=== PATIENT | female | born 1935 | race Caucasian/White ===

== ENCOUNTER → 2019-08-31 15:09 | Outpatient (CLI) | payer MEDICARE, OTHER, SELFPAY ==
--- NOTE | 2019-08-31 15:14 | BI_ITS ---
MAMMOGRAPHY - BILATERAL SCREENING REASON FOR EXAM: Female, 83 years old. Routine annual screening examination. PERTINENT HISTORY: History of bilateral excisional breast biopsies. TECHNIQUE: Digital bilateral breast kitty (3D mammographic acquisition) in the CC and MLO projections. 2-D mediolateral oblique (MLO) and craniocaudad (CC) views of both breasts were obtained. CAD: Full Field Digital Mammography with Computer Added Detection was performed. COMPARISON: Comparison is made with prior outside examination dated May 30, 2018 and April 27, 2016. FINDINGS: Breast Composition: There are scattered areas of fibroglandular density. There are no dominant masses or suspicious calcifications. There is a 1.2 cm x 1.2 cm well-defined nodule in the slightly inferior central portion of the left breast. Correlation with ultrasound is recommended for further evaluation. No other significant abnormalities are identified. BI/SCREEN MAMM (CAD) W/KITTY BILAT IMPRESSION: Nodular density in the left breast as described. Correlation with ultrasound is recommended for further evaluation. ASSESSMENT CATEGORY: BIRADS Category 0: Incomplete. Need additional imaging evaluation. A letter regarding these results will be sent to the patient by the facility within 30 days. Approximately 10% of breast cancers are not detected by mammography. A normal mammogram should not delay biopsy of a clinically suspicious abnormality. [id number] Electronically Signed: Fletcher Thompson, at 15:43 EDT , Service support ,
== END ==
PROVIDERS: Family Provider Family Medicine; PCP Family Medicine; Referring Provider Family Medicine; Visit Provider Family Medicine
DX: Z12.31 Encounter for screening mammogram for malignant neoplasm of breast (principal)
CPT/HCPCS: 77063; 77067

== ENCOUNTER → 2019-09-12 10:49 | Outpatient (CLI) | payer MEDICARE, OTHER, SELFPAY ==
--- NOTE | 2019-09-12 10:52 | US_ITS ---
STUDY: ULTRASOUND BREAST - LEFT REASON FOR EXAM: Female, 83 years old. Abnormal screening mammogram. TECHNIQUE: Axial and longitudinal images of the LEFT breast were performed with a high resolution ultrasound transducer. COMPARISON: Comparison made with prior mammogram dated August 31, 2019. FINDINGS: LEFT Breast: The mammographic abnormality corresponds to a 1.4 cm x 0.8 cm x 0.5 cm solid hypoechoic nodule at the 6:00 position of the breast at 2 cm from the nipple. Biopsy is recommended. US/Breast Limited Unilateral IMPRESSION: The mammographic abnormality corresponds to 1.4 cm x 0.8 cm x 0.5 cm solid hypoechoic nodule. Biopsy is recommended. ASSESSMENT CATEGORY: BIRADS Category 4: Suspicious - Biopsy Should Be Considered. A letter regarding these results will be sent to the patient by the facility within 30 days. Electronically Signed: Fletcher Thompson, at 8:11 EST , Service support ,
== END ==
PROVIDERS: Family Provider Family Medicine; PCP Family Medicine; Referring Provider Family Medicine; Visit Provider Family Medicine
DX: R92.8 Other abnormal and inconclusive findings on diagnostic imaging of breast (principal)
CPT/HCPCS: 76642

== ENCOUNTER 2020-11-04 09:07 | Inpatient (IN) | payer MEDICARE, OTHER, SELFPAY ==
[2020-11-04] VITALS (19 sets, daily range): BP systolic 105–134; BP diastolic 64–91; PULSE 84–161; RESP 11–21; TEMP 36–36.9; O2SAT 94–99; BMI 24.4; BMI 24.5
--- NOTE | 2020-11-04 09:19 | EKG12_ITS ---
Test Reason : REPEAT EKG Blood Pressure : / mmHG Vent. Rate : 077 BPM Atrial Rate : 077 BPM P-R Int : 000 ms QRS Dur : 102 ms QT Int : 394 ms P-R-T Axes : 000 -39 075 degrees QTc Int : 445 ms Atrial fibrillation Left axis deviation Inferior infarct , age undetermined Poor R wave progression Anterior SD, age undetermined, cannot be excluded Abnormal ECG Confirmed by GOSIA MCNEIL, BEATRIS ([id number]), newspaper editor managing CONCHA BRENNER ([id number]) on 11/05/2020 10:56:54 AM Referred By: KEMI Confirmed By:BEATRIS ELISE MD
--- NOTE | 2020-11-04 09:20 | ED.DCSUM_ITS ---
- ER Visit Summary Date of Service: 11/04/20 Chief Complaint: [Chest pain and racing heart] History of Present Illness: The patient is a 85 F [presents to the emergency department with symptoms that started last evening around 10:30 PM. Patient states that her chest discomfort lasted about an hour and was around her breastbone. Patient states she really had a hard time sleeping all night. She does feel like her heart is racing. She denies any shortness of breath or nausea or vomiting. She denies recent illness such as fever or cough. She is not had any exposures to COVID-19. Patient denies recent travel or surgery. Patient does have history of hypertension. Currently she has no chest pain.] Physical Examination: [HEENT-PERRLA, EOMI. Cranial nerves II through XII grossly intact. TMs clear. Mucous membranes moist. No adenopathy. Cardiovascular-irregularly irregular and tachycardic. No murmurs auscultated. Lungs-clear to auscultation, chest wall stable without crepitus or subcu emphysema Abdomen-normoactive bowel sounds, soft, nontender, no rebound or rigidity, no peritoneal signs. Extremities-intact ?4, normal range of motion, normal pulses, atraumatic] Test Results: [EKG obtained on arrival showed atrial fibrillation with a rapid ventricular response with a rate of [address] changes noted. Patient had subtle ST depression laterally. CBC with differential showed a white count 7.8, hemoglobin 13, hematocrit 40, plates 195. Chemistries unremarkable. Troponin was 0.137. Repeat EKG after patient was slow down with Cardizem showed a atrial fibrillation rhythm with a rate of 77 bpm and resolution of the ST depression laterally. Chest x-ray obtained read by myself as mild pulmonary congestion and borderline cardiomegaly otherwise nothing acute. Official report from radiology pending.] Emergency Department Course and Treatment: [IV line established on arrival. Patient placed on cardiac monitor technician. Patient given Cardizem 20 mg IV bolus. Patient given 4 baby aspirin. Patient was started on Lovenox 60 mg subcu.] Treatment Plan: [Admit for further treatment of her chest pain and atrial fibrillation] Disposition: [Admit] Impression: [Chest pain/non-ST elevation CT Atrial fibrillation with rapid ventricular response] This note was generated with [employer] software. It may contain incorrect words, spelling, and punctuation that were not noted in review of the chart prior to signing ED Disposition - Plan for ED Patient: Referrals: Thierry Swift MD [Primary Care Provider] -
[2020-11-04 09:25] LABS: Absolute Lymphocyte Count 2.32 X10^3/uL (0.83-4.51); Absolute Neutrophil Count 4.9 X10^3/uL (2.0-7.7); Basophil# 0.03 X10^3/uL; Basophil% 0.4 % (0-1); Eosinophil# 0.04 X10^3/uL; Eosinophils% 0.5 % (0-5); Hemoglobin 13.1 g/dL (12.0-15.0); Lymphocyte # 2.32 X10^3/ul (4.0); Lymphocyte % 29.7 % (19-41); Mean Corp Hgb Conc 32.8 g/dL (32-36); Mean Corpuscular Hgb 30.8 pg (27.0-32.0); Mean Corpuscular Volume 94.1 fL (81-99); Mean Platelet Vol. 10.6 fl (6.2-12.0); Monocyte# 0.54 X10^3/uL; Monocyte% 6.9 % (0-10); NRBC Flagged by Analyzer 0 % (0-5); Neutrophil # 4.86 X10^3/uL (2.7-7.7); Neutrophil % 62.1 % (47-70); Platelet Count 195 K/mm3 (150-450); RBC Distribution Width CV 12.6 % (11.6-14.6); RBC Distribution Width SD 43.6 fl (35.1-43.9); Red Blood Count 4.25 M/mm3 (4.2-5.4); White Blood Count 7.8 K/mm3 (4.4-11.0)
[2020-11-04] MEDS: dilTIAZem 25 MG/5 ML Vial 20 MG IV BOLUS (09:26)
[2020-11-04] MEDS: Aspirin 81 MG TAB.CHEW 324 MG PO (09:26)
[2020-11-04] MEDS: 0.9% Normal Saline 1,000 ML 150 ML IV (09:26)
[2020-11-04 09:42] LABS: Anion Gap 9 (5-15); BUN 16 mg/dL (7-18); BUN/Creat Ratio 16.3 RATIO (10-20); Calcium,Total 9.2 mg/dL (8.5-10.1); Chloride 103 mmol/L (98-107); Creatinine, Serum 0.98 mg/dL (0.55-1.02); EST Glomerular Filtration Rate 57 mL/min (>60); Est Glom Filt Rate - Afr Amer 69 mL/min (>60); Glucose 125 mg/dL (74-106); Potassium 3.5 mmol/L (3.5-5.1); Sodium Level 138 mmol/L (136-145)
--- NOTE | 2020-11-04 09:46 | EKG12_ITS ---
Test Reason : TACHY Blood Pressure : / mmHG Vent. Rate : 148 BPM Atrial Rate : 159 BPM P-R Int : 000 ms QRS Dur : 096 ms QT Int : 310 ms P-R-T Axes : 000 -41 116 degrees QTc Int : 486 ms Atrial fibrillation Left axis deviation Inferior infarct , age undetermined Anterior infarct , age undetermined , cannot be excluded ST & T wave abnormality, consider lateral ischemia Abnormal ECG Confirmed by GOSIA MCNEIL, BEATRIS ([id number]), content editor CONCHA BRENNER ([id number]) on 11/05/2020 10:57:22 AM Referred By: KEMI Confirmed By:BEATRIS ELISE MD
--- NOTE | 2020-11-04 09:50 | RAD_ITS ---
STUDY: X-RAY CHEST REASON FOR EXAM: Female, 85 years old. CHEST PAIN LAST NIGHT TECHNIQUE: Single AP portable view of the chest. COMPARISON: None. FINDINGS: Normal cardiac silhouette. Pulmonary vascularity unremarkable. Aorta calcified. COPD with atelectasis/scarring. No focal patchy airspace opacities. No pleural effusions. Upper abdomen unremarkable. Osseous structures demineralized with degenerative changes. No pneumothorax. RAD/Chest 1 View (Portable) IMPRESSION: No focal patchy airspace opacities or effusions COPD with atelectasis/scarring Electronically Signed: Manpreet Renner DO at 10:05 EST Tel , Service support ,
--- NOTE | 2020-11-04 09:50 | ED.RN ---
Spoke with pt's daughter and gave update. She is aware pt will be admitted.
[2020-11-04] MEDS: Enoxaparin 60 MG/0.6 ML Syringe SC ×2 (10:36→20:21)
[2020-11-04] MEDS: dilTIAZem 60 MG Tablet PO ×3 (10:36→17:36)
--- NOTE | 2020-11-04 11:05 | ECHOD_ITS ---
Reason For Study: AFIB/FLUTTER Procedure This was a 2D Doppler, Color Flow transthoracic echocardiogram. The exam was of adequate technical quality. Exam performed portable in patient room. Left Ventricle Normal LV size. Left ventricular systolic function is normal. The estimated ejection fraction is 65 %. Unable to assess diastolic dysfunction. No regional wall motion abnormalities noted. Right Ventricle Normal RV size. Normal systolic function. Atria The left atrium is moderately enlarged. Normal right atrium. Probable chiari network. No doppler evidence for ASD. Mitral Valve There is no mitral annular calcification. Mild focal mitral valve calcification, bileaflet. The mitral valve chordae are thickened and/or calcified. Mild mitral valve stenosis. Moderate (2+) eccentric mitral valve insufficiency. Tricuspid Valve Normal tricuspid valve. Moderate (2+) tricuspid valve insufficiency. Right ventricular systolic pressure estimated to be 31 mmHg. Aortic Valve Trisinus/trileaflet aortic valve. Moderate focal aortic valve calcification. Mild aortic stenosis. Pulmonic Valve The pulmonic valve is not well visualized. Mild (1+) pulmonic valve insufficiency. Great Vessels Normal sized aortic root. Calcified aortic root. Pericardium/Pleural No pericardial effusion. MMode/2D Measurements & Calculations LVIDd: 4.0 cm IVSd: 0.99 cm LVOT diam: 2.0 cm LVIDs: 2.7 cm LVPWd: 0.97 cm LVOT area: 3.1 cm2 RVDd: 2.5 cm FS: 33.2 % LAV(MOD-bp): 76.1 ml LA A4 area: 20.0 cm2 LA dimension(2D): 4.4 cm LAV(MOD-bp) Indexed: 49.8 ml/m2 LAV(MOD-sp2): 67.8 ml LAV(MOD-sp4): 67.0 ml RA A4 area: 10.6 cm2 Doppler Measurements & Calculations MV E max oliver: 170.1 cm/sec MV V2 max: 193.0 cm/sec Ao V2 max: 255.6 cm/sec MV max P.9 mmHg Ao max P.1 mmHg MV V2 mean: 97.2 cm/sec Ao V2 mean: 196.3 cm/sec MV mean P.0 mmHg Ao mean P.6 mmHg MV V2 VTI: 43.3 cm Ao V2 VTI: 50.4 cm MVA(VTI): 1.6 cm2 KUNAL(I,D): 1.4 cm2 KUNAL(V,D): 1.3 cm2 LV V1 max: 105.0 cm/sec SV(LVOT): 71.1 ml PA V2 max: 121.5 cm/sec LV V1 max P.4 mmHg LV V1 mean P.8 mmHg LV V1 mean: 79.7 cm/sec LV V1 VTI: 22.7 cm TR max oliver: 263.4 cm/sec TR max P.7 mmHg Interpretation Summary Left ventricular systolic function is normal. The estimated ejection fraction is 65 %. The left atrium is moderately enlarged. Probable chiari network. Mild focal mitral valve calcification, bileaflet. The mitral valve chordae are thickened and/or calcified. Mild mitral valve stenosis. Moderate (2+) eccentric mitral valve insufficiency. Moderate (2+) tricuspid valve insufficiency. Mild aortic stenosis. Mild (1+) pulmonic valve insufficiency. Calcified aortic root. Right ventricular systolic pressure estimated to be 31 mmHg. Unable to assess diastolic dysfunction. Ordering Physician: Jonah Golden Referring Physician: judy Swift Performed By: Nyla Gomez RDCS, RVT
[2020-11-04 11:45] LABS: Thyroid Stim Hormone (TSH) 1.19 uIU/mL (0.358-3.74)
--- NOTE | 2020-11-04 15:35 | CASEMGMT ---
Per Edith MENA, pt wanted to discuss her observation status at this time. This RN CM to room to speak with pt and pt is currently getting an ECHO at this time. This RN CM will attempt to speak with pt again tomorrow. Ceci MEAN CM
--- NOTE | 2020-11-04 19:00 | PCS.PANDOC ---
PANDEMIC DOCUMENTATION INITIATED: Date: 11/04/20 Time: 11:07
--- NOTE | 2020-11-04 19:22 | PCM.CONS.C ---
Problem List (1) NSTEMI (non-ST elevated myocardial infarction) Status: Acute (2) Atrial fibrillation Status: Acute (3) HTN (hypertension) Status: Chronic Reason for Consult Date of Consultation: 11/04/20 History of Present Illness: The patient is a 85 year old white female with a past medical history of hypertension who presents for evaluation of atrial fibrillation with RVR and subsequent laboratory findings concerning for a non-ST segment elevation IL. The patient states he had been evaluated by a cognos report developer in the remote past. She believes it may have been for a cardiac murmur. She believes she may have underwent an exercise tolerance test. She does not recall any additional studies. She also states at one point time the past she was treated for hyperlipidemia. She could not tolerate the lipid-lowering medication. It was stopped. She states her PCP has checked her lipid labs since that time and told her they were normal and she did not need medication. She states yesterday evening after attending a family birthday libertarian she returned home. She developed chest discomfort which she states was in the center of her chest and it heart . She readily admits she has a hard time describing her chest discomfort. She may have felt somewhat winded . She also felt her heart rate going fast. She rested on her sofa for period of time. She states she felt somewhat better after she was resting. She does not recall any nausea, emesis, or diaphoresis. She states she may have felt somewhat dizzy but did not lose consciousness. Today as her symptoms persisted she contacted her PCP which instructed her to present to the emergency department for further evaluation. She was evaluated in the emergency department. She was found to be in atrial fibrillation with RVR. She was treated medically with IV diltiazem in attempt to slow her rate. She was subsequently placed in the PCU. Her troponin I levels have been indeterminant and subsequently increased. Her ECG demonstrated the appearance of atrial fibrillation with left axis deviation with poor R wave progression with an anterior IL pattern of indeterminate age cannot be excluded and inferior IL pattern of indeterminate age cannot be excluded along with nonspecific ST and T wave abnormality. She underwent evaluation with a transthoracic echocardiogram. The results are as noted below. She was transitioned to oral diltiazem therapy. However her heart rate has increased again back to atrial fibrillation with RVR. She states she can sense her heart rate going faster again. She has not complained previously of orthopnea or PND. She states she has had minimal to mild waxing and waning lower extremity peripheral pitting edema after standing all day long. She has had no history of syncope. She states she remains otherwise active. She was referred for further cardiovascular evaluation including consideration for diagnostic cardiac catheterization. [] Past Medical History Allergies/Adverse Reactions: Allergies erythromycin base Allergy (Verified 11/04/20 09:08) Rash Penicillins Allergy (Verified 11/04/20 09:08) Hives Home Medications: Ambulatory Orders Medication Instructions Recorded Aspirin [Aspirin, Baby] 81 mg PO DAILY@0800 03/12/17 Fluticasone 0.05% [Flonase Nasal 2 spray NASAL DAILY PRN PRN 03/12/17 [place]] Glucosam/Reuben-Msm1/C/Aries/Bosw 2 each PO DAILY 03/12/17 [Osteo Bi-Flex Caplet] Losartan/Hydrochlorothiazide 1 each PO DAILY 03/12/17 [Losartan-Hctz 100-25 mg Tab] Multivit-Min/FA/Lycopen/Lutein 1 each PO DAILY 03/12/17 [Centrum Silver Tablet] Vitamin E 400 units PO DAILY 03/12/17 Famotidine 40 mg PO DAILY 11/04/20 Vitamin D3 1,000 units PO BID 11/04/20 Past Medical History (Chronic Problems): Chronic Problems HTN (hypertension) (Chronic) Smoking Status: Never smoker Alcohol: None Drugs: None Review of Systems - Review of Systems General: Denies: Fever, Night Sweats, Fatigue Cardiovascular: Reports: Chest Discomfort, Chest Discomfort at Rest, Shortness of Breath, Palpitations, Dizziness. Denies: Orthopnea, PND, Peripheral Edema, Lightheadedness, Near Syncope, Syncope Respiratory: Reports: Shortness of Breath. Denies: Cough, Sputum Production, Hemoptysis Gastrointestinal: Denies: Hematemesis, Hematochezia, Melena Genitourinary: Denies: Dysuria, Hematuria Skin: Denies: Rash Subjectve: This is a very pleasant awake alert active appearing 85-year-old white female who appears to be resting reasonably comfortably at the moment in no acute distress. Objective: Vital Signs Temp Pulse Resp BP Pulse Ox 98.4 F 120 H 18 118/70 96 11/04/20 17:30 11/04/20 17:30 11/04/20 17:30 11/04/20 17:30 11/04/20 17:30 Oxygen Delivery Method Room Air Weight: 125 lb 3.561 oz Body Mass Index (BMI) 24.4 Intake and Output for Last 24 Hours 11/02/20 11/03/20 11/04/20 23:59 23:59 23:59 Intake Total 1070 / 1070 Balance 1070 / 1070 General: Awake, Alert, Oriented x 3, Cooperative, No Acute Distress HEENT: Atraumatic, Normocephalic, PERRL, EOMI, Sclera Non Icteric Neck: Supple, Good ROM, No JVD Lungs: Clear to auscultation Cardiovascular: Irregular Rhythm, Normal S1, Normal S2 Murmur Murmur: Grade 2/6, Harsh, Mid Systolic, LLSB, LVOT Vascular: No Carotid Bruits Abdomen: Bowel Sounds Present, Soft Extremities: No edema Neurological: No Focal Motor or Sensory Deficit Psych/Mental Status: Appropriate 11/04/20 09:16: WBC 7.8, RBC 4.25, Hgb 13.1, Hct 40.0, MCV 94.1, MCH 30.8, MCHC 32.8, Plt Count 195, MPV 10.6, Immature Gran % (Auto) 0.400, Neut % (Auto) 62.1, Lymph % (Auto) 29.7, [place] % (Auto) 6.9, Eos % (Auto) 0.5, Baso % (Auto) 0.4, Absolute Neuts (auto) 4.9, Nucleated RBC % 0 11/04/20 09:16: Sodium 138, Potassium 3.5, Chloride 103, Carbon Dioxide 26.0, Anion Gap 9, BUN 16, Creatinine 0.98, Est GFR (MDRD) Af Amer 69, Est GFR (MDRD) Non-Af 57 L, BUN/Creatinine Ratio 16.3, Glucose 125 H, Calcium 9.2, Troponin I 0.137 H 11/04/20 12:25: Troponin I 0.209 H 11/04/20 15:11: Troponin I 0.227 H Rhythm: Atrial fibrillation EKG: As noted above ECHO: Interpretation Summary Left ventricular systolic function is normal. The estimated ejection fraction is 65 %. The left atrium is moderately enlarged. Probable chiari network. Mild focal mitral valve calcification, bileaflet. The mitral valve chordae are thickened and/or calcified. Mild mitral valve stenosis. Moderate (2+) eccentric mitral valve insufficiency. Moderate (2+) tricuspid valve insufficiency. Mild aortic stenosis. Mild (1+) pulmonic valve insufficiency. Calcified aortic root. Right ventricular systolic pressure estimated to be 31 mmHg. Unable to assess diastolic dysfunction. CXR: Preliminary evaluation: No acute cardiopulmonary disease process appreciated: Please see official report Assessment/Plan 1. Non-ST segment elevation IL The patient presents with findings concerning for a non-ST segment elevation IL. This is based upon a combination of her symptoms, her cardiac enzyme changes, and her ECG changes. It is unclear as to whether or not this is a primary type I event versus potentially a type II event from supply demand mismatch from her atrial fibrillation with RVR. At the present time she continues to be monitored. Her cardiac enzymes and ECG have been followed. She has undergone evaluation with transthoracic echocardiogram. At the present time she will continue medical therapy. This will include aspirin, antiplatelets, anticoagulants as deemed appropriate, beta-sonya therapy, further assessment of her lipid profile for the need for lipid-lowering therapy, and other medications as deemed appropriate. It would also include consideration for further evaluation with diagnostic cardiac catheterization. The procedure and risks were discussed with the patient with her daughter present. She was agreeable to this approach. 2. Atrial fibrillation with RVR She has documented atrial fibrillation with RVR. This may be secondary to combination of her age, history of hypertension, and whether or not she does have any underlying cardiovascular disease. She has not been known to have other etiologies too quickly explain her atrial fibrillation. At the moment she will continue rate control therapy. It may be reasonable to consider an attempt at antiarrhythmic therapy with IV amiodarone and attempt to regain rate control and regain sinus rhythm. She will need continue anticoagulant therapy and then around the time of her other procedures as deemed appropriate. 3. Hypertension She states she does have a history of hypertension. She will need to continue medical management. Comment: The above was discussed and reviewed with the patient, her daughter, and Dr. Golden. This note was generated using a voice recognition system and there may be incorrect words, spelling or punctuation that were not noted when reviewing the office note prior to saving. Procedure Criteria Procedure Type: Elective COVID Risk Discussion: The surgeon/proceduralist and patient have discussed in detail the risk of exposure to and/or potential harm posed by the COVID-19 virus with having a surgery/procedure at this time versus the risk of delaying the surgery/procedure. It is not possible to know either the risk of delaying the surgery or procedure or chance of getting an infection with perfect accuracy, but a joint decision was made between the patient and the surgeon/proceduralist to proceed at this time with the scheduled surgery/procedure as indicated on the consent form.
--- NOTE | 2020-11-04 20:06 | HP.PCM_ITS ---
History of Present Illness Date of Admission: 11/04/20 Chief Complaint: Chest pain The patient is a 85 year old F with a PMH as below who presents from home with chest pain and tachycardia. She states that last night her daughter dropped her off at home and as she was walking into her house she developed some chest pain and palpitations. She decided to sit on the couch and when that did not help her pain she moved to her bedroom and just laid in bed and after about an hour of laying there her chest pain resolved and her heart rate seemed to come down. She fell asleep and in the morning still felt a little bit off though she denied any further chest pain or palpitations and so she called her daughter who brought her into the ER. In the ER she was found to be in RVR with a heart rate of 160 and an elevated troponin to 0.137. Chest x-ray showed potential depressions in the lateral leads however as her heart rate came down with a Cardizem bolus in the ED the ST depressions resolved. Because of her new onset A. fib with RVR as well as her chest pain she was admitted for further work-up Past Medical History Past Medical History (Chronic Problems): Chronic Problems HTN (hypertension) (Chronic) Allergies erythromycin base Allergy (Verified 11/04/20 09:08) Rash Penicillins Allergy (Verified 11/04/20 09:08) Hives Home Medications: Ambulatory Orders Medication Instructions Recorded Aspirin [Aspirin, Baby] 81 mg PO DAILY@0800 03/12/17 Fluticasone 0.05% [Flonase Nasal 2 spray NASAL DAILY PRN PRN 03/12/17 [place]] Glucosam/Reuben-Msm1/C/Aries/Bosw 2 each PO DAILY 03/12/17 [Osteo Bi-Flex Caplet] Losartan/Hydrochlorothiazide 1 each PO DAILY 03/12/17 [Losartan-Hctz 100-25 mg Tab] Multivit-Min/FA/Lycopen/Lutein 1 each PO DAILY 03/12/17 [Centrum Silver Tablet] Vitamin E 400 units PO DAILY 03/12/17 Famotidine 40 mg PO DAILY 11/04/20 Vitamin D3 1,000 units PO BID 11/04/20 Surgical History: cholecystectomy, hysterectomy Smoking Status: Never smoker Alcohol: None Drugs: None - *Family History Maternal History Items: Stroke, - - Multiple myeloma Paternal History Items: Diabetes, Stroke Review of Systems Constitutional: Denies: Chills, Fever, Weight Change HEENT: Denies: Head Aches, Sinus Congestion, Sinus Drainage Cardiovascular: Reports: Chest Pain, Palpitations. Denies: Orthopnea, Syncope Respiratory: Denies: Cough, Shortness of breath at rest, Sputum production Gastrointestinal: Denies: Abdominal Pain, Nausea, Vomiting Genitourinary: Denies: Dysuria Musculoskeletal: Denies: Joint Pain, Joint Tenderness Skin: Denies: Rash, Wounds Neurological: Denies: Numbness, Tingling, Focal weakness Psychiatric: Denies: Anxiety, Depression Hematologic/ Lymphatic: Denies: Easy Bruising, Easy Bleeding VTE Information - Inpt Only VTE Present on Admission: No Patient Problems: Active and Suspected Problems NSTEMI (non-ST elevated myocardial infarction) (Acute) Atrial fibrillation (Acute) - Physical Exam Vitals/I&O's: Vital Signs Temp Pulse Resp BP Pulse Ox 98.4 F 120 H 18 118/70 96 11/04/20 17:30 11/04/20 17:30 11/04/20 17:30 11/04/20 17:30 11/04/20 17:30 Oxygen Delivery Method Room Air Weight: 125 lb 3.561 oz Body Mass Index (BMI) 24.4 Intake and Output for Last 24 Hours 11/02/20 11/03/20 11/04/20 23:59 23:59 23:59 Intake Total 1070 / 1070 Balance 1070 / 1070 General: Alert, Oriented x3, Cooperative, No apparent distress HEENT: Atraumatic, PERRLA, EOMI, Normocephalic Oral: Moist Mucosa Neck: Supple, No JVD Lungs: Clear to auscultation, Normal air movement, No rhonchi, No wheeze, No rales Cardiovascular: Regular rate - Irregular rhythm, Normal S1, Normal S2, Murmur - 2/6 MARIA DEL CARMEN Abdomen: Soft, Non Tender, Non-Distended, No Hepato-splenomegaly Extremities: No edema, Capillary Refill Less than 3 Seconds Skin: No rashes, No breakdown Neurological: Neuro grossly intact, Sensory exam intact to light touch and pain Psych/Mental Status: Normal Affect, Appropriate Laboratory Results 11/04/20 09:16: WBC 7.8, RBC 4.25, Hgb 13.1, Hct 40.0, MCV 94.1, MCH 30.8, MCHC 32.8, RDW Std Deviation 43.6, RDW Coeff of Grace 12.6, Plt Count 195, MPV 10.6, Immature Gran % (Auto) 0.400, Neut % (Auto) 62.1, Lymph % (Auto) 29.7, [place] % (Auto) 6.9, Eos % (Auto) 0.5, Baso % (Auto) 0.4, Absolute Neuts (auto) 4.9, Absolute Lymphs (auto) 2.32, Nucleated RBC % 0 11/04/20 09:16: Sodium 138, Potassium 3.5, Chloride 103, Carbon Dioxide 26.0, Anion Gap 9, BUN 16, Creatinine 0.98, Estim Creat Clear Calc 29.60, Est GFR (MDRD) Af Amer 69, Est GFR (MDRD) Non-Af 57 L, BUN/Creatinine Ratio 16.3, Glucose 125 H, Calcium 9.2, Troponin I 0.137 H 11/04/20 09:16: TSH 1.19 11/04/20 12:25: Troponin I 0.209 H 11/04/20 15:11: Troponin I 0.227 H Current Medications Acetaminophen (Acetaminophen 325 Mg Tablet) 650 mg PO Q6H PRN PRN PRN Reason: Pain Score 1-10/Temp > 100.7 F Clopidogrel Bisulfate (Clopidogrel Bisulfate 75 Mg Tablet) 75 mg PO DAILY MAIA Sodium Chloride () 250 mls @ 15 mls/hr IV .[id number] PRN PRN Reason: Saline Flush Sodium Chloride () 250 mls @ 15 mls/hr IV .[id number] PRN PRN Reason: Additional IVPB Infusion Amiodarone HCl 360 mg/ (Dextrose) 200 mls @ 33.333 mls/hr CONT INF .Q6H MAIA Stop: 11/05/20 01:44 Sodium Chloride () 1,000 mls @ 0 mls/hr IV .Q0M MAIA Amiodarone HCl 360 mg/ (Dextrose) 200 mls @ 16.667 mls/hr CONT INF .Q12H [facility] Stop: 11/05/20 19:44 Melatonin (Melatonin 3 Mg Tablet) 3 mg PO QHS PRN PRN PRN Reason: INSOMNIA Metoprolol Tartrate (Metoprolol Tartrate 25 Mg Tablet) 25 mg PO BID [facility]IA Ondansetron HCl (Ondansetron 4 Mg/2 Ml Vial) 4 mg IV Q8H PRN PRN PRN Reason: NAUSEA/VOMITING Sodium Chloride (0.9% Saline Lock 10 Ml Syringe) 10 - 40 ml IV UD PRN PRN Reason: SALINE FLUSH Assessment/Plan All Active Problems NSTEMI (non-ST elevated myocardial infarction) (Acute) Atrial fibrillation (Acute) 1. Chest pain/non-STEMI/new onset A. fib with RVR/HTN -Initially her A. fib resolved with the Cardizem bolus and so she was transitioned to 60 mg p.o. every 6 of Cardizem however later in the evening her RVR returned and cardiology had seen her and recommended transitioning her to amiodarone to try to return her into normal sinus rhythm -She was also transitioned to metoprolol 25 mg p.o. twice daily -She also be placed on Plavix -We will continue with therapeutic Lovenox, given her age and gender she is at least 3 points on the [id number] score therefore she will plan to discharge her on 2.5 mg of p.o. Eliquis -Appreciate cardiology assistance, plan for cardiac cath in the morning given the bump in her troponin secondary to her inherent stress test with her A. fib with RVR -We will hold her home losartan and hydrochlorothiazide as will likely make changes to her medications 2. GERD -Stable -Continue with H2 sonya DVT: Therapeutic Lovenox OBSV E&M: [id number] Initial observation care L3
[2020-11-04] MEDS: Amiodarone 360 MG in Dextrose 5% Viaflo Bag 192.8 ML 33.3 MG CONT INF (20:15)
[2020-11-04] MEDS: Clopidogrel Bisulfate 300 MG Tablet PO (20:20)
[2020-11-04] MEDS: Metoprolol Tartrate 25 MG Tablet PO (22:07)
[2020-11-05] VITALS (28 sets, daily range): BP systolic 113–168; BP diastolic 66–100; PULSE 59–104; RESP 9–22; TEMP 36.3–36.8; O2SAT 93–99
[2020-11-05] MEDS: Amiodarone 360 MG in Dextrose 5% Viaflo Bag 192.8 ML 16.7 MG CONT INF (02:16)
--- NOTE | 2020-11-05 05:55 | EKG12_ITS ---
Test Reason : AM EKG Blood Pressure : / mmHG Vent. Rate : 067 BPM Atrial Rate : 067 BPM P-R Int : 150 ms QRS Dur : 114 ms QT Int : 432 ms P-R-T Axes : 059 -42 073 degrees QTc Int : 456 ms Normal sinus rhythm Left axis deviation [id number] Abnormal ECG Confirmed by GOSIA MCNEIL, BEATRIS ([id number]), editor newspaper SRAVANTHI OLIVAREZ ([id number]) on 11/06/2020 9:03:22 AM Referred By: DR ANN Confirmed By:BEATRIS ELISE MD
[2020-11-05] MEDS: Metoprolol Tartrate 25 MG Tablet PO ×2 (06:03→20:59)
[2020-11-05] MEDS: Clopidogrel Bisulfate 75 MG Tablet PO (06:03)
[2020-11-05 06:04] LABS: Absolute Lymphocyte Count 2.34 X10^3/uL (0.83-4.51); Absolute Neutrophil Count 4.4 X10^3/uL (2.0-7.7); Basophil# 0.05 X10^3/uL; Basophil% 0.7 % (0-1); Eosinophil# 0.16 X10^3/uL; Eosinophils% 2.2 % (0-5); Hematocrit 38.6 % (37-47); Hemoglobin 12.7 g/dL (12.0-15.0); Lymphocyte # 2.34 X10^3/ul (4.0); Lymphocyte % 31.6 % (19-41); Mean Corp Hgb Conc 32.9 g/dL (32-36); Mean Corpuscular Hgb 30.4 pg (27.0-32.0); Mean Corpuscular Volume 92.3 fL (81-99); Mean Platelet Vol. 10.9 fl (6.2-12.0); Monocyte# 0.39 X10^3/uL; Monocyte% 5.3 % (0-10); NRBC Flagged by Analyzer 0 % (0-5); Neutrophil # 4.44 X10^3/uL (2.7-7.7); Neutrophil % 59.9 % (47-70); Platelet Count 165 K/mm3 (150-450); RBC Distribution Width CV 12.7 % (11.6-14.6); RBC Distribution Width SD 43.3 fl (35.1-43.9); Red Blood Count 4.18 M/mm3 (4.2-5.4); White Blood Count 7.4 K/mm3 (4.4-11.0)
[2020-11-05 06:44] LABS: AST(SGOT) 19 U/L (15-37); Alanine Aminotransfer ALT/SGPT 21 U/L (13-56); Albumin, Serum 3.6 g/dL (3.2-5.0); Alkaline Phosphatase 65 U/L (45-117); Anion Gap 7 (5-15); BUN 18 mg/dL (7-18); BUN/Creat Ratio 18.9 RATIO (10-20); Bilirubin, Direct 0.15 mg/dL (0.00-0.30); Calcium,Total 9.1 mg/dL (8.5-10.1); Chloride 110 mmol/L (98-107); Cholesterol 188 mg/dL (200); Creatinine, Serum 0.95 mg/dL (0.55-1.02); EST Glomerular Filtration Rate 59 mL/min (>60); Est Glom Filt Rate - Afr Amer 72 mL/min (>60); Estimated Creatinine Clearance 30.53 ml/min; Globulin 3.2 g/dL (2.2-4.2); Glucose 108 mg/dL (74-106); High Density Lipoprotein 67 mg/dL; Potassium 3.8 mmol/L (3.5-5.1); Protein, Total 6.8 g/dL (6.4-8.2); Sodium Level 140 mmol/L (136-145); Triglycerides 160 mg/dL; Very Low Density Lipoprotein 32 mg/dL (5-40)
[2020-11-05] MEDS: Aspirin 81 MG TAB.CHEW PO (07:15)
--- NOTE | 2020-11-05 09:15 | PN.CARD_ITS ---
Subjectve: The patient is status post diagnostic cardiac catheterization. She does not appear to have any new acute complaints. Objective: Vital Signs Temp Pulse Resp BP Pulse Ox 97.3 F L 69 17 144/72 H 95 11/05/20 05:00 11/05/20 07:00 11/05/20 07:00 11/05/20 07:00 11/05/20 07:00 Oxygen Delivery Method Room Air Weight: 125 lb 3.561 oz Body Mass Index (BMI) 24.4 Intake and Output for Last 24 Hours 11/03/20 11/04/20 11/05/20 23:59 23:59 23:59 Intake Total 1504.59 / 1537.89 247.46 / 247.46 Balance 1504.59 / 1537.89 247.46 / 247.46 General: Awake, Alert, Oriented x 3, Cooperative, No Acute Distress HEENT: Atraumatic, Normocephalic, PERRL, EOMI, Sclera Non Icteric Neck: Supple, Good ROM, No JVD Lungs: Clear to auscultation Cardiovascular: Regular Rhythm, Normal S1, Normal S2 Murmur Murmur: Grade 2/6, Harsh, Mid Systolic, LLSB, LVOT Vascular: Normal Radial Pulses Abdomen: Bowel Sounds Present, Soft Extremities: No edema Neurological: No Focal Motor or Sensory Deficit Psych/Mental Status: Appropriate 11/04/20 09:16: WBC 7.8, RBC 4.25, Hgb 13.1, Hct 40.0, MCV 94.1, MCH 30.8, MCHC 32.8, Plt Count 195, MPV 10.6, Immature Gran % (Auto) 0.400, Neut % (Auto) 62.1, Lymph % (Auto) 29.7, [place] % (Auto) 6.9, Eos % (Auto) 0.5, Baso % (Auto) 0.4, Absolute Neuts (auto) 4.9, Nucleated RBC % 0 11/04/20 09:16: Sodium 138, Potassium 3.5, Chloride 103, Carbon Dioxide 26.0, Anion Gap 9, BUN 16, Creatinine 0.98, Est GFR (MDRD) Af Amer 69, Est GFR (MDRD) Non-Af 57 L, BUN/Creatinine Ratio 16.3, Glucose 125 H, Calcium 9.2, Troponin I 0.137 H 11/04/20 12:25: Troponin I 0.209 H 11/04/20 15:11: Troponin I 0.227 H 11/05/20 05:43: WBC 7.4, RBC 4.18 L, Hgb 12.7, Hct 38.6, MCV 92.3, MCH 30.4, MCHC 32.9, Plt Count 165, MPV 10.9, Immature Gran % (Auto) 0.300, Neut % (Auto) 59.9, Lymph % (Auto) 31.6, [place] % (Auto) 5.3, Eos % (Auto) 2.2, Baso % (Auto) 0.7, Absolute Neuts (auto) 4.4, Nucleated RBC % 0 11/05/20 05:43: Sodium 140, Potassium 3.8, Chloride 110 H, Carbon Dioxide 23.0, Anion Gap 7, BUN 18, Creatinine 0.95, Est GFR (MDRD) Af Amer 72, Est GFR (MDRD) Non-Af 59 L, BUN/Creatinine Ratio 18.9, Glucose 108 H, Calcium 9.1, Total Bilirubin 0.60, Direct Bilirubin 0.15, Troponin I 0.188 H, Triglycerides 160, Cholesterol 188, LDL Cholesterol 89, VLDL Cholesterol 32, HDL Cholesterol 67 Rhythm: Sinus rhythm Cardiac Cath: CONCLUSIONS [place] Multivessel CAD RECOMMENDATIONS Risk factor modification Medical therapy Tertiary Care Center: Heart Team evaluation for consideration for multivessel PCI vs. CABG Case discussed and reviewed with Dr. Camara of interventional cardiology DESCRIPTION OF PROCEDURE The patient arrived to the procedure lab. The risks and benefits of the procedure as well as a full description of our services here and current unavailability of surgical backup were fully explained to the patient and/or their significant other prior to the catheterization. The Timeout was completed, verifying the correct patient and procedure. The patient's procedural site was prepped and draped in the usual fashion. Local anesthetic was given subcutaneously to right radial region with Lidocaine 2%. Using a modified Seldinger technique, arterial access was obtained via the right radial artery, a 6Fr sheath was inserted. Right Coronary Artery selective angiography was then performed in multiple views using a 5 Fr. 4.0 [place] catheter. Left Coronary Artery selective angiography was performed in multiple views using a 5 Fr. fL3.5 catheter.The arterial sheath was pulled and a TR Band was applied for hemostasis 19cc air CORONARY ANGIOGRAPHY DOMINANCE: Right Dominant LEFT HEART ASSESSMENT Left Ventricular Ejection Fraction: Not assessed LEFT MAIN: Angiographically normal LEFT ANTERIOR DESCENDING ARTERY: Mild luminal irregularities PROX LAD: Moderate calcification, diffuse: eccentric: 25 % Stenosis MID LAD: hazy: 75 % Stenosis DIAGONAL 1: Proximal - irregular: 50 - 75 % Stenosis CIRCUMFLEX ARTERY: Mild luminal irregularities OM 1: Proximal - eccentric: 10 - 25 % Stenosis RIGHT CORONARY ARTERY: Mild luminal irregularities DISTAL RCA: 85 % Stenosis Medical Necessity - Tobacco Use Smoking Status: Never smoker Assessment/Plan 1. Non-ST segment elevation KS The patient presents with findings concerning for a non-ST segment elevation KS. This is based upon a combination of her symptoms, her cardiac enzyme changes, and her ECG changes. There is concerned this may be a type II event secondary to supply demand mismatch brought out by her atrial fibrillation with RVR superimposed upon underlying CAD. 2. CAD She did undergo diagnostic cardiac catheterization. She does have underlying C AD especially involving the LAD diagonal branch system and the distal RCA system. Her case was reviewed with interventional cardiology. At the present time the consensus is to proceed with medical management and have her cardiac catheterization films reviewed at a tertiary care center for consideration for coronary artery PCI which may include atherectomy/Rotablator of the LAD system- based upon calcification-versus consideration for CABG. In the interim she will continue medical therapy. 3. Atrial fibrillation with RVR She has converted to sinus rhythm. At the present time she will continue medical therapy which will include rate control therapy, antiarrhythmic therapy, and the addition of anticoagulant therapy as deemed appropriate. 4. Hypertension She states she does have a history of hypertension. She will restart antihypertensive medical therapy in the hopes of improving her overall cardiovascular risk factors. Comment: The above was discussed and reviewed with the patient, her daughter, and Dr. Golden. This note was generated using a voice recognition system and there may be incorrect words, spelling or punctuation that were not noted when reviewing the office note prior to saving.
--- NOTE | 2020-11-05 09:29 | CL.D_ITS ---
Patient Name: BRYANNA CARRILLO Study Date: 11/05/2020 Performing: Bigg Fortune MD Ht: 60 inches 152 cm : 1935 Wt: 125.8 lbs 57 kg Age: 85 Gender: female BSA: 1.53 PROCEDURE(S) PERFORMED [facility] CLINICAL PROFILE AND INDICATIONS Indications: New Onset Angina <= 2 months, Cardiac Arrythmia, Suspected CAD, Valvular Disease Heart Failure: None Stress/Imaging Stress/Image Study Performed: No Angina Classification Anginal Classification w/in 2 Weeks: CCS III CAD Presentations: Non-STEMI. CONCLUSIONS [place] Multivessel CAD RECOMMENDATIONS Risk factor modification Medical therapy Tertiary Care Center: Heart Team evaluation for consideration for multivessel PCI vs. CABG Case discussed and reviewed with Dr. Camara of interventional cardiology DESCRIPTION OF PROCEDURE The patient arrived to the procedure lab. The risks and benefits of the procedure as well as a full d escription of our services here and current unavailability of surgical backup were fully explained to the patient and/or their significant other prior to the catheterization. The Timeout was completed, verifying the correct patient and procedure. The patient's procedural site was prepped and draped in the usual fashion. Local anesthetic was given subcutaneously to right radial region with Lidocaine 2% . Using a modified Seldinger technique, arterial access was obtained via the right radial artery, a 6 Fr sheath was inserted. Right Coronary Artery selective angiography was then performed in multiple v iews using a 5 Fr. 4.0 [place] catheter. Left Coronary Artery selective angiography was performed in mu ltiple views using a 5 Fr. fL3.5 catheter.The arterial sheath was pulled and a TR Band was applied fo r hemostasis 19cc air CORONARY ANGIOGRAPHY DOMINANCE: Right Dominant LEFT HEART ASSESSMENT Left Ventricular Ejection Fraction: Not assessed LEFT MAIN: Angiographically normal LEFT ANTERIOR DESCENDING ARTERY: Mild luminal irregularities PROX LAD: Moderate calcification, diffuse: eccentric: 25 % Stenosis MID LAD: hazy: 75 % Stenosis DIAGONAL 1: Proximal - irregular: 50 - 75 % Stenosis CIRCUMFLEX ARTERY: Mild luminal irregularities OM 1: Proximal - eccentric: 10 - 25 % Stenosis RIGHT CORONARY ARTERY: Mild luminal irregularities DISTAL RCA: 85 % Stenosis COMPLICATIONS No Complications PROCEDURE MEDICATIONS Versed .5 mg IV Fentanyl 25 mcg IV Versed 0.5 mg IV Fentanyl 25 mcg IV Oxygen: 2 L/min via nasal cannula Heparin diluted in 23cc Heparinized saline. Patient given 10cc IA of this solution. 11/05/2020 08:04 :46 Verapamil 2.5mg, Ntg 100mcgs, 2000 units of Heparin diluted in 23cc Heparinized saline. Patient give n 10cc IA of this solution. 11/05/2020 08:04:46 SUMMARY OF HEMODYNAMIC DATA Time AIR REST ECG 07:35:46 AO 118/69 (93) SA 08:09:33 Signed By Bigg Fortune MD On 11/05/2020 09:28:33 Bigg Fortune MD
[2020-11-05] MEDS: Losartan Potassium 100 MG Tablet PO (10:40)
[2020-11-05] MEDS: hydroCHLOROthiazide 25 MG Tablet PO (10:40)
[2020-11-05] MEDS: Amiodarone 200 MG Tablet PO ×2 (11:46→16:25)
--- NOTE | 2020-11-05 12:50 | CASEMGMT ---
TRINA MURILLO assessment: Face to Face with patient for initial transition planning/care coordination assessment. TRINA MURILLO introduced self and role at [facility], pt voices understanding and consents to assessment at this time. Pt is sitting up in chair in no distress at this time. Pt is A/Ox4 at this time and answers all questions appropriately at this time. Pt's daughter is at bedside during assessment. Care providers, pharmacy, and demographics verified at this time. Presentation: Pt has chest pain last pm for an hour, none this am Admitting dx: New Afib RVR PCP: [facility] Specialists: PAPO Jacobson Preferred Pharmacy: [facility]/mail order Insurance: [employer] A/B, [employer] Prescription Benefit: [employer] Living Will/HPOA: Pt states has LW/HPOA and daughter states she will bring a copy in. Pt states her daughter, Codi Yan, is HPOA. LNOK: Codi Yan, daughter/HPOA; Crystal Gan, daughter Living Arrangements: Pt states lives alone in 1 story home with flight of stairs to basement and states no concerns at home at this time. Pt states is independent with ADL's. Transportation: Pt states drives self and states no transportation concerns at this time. DME/HHC: Pt states does not have any current DME or need for any at this time. Pt states no hx of HHC or SNF in the past. Pt states no concerns with going home at time of discharge. Pt states is retired. Pt states does not smoke cigarettes but does drink ETOH occasionally. Pt states no further concerns/needs at this time. CM to follow for any further discharge planning/needs. Advised pt to ask for CM if any further questions/concerns/needs arise, voices understanding. Pt Goal: Home Plan: [place] TRINA MURILLO
--- NOTE | 2020-11-05 13:37 | PN_ITS ---
Patient Problems: Active and Suspected Problems NSTEMI (non-ST elevated myocardial infarction) (Acute) Atrial fibrillation (Acute) Subjective: Had a cardiac cath today. She was seen after and was still a little bit groggy from anesthesia though she felt well. I discussed with her the results of the cardiac cath as well as with her daughter Vitals/I&O's: Vital Signs Temp Pulse Resp BP Pulse Ox 98.1 F 70 18 163/80 H 98 11/05/20 11:00 11/05/20 13:00 11/05/20 13:00 11/05/20 13:00 11/05/20 13:00 Oxygen Delivery Method Room Air Weight: 125 lb 3.561 oz Body Mass Index (BMI) 24.4 Intake and Output for Last 24 Hours 11/03/20 11/04/20 11/05/20 23:59 23:59 23:59 Intake Total 1504.59 / 1537.89 467.67 / 467.67 Balance 1504.59 / 1537.89 467.67 / 467.67 General: Alert, Oriented x3, Cooperative, No apparent distress HEENT: Atraumatic, PERRLA, EOMI, Normocephalic Oral: Moist Mucosa Neck: Supple, No JVD Lungs: Clear to auscultation, Normal air movement, No rhonchi, No wheeze, No rales Cardiovascular: Regular rate and rhythm, Normal S1, Normal S2, Murmur - 2/6 MARIA DEL CARMEN Abdomen: Soft, Non Tender, Non-Distended, No Hepato-splenomegaly Extremities: No edema, Capillary Refill Less than 3 Seconds Skin: No rashes, No breakdown Neurological: Neuro grossly intact, Sensory exam intact to light touch and pain Psych/Mental Status: Normal Affect, Appropriate Laboratory Results 11/04/20 15:11: Troponin I 0.227 H 11/05/20 05:43: WBC 7.4, RBC 4.18 L, Hgb 12.7, Hct 38.6, MCV 92.3, MCH 30.4, MCHC 32.9, RDW Std Deviation 43.3, RDW Coeff of Grace 12.7, Plt Count 165, MPV 10.9, Immature Gran % (Auto) 0.300, Neut % (Auto) 59.9, Lymph % (Auto) 31.6, [place] % (Auto) 5.3, Eos % (Auto) 2.2, Baso % (Auto) 0.7, Absolute Neuts (auto) 4.4, Absolute Lymphs (auto) 2.34, Nucleated RBC % 0 11/05/20 05:43: Sodium 140, Potassium 3.8, Chloride 110 H, Carbon Dioxide 23.0, Anion Gap 7, BUN 18, Creatinine 0.95, Estim Creat Clear Calc 30.53, Est GFR (MDRD) Af Amer 72, Est GFR (MDRD) Non-Af 59 L, BUN/Creatinine Ratio 18.9, Glucose 108 H, Calcium 9.1, Total Bilirubin 0.60, Direct Bilirubin 0.15, AST 19, ALT 21, Alkaline Phosphatase 65, Troponin I 0.188 H, Total Protein 6.8, Albumin 3.6, Globulin 3.2, Triglycerides 160, Cholesterol 188, LDL Cholesterol 89, VLDL Cholesterol 32, HDL Cholesterol 67 Current Medications Acetaminophen (Acetaminophen 325 Mg Tablet) 650 mg PO Q6H PRN PRN PRN Reason: Pain Score 1-10/Temp > 100.7 F Amiodarone HCl (Amiodarone 200 Mg Tablet) 200 mg PO TIDCM [facility] Stop: 11/10/20 17:01 Last Admin: 11/05/20 11:46 Dose: 200 mg Documented by: Amiodarone HCl (Amiodarone 200 Mg Tablet) [facility] Stop: 11/24/20 17:01 Amiodarone HCl (Amiodarone 200 Mg Tablet) 200 [facility] Apixaban (Apixaban 2.5 Mg Tablet) 2.5 mg PO BID [facility] Aspirin (Aspirin 81 Mg Tab.Chew) 81 mg PO DAILY@0800 [facility] Last Admin: 11/05/20 07:15 Dose: 81 mg Documented by: Hydrochlorothiazide (Hydrochlorothiazide 25 Mg Tablet) 25 mg PO DAILY [facility] Last Admin: 11/05/20 10:40 Dose: 25 mg Documented by: Sodium Chloride () 250 mls @ 15 mls/hr IV .[id number] PRN PRN Reason: Saline Flush Sodium Chloride () 250 mls @ 15 mls/hr IV .[id number] PRN PRN Reason: Additional IVPB Infusion Sodium Chloride () 1,000 mls @ 0 mls/hr IV .Q0M [facility] Amiodarone HCl 360 mg/ (Dextrose) 200 mls @ 16.667 mls/hr CONT INF .Q12H [facility] Stop: 11/05/20 20:14 Last Infusion: 11/05/20 13:00 Dose: 0.5 mg/min, 16.7 mls/hr Documented by: Sodium Chloride () 300 mls @ 75 mls/hr IV .Q4H [facility] Last Admin: 11/05/20 09:40 Dose: Not Given Documented by: Losartan Potassium (Losartan Potassium 100 Mg Tablet) 100 mg PO DAILY [facility] Last Admin: 11/05/20 10:40 Dose: 100 mg Documented by: Melatonin (Melatonin 3 Mg Tablet) 3 mg PO QHS PRN PRN PRN Reason: INSOMNIA Metoprolol Tartrate (Metoprolol Tartrate 25 Mg Tablet) 25 mg PO BID [facility] Last Admin: 11/05/20 06:03 Dose: 25 mg Documented by: Ondansetron HCl (Ondansetron 4 Mg/2 Ml Vial) 4 mg IV Q8H PRN PRN PRN Reason: NAUSEA/VOMITING Sodium Chloride (0.9% Saline Lock 10 Ml Syringe) 10 - 40 ml IV UD PRN PRN Reason: SALINE FLUSH STROKE Vital Signs/Narrative: Vital Signs Temp Pulse Resp BP Pulse Ox 11/05/20 13:00 70 18 163/80 H 98 11/05/20 12:00 64 13 168/82 H 99 11/05/20 11:00 98.1 F 63 19 H 159/88 H 96 11/05/20 10:59 64 11/05/20 10:30 11 L 162/81 H 97 11/05/20 10:00 60 9 L 155/81 H 97 11/05/20 09:45 61 14 156/80 H 98 Medical Necessity - Tobacco Use Smoking Status: Never smoker Assessment/Plan All Active Problems NSTEMI (non-ST elevated myocardial infarction) (Acute) Atrial fibrillation (Acute) 1. Chest pain/non-STEMI/new onset A. fib with RVR/HTN -Initially her A. fib resolved with the Cardizem bolus and so she was transitioned to 60 mg p.o. every 6 of Cardizem however later in the evening her RVR returned and cardiology had seen her and recommended transitioning her to amiodarone, she is currently sinus rhythm therefore we will continue with the amiodarone -She was also transitioned to metoprolol 25 mg p.o. twice daily -Plavix was discontinued since she did not need a stent today. -We will continue with therapeutic Lovenox, given her age and gender she is at least 3 points on the [id number] score therefore she will plan to discharge her on 2.5 mg of p.o. Eliquis -We will continue to monitor her for 1 more day and then make sure the medication changes we make are tolerable and then she will need to follow-up at a tertiary care center for further evaluation of her RCA and LAD lesions -We can resume her home losartan and hydrochlorothiazide. 2. GERD -Stable -Continue with H2 sonya DVT: Andreina Inpatient E&M: [id number] Subs Hosp L2
[2020-11-05] MEDS: 0.9% Saline Lock 10 ML Syringe IV (15:00)
[2020-11-05] MEDS: APIXABAN 2.5 MG TABLET PO (20:59)
[2020-11-06 03:00] VITALS: PULSE 63
[2020-11-06 03:15] VITALS: BP 144/75; PULSE 64; RESP 16; TEMP 36.9; O2SAT 94
[2020-11-06 05:36] LABS: Absolute Lymphocyte Count 1.55 X10^3/uL (0.83-4.51); Absolute Neutrophil Count 3.2 X10^3/uL (2.0-7.7); Basophil# 0.03 X10^3/uL; Basophil% 0.6 % (0-1); Eosinophil# 0.12 X10^3/uL; Eosinophils% 2.3 % (0-5); Hematocrit 35.9 % (37-47); Hemoglobin 11.7 g/dL (12.0-15.0); Lymphocyte # 1.55 X10^3/ul (4.0); Lymphocyte % 29.6 % (19-41); Mean Corp Hgb Conc 32.6 g/dL (32-36); Mean Corpuscular Hgb 30.4 pg (27.0-32.0); Mean Corpuscular Volume 93.2 fL (81-99); Mean Platelet Vol. 10.6 fl (6.2-12.0); Monocyte# 0.34 X10^3/uL; Monocyte% 6.5 % (0-10); NRBC Flagged by Analyzer 0 % (0-5); Neutrophil # 3.18 X10^3/uL (2.7-7.7); Neutrophil % 60.8 % (47-70); Platelet Count 148 K/mm3 (150-450); RBC Distribution Width CV 12.6 % (11.6-14.6); RBC Distribution Width SD 43.3 fl (35.1-43.9); Red Blood Count 3.85 M/mm3 (4.2-5.4); White Blood Count 5.2 K/mm3 (4.4-11.0)
[2020-11-06 05:52] LABS: Anion Gap 7 (5-15); BUN 17 mg/dL (7-18); Chloride 107 mmol/L (98-107); Creatinine, Serum 1.13 mg/dL (0.55-1.02); EST Glomerular Filtration Rate 49 mL/min (>60); Est Glom Filt Rate - Afr Amer 59 mL/min (>60); Estimated Creatinine Clearance 25.67 ml/min; Glucose 136 mg/dL (74-106); Potassium 3.8 mmol/L (3.5-5.1); Sodium Level 139 mmol/L (136-145)
--- NOTE | 2020-11-06 05:55 | EKG12_ITS ---
Test Reason : AM EKG Blood Pressure : / mmHG Vent. Rate : 070 BPM Atrial Rate : 070 BPM P-R Int : 158 ms QRS Dur : 102 ms QT Int : 440 ms P-R-T Axes : 044 -40 044 degrees QTc Int : 475 ms Normal sinus rhythm Left axis deviation Abnormal ECG When compared with ECG of 05-NOV-2020 03:35, MANUAL COMPARISON REQUIRED, DATA IS UNCONFIRMED Confirmed by SHABBIR MCNEIL, LONG ([id number]), school photograph editor CONCHA BRENNER ([id number]) on 11/13/2020 12:00:15 PM Referred By: SETH Confirmed By:PARKER SHEA MD
[2020-11-06 07:00] VITALS: PULSE 64
[2020-11-06 08:46] VITALS: BP 161/87; PULSE 75; RESP 16; TEMP 37.2; O2SAT 96
[2020-11-06 08:50] VITALS: PULSE 75
[2020-11-06] MEDS: Losartan Potassium 100 MG Tablet PO (08:50)
[2020-11-06] MEDS: Metoprolol Tartrate 25 MG Tablet PO (08:50)
[2020-11-06] MEDS: Aspirin 81 MG TAB.CHEW PO (08:50)
[2020-11-06] MEDS: hydroCHLOROthiazide 25 MG Tablet PO (08:50)
[2020-11-06] MEDS: APIXABAN 2.5 MG TABLET PO (08:50)
[2020-11-06] MEDS: Amiodarone 200 MG Tablet PO (08:50)
--- NOTE | 2020-11-06 09:28 | PN.CARD_ITS ---
Subjectve: Patient is awake and alert. She denies any ongoing chest discomfort, difficulty breathing, or palpitations. Objective: Vital Signs Temp Pulse Resp BP Pulse Ox 98.9 F 75 16 161/87 H 96 11/06/20 08:46 11/06/20 08:50 11/06/20 08:46 11/06/20 08:46 11/06/20 08:46 Oxygen Delivery Method Room Air Weight: 125 lb 3.561 oz Body Mass Index (BMI) 24.4 Intake and Output for Last 24 Hours 11/04/20 11/05/20 11/06/20 23:59 23:59 23:59 Intake Total 1504.59 / 1537.89 728.41 / 848.41 120 / 120 Balance 1504.59 / 1537.89 728.41 / 848.41 120 / 120 General: Awake, Alert, Oriented x 3, Cooperative, No Acute Distress HEENT: Atraumatic, Normocephalic, PERRL, EOMI, Sclera Non Icteric Neck: Supple, Good ROM, No JVD Lungs: Clear to auscultation Cardiovascular: Regular Rhythm, Normal S1, Normal S2 Vascular: Normal Radial Pulses Abdomen: Bowel Sounds Present, Soft Extremities: No edema Neurological: No Focal Motor or Sensory Deficit Psych/Mental Status: Appropriate 11/06/20 05:30: WBC 5.2, RBC 3.85 L, Hgb 11.7 L, Hct 35.9 L, MCV 93.2, MCH 30.4, MCHC 32.6, Plt Count 148 L, MPV 10.6, Immature Gran % (Auto) 0.200, Neut % (Auto) 60.8, Lymph % (Auto) 29.6, [place] % (Auto) 6.5, Eos % (Auto) 2.3, Baso % (Auto) 0.6, Absolute Neuts (auto) 3.2, Nucleated RBC % 0 11/06/20 05:30: Sodium 139, Potassium 3.8, Chloride 107, Carbon Dioxide 25.0, Anion Gap 7, BUN 17, Creatinine 1.13 H, Est GFR (MDRD) Af Amer 59 L, Est GFR (MDRD) Non-Af 49 L, BUN/Creatinine Ratio 15.0, Glucose 136 H, Calcium 9.0 Rhythm: Sinus rhythm; one 5 beat episode of a somewhat irregular wide-complex tachycardia potentially compatible with aberrancy Medical Necessity - Tobacco Use Smoking Status: Never smoker Assessment/Plan 1. Non-ST segment elevation NM The patient presents with findings concerning for a non-ST segment elevation NM. This is based upon a combination of her symptoms, her cardiac enzyme changes, and her ECG changes. There is concerned this may be a type II event secondary to supply demand mismatch brought out by her atrial fibrillation with RVR superimposed upon underlying CAD. 2. CAD She did undergo diagnostic cardiac catheterization. She does have underlying CAD especially involving the LAD diagonal branch system and the distal RCA system. Her case was reviewed with interventional cardiology. At the present time the consensus is to proceed with medical management and have her cardiac catheterization films reviewed at a tertiary care center for consideration for coronary artery PCI which may include atherectomy/Rotablator of the LAD system- based upon calcification-versus consideration for CABG. In the interim she will continue medical therapy. 3. Atrial fibrillation with RVR She has converted to sinus rhythm. At the present time she will continue medical therapy which will include rate control therapy, antiarrhythmic therapy, and the addition of anticoagulant therapy as deemed appropriate. 4. Hypertension She states she does have a history of hypertension. She will restart antihypertensive medical therapy in the hopes of improving her overall cardiovascular risk factors. Of note, her cardiovascular risk factors were reviewed with her. She states she was intolerant to atorvastatin/Lipitor. However, she states she would be willing to try an alternative statin such as pravastatin or Pravachol. Thus she will be placed on a low dose of this. She will need to monitor for any adverse events. Otherwise she will continue her medical therapy with plans for outpatient cardiovascular follow-up. Comment: The above was discussed and reviewed with the patient and Dr. Golden. This note was generated using a voice recognition system and there may be incorrect words, spelling or punctuation that were not noted when reviewing the office note prior to saving.
--- NOTE | 2020-11-06 10:28 | PCM.DC ---
- Discharge Diagnoses Current Active Problems: Current Active and Chronic Problems (Last Updated 11/05/20 @ 16:50 by Li Franco) NSTEMI (non-ST elevated myocardial infarction) (Acute) Atrial fibrillation (Acute) HTN (hypertension) (Chronic) You will use the following diet at home:: Cardiac Your food should be the consistency of: Regular Your liquids should be the consistency of: Regular/Thin Discharge Activity: Return to Normal Activity Call your doctor if you observe: Fever of 101 or Higher, Shortness of breath, Dizziness, Fainting spells, Swelling in the ankles, Chest pain, Increased palpitations (irregular heartbeat) Instructions: Understanding Coronary Artery Disease (CAD), What Is Atrial Flutter/Atrial Fibrillation?, Atrial Fibrillation Allergies/Adverse Reactions: Allergies erythromycin base Allergy (Verified 11/04/20 09:08) Rash Penicillins Allergy (Verified 11/04/20 09:08) Hives Medications to take at Discharge Aspirin [Aspirin, Baby] 81 mg PO DAILY@0800 03/12/17 Fluticasone 0.05% [Flonase Nasal [place]] 2 spray NASAL DAILY PRN PRN 03/12/17 Glucosam/Reuben-Msm1/C/Aries/Bosw [Osteo Bi-Flex Caplet] 2 each PO DAILY 03/12/17 Losartan/Hydrochlorothiazide [Losartan-Hctz 100-25 mg Tab] 1 each PO DAILY 03/12/17 Multivit-Min/FA/Lycopen/Lutein [Centrum Silver Tablet] 1 each PO DAILY 03/12/17 Vitamin E 400 units PO DAILY 03/12/17 Famotidine 40 mg PO DAILY 11/04/20 Vitamin D3 1,000 units PO BID 11/04/20 Amiodarone HCl [Cordarone] 200 mg PO BIDCM #28 tab 11/06/20 Amiodarone HCl [Cordarone] 200 mg PO DAILYCM #30 tab 11/06/20 Amiodarone HCl [Cordarone] 200 mg PO TIDCM #14 tab 11/06/20 Apixaban [Eliquis] 2.5 mg PO BID #60 tab 11/06/20 Metoprolol Tartrate [Lopressor (beta sonya)] 25 mg PO BID #60 tab 11/06/20 Ondansetron [Zofran] 4 mg IV Q8H PRN PRN vial 11/06/20 Pravastatin [Pravachol] 20 mg PO QHS #30 tab 11/06/20 The following prescriptions were given: Amiodarone HCl [Cordarone] 200 mg PO TIDCM #14 tab Transmission Status: Pending to [employer] #30 Amiodarone HCl [Cordarone] 200 mg PO BIDCM #28 tab Transmission Status: Pending to [employer] #30 Amiodarone HCl [Cordarone] 200 mg PO DAILYCM #30 tab Transmission Status: Pending to [employer] #30 Apixaban [Eliquis] 2.5 mg PO BID #60 tab Transmission Status: Pending to [employer] #30 Metoprolol Tartrate [Lopressor (beta sonya)] 25 mg PO BID #60 tab Transmission Status: Pending to [email or web address] #30 Pravastatin [Pravachol] 20 mg PO QHS #30 tab Transmission Status: Pending to [employer] #30 Primary Care Physician: Thierry Swift MD [Primary Care Provider] - Please follow up with your Primary Care Physician in: 3-5 days Test Results: Test results from this visit will be discussed in further detail at your follow-up appointment, if applicable. Please Follow Up With: Bigg Fortune MD When: 2-3 weeks
--- NOTE | 2020-11-06 10:34 | PCM.DC.SUM ---
Discharge Date and Diagnosis - Problem List Patient Problems: Active and Suspected Problems (Last Updated 11/05/20 @ 16:50 by Li Franco) NSTEMI (non-ST elevated myocardial infarction) (Acute) Atrial fibrillation (Acute) Date of Admission: 11/04/20 Date of Discharge: 11/06/20 - Primary Discharge Diagnosis Acute Problems: Active Problems (Last Updated 11/05/20 @ 16:50 by Li Franco) NSTEMI (non-ST elevated myocardial infarction) (Acute) Atrial fibrillation (Acute) - Secondary Discharge Diagnosis Chronic Problems: Chronic Problems (Last Updated 11/05/20 @ 16:50 by Li Franco) Atherosclerotic heart disease of [place] coronary artery without angina pectoris (Chronic) HTN (hypertension) (Chronic) Hospital Course and Treatment Imaging Results: Clinical Impression(s) from Imaging Studies Chest X-Ray 11/04/20 09:50 IMPRESSION: No focal patchy airspace opacities or effusions COPD with atelectasis/scarring Electronically Signed: Manpreet Renner DO at 10:05 EST Tel , Service support , CLINICAL PROFILE AND INDICATIONS Indications: New Onset Angina <= 2 months, Cardiac Arrythmia, Suspected CAD, Valvular Disease Heart Failure: None Stress/Imaging Stress/Image Study Performed: No Angina Classification Anginal Classification w/in 2 Weeks: CCS III CAD Presentations: Non-STEMI. CONCLUSIONS [place] Multivessel CAD RECOMMENDATIONS Risk factor modification Medical therapy Tertiary Care Center: Heart Team evaluation for consideration for multivessel PCI vs. CABG Case discussed and reviewed with Dr. Camara of interventional cardiology Echo: Interpretation Summary Left ventricular systolic function is normal. The estimated ejection fraction is 65 %. The left atrium is moderately enlarged. Probable chiari network. Mild focal mitral valve calcification, bileaflet. The mitral valve chordae are thickened and/or calcified. Mild mitral valve stenosis. Moderate (2+) eccentric mitral valve insufficiency. Moderate (2+) tricuspid valve insufficiency. Mild aortic stenosis. Mild (1+) pulmonic valve insufficiency. Calcified aortic root. Right ventricular systolic pressure estimated to be 31 mmHg. Unable to assess diastolic dysfunction. Procedures: 2-D Echocardiogram, Cardiac catheterization Summary of Care Provided: Per HPI: The patient is a 85 year old F with a PMH as below who presents from home with chest pain and tachycardia. She states that last night her daughter dropped her off at home and as she was walking into her house she developed some chest pain and palpitations. She decided to sit on the couch and when that did not help her pain she moved to her bedroom and just laid in bed and after about an hour of laying there her chest pain resolved and her heart rate seemed to come down. She fell asleep and in the morning still felt a little bit off though she denied any further chest pain or palpitations and so she called her daughter who brought her into the ER. In the ER she was found to be in RVR with a heart rate of 160 and an elevated troponin to 0.137. Chest x-ray showed potential depressions in the lateral leads however as her heart rate came down with a Cardizem bolus in the ED the ST depressions resolved. Because of her new onset A. fib with RVR as well as her chest pain she was admitted for further work-up Hospital Course: 1. Chest pain/non-STEMI/new onset A. fib with RVR/HTN -Initially her A. fib resolved with the Cardizem bolus and so she was transitioned to 60 mg p.o. every 6 of Cardizem however later in the evening her RVR returned and cardiology had seen her and recommended transitioning her to amiodarone, she is currently sinus rhythm therefore we will continue with the amiodarone taper as an outpatient she will follow-up with cardiology in 2 to 3 weeks -She was also transitioned to metoprolol 25 mg p.o. twice daily -Plavix was discontinued since she did not need a stent today. -We will continue with therapeutic Lovenox, given her age and gender she is at least 3 points on the [id number] score therefore she will plan to discharge her on 2.5 mg of p.o. Eliquis as well as aspirin -I discussed plan for discharge with her today and she expressed understanding of the risk benefits of going home and would like to go home. She understands that she needs to follow-up with cardiology at a tertiary care center as her cardiac lesions are complicated. She is hesitant to undergo a CABG but is willing to discuss the possibility of multistep stenting -We can resume her home losartan and hydrochlorothiazide. -She had difficulty tolerating Lipitor however she may be able to tolerate pravastatin and she is willing to give it a try 2. GERD -Stable -Continue with H2 sonya Patient Problems: Active and Suspected Problems (Last Updated 11/05/20 @ 16:50 by Li Franco) NSTEMI (non-ST elevated myocardial infarction) (Acute) Atrial fibrillation (Acute) - Physical Exam Vitals/I&O's: Vital Signs Temp Pulse Resp BP Pulse Ox 98.9 F 75 16 161/87 H 96 11/06/20 08:46 11/06/20 08:50 11/06/20 08:46 11/06/20 08:46 11/06/20 08:46 Oxygen Delivery Method Room Air Weight: 125 lb 3.561 oz Body Mass Index (BMI) 24.4 Intake and Output for Last 24 Hours 11/04/20 11/05/20 11/06/20 23:59 23:59 23:59 Intake Total 1504.59 / 1537.89 728.41 / 848.41 120 / 120 Balance 1504.59 / 1537.89 728.41 / 848.41 120 / 120 General: Alert, Oriented x3, Cooperative, No apparent distress HEENT: Atraumatic, PERRLA, EOMI, Normocephalic Oral: Moist Mucosa Neck: Supple, No JVD Lungs: Clear to auscultation, Normal air movement, No rhonchi, No wheeze, No rales Cardiovascular: Regular rate and rhythm, Normal S1, Normal S2, Murmur - 2/6 [place] Abdomen: Soft, Non Tender, Non-Distended, No Hepato-splenomegaly Extremities: No edema, Capillary Refill Less than 3 Seconds Skin: No rashes, No breakdown Neurological: Neuro grossly intact, Sensory exam intact to light touch and pain Psych/Mental Status: Normal Affect, Appropriate Laboratory Results 11/06/20 05:30: WBC 5.2, RBC 3.85 L, Hgb 11.7 L, Hct 35.9 L, MCV 93.2, MCH 30.4, MCHC 32.6, RDW Std Deviation 43.3, RDW Coeff of [place] 12.6, Plt Count 148 L, MPV 10.6, Immature Gran % (Auto) 0.200, Neut % (Auto) 60.8, Lymph % (Auto) 29.6, [place] % (Auto) 6.5, Eos % (Auto) 2.3, Baso % (Auto) 0.6, Absolute Neuts (auto) 3.2, Absolute Lymphs (auto) 1.55, Nucleated RBC % 0 11/06/20 05:30: Sodium 139, Potassium 3.8, Chloride 107, Carbon Dioxide 25.0, Anion Gap 7, BUN 17, Creatinine 1.13 H, Estim Creat Clear Calc 25.67, Est GFR (MDRD) Af Amer 59 L, Est GFR (MDRD) Non-Af 49 L, BUN/Creatinine Ratio 15.0, Glucose 136 H, Calcium 9.0 Current Medications Acetaminophen (Acetaminophen 325 Mg Tablet) 650 mg PO Q6H PRN PRN PRN Reason: Pain Score 1-10/Temp > 100.7 F Amiodarone HCl (Amiodarone 200 Mg Tablet) 200 mg PO TIDCM [facility] Stop: 11/10/20 17:01 Last Admin: 11/06/20 08:50 Dose: 200 mg Documented by: Amiodarone HCl ([facility]iodarone 200 Mg Tablet) [facility] Stop: 11/24/20 17:01 Amiodarone HCl (Amiodarone 200 Mg Tablet) [facility] Apixaban (Apixaban 2.5 Mg Tablet) 2.5 mg PO BID [facility] Last Admin: 11/06/20 08:50 Dose: 2.5 mg Documented by: Aspirin (Aspirin 81 Mg Tab.Chew) 81 mg PO DAILY@0800 [facility] Last Admin: 11/06/20 08:50 Dose: 81 mg Documented by: Hydrochlorothiazide (Hydrochlorothiazide 25 Mg Tablet) 25 mg PO DAILY [facility] Last Admin: 11/06/20 08:50 Dose: 25 mg Documented by: Sodium Chloride () 250 mls @ 15 mls/hr IV .[id number] PRN PRN Reason: Saline Flush Sodium Chloride () 250 mls @ 15 mls/hr IV .[id number] PRN PRN Reason: Additional IVPB Infusion Sodium Chloride () 1,000 mls @ 0 mls/hr IV .Q0M [facility] Losartan Potassium (Losartan Potassium 100 Mg Tablet) 100 mg PO DAILY [facility] Last Admin: 11/06/20 08:50 Dose: 100 mg Documented by: Melatonin (Melatonin 3 Mg Tablet) 3 mg PO QHS PRN PRN PRN Reason: INSOMNIA Metoprolol Tartrate (Metoprolol Tartrate 25 Mg Tablet) 25 mg PO BID [facility] Last Admin: 11/06/20 08:50 Dose: 25 mg Documented by: Ondansetron HCl (Ondansetron 4 Mg/2 Ml Vial) 4 mg IV Q8H PRN PRN PRN Reason: NAUSEA/VOMITING Pravastatin Sodium (Pravastatin 20 Mg Tablet) 20 mg PO QHS [facility] Sodium Chloride (0.9% Saline Lock 10 Ml Syringe) 10 - 40 ml IV UD PRN PRN Reason: SALINE FLUSH Last Admin: 11/05/20 15:00 Dose: 10 ml Documented by: Discharge Activity: Return to Normal Activity Call your doctor if you observe: Fever of 101 or Higher, Shortness of breath, Dizziness, Fainting spells, Swelling in the ankles, Chest pain, Increased palpitations (irregular heartbeat) Home Medications: Medications to take at Discharge Aspirin [Aspirin, Baby] 81 mg PO DAILY@0800 03/12/17 Fluticasone 0.05% [Flonase Nasal [place]] 2 spray NASAL DAILY PRN PRN 03/12/17 Glucosam/[place]-Msm1/C/Aries/Bosw [Osteo Bi-Flex Caplet] 2 each PO DAILY 03/12/17 Losartan/Hydrochlorothiazide [Losartan-Hctz 100-25 mg Tab] 1 each PO DAILY 03/12/17 Multivit-Min/FA/Lycopen/Lutein [Centrum Silver Tablet] 1 each PO DAILY 03/12/17 Vitamin E 400 units PO DAILY 03/12/17 Famotidine 40 mg PO DAILY 11/04/20 Vitamin D3 1,000 units PO BID 11/04/20 Amiodarone HCl [Cordarone] 200 mg PO BIDCM #28 tab 11/06/20 Amiodarone HCl [Cordarone] 200 mg PO DAILYCM #30 tab 11/06/20 Amiodarone HCl [Cordarone] 200 mg PO TIDCM #14 tab 11/06/20 Apixaban [Eliquis] 2.5 mg PO BID #60 tab 11/06/20 Metoprolol Tartrate [Lopressor (beta sonya)] 25 mg PO BID #60 tab 11/06/20 Ondansetron [Zofran] 4 mg IV Q8H PRN PRN vial 12/24/20 Pravastatin [Pravachol] 20 mg PO QHS #30 tab 11/06/20 Following Prescriptions Were Given to Patient: Amiodarone HCl [Cordarone] 200 mg PO TIDCM #14 tab Transmission Status: Pending to [email or web address] #30 Amiodarone HCl [Cordarone] 200 mg PO BIDCM #28 tab Transmission Status: Pending to [email or web address] #30 Amiodarone HCl [Cordarone] 200 mg PO DAILYCM #30 tab Transmission Status: Pending to [email or web address] #30 Apixaban [Eliquis] 2.5 mg PO BID #60 tab Transmission Status: Pending to [employer] #30 Metoprolol Tartrate [Lopressor (beta sonya)] 25 mg PO BID #60 tab Transmission Status: Pending to [email or web address] #30 Pravastatin [Pravachol] 20 mg PO QHS #30 tab Transmission Status: Pending to [email or web address] #30 Primary Care Physician: Thierry Swift MD [Primary Care Provider] - Please follow up with your Primary Care Physician in: 3-5 days Please Follow Up With: Bigg Fortune MD When: 2-3 weeks Patient Instructions: What Is Atrial Flutter/Atrial Fibrillation?, Understanding Coronary Artery Disease (CAD), Atrial Fibrillation Disposition: Home Minutes spent on discharge:: 35 Patient Condition:: Stable Medical Necessity - Tobacco Use Smoking Status: Never smoker Meaningful Use Info Meaningful Use Diagnoses (Choose all that apply): None applicable Inpatient E&M: [id number] [facility]
--- NOTE | 2020-11-06 10:51 | CASEMGMT ---
Pt to be sent home on Eliquis at discharge and med e-scribed to [facility] previously. Call to Rachel at [facility] and she states that co-pay will be $282.61. Rachel states this is most likely deductible. Pt updated and provided with Eliquis 30 day free trial card at this time. Pt/daughter voice no further questions/concerns/needs at this time. Pt aware to notify cardiology if co-pay is still expensive for next month, voices understanding. Ceci MENA CM
== END 2020-11-06 11:37 | disposition home or self-care (01) | DRG 282 ==
LOC: ED 09:21 → PCU 10:20
PROVIDERS: Internal Medicine Cardiovascular Disease; Admitting Provider Family Medicine; Emergency Provider Emergency Medicine; PCP Family Medicine; Visit Provider Family Medicine
DX: I21.4 Non-ST elevation (NSTEMI) myocardial infarction (principal); I48.91 Unspecified atrial fibrillation; I25.10 Atherosclerotic heart disease of native coronary artery without angina pectoris; I10 Essential (primary) hypertension; K21.9 Gastro-esophageal reflux disease without esophagitis; Z79.01 Long term (current) use of anticoagulants; Z79.82 Long term (current) use of aspirin; Z79.899 Other long term (current) drug therapy; Z95.1 Presence of aortocoronary bypass graft
CPT/HCPCS: 36415; 71045; 80048; 80061; 80076; 84443; 84484; 85025; 93005; 93306; 93454; 99152; 99153; 99285; J7030; J7040; Q9967; A4216; C1769; C1894

== ENCOUNTER → 2021-02-06 12:53 | Outpatient (CLI) | payer MEDICARE, OTHER, SELFPAY ==
[2021-01-19 10:40] VITALS: BMI 24.6
--- NOTE | 2021-02-06 13:00 | CR.HP_ITS ---
CR - History & Physical - General Arrival date:: 02/06/21 Arrival time:: 13:04 Date of Referral:: 01/19/21 Date of CR Evaluation:: 02/06/21 Referring Physician: Dr. Bigg Fortune Primary Diagnosis: PTCA, PCI w/coronary stent - History of Present Cardiac Event Onset Date: Enter Onset Date of cardiac illnesses in Comment field below Acute Myocardial Infarction within 12 months:: Yes - NSTEMI 01/19/2021 PTCA or coronary stenting:: Yes - 01/19/2021 Type of Symptoms:: The patient presented to the emergency room with chest discomfort, denied any shortness of breath or nausea. Interventions with present event:: Admitted and had heart cath, her LVEF is 65- 70%. Were there any complications?: None - Medications Home Medications: Ambulatory Orders Medication Instructions Recorded Aspirin [Aspirin, Baby] 81 mg PO DAILY@0800 03/12/17 Fluticasone 0.05% [Flonase Nasal 2 spray NASAL DAILY PRN PRN 03/12/17 Clements] Glucosam/Reuben-Msm1/C/Aries/Bosw 2 ea PO DAILY 03/12/17 [Osteo Bi-Flex Caplet] Multivit-Min/FA/Lycopen/Lutein 1 ea PO DAILY 03/12/17 [Centrum Silver Tablet] Vitamin E 400 units PO DAILY 03/12/17 Famotidine 40 mg PO DAILY 11/04/20 acetaminophen 500 mg tablet 1,000 mg PO Q6H PRN tab 11/28/20 amiodarone 200 mg tablet 200 mg PO DAILYCM #30 tab 11/28/20 apixaban 2.5 mg tablet 2.5 mg PO BID #60 tab 11/28/20 valacyclovir 1 gram tablet 1,000 mg PO ONCE PRN tab 11/28/20 atorvastatin 10 mg tablet 10 mg PO QHS #1 tab 01/12/21 ascorbic acid (vitamin C) 500 mg 500 mg PO DAILY 01/19/21 tablet cholecalciferol (vitamin D3) 25 1,000 unit PO BID tab 01/19/21 mcg (1,000 unit) tablet clopidogrel 75 mg tablet 75 mg PO DAILY tab 01/19/21 losartan 100 1 tab PO DAILY tab 01/19/21 mg-hydrochlorothiazide 12.5 mg tablet metoprolol tartrate 25 mg tablet 25 mg PO BID #180 tab 01/26/21 - Allergies Allergies/Adverse Reactions: Allergies erythromycin base Allergy (Verified 01/19/21 10:44) Rash Penicillins Allergy (Verified 01/19/21 10:44) Hives - Sleep Disorder Evaluation Hx of Sleep Apnea: No Do you snore loudly (louder than talking or can be heard through closed doors)?: No Do you often feel tired/ fatigued/ sleepy during daytime?: No Has anyone observed you stop breathing during sleep?: No History of Hypertension (for STOP score): No STOP Results: Negative Advanced Directives - Advanced Directives Power of Director Of Capital Giving: Yes - dAUGHTER MAY HAVE PRESENTED THM AT TIME i WAS ADMITTED; UNSURE OF THIS. Living Will: Yes Advance Directives Information Provided: Yes Advance Directives on File: No DNR Order?:: No - MOLST See MOLST form: No Past Medical History - Covid-19 Screening Fever: No Unexplained muscle aches: No Current respiratory symptoms: No Upper respiratory infections symptoms: No Gastro-intestinal symptoms: No Xby-[id number]-[id number] symptoms: No Has tested positive for COVID-19 in last 30 days: No Date of testin11/18/20 - Have had both levels of Covid Vaccine - Moderna Had contact w/person w/symptoms or Covid-19 (+) last 14 days: No Has High Risk Exposures ID'd by Health dept/Inf Control team: No 65 years or older:: Yes Lives in Assisted Living facility:: No Has a chronic lung disease or moderate to severe asthma:: No Has a serious heart condition:: No Immunocompromised:: No Severely obese (Body Mass Index of 40 or higher):: No Diabetic:: No Has chronic kidney disease undergoing dialysis:: No Has liver disease:: No - Past Medical Illness Medical History: Past Medical History (Last Reviewed 01/19/21 @ 10:51 by Moon Garcia) Paroxysmal atrial fibrillation (Acute) I48.0 Essential hypertension (Chronic) I10 Presence of stent in coronary artery (Chronic) Onset Date: ~01/09/21 Z95.5 PTCA/FEDERICO to mid LAD, PTCA/FEDERICO to distal RCA and PTCA to Diagonal branch @ [facility] 01/09/21 Atherosclerotic heart disease of [place] coronary artery without angina pectoris (Chronic) I25.10 NSTEMI (non-ST elevated myocardial infarction) (Acute) I21.4 History of left heart catheterization ([facility]) Z98.890 LEFT MAIN: Angiographically normal; LEFT ANTERIOR DESCENDING ARTERY: Mild luminal irregularities, PROX LAD: Moderate calcification, diffuse: eccentric: 25 % Stenosis, MID LAD: hazy: 75 % Stenosis, DIAGONAL 1: Proximal - irregular: 50 - 75 % Stenosis; CIRCUMFLEX ARTERY: Mild luminal irregularities, OM 1: Proximal - eccentric: 10 - 25 % Stenosis; RIGHT CORONARY ARTERY: Mild luminal irregularities, DISTAL RCA: 85 % Stenosis per cardiac cath 11/05/20 - Past Surgical History Surgical History: Past Surgical History (Last Reviewed 01/19/21 @ 10:51 by Moon Garcia) Presence of coronary angioplasty implant and graft Onset Date: ~01/09/21 Z95.5 PTCA/FEDERICO to mid LAD, PTCA/FEDERICO to distal RCA and PTCA to Diagonal branch @ [facility] 01/09/21 Surgical History: cholecystectomy, hysterectomy - Family History Summary Family History: Family History (Last Reviewed 01/19/21 @ 10:51 by Moon Garcia) Mother CVA (cerebral vascular accident) Father CVA (cerebral vascular accident) Diabetes Social History - Smoking History Smoking Status: Never smoker - Alcohol Use Alcohol Usage: No - Substance Abuse Hx Substance Use: No - Occupation Occupation (List type of work in comments):: Retired - Hobbies, Recreation, Social Activities Hobbies: Reading, Watch TV, Other - Word search puzzles, and 16 great grandchildren are my jermain!! Recreational Activities: I am able to engage in most, but not all activities Social Environment - Status Marital Status: - Current Living Arrangements Living Environment:: Alone - Children How many children do you have?: 3 - 7 grand-children; 16 great grandchildren - Safety Do you feel safe in your surroundings?: Yes - Assistance Do you need any assistance at home?: None Review of Systems - Review of Systems Hints: Right click = Denies (Slash). Left click = Reports (Beaver) Review of Present Symptoms: Reports: Shortness of Breath at Rest - Sometimes do not have to be doing anything and can feel shortness of breath. Today, would have to say this is occurring more so after the heart attack., Shortness of Breath with Exertion, Fatigue, Heart Arrhythmia/Irregularities - Atrail bradycardia, Appetite - Normal. Denies: Angina, Dizziness/Lightheadedness, Appetite - Special Diet, Sleep - Normal - Not so good, this is not new though. - Pain Is Patient Pain Free?: Yes Pain Location: none Pain Level: 0/10 Risk Factor Assessment - Chief Complaint Chief Complaint: [address] Jackman who presents to cardiac rehab today following recent NSTEMI, heart cath with subsequent coronary stent and an gioplasty. - Vital Signs Temperature: 97.2 F Respiratory Rate: 14 Pulse Ox: 98 Blood Pressure: 142/68 - Pulse Pulse Rate: 60 Pulse Rhythm: Regular - Hypertension On medication(s)?: Yes Blood Pressure Sitting - Left Arm: 142/68 - Blood Cholesterol/Lipids Total Cholesterol (mg/dL) Goal = less than 200 mg/dL: 188 - 11/05/2020 HDL Cholesterol (mg/dL) Goal = less than 40 mg/dL: 67 LDL Cholesterol (mg/dL) Goal = less than 70 mg/dL: 89 Triglycerides (mg/dL) Goal = less than 150 mg/dL: 160 - Diabetes Nutrition Referral for Diabetes: No - Obesity Height: 5 ft Weight:: 126 lb Weight in Pounds: 126.0 lbs Weight Source: Standing Scale Body Mass Index (BMI): 24.6 Nutritional Referral for Obesity: No - Physical Inactivity Physical Inactivity: Recreational activity - Risk Stratification Risk Guidelines: Lowest Risk: Risk Factor for Smoking, Risk Factor for Dyslipidemia, Risk Factor for Diabetes, Risk Factor for Obesity, Risk Factor for Sedentary Lifestyle, Risk Factor for Depression, Moderate Risk: Risk Factor for Hypertension - For Smoking Smoking Risk Guidelines: Smoking Low Risk: None or quit greater than 6 months ago. Smoking Moderate Risk: Smoker or quit 6 months or less ago. Smoking High Risk: Smoker - For Dyslipidemia Dyslipidemia Risk Guidelines: Low Risk: Moderate Risk: High Risk: 15-25% fat 25.1-29% fat >/= 30% fat. <7% sat fat 7-9% sat fat >9% sat fat. <150 mg chol 150-299 mg chol >/= 300 mg chol. LDL <100 LDL 100-129 LDL >/= 130. Chol/HDL ratio <5.0 Chol/HDL ratio 5.0-6.0 Chol/HDL ratio >6.0. Triglycerides <100 Triglycerides 100-149 Triglycerides >/= 150 - For Diabetes Mellitus Diabetes Risk Guidelines: Diabetes Low Risk: HgA1c <6.5% and/or FBG <120. Diabetes Moderate Risk: HgA1c 6.6-7.9% and/or FBG 120-180. Diabetes High Risk: HgA1c >/= 8% and/or FBG >180 - For Obesity/Overweight Obesity/Overweight Risk Guidelines: Obesity Low Risk: BMI <25.0. Obesity Moderate Risk: BMI 25-29.9. Obesity High Risk: BMI >/= 30.0 - For Hypertension Hypertension Risk Guidelines: Hypertension Low Risk: Systolic <120 and Diastolic <80. Hypertension Moderate Risk: Systolic 120-139 and Diastolic 80-89. Hypertension High Risk: Systolic >/= 140 and Diastolic >/= 90 - For Sedentary Lifestyle Sedentary Lifestyle Risk Guidelines: Sedentary Lifestyle Low Risk: >/= 1,500 kcal/week. Sedentary Lifestyle Moderate Risk: 700-1,499 kcal/week. Sedentary Lifestyle High Risk: < 700 kcal/week - For Depression Depression Risk Guidelines: Depression Low Risk: Not clinically depressed. Depression Moderate Risk: Mildly depressed. Depression High Risk: Clinically depressed - Family History Family History: Family History (Last Reviewed 01/19/21 @ 10:51 by Moon Garcia) Mother CVA (cerebral vascular accident) Father CVA (cerebral vascular accident) Diabetes Motivation - Motivation to Participate On a scale of 1 to 10, how prepared are you to commit to attending program?: 10 What do you see as barriers to successfully being able to complete the program?: none What do you see as the benefits of succesfully completing the program? In other words, what do you hope to get out of participating in the program?: healthier, getting better.moer energy, breath better Are there issues you are dealing with that will interfere with completing the program?: still having some mild shortness of breath Do you have a spouse or signficant other, family or friends who will help support you to complete the program?: Yes
--- NOTE | 2021-02-06 13:00 | CR.ITP_ITS ---
Diagnosis - General Information Admitting Diagnosis: PTCA, coronary stenting, S/P NSTEMI Personal Learning Style:: Audio/Visual, Written Barriers to Learning: Hearing Impairment, Vision Impairment Stage of change r/t lifestyle modifications:: Action Gave educational material for:: Treating Heart Disease, Emotions & Heart Disease, Stress Management & Relaxation, Sleep Disorders & Heart Disease, How The Heart Works, What it means to have Heart Disease, How Coronary Artery Disease is Diagnosed, Heart Procedures, What Heart Medications Do, Risk Factors & Modifications, Living an Active Life, Nutrition - Education/Goals Individual Counseling: Initial Assessment: Abnormal Cholesterol Levels, High Blood Pressure Cardiac Rehabilitation Goals: 1. Maintain the individual as the primary focus of care. 2. To improve the patient's quality of life. 3. Identification of cardiac risk factors and provide cardiac risk factor management. 4. Enhance the psychosocial status of the patient. 5. Reconditioning enough to allow the patient to resume customary activities. 6. Control symptoms of cardiac disease Personal Goals: Initial Assessment: Improve management of stress and emotions, Improve energy level, Improve knowledge of cardiac disease, Improve muscle strength and endurance, Improve diet and eating habits (eat healthier), Control risk factors (learn risk factor modification) - better control blood pressure Scale for measuring improvement of personal goals: Enter appropriate number in Comments. 2 = Unchanged. 3 = Slightly Better. 4 = Moderate Improvement. 5 = Met my Goal - Diagnosis & Disease Process Outcomes/Goals: Pt IDs own risk factors & lifestyle modifications by Session 10, Verbalizes symptoms of angina & response by session 3., Pt independently manages Plan/Interventions: Assist Pt to ID & engage in lifestyle modification to reduce CVD risk, Instruct on individual risk factors, Review symptoms of angina & emergency actions, Review secondary diagnosis & identify educational needs. - Safety Referral to Physical Therapy: No Referral to [facility] Case Management: No Fall Risk Assessed:: Yes Assistive Devices:: None Exercise - Initial Assessment - Visit Date of Eval: 02/06/21 Session #:: 0 - pre-cardiac rehab evaluation Mets: Pre-: >5 METS for 30 minutes by discharge - Physician Prescribed Exercise Modalities: Treadmill, Airdyne, NuStep Frequency: 3x/week for 12 weeks [36 sessions] Intensity: 60-80% of age predicted maximum heart rate reserve Target Heart Rate:: 80-106 Resting Blood Pressure: 142/68 EKG Type: Atrial bradycardia - Outcomes & Goals Goals:: Verbalizes understanding of THR, RPE & goal METS by session 6, Documents in home exercise log/reports 30 min aerobic 5 day/wk by DC, Demonstrates accurate pulse taking by DC - Intervention & Plan Exercise Program Goals: Instruct on personal THR & RPE, Instruct on MET level & personal MET goal, Instruct on home exercise - Physical Activity Home Exercise Physical Activity - Home Exercise: Safe Exercise, Warm-up, Self-monitoring, Cool-Down, Home Exercise > 30 min Daily, Sitting Time <3 hours/daily - Outcomes & Goals Outcomes/Goals: Demonstrates correct Warm-up/exercise Cool-Down (S3) if = 2.5 METs, Verbalizes symptoms of exercise intolerance by Session 3 (S3), Demonstrate safe equipment use (S3) & follows exercise prescrition (6) - Intervention & Plan Plan/Intervention: Instruct warm-up & cool-down if exercising at > 2 METs, Instruct on symptoms of exercise intolerance & actions to take, Instruct & monitor on saf, Assess intial functional capacity & safety risk Nutrition - Initial Assessment - Program Goals Nutrition Program Goals: LDL <100 optimal. 100 - 129 Near optimal. 130 - 159 Borderline High. 160 - 189 High. Total Cholesterol <200 desirable. 200 - 239 Borderline High. >/= 240 High. HDL < 40 Low >/=60 High. Triglycerides <150 desirable. <199 optimal. VlDL 5 - 40. HgbA1C <7%. BMI <25 Patient has diagnosis of Hyperlipidemia (ICD E78)?: Yes - Visit Date of Assessment:: 02/06/21 Session #:: 0 - pre-cardiac rehab evaluation - Cholesterol/Lipids Triglycerides (mg/dL): 160 - 11/05/2020 Total Cholesterol (mg/dL): 150 LDL Cholesterol (mg/dL): 89 HDL Cholesterol (mg/dL): 67 Determine presence & major risk factors that modify LDL goal: Hypertension or hypertensive medication, Family history of premature CHD in Male < 55 years: female <65 yearsFa, Age men > 45 years; women >/= 55 years Outcomes/Goals: Pt IDs own risk factors & lifestyle modifications by Session 10, Verbalizes symptoms of angina & response by session 3., Pt independently manages Intervention/Plan: Advocate for lipid panel cholesterol medication if applicable, Instruct on personal lipid levels & lipid goals/NCEP guidelines Referral to dietitian:: Yes - Diabetes (Other Core Measures) Diabetes Type: Not Applicable - Weight Mgt (Other Care) Not Applicable: Yes Height: 5 ft Weight:: 126 lb BMI: 24.6 Diagnosis Overweight/Obesity BMI> 30% ICD-10 E66: No Diagnosis High BMI/Morbid Obesity BMI> 35% ICD-10 Z68: No Outcomes/Goals: Pt sets, maintains & shows weight loss goal & trend during rehab Intervention/Plan: Instruct on ideal BMI & set weight loss goal w/patient - Healthy Eating Habits Will attend diet classes:: Yes Outcomes/Goals:: Consume diet rich in vegs,fruits,whole grain/high fiber,fish,lean meat, Limit sat/trans fats,cholesterol & added salts & sugars Intervention/Plan:: Assess current eating habits Medical - Initial Assessment - Visit Date of Eval: 02/06/21 Session #:: 0 - pre-cardiac rehab evaluation - Medication Compliance Preventative Medication(s):: Aspirin, CHAYO inhibitor, Clopidogrel/P2Y12 inhibit, Beta sonya H/O mental health issues: depression, anxiety, or addiction?: No Doesn?t believe in the benefits of treatment?: No Believes medications are unnecessary or harmful?: No Has a concern about medication side effects?: No Expresses concern over the cost of medications?: No Outcomes/Goals: Verbalizes medications,desired effect & common side effects @ DC, Pt self-reports following medication regimen, Keeps card in wallet w/medications listed by DC Interventions/plans: Instruct on medication effects & side effects, Review medication list w/patient every two weeks, Instruct importance of taking meds as ordered & assist problem solving - Tobacco Use Tobacco Use: Non-smoker - Hypertension Hypertension Diagnosis:: Hypertension ICD-10 I10 Resting Blood Pressure:: 142/68 [place] [employer] Hypertension Guidelines: [place] [employer] Hypertension Guidelines. Normal BP Less than 120/80. Elevated BP 120/80. Hypertension Stage 1: BP 130-139/80-89. Hypertesnion Stage 2: BP 140 or higher/90 or higher. Hypertension Crisis: BP higher than 180/120 Outcomes/Goals: Able to verbalize/achieve optimal blood pressure <130/80, Incorporates diet changes & exercise for blood pressure control by DC Interventions/plan: Instruct on optimal blood pressure, hypertension & medications, Instruct on effects of sodium, alcohol, stress, exercise &hypertension - Tobacco Cessation Referral Smoking Cessation Referral:: No Individual Education/Counseling:: No Education Schedule Given:: Yes Psychosocial - Initial Assess - VIsit Date of Eval: 02/06/21 Session #:: 0 - Pre-cardiac rehab evaluation Not Applicable: Yes History of previous Mental disease:: No - Target Goals Target Goals: Assess presence or absence of depression. Using a valid screening tool, maximizes coping skills. Positive support system - Psychosocial Test Tool Used:: Reuben Enrique QOL Cardiac, PHQ-9 Questionnaire phq-9 Severity: Severity. 1-4 Minimal Depression. 5-9 Mild Depression. 10-14 Moderate Depression. 15-19 Moderately Sever Depression. 20-27 Severe Depression. Rule: - Referral to Behavioral Health PS - Interventions: Yes Attend Stress Management Classes, No Referral to Behavioral Health if PHQ-9 score >9:, No Referral to [facility], No Referral to Physician if PHQ-9 if score is 5-9: - Outcomes/Goals: See list Psychosocial Outcomes/Goals:: ID's personal stressors & 2 strategies to manage stress by discharge - Intervention/Plan: See List Interventions/Plan:: Assess stressors,coping strategies & signs of derpression on admission, Instruct/assist pt to develop coping & personal stress Mgt strategies, Instruct patient to recognize signs & symptoms of depression, Instruct patient to recog Patient Health Questionnaire Initial Assessment 1. Little interest or pleasure in doing things: Not at all 2. Feeling down, depressed, or hopeless: Not at all 3. Trouble falling or staying asleep, or sleeping too much: More than half the days 4. Feeling tired or having little energy: More than half the days 5. Poor appetite or overeating: Not at all 6. Feeling bad about yourself -- or that you are a failure or have let yourself or your family down: Not at all 7. Trouble concentrating on things, such as reading the newspaper or watching television: More than half the days 8. Moving or speaking so slowly that other people could have noticed. Or the o pposite - being so fidgety or restless that you have been moving around a lot more than usual: Not at all 9. Thoughts that you would be better off , or of hurting yourself in some way: Not at all How difficult have these problems made it for you to do your work, take care of things at home, or get along with other people?: Not difficult at all Total Score: 6 ANDRESSA-Q SV Test - Statements CAD is a disease of the arteries in the heart: False Examples of risk factors for heart disease: I Don't Know Angina is chest pain or discomfort: True The benefits of resistance training include: I Don't Know Eating more meat and dairy products: False Anti-platelet medications such as aspirin are important: True The only effective way to manage stress: False An exercise warm-up slowly increases heart rate: I Don't Know Prepared, processed foods usually have high sodium: True Depression is common after a heart attack: I Don't Know The statin medications lower cholesterol: True To control blood pressure, lower the amount of sodium: True If someone gets chest discomfort during walking: I Don't Know Transfats are partially hydrogenated vegetable oils: True Sleep apnea that is not treated increases the risk: I Don't Know To control cholesterol, one should become a vegetarian: False Someone knows if he/she is exercising at the right level: I Don't Know Diabetes cannot be prevented with exercise & health eating: True Stress is a large risk for heart attack: True A diet that can help lower blood pressure is rich in: True - Total Score Total Correct Responses: 12 Self-Efficacy Initial Assessment We would like to know how confident you are in doing certain activities. Please select your confidence level for:: Select your confidence level for the following using the scale 1-10 where 1 is not at all confident and 10 is totally confident. Your score is the average of all 6 responses. Fatigue: How confident are you that you can keep the fatigue caused by your disease from interfering with the things you want to do? Select Number: 9 Physical Discomfort or Pain: How confident are you that you can keep the physical discomfort or pain of your disease from interfering with the things you want to do? Select Number: 9 Emotional Distress: How confident are you that you can keep the emotional distress caused by your disease from interfering with the things you want to do? Select Number: 9 Other Symptoms or Health Problems: How confident are you that you can keep other symptoms or health problems from interfering with the things you want to do? Select Number: 9 Different Tasks and Activities: How confident are you that you can do the different tasks and activities needed to manage your health condition so as to reduce your need to see a doctor? Select Number: 9 Medication: How confident are you that you can do things other than just taking medication to reduce how much your illness affects your everyday life? Select Number: 9 Total Score:: 9 Nutrition Survey - Nutrition Survey Instructions Scoring Instructions: Scoring is as follows: Yes = 1 points. No = 0 point. Patient score that is >/=12 is considered to be at potential nutritional risk and could benefit from a referral to a registered dietitian. - Nutrition Survey Initial Have you lost >10 lbs over the past 2 months without trying?: No Are you following a special diet at home for diabetes, low fat, or low salt?: No Are you interested in meeting with a dietitian for help understanding your diet?: Yes Do you eat less than 3 meals a day?: Yes Do you eat fatty meats (linares, sausage, ribs, etc), fried foods, desserts, large amounts of salad dressings, margarine, butter, or cheese most days?: No Do you have food allergies? [Enter types in comment field]: No Do you eat in restaurants more than 3 times a week?: No Do you season food with salt, seasoning salt, or garlic salt?: Yes Do you used canned, boxed, frozen meals, or soups, seasoning packets?: Yes Total Score:: 4
[2021-02-06 13:23] VITALS: BP 142/68; BMI 24.6
[2021-02-06 13:46] VITALS: BP 142/68; PULSE 60; RESP 14; TEMP 36.2; O2SAT 98; BMI 24.6
== END ==
PROVIDERS: PCP Family Medicine; Referring Provider Internal Medicine Cardiovascular Disease; Visit Provider Internal Medicine Cardiovascular Disease
DX: I25.10 Atherosclerotic heart disease of native coronary artery without angina pectoris (principal); I10 Essential (primary) hypertension; I25.2 Old myocardial infarction

== ENCOUNTER 2021-02-11 14:24 | Outpatient (RCR) | payer MEDICARE, OTHER, SELFPAY ==
[2021-02-06 13:23] VITALS: BMI 24.6
[2021-02-06 13:46] VITALS: BMI 24.6
== END 2021-02-11 23:59 ==
LOC: CR 14:24
PROVIDERS: PCP Family Medicine; Referring Provider Internal Medicine Cardiovascular Disease; Visit Provider Internal Medicine Cardiovascular Disease
DX: I25.10 Atherosclerotic heart disease of native coronary artery without angina pectoris (principal); Z95.5 Presence of coronary angioplasty implant and graft; I48.0 Paroxysmal atrial fibrillation; I10 Essential (primary) hypertension
CPT/HCPCS: 93798

== ENCOUNTER 2021-03-13 13:00 | Outpatient (RCR) | payer MEDICARE, OTHER, SELFPAY ==
[2021-02-06 13:23] VITALS: BMI 24.6
[2021-02-06 13:46] VITALS: BMI 24.6
--- NOTE | 2021-03-10 10:02 | CR.ITP_ITS ---
Diagnosis Exercise - 30-day Assessment - Visit Date of Eval: 03/10/21 Session #:: 12 - Physician Prescribed Exercise Modalities: Treadmill, Rower, NuStep, SciFit Frequency: 3x/week for 12 weeks [36 sessions] Intensity: 60-80% of age predicted maximum heart rate reserve Current METSs:: 4.0 increase from 2.5 Target Heart Rate:: 80-106 Current RPE:: 12-13 Maximum Excercise HR:: 90 Resting Blood Pressure: 144/78 EKG Type: NSR to sinus tach with isolated PACs. ST depression noted sent to [facility] - Outcomes & Goals Goals:: Verbalizes understanding of THR, RPE & goal METS by session 6, Documents in home exercise log/reports 30 min aerobic 5 day/wk by DC, Demonstrates accurate pulse taking by DC - Intervention & Plan Exercise Program Goals: Instruct on personal THR & RPE, Instruct on MET level & personal MET goal, Show patient to take own pulse /validate performance until accurate - Physical Activity Home Exercise Physical Activity - Home Exercise: Safe Exercise, Warm-up, Self-monitoring, Cool-Down, Home Exercise > 30 min Daily, Sitting Time <3 hours/daily - Outcomes & Goals Outcomes/Goals: Demonstrates correct Warm-up/exercise Cool-Down (S3) if = 2.5 METs, Verbalizes symptoms of exercise intolerance by Session 3 (S3), Demonstrate safe equipment use (S3) & follows exercise prescrition (6) - Intervention & Plan Plan/Intervention: Instruct warm-up & cool-down if exercising at > 2 METs, Instruct on symptoms of exercise intolerance & actions to take, Instruct & monitor on saf, Assess intial functional capacity & safety risk - 30-day Reassessments 30 day Reassessments:: Progressing Nutrition - Initial Assessment Nutrition - 30-Day Assessment - Program Goals Nutrition Program Goals: LDL <100 optimal. 100 - 129 Near optimal. 130 - 159 Borderline High. 160 - 189 High. Total Cholesterol <200 desirable. 200 - 239 Borderline High. >/= 240 High. HDL < 40 Low >/=60 High. Triglycerides <150 desirable. <199 optimal. VlDL 5 - 40. HgbA1C <7%. BMI <25 Patient has diagnosis of Hyperlipidemia (ICD E78)?: Yes - Visit Date of Assessment:: 03/10/21 Session #:: 12 - Cholesterol/Lipids Triglycerides (mg/dL): 160 - 11/04/2020 Total Cholesterol (mg/dL): 188 LDL Cholesterol (mg/dL): 89 HDL Cholesterol (mg/dL): 67 Determine presence & major risk factors that modify LDL goal: Hypertension or hypertensive medication, Age men > 45 years; women >/= 55 years Outcomes/Goals: Pt IDs own risk factors & lifestyle modifications by Session 10, Verbalizes symptoms of angina & response by session 3., Pt independently manages Intervention/Plan: Instruct on personal lipid levels & lipid goals/NCEP guidelines, Instruct on cholesterol Referral to dietitian:: Yes - Medical Nutrition Therapy 30-day Reassessments:: Progressing - Diabetes (Other Core Measures) Diabetes Type: Not Applicable - Weight Mgt (Other Care) Not Applicable: Yes Height: 5 ft Weight:: 128 lb BMI: 25.0 Diagnosis Overweight/Obesity BMI> 30% ICD-10 E66: No Diagnosis High BMI/Morbid Obesity BMI> 35% ICD-10 Z68: No Outcomes/Goals: Pt sets, maintains & shows weight loss goal & trend during rehab Intervention/Plan: Instruct on ideal BMI & set weight loss goal w/patient 30 day Reassessments:: Met - Healthy Eating Habits Will attend diet classes:: Yes Outcomes/Goals:: Consume diet rich in vegs,fruits,whole grain/high fiber,fish,lean meat, Limit sat/trans fats,cholesterol & added salts & sugars Intervention/Plan:: Assess current eating habits 30-day Reassessments:: Met Nutrition - 60-Day Assessment Nutrition - 90-Day Assessment Nutrition - Final Assessment Medical - Initial Assessment Medical- 30-Day Assessment - Visit Date of Eval: 03/10/21 Session #:: 12 - Medication Compliance Preventative Medication(s):: Aspirin, Clopidogrel/P2Y12 inhibit, Statin/lipid, Beta sonya H/O mental health issues: depression, anxiety, or addiction?: No Doesn?t believe in the benefits of treatment?: No Believes medications are unnecessary or harmful?: No Has a concern about medication side effects?: No Expresses concern over the cost of medications?: No Outcomes/Goals: Verbalizes medications,desired effect & common side effects @ DC, Pt self-reports following medication regimen, Keeps card in wallet w/medications listed by DC Interventions/plans: Instruct on medication effects & side effects, Review medication list w/patient every two weeks, Instruct importance of taking meds as ordered & assist problem solving 30-day Reassessments:: Progressing - Tobacco Use Tobacco Use: Non-smoker - Hypertension Hypertension Diagnosis:: Hypertension ICD-10 I10 Resting Blood Pressure:: 144/78 - still running high with medications [place] [employer] Hypertension Guidelines: [place] [employer] Hypertension Guidelines. Normal BP Less than 120/80. Elevated BP 120/80. Hypertension Stage 1: BP 130-139/80-89. Hypertesnion Stage 2: BP 140 or higher/90 or higher. Hypertension Crisis: BP higher than 180/120 Peak Exercise Blood Pressure:: 162/70 Outcomes/Goals: Able to verbalize/achieve optimal blood pressure <130/80, Incorporates diet changes & exercise for blood pressure control by DC Interventions/plan: Instruct on optimal blood pressure, hypertension & medications, Instruct on effects of sodium, alcohol, stress, exercise &hypertension 30 day Reassessments:: Progressing - Tobacco Cessation Referral Smoking Cessation Referral:: No Individual Education/Counseling:: No Education Schedule Given:: Yes Medical- 60-Day Assessment Medical- 90-Day Assessment Medical - Final Assessment Psychosocial - Initial Assess Psychosocial - 30-Day Assess - VIsit Date of Eval: 03/10/21 Session #:: 12 Not Applicable: Yes History of previous Mental disease:: No - Psychosocial Test Tool Used:: PHQ-9 Questionnaire phq-9 Severity: Severity. 1-4 Minimal Depression. 5-9 Mild Depression. 10-14 Moderate Depression. 15-19 Moderately Sever Depression. 20-27 Severe Depression. Rule: - Referral to Behavioral Health PS - Interventions: Yes Attend Stress Management Classes, No Referral to Behavioral Health if PHQ-9 score >9:, No Referral to [facility], No Referral to Physician if PHQ-9 if score is 5-9: - Outcomes/Goals: See list Psychosocial Outcomes/Goals:: ID's personal stressors & 2 strategies to manage stress by discharge - Intervention/Plan: See List Interventions/Plan:: Assess stressors,coping strategies & signs of derpression on admission, Instruct/assist pt to develop coping & personal stress Mgt strategies, Instruct patient to recognize signs & symptoms of depression, Instruct patient to recog - 30-day Reassessments: 30 day Reassessments:: Progressing Psychosocial - 60-Day Assess Psychosocial - 90-Day Assess Psychosocial - Final Assessmen Patient Health Questionnaire 30-Day Re-eval Assessment 1. Little interest or pleasure in doing things: Not at all 2. Feeling down, depressed, or hopeless: Not at all 3. Trouble falling or staying asleep, or sleeping too much: Several days 4. Feeling tired or having little energy: Several days 5. Poor appetite or overeating: Not at all 6. Feeling bad about yourself -- or that you are a failure or have let yourself or your family down: Not at all 7. Trouble concentrating on things, such as reading the newspaper or watching television: Several days 8. Moving or speaking so slowly that other people could have noticed. Or the opposite - being so fidgety or restless that you have been moving around a lot more than usual: Not at all 9. Thoughts that you would be better off , or of hurting yourself in some way: Not at all How difficult have these problems made it for you to do your work, take care of things at home, or get along with other people?: Not difficult at all Total Score: 3 Self-Efficacy 30-Day Re-eval Assessment We would like to know how confident you are in doing certain activities. Please select your confidence level for:: Select your confidence level for the following using the scale 1-10 where 1 is not at all confident and 10 is totally confident. Your score is the average of all 6 responses. Fatigue: How confident are you that you can keep the fatigue caused by your disease from interfering with the things you want to do? Select Number: 9 Physical Discomfort or Pain: How confident are you that you can keep the physical discomfort or pain of your disease from interfering with the things you want to do? Select Number: 9 Emotional Distress: How confident are you that you can keep the emotional distress caused by your disease from interfering with the things you want to do? Select Number: 10 Other Symptoms or Health Problems: How confident are you that you can keep other symptoms or health problems from interfering with the things you want to do? Select Number: 10 Different Tasks and Activities: How confident are you that you can do the different tasks and activities needed to manage your health condition so as to reduce your need to see a doctor? Medication: How confident are you that you can do things other than just taking medication to reduce how much your illness affects your everyday life? Select Number: 10 Nutrition Survey
[2021-03-10 10:12] VITALS: BP 144/78; BP 162/70; BMI 25.0
== END 2021-03-13 23:59 ==
LOC: CR 13:00
PROVIDERS: PCP Family Medicine; Referring Provider Internal Medicine Cardiovascular Disease; Visit Provider Internal Medicine Cardiovascular Disease
DX: I25.10 Atherosclerotic heart disease of native coronary artery without angina pectoris (principal); I48.0 Paroxysmal atrial fibrillation; I10 Essential (primary) hypertension; Z95.5 Presence of coronary angioplasty implant and graft
CPT/HCPCS: 93798

== ENCOUNTER 2021-04-10 13:00 | Outpatient (RCR) | payer MEDICARE, OTHER, SELFPAY ==
[2021-02-06 13:46] VITALS: BMI 24.6
[2021-03-10 10:12] VITALS: BMI 25.0
[2021-03-14 00:51] VITALS: BP 144/78; BP 162/70
--- NOTE | 2021-04-10 07:12 | PCM.CR.ITP ---
Diagnosis Exercise - 60-day Assessment - Visit Date of Eval: 04/10/21 Session #:: 24 - Physician Prescribed Exercise Modalities: Treadmill, Rower, Airdyne, NuStep, SciFit Frequency: 3x/week for 12 weeks [36 sessions] Intensity: 60-80% of age predicted maximum heart rate reserve Current METSs:: 4.5 Target Heart Rate:: 80-106 Current RPE:: 12-13.5 Maximum Excercise HR:: 101 Resting Blood Pressure: 132/54 - Stage I Hypertension w/medications Maximum Exercise Blood Pressure: 132/54 EKG Type: NSR to sinus tach with rare PAC, ST depression on treadmill No CP - Outcomes & Goals Goals:: Verbalizes understanding of THR, RPE & goal METS by session 6, Documents in home exercise log/reports 30 min aerobic 5 day/wk by DC, Demonstrates accurate pulse taking by DC - Intervention & Plan Exercise Program Goals: Instruct on personal THR & RPE, Instruct on MET level & personal MET goal, Show patient to take own pulse /validate performance until accurate, Instruct on home exercise - 30-day Reassessments 30 day Reassessments:: Progressing - Physical Activity Home Exercise Physical Activity - Home Exercise: Safe Exercise, Warm-up, Self-monitoring, Cool-Down, Home Exercise > 30 min Daily, Sitting Time <3 hours/daily - Outcomes & Goals Outcomes/Goals: Demonstrates correct Warm-up/exercise Cool-Down (S3) if = 2.5 METs, Verbalizes symptoms of exercise intolerance by Session 3 (S3), Demonstrate safe equipment use (S3) & follows exercise prescrition (6) - Intervention & Plan Plan/Intervention: Instruct warm-up & cool-down if exercising at > 2 METs, Instruct on symptoms of exercise intolerance & actions to take, Instruct & monitor on saf, Assess intial functional capacity & safety risk - 30-day Reassessments 30 day Reassessments:: Met Nutrition - Initial Assessment Nutrition - 30-Day Assessment Nutrition - 60-Day Assessment - Program Goals Nutrition Program Goals: LDL <100 optimal. 100 - 129 Near optimal. 130 - 159 Borderline High. 160 - 189 High. Total Cholesterol <200 desirable. 200 - 239 Borderline High. >/= 240 High. HDL < 40 Low >/=60 High. Triglycerides <150 desirable. <199 optimal. VlDL 5 - 40. HgbA1C <7%. BMI <25 Patient has diagnosis of Hyperlipidemia (ICD E78)?: Yes - Visit Date of Assessment:: 04/10/21 Session #:: 23 - no recent labs drawn since admission. - Cholesterol/Lipids Determine presence & major risk factors that modify LDL goal: Hypertension or hypertensive medication, Family history of premature CHD in Male < 55 years: female <65 yearsFa, Age men > 45 years; women >/= 55 years Outcomes/Goals: Pt IDs own risk factors & lifestyle modifications by Session 10, Verbalizes symptoms of angina & response by session 3., Pt independently manages Intervention/Plan: Instruct on personal lipid levels & lipid goals/NCEP guidelines, Instruct on cholesterol Referral to dietitian:: Yes 30-day Reassessments:: Progressing - Diabetes (Other Core Measures) Diabetes Type: Not Applicable - Weight Mgt (Other Care) Not Applicable: Yes Height: 5 ft Weight:: 126 lb 8 oz BMI: 24.7 Diagnosis Overweight/Obesity BMI> 30% ICD-10 E66: No Diagnosis High BMI/Morbid Obesity BMI> 35% ICD-10 Z68: No Outcomes/Goals: Pt sets, maintains & shows weight loss goal & trend during rehab Intervention/Plan: Instruct on ideal BMI & set weight loss goal w/patient 30 day Reassessments:: Met - Healthy Eating Habits Will attend diet classes:: Yes Outcomes/Goals:: Consume diet rich in vegs,fruits,whole grain/high fiber,fish,lean meat, Limit sat/trans fats,cholesterol & added salts & sugars Intervention/Plan:: Assess current eating habits 30-day Reassessments:: Met Nutrition - 90-Day Assessment Nutrition - Final Assessment Medical - Initial Assessment Medical- 30-Day Assessment Medical- 60-Day Assessment - Visit Date of Eval: 04/10/21 Session #:: 23 - Medication Compliance Preventative Medication(s):: Aspirin, CHAYO inhibitor, Clopidogrel/P2Y12 inhibit, Statin/lipid, Beta sonya H/O mental health issues: depression, anxiety, or addiction?: No Doesn?t believe in the benefits of treatment?: No Believes medications are unnecessary or harmful?: No Has a concern about medication side effects?: No Expresses concern over the cost of medications?: No Outcomes/Goals: Verbalizes medications,desired effect & common side effects @ DC, Pt self-reports following medication regimen, Keeps card in wallet w/medications listed by DC Interventions/plans: Instruct on medication effects & side effects, Review medication list w/patient every two weeks, Instruct importance of taking meds as ordered & assist problem solving 30-day Reassessments:: Progressing - Tobacco Use Tobacco Use: Non-smoker - Hypertension Hypertension Diagnosis:: Hypertension ICD-10 I10 Resting Blood Pressure:: 132/54 [place] [employer] Hypertension Guidelines: [place] [employer] Hypertension Guidelines. Normal BP Less than 120/80. Elevated BP 120/80. Hypertension Stage 1: BP 130-139/80-89. Hypertesnion Stage 2: BP 140 or higher/90 or higher. Hypertension Crisis: BP higher than 180/120 Peak Exercise Blood Pressure:: 132/54 Outcomes/Goals: Able to verbalize/achieve optimal blood pressure <130/80, Incorporates diet changes & exercise for blood pressure control by DC Interventions/plan: Instruct on optimal blood pressure, hypertension & medications, Instruct on effects of sodium, alcohol, stress, exercise &hypertension 30 day Reassessments:: Progressing - Tobacco Cessation Referral Smoking Cessation Referral:: No Individual Education/Counseling:: No Education Schedule Given:: Yes Medical- 90-Day Assessment Medical - Final Assessment Psychosocial - Initial Assess Psychosocial - 30-Day Assess Psychosocial - 60-Day Assess - VIsit Date of Eval: 04/10/21 Session #:: 23 Not Applicable: Yes History of previous Mental disease:: No - Psychosocial Test Tool Used:: PHQ-9 Questionnaire phq-9 Severity: Severity. 1-4 Minimal Depression. 5-9 Mild Depression. 10-14 Moderate Depression. 15-19 Moderately Sever Depression. 20-27 Severe Depression. Rule: - Referral to Behavioral Health PS - Interventions: Yes Attend Stress Management Classes, No Referral to Behavioral Health if PHQ-9 score >9:, No Referral to [facility], No Referral to Physician if PHQ-9 if score is 5-9: - Outcomes/Goals: See list Psychosocial Outcomes/Goals:: ID's personal stressors & 2 strategies to manage stress by discharge - Intervention/Plan: See List Interventions/Plan:: Assess stressors,coping strategies & signs of derpression on admission, Instruct/assist pt to develop coping & personal stress Mgt strategies, Instruct patient to recognize signs & symptoms of depression, Instruct patient to recog - 30-day Reassessments: 30 day Reassessments:: Met Psychosocial - 90-Day Assess Psychosocial - Final Assessmen Patient Health Questionnaire 60-Day Re-eval Assessment 1. Little interest or pleasure in doing things: Not at all 2. Feeling down, depressed, or hopeless: Not at all 3. Trouble falling or staying asleep, or sleeping too much: Not at all 4. Feeling tired or having little energy: Not at all 5. Poor appetite or overeating: Not at all 6. Feeling bad about yourself -- or that you are a failure or have let yourself or your family down: Not at all 7. Trouble concentrating on things, such as reading the newspaper or watching television: Not at all 8. Moving or speaking so slowly that other people could have noticed. Or the opposite - being so fidgety or restless that you have been moving around a lot more than usual: Not at all 9. Thoughts that you would be better off , or of hurting yourself in some way: Not at all Total Score: 0 Self-Efficacy 60-Day Re-eval Assessment We would like to know how confident you are in doing certain activities. Please select your confidence level for:: Select your confidence level for the following using the scale 1-10 where 1 is not at all confident and 10 is totally confident. Your score is the average of all 6 responses. Fatigue: How confident are you that you can keep the fatigue caused by your disease from interfering with the things you want to do? Select Number: 9 Physical Discomfort or Pain: How confident are you that you can keep the physical discomfort or pain of your disease from interfering with the things you want to do? Select Number: 10 Emotional Distress: How confident are you that you can keep the emotional distress caused by your disease from interfering with the things you want to do? Select Number: 10 Other Symptoms or Health Problems: How confident are you that you can keep other symptoms or health problems from interfering with the things you want to do? Select Number: 10 Different Tasks and Activities: How confident are you that you can do the different tasks and activities needed to manage your health condition so as to reduce your need to see a doctor? Select Number: 10 Medication: How confident are you that you can do things other than just taking medication to reduce how much your illness affects your everyday life? Select Number: 10 Total Score:: 9 Nutrition Survey
[2021-04-10 07:18] VITALS: BP 132/54; BMI 24.7
== END 2021-04-13 23:59 ==
LOC: CR 13:00
PROVIDERS: PCP Family Medicine; Referring Provider Internal Medicine Cardiovascular Disease; Visit Provider Internal Medicine Cardiovascular Disease
DX: I25.10 Atherosclerotic heart disease of native coronary artery without angina pectoris (principal); I48.0 Paroxysmal atrial fibrillation; I10 Essential (primary) hypertension; Z95.5 Presence of coronary angioplasty implant and graft
CPT/HCPCS: 93798

== ENCOUNTER 2021-05-11 13:00 | Outpatient (RCR) | payer MEDICARE, OTHER, SELFPAY ==
[2021-02-06 13:46] VITALS: BMI 24.6
[2021-04-14 00:33] VITALS: BP 132/54
== END 2021-05-13 23:59 ==
LOC: CR 13:00
PROVIDERS: PCP Family Medicine; Referring Provider Internal Medicine Cardiovascular Disease; Visit Provider Internal Medicine Cardiovascular Disease
DX: I25.10 Atherosclerotic heart disease of native coronary artery without angina pectoris (principal); I48.0 Paroxysmal atrial fibrillation; I10 Essential (primary) hypertension; Z95.5 Presence of coronary angioplasty implant and graft
CPT/HCPCS: 93798

== ENCOUNTER 2022-02-17 16:20 | Outpatient (CLI) | payer MEDICARE, OTHER, SELFPAY ==
--- NOTE | 2022-02-17 16:40 | RAD_ITS ---
STUDY: X-RAY CHEST REASON FOR EXAM: Female, 86 years old. Amiodarone therapy TECHNIQUE: PA and lateral. COMPARISON: 11/04/2020. FINDINGS: LUNGS: No consolidation. No pneumothorax. MEDIASTINUM: Aorta tortuous and atherosclerotic. CARDIAC SILHOUETTE: Not enlarged. BONES AND SOFT TISSUES: No acute abnormalities. RAD/Chest PA and Lateral IMPRESSION: No evidence of active intrathoracic disease. Electronically Signed: Wilma Helton MD at 5:38 EDT ,
== END 2022-02-17 23:59 | disposition home or self-care (01) ==
LOC: RAD 16:24
PROVIDERS: PCP Family Medicine; Referring Provider Nurse Practitioner Gerontology; Visit Provider Nurse Practitioner Gerontology
DX: Z79.899 Other long term (current) drug therapy (principal)
CPT/HCPCS: 71046

== ENCOUNTER → 2022-03-31 | Outpatient (CLI) | payer MEDICARE, OTHER, SELFPAY ==
[2022-03-31 09:41] LABS: Erythrocyte Sedimentation Rate 4 mm/hr (0-30)
[2022-03-31 09:44] LABS: Mean Corp Hgb Conc 32.5 g/dL (32-36)
[2022-03-31 10:13] LABS: ALB/GLOB Ratio 1.1 RATIO (0.9-2.4); AST(SGOT) 14 U/L (15-37); Alanine Aminotransfer ALT/SGPT 18 U/L (13-56); Albumin, Serum 3.7 g/dL (3.2-5.0); Alkaline Phosphatase 80 U/L (45-117); Anion Gap 4 (5-15); BUN 16 mg/dL (7-18); BUN/Creat Ratio 15.7 RATIO (10-20); Bilirubin, Direct 0.19 mg/dL (0.00-0.30); CRP 3.31 mg/L (0.0-3.0); Calcium,Total 9.6 mg/dL (8.5-10.1); Chloride 107 mmol/L (98-107); Cholesterol 117 mg/dL (200); Creatinine, Serum 1.02 mg/dL (0.55-1.02); EST Glomerular Filtration Rate 54 mL/min (>60); Est Glom Filt Rate - Afr Amer 66 mL/min (>60); Globulin 3.5 g/dL (2.2-4.2); Glucose 95 mg/dL (74-106); High Density Lipoprotein 62 mg/dL; Potassium 4.1 mmol/L (3.5-5.1); Protein, Total 7.2 g/dL (6.4-8.2); Rheumatoid Factor < 10.0 IU/mL (<15); Sodium Level 140 mmol/L (136-145); T4 Free Direct 1.77 ng/dL (0.76-1.46); Thyroid Stim Hormone (TSH) 0.18 uIU/mL (0.358-3.74); Triglycerides 94 mg/dL; Very Low Density Lipoprotein 19 mg/dL (5-40)
[2022-03-31 10:36] LABS: Hepatitis B Surface Antibody Non-Reactive; Hepatitis B Surface Antigen Non-Reactive (Nonreactive); Hepatitis C Antibody Non-Reactive (Nonreactive)
[2022-04-01 17:35] LABS: ANTINUCLEAR ANTIBODIES DIRECT Negative (Negative)
[2022-04-02 11:14] LABS: CCP IgG Antibodies < 1 units (0-19)
== END | disposition home or self-care (01) ==
LOC: LAB 08:36 → LAB.FUTURE 08:45
PROVIDERS: Nurse Practitioner Gerontology; PCP Family Medicine; Referring Provider Internal Medicine Rheumatology; Visit Provider Internal Medicine Rheumatology
DX: M06.4 Inflammatory polyarthropathy (principal); I48.91 Unspecified atrial fibrillation; M16.11 Unilateral primary osteoarthritis, right hip; I25.10 Atherosclerotic heart disease of native coronary artery without angina pectoris; I10 Essential (primary) hypertension; E78.5 Hyperlipidemia, unspecified; I35.0 Nonrheumatic aortic (valve) stenosis; E04.2 Nontoxic multinodular goiter; M81.0 Age-related osteoporosis without current pathological fracture
CPT/HCPCS: 36415; 80053; 80061; 82248; 84439; 84443; 85025; 85652; 86038; 86140; 86200; 86431; 86706; 86803; 87340

== ENCOUNTER → 2022-05-31 | Outpatient (CLI) | payer MEDICARE, OTHER, SELFPAY ==
[2022-05-31 15:05] LABS: Hematocrit 39.6 % (37-47); Hemoglobin 12.6 g/dL (12.0-15.0); Mean Corp Hgb Conc 31.8 g/dL (32-36); Mean Corpuscular Hgb 30.4 pg (27.0-32.0); Mean Corpuscular Volume 95.4 fL (81-99); Mean Platelet Vol. 10.7 fl (6.2-12.0); Platelet Count 198 K/mm3 (150-450); RBC Distribution Width SD 45.6 fl (35.1-43.9); Red Blood Count 4.15 M/mm3 (4.2-5.4); White Blood Count 6.6 K/mm3 (4.4-11.0)
[2022-05-31 15:51] LABS: Anion Gap 9 (5-15); BUN 19 mg/dL (7-18); BUN/Creat Ratio 17.9 RATIO (10-20); Calcium,Total 10.2 mg/dL (8.5-10.1); Chloride 103 mmol/L (98-107); Creatinine, Serum 1.06 mg/dL (0.55-1.02); EST Glomerular Filtration Rate 52 mL/min (>60); Est Glom Filt Rate - Afr Amer 63 mL/min (>60); Glucose 122 mg/dL (74-106); Magnesium 2.2 mg/dL (1.6-2.6); Potassium 3.9 mmol/L (3.5-5.1); Sodium Level 140 mmol/L (136-145)
== END | disposition home or self-care (01) ==
LOC: LAB 13:49
PROVIDERS: PCP Family Medicine; Referring Provider Internal Medicine Cardiovascular Disease; Visit Provider Internal Medicine Cardiovascular Disease
DX: R55 Syncope and collapse (principal); I48.0 Paroxysmal atrial fibrillation; I25.10 Atherosclerotic heart disease of native coronary artery without angina pectoris; Z79.899 Other long term (current) drug therapy
CPT/HCPCS: 36415; 80048; 83735; 85027

== ENCOUNTER → 2022-06-07 | Outpatient (CLI) | payer MEDICARE, OTHER, SELFPAY | END | disposition home or self-care (01) | LOC: PSN 08:58 | PROVIDERS: PCP Family Medicine; Visit Provider Internal Medicine Cardiovascular Disease | DX: I48.0 Paroxysmal atrial fibrillation (principal); I25.10 Atherosclerotic heart disease of native coronary artery without angina pectoris; R55 Syncope and collapse; Z79.899 Other long term (current) drug therapy | CPT/HCPCS: 93225; 93226 ==

== ENCOUNTER → 2022-08-18 | Outpatient (CLI) | payer MEDICARE, OTHER, SELFPAY ==
[2022-08-18 09:25] LABS: AST(SGOT) 14 U/L (15-37); Alanine Aminotransfer ALT/SGPT 19 U/L (13-56); Albumin, Serum 3.8 g/dL (3.2-5.0); Alkaline Phosphatase 82 U/L (45-117); Bilirubin, Direct 0.15 mg/dL (0.00-0.30); Cholesterol 129 mg/dL (200); Globulin 3.6 g/dL (2.2-4.2); High Density Lipoprotein 72 mg/dL; Protein, Total 7.4 g/dL (6.4-8.2); T4 Total, Thyroxin 17.9 ug/dL (4.8-13.9); Triglycerides 77 mg/dL; Very Low Density Lipoprotein 15 mg/dL (5-40)
[2022-08-18 12:54] LABS: Theophylline (Aminophylline) < 2.0 ug/mL (10.0-20.0)
[2022-08-18 16:26] LABS: Thyroid Stim Hormone (TSH) 0.52 uIU/mL (0.358-3.74)
== END | disposition home or self-care (01) ==
LOC: LAB 07:28
PROVIDERS: Referring Provider Internal Medicine Cardiovascular Disease; Visit Provider Internal Medicine Cardiovascular Disease
DX: I25.10 Atherosclerotic heart disease of native coronary artery without angina pectoris (principal); I48.0 Paroxysmal atrial fibrillation; E78.5 Hyperlipidemia, unspecified; Z79.899 Other long term (current) drug therapy
CPT/HCPCS: 36415; 80061; 80076; 80198; 84436; 84443

== ENCOUNTER → 2022-10-05 | Outpatient (CLI) | payer MEDICARE, OTHER, SELFPAY ==
[2022-10-05 09:44] LABS: Absolute Lymphocyte Count 1.53 X10^3/uL (0.83-4.51); Absolute Neutrophil Count 4.1 X10^3/uL (2.0-7.7); Basophil# 0.04 X10^3/uL; Basophil% 0.6 % (0-1); Eosinophil# 0.12 X10^3/uL; Eosinophils% 1.9 % (0-5); Hemoglobin 11.6 g/dL (12.0-15.0); Lymphocyte # 1.53 X10^3/ul (0.83-4.51); Lymphocyte % 24.2 % (19-41); Mean Corp Hgb Conc 30.5 g/dL (32-36); Mean Corpuscular Hgb 29.1 pg (27.0-32.0); Mean Corpuscular Volume 95.5 fL (81-99); Mean Platelet Vol. 10.7 fl (6.2-12.0); Monocyte# 0.49 X10^3/uL; Monocyte% 7.7 % (0-10); NRBC Flagged by Analyzer 0 % (0-5); Neutrophil # 4.13 X10^3/uL (2.7-7.7); Neutrophil % 65.3 % (47-70); Platelet Count 232 K/mm3 (150-450); RBC Distribution Width CV 14.1 % (11.6-14.6); RBC Distribution Width SD 49.6 fl (35.1-43.9); Red Blood Count 3.98 M/mm3 (4.2-5.4); White Blood Count 6.3 K/mm3 (4.4-11.0)
[2022-10-05 10:19] LABS: ALB/GLOB Ratio 1.1 RATIO (0.9-2.4); AST(SGOT) 17 U/L (15-37); Alanine Aminotransfer ALT/SGPT 23 U/L (13-56); Albumin, Serum 3.8 g/dL (3.2-5.0); Alkaline Phosphatase 81 U/L (45-117); Anion Gap 5 (5-15); BUN 15 mg/dL (7-18); BUN/Creat Ratio 16.3 RATIO (10-20); Calcium,Total 9.9 mg/dL (8.5-10.1); Chloride 109 mmol/L (98-107); Creatinine, Serum 0.92 mg/dL (0.55-1.02); EST Glomerular Filtration Rate 61 mL/min (>60); Est Glom Filt Rate - Afr Amer 74 mL/min (>60); Globulin 3.6 g/dL (2.2-4.2); Glucose 100 mg/dL (74-106); Protein, Total 7.4 g/dL (6.4-8.2); Sodium Level 143 mmol/L (136-145)
[2022-10-05 13:54] LABS: Bilirubin, Direct 0.16 mg/dL (0.00-0.30); Cholesterol 135 mg/dL (200); High Density Lipoprotein 68 mg/dL; Triglycerides 115 mg/dL; Very Low Density Lipoprotein 23 mg/dL (5-40)
== END | disposition home or self-care (01) ==
LOC: LAB 08:41
PROVIDERS: Referring Provider Internal Medicine Cardiovascular Disease; Visit Provider Internal Medicine Cardiovascular Disease
DX: M06.4 Inflammatory polyarthropathy (principal); I48.91 Unspecified atrial fibrillation; M16.11 Unilateral primary osteoarthritis, right hip; I25.10 Atherosclerotic heart disease of native coronary artery without angina pectoris; I10 Essential (primary) hypertension; E78.5 Hyperlipidemia, unspecified; I35.0 Nonrheumatic aortic (valve) stenosis; E04.2 Nontoxic multinodular goiter; M81.0 Age-related osteoporosis without current pathological fracture
CPT/HCPCS: 36415; 80053; 80061; 82248; 84436; 84443; 85025

== ENCOUNTER → 2023-01-27 | Outpatient (CLI) | payer MEDICARE, OTHER, SELFPAY ==
[2023-01-27 09:32] LABS: Absolute Lymphocyte Count 1.33 X10^3/uL (0.83-4.51); Absolute Neutrophil Count 1.8 X10^3/uL (2.0-7.7); Basophil# 0.04 X10^3/uL; Basophil% 1.1 % (0-1); Eosinophil# 0.09 X10^3/uL; Eosinophils% 2.5 % (0-5); Hematocrit 39.3 % (37-47); Hemoglobin 12.6 g/dL (12.0-15.0); Lymphocyte # 1.33 X10^3/ul (0.83-4.51); Lymphocyte % 36.3 % (19-41); Mean Corp Hgb Conc 32.1 g/dL (32-36); Mean Corpuscular Hgb 29.8 pg (27.0-32.0); Mean Corpuscular Volume 92.9 fL (81-99); Mean Platelet Vol. 10.7 fl (6.2-12.0); Monocyte# 0.35 X10^3/uL; Monocyte% 9.6 % (0-10); NRBC Flagged by Analyzer 0 % (0-5); Neutrophil # 1.84 X10^3/uL (2.7-7.7); Neutrophil % 50.2 % (47-70); Platelet Count 177 K/mm3 (150-450); RBC Distribution Width SD 47.1 fl (35.1-43.9); Red Blood Count 4.23 M/mm3 (4.2-5.4); White Blood Count 3.7 K/mm3 (4.4-11.0)
[2023-01-27 10:09] LABS: AST(SGOT) 18 U/L (15-37); Alanine Aminotransfer ALT/SGPT 23 U/L (13-56); Albumin, Serum 3.7 g/dL (3.2-5.0); Alkaline Phosphatase 67 U/L (45-117); Anion Gap 8 (5-15); BUN 27 mg/dL (7-18); BUN/Creat Ratio 23.1 RATIO (10-20); Chloride 109 mmol/L (98-107); Cholesterol 120 mg/dL (200); Creatinine, Serum 1.17 mg/dL (0.55-1.02); EST Glomerular Filtration Rate 46 mL/min (>60); Est Glom Filt Rate - Afr Amer 56 mL/min (>60); Free T3 1.8 pg/mL (2.18-3.98); Globulin 3.3 g/dL (2.2-4.2); Glucose 106 mg/dL (74-106); High Density Lipoprotein 59 mg/dL; Potassium 3.4 mmol/L (3.5-5.1); Sodium Level 143 mmol/L (136-145); T4 Total, Thyroxin 16.2 ug/dL (4.8-13.9); Thyroid Stim Hormone (TSH) 0.39 uIU/mL (0.358-3.74); Triglycerides 104 mg/dL; Very Low Density Lipoprotein 21 mg/dL (5-40)
== END | disposition home or self-care (01) ==
LOC: LAB 09:13
PROVIDERS: Referring Provider Nurse Practitioner Gerontology; Visit Provider Nurse Practitioner Gerontology
DX: R42 Dizziness and giddiness (principal); I48.0 Paroxysmal atrial fibrillation; E78.5 Hyperlipidemia, unspecified; I25.10 Atherosclerotic heart disease of native coronary artery without angina pectoris; Z79.899 Other long term (current) drug therapy
CPT/HCPCS: 36415; 80048; 80061; 80076; 84436; 84439; 84443; 84481; 85025

== ENCOUNTER → 2023-02-02 | Outpatient (CLI) | payer MEDICARE, OTHER, SELFPAY ==
--- NOTE | 2023-02-02 12:43 | ECHOD_ITS ---
Reason For Study: DIZZINESS Procedure This was a 2D Doppler, Color Flow transthoracic echocardiogram. Exam performed in department. Left Ventricle Normal LV size. Left ventricular systolic function is normal. The estimated ejection fraction is 60 %. Stage 2 diastolic dysfunction. No regional wall motion abnormalities noted. Right Ventricle Normal RV size. Normal systolic function. Atria Normal left atrium. Normal right atrium. Probable chiari network. Mitral Valve There is mild mitral annular calcification. Mild-Moderate (1-2+) eccentric mitral valve insufficiency. Tricuspid Valve Normal tricuspid valve. Mild (1+) tricuspid valve insufficiency. Pulmonary artery systolic pressure is 42 mmHg. Aortic Valve Trisinus/trileaflet aortic valve. Moderate focal aortic valve calcification. Peak aortic valve gradient 38 mmHg. Mean aortic valve gradient 22 mmHg. Mild to moderate aortic stenosis. Mild (1+) aortic valve insufficiency. Pulmonic Valve Normal pulmonic valve. Great Vessels Normal aortic root. The pulmonary artery is normal size. Normal inferior vena cava. Pericardium/Pleural No pericardial effusion. MMode/2D Measurements & Calculations LVIDd: 4.1 cm IVSd: 1.1 cm LVOT diam: 1.8 cm LVIDs: 2.7 cm LVPWd: 1.3 cm LVOT area: 2.6 cm2 RVDd: 2.5 cm FS: 33.7 % Ao root diam: 2.4 cm LAV(MOD-bp): 100.1 ml LVAd ap4: 21.1 cm2 LAV(MOD-bp) Indexed: 67.8 ml/m2 LVLd ap4: 6.5 cm LAV(MOD-sp2): 95.5 ml EDV(MOD-sp4): 56.0 ml LAV(MOD-sp4): 91.8 ml EDV(sp4-el): 58.4 ml LVAs ap4: 10.4 cm2 LVLs ap4: 4.9 cm ESV(MOD-sp4): 18.3 ml ESV(sp4-el): 18.8 ml EF(MOD-sp4): 67.4 % EF(sp4-el): 67.8 % SV(MOD-sp4): 37.7 ml SV(sp4-el): 39.6 ml LA A4 area: 25.6 cm2 LA dimension(2D): 4.3 cm RA A4 area: 13.7 cm2 Time Measurements MV dec time: 0.52 sec Doppler Measurements & Calculations MV E max rex: 184.1 cm/sec Lat Peak E' Rex: 3.9 cm/sec Med Peak E' Rex: 4.1 cm/sec MV A max rex: 152.5 cm/sec E/E' lat: 47.3 E/E' med: 44.7 MV E/A: 1.2 MV V2 max: 175.3 cm/sec Ao V2 max: 308.6 cm/sec MV max P.3 mmHg MV dec slope: 362.7 cm/sec2 Ao max P.1 mmHg MV V2 mean: 105.6 cm/sec Ao V2 mean: 216.0 cm/sec MV mean P.1 mmHg Ao mean P.7 mmHg MV V2 VTI: 70.6 cm Ao V2 VTI: 80.1 cm AV (velocity ratio): 0.70 MVA(VTI): 2.0 cm2 KUNAL(I,D): 1.8 cm2 KUNAL(V,D): 1.8 cm2 LV V1 max: 217.6 cm/sec MR max rex: 517.3 cm/sec SV(LVOT): 144.5 ml LV V1 max P.9 mmHg MR max P.0 mmHg LV V1 mean P.9 mmHg LV V1 mean: 178.8 cm/sec LV V1 VTI: 56.5 cm PA V2 max: 114.3 cm/sec TR max rex: 308.8 cm/sec PA V2 mean: 79.3 cm/sec TR max P.2 mmHg ECHO/Echo Complete Interpretation Summary Normal LV size. Left ventricular systolic function is normal. The estimated ejection fraction is 60 %. Stage 2 diastolic dysfunction. Mild-Moderate (1-2+) eccentric mitral valve insufficiency. Pulmonary artery systolic pressure is 42 mmHg. Moderate focal aortic valve calcification. Mild to moderate aortic stenosis. Mean aortic valve gradient 22 mmHg. Ordering Physician: Veronica Adams Referring Physician: CHRIS TIAN Performed By: Widder, Carol, RCS
--- NOTE | 2023-02-02 12:43 | CDU_ITS ---
Reason For Study: Dizziness Rt. Velocities/BP Lt. Velocities/BP Prox CCA 93.8/10.2 cm/sec. Prox CCA 83.1/8.4 cm/sec. Mid CCA 86.4/10.6 cm/sec. Mid CCA 63.3/11.7 cm/sec. Dist CCA 49.0/7.3 cm/sec. Dist CCA 53.7/10.1 cm/sec. Prox ICA 41.8/9.2 cm/sec. Prox ICA 51.1/12.7 cm/sec. Mid ICA 72.1/15.6 cm/sec. Mid ICA 68.6/15.4 cm/sec. Dist ICA 63.2/14.1 cm/sec. Dist ICA 65.5/17.6 cm/sec. Rt. ICA/CCA = 0.8. Lt. ICA/CCA = 0.9. Prox ECA 67.7/3.1 cm/sec. Prox ECA 68.6/2.3 cm/sec. Rt. Vert. 48.5/8.4 cm/sec. Lt. Vert. 53.4/9.5 cm/sec. Right Extracranial There is intimal thickening but no significant atherosclerotic plaque noted in the right common carotid artery. There is intimal thickening but no significant atherosclerotic plaque noted in the right internal carotid artery. There is intimal thickening but no significant atherosclerotic plaque noted in the right external carotid artery. Antegrade flow is noted in the right vertebral artery. Left Extracranial There is heterogeneous, irregular atherosclerotic plaque noted in the left common carotid artery. There is heterogeneous, irregular atherosclerotic plaque noted in the left internal carotid artery. There is homogeneous, smooth atherosclerotic plaque noted in the left external carotid artery. Antegrade flow is noted in the left vertebral artery. Procedure Carotid Duplex 13020. This is a Carotid Duplex examination using B-mode, color flow and specral Doppler. The exam was diagnostic. Exam performed in department. VL/Carotid Duplex Ultrasound Interpretation Summary Intimal thickening at the proximal right internal carotid artery with less than 50% stenosis Less than 50% stenosis right external carotid artery Mild irregular plaque at the proximal left internal carotid artery with less th an 50% stenosis Less than 50% stenosis left external carotid artery Patent and antegrade vertebral arteries bilaterally Ordering Physician: Veronica Adams Referring Physician: Veronica Adams Performed By: Israel Fountain RVT
--- NOTE | 2023-02-02 14:05 | RAD_ITS ---
STUDY: X-RAY CHEST REASON FOR EXAM: Female, 87 years old. Amiodarone treatment. Evaluate pulmonary status. TECHNIQUE: Frontal and lateral views of the chest. COMPARISON: February 17, 2022. FINDINGS: Stable hyperinflation. There is no demonstrated pleural abnormality. Cardiomegaly with aortic tortuosity unchanged. Normal mediastinum and saleem. Normal visualized pulmonary arteries. Normal visualized aortic arch and descending thoracic aorta. Diffuse thoracic osteopenia, mild spondylosis and increased kyphosis, unchanged. Normal visualized ribs, clavicles, and shoulders. No demonstrated abnormality of the visualized soft tissue structures of the upper abdomen. RAD/Chest PA and Lateral IMPRESSION: Stable cardiomegaly, hyperinflation and thoracic spondylosis. No interstitial abnormality. Electronically Signed: Alan Valderrama, at 15:27 EDT ,
== END | disposition home or self-care (01) ==
LOC: CVS 12:42
PROVIDERS: Visit Provider Nurse Practitioner Gerontology
DX: R42 Dizziness and giddiness (principal); I38 Endocarditis, valve unspecified; Z79.899 Other long term (current) drug therapy
CPT/HCPCS: 71046; 93306; 93880

== ENCOUNTER → 2023-02-08 | Outpatient (CLI) | payer MEDICARE, OTHER, SELFPAY ==
--- NOTE | 2023-02-08 14:06 | PFTCOMP_ITS ---
COMPLETE PULMONARY FUNCTION TEST INTERPRETATION Brief HPI: Patient is an 87-year-old female, currently under the care of Veronica Adams, who presents to [facility] for complete pulmonary function tests secondary to diagnosis of high risk med use. Respiratory therapist reports good effort and reproducible results. Interpretation: Forced expiration spirometry shows no large airways obstructive ventilatory defect with an FEV1 of 134% predicted. There is no significant bronchodilator response by strict ATS criteria. Spirograms are of good quality and plateau normally. The respiratory flow volume loop shows a normal pattern. Lung volumes by body plethysmography show a normal total lung capacity at 4.49 L, 116% predicted. All other lung volumes are within normal limits. Diffusion capacity by carbon monoxide is normal at 123% predicted. The airway resistance is normal. No previous pulmonary function tests were available for review. Impression: These pulmonary function tests are within normal limits
== END | disposition home or self-care (01) ==
LOC: PSN 10:18
PROVIDERS: Visit Provider Nurse Practitioner Gerontology
DX: Z79.899 Other long term (current) drug therapy (principal)
CPT/HCPCS: 94060; 94726; 94729

== ENCOUNTER → 2023-04-05 | Outpatient (CLI) | payer MEDICARE, OTHER, SELFPAY ==
[2023-04-05 11:19] LABS: Anion Gap 7 (5-15); BUN 22 mg/dL (7-18); BUN/Creat Ratio 23.5 RATIO (10-20); Calcium,Total 9.6 mg/dL (8.5-10.1); Chloride 112 mmol/L (98-107); Creatinine, Serum 0.94 mg/dL (0.55-1.02); EST Glomerular Filtration Rate 60 mL/min (>60); Est Glom Filt Rate - Afr Amer 73 mL/min (>60); Free T3 2.2 pg/mL (2.18-3.98); Glucose 94 mg/dL (74-106); Potassium 4.1 mmol/L (3.5-5.1); Sodium Level 143 mmol/L (136-145); T4 Free Direct 1.65 ng/dL (0.76-1.46); Thyroid Stim Hormone (TSH) 0.37 uIU/mL (0.358-3.74)
== END | disposition home or self-care (01) ==
PROVIDERS: Nurse Practitioner Gerontology
DX: Z00.00 Encounter for general adult medical examination without abnormal findings (principal); N18.30 Chronic kidney disease, stage 3 unspecified; R79.83 Abnormal findings of blood amino-acid level; R94.6 Abnormal results of thyroid function studies
CPT/HCPCS: 36415; 80048; 84439; 84443; 84481

== ENCOUNTER → 2023-08-04 | Outpatient (CLI) | payer MEDICARE, OTHER, SELFPAY ==
[2023-08-04 09:53] LABS: Anion Gap 4 (5-15); BUN 25 mg/dL (7-18); BUN/Creat Ratio 24.3 RATIO (10-20); Calcium,Total 9.5 mg/dL (8.5-10.1); Chloride 111 mmol/L (98-107); Creatinine, Serum 1.03 mg/dL (0.55-1.02); EST Glomerular Filtration Rate 54 mL/min (>60); Est Glom Filt Rate - Afr Amer 65 mL/min (>60); Glucose 101 mg/dL (74-106); Potassium 4.4 mmol/L (3.5-5.1); Sodium Level 141 mmol/L (136-145)
== END | disposition home or self-care (01) ==
LOC: LAB 09:15
PROVIDERS: Referring Provider Nurse Practitioner Gerontology; Visit Provider Nurse Practitioner Gerontology
DX: E87.6 Hypokalemia (principal)
CPT/HCPCS: 36415; 80048

== ENCOUNTER 2023-10-04 16:29 | Emergency (ER) | payer MEDICARE, OTHER, SELFPAY ==
[2023-10-04] VITALS (10 sets, daily range): BP systolic 109–166; BP diastolic 52–77; PULSE 62–77; RESP 12–16; TEMP 36.6–36.7; O2SAT 94–199; BMI 24.5
--- NOTE | 2023-10-04 17:08 | RAD_ITS ---
INDICATION: trauma EXAMINATION/TECHNIQUE: X-RAY - RIGHT XR Knee 3 Views COMPARISON: FINDINGS: SOFT TISSUES: There is diffuse soft tissue swelling without subcutaneous gas. No radiopaque foreign body. BONES/JOINTS: No acute fracture or subluxation.. Normal alignment. Preservation of the joint space.. No sclerotic or destructive changes observed. RAD/Knee 3 Views IMPRESSION: Subcutaneous edema. No acute bony injury. Electronically Signed: Reza Sykes DO at 18:03 EST ,
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
--- NOTE | 2023-10-04 17:45 | RAD_ITS ---
INDICATION: trauma EXAMINATION/TECHNIQUE: X-RAY - RIGHT XR Femur 4 VIEWS COMPARISON: FINDINGS: SOFT TISSUES: There is subcutaneous swelling without subcutaneous gas. No radiopaque foreign body. BONES/JOINTS: No acute fracture or subluxation.. Degenerative changes of the right hip with joint space narrowing.. No sclerotic or destructive changes observed. RAD/Femur Min 2 Views IMPRESSION: Degenerative changes of the right hip with joint space narrowing. Electronically Signed: Reza Sykes DO at 18:05 EST ,
[2023-10-04 17:50] LABS: Absolute Lymphocyte Count 1.35 X10^3/uL (0.83-4.51); Absolute Neutrophil Count 4.7 X10^3/uL (2.0-7.7); Basophil# 0.02 X10^3/uL; Basophil% 0.3 % (0-1); Eosinophil# 0.09 X10^3/uL; Eosinophils% 1.3 % (0-5); Hematocrit 34.8 % (37-47); Lymphocyte # 1.35 X10^3/ul (0.83-4.51); Lymphocyte % 20.1 % (19-41); Mean Corp Hgb Conc 31.6 g/dL (32-36); Mean Corpuscular Hgb 30.1 pg (27.0-32.0); Mean Corpuscular Volume 95.1 fL (81-99); Mean Platelet Vol. 10.7 fl (6.2-12.0); Monocyte# 0.52 X10^3/uL; Monocyte% 7.7 % (0-10); NRBC Flagged by Analyzer 0 % (0-5); Neutrophil # 4.72 X10^3/uL (2.7-7.7); Neutrophil % 70.3 % (47-70); Platelet Count 170 K/mm3 (150-450); RBC Distribution Width CV 13.5 % (11.6-14.6); RBC Distribution Width SD 47.7 fl (35.1-43.9); Red Blood Count 3.66 M/mm3 (4.2-5.4); White Blood Count 6.7 K/mm3 (4.4-11.0)
[2023-10-04 18:05] LABS: International Normalized Ratio 1.1
[2023-10-04 18:06] LABS: Partial Thromboplast Time 25.3 Seconds (24.1-36.2)
[2023-10-04 18:09] LABS: Anion Gap 4 (5-15); BUN 30 mg/dL (7-18); BUN/Creat Ratio 31.2 RATIO (10-20); Calcium,Total 9.2 mg/dL (8.5-10.1); Chloride 110 mmol/L (98-107); Creatinine, Serum 0.96 mg/dL (0.55-1.02); EST Glomerular Filtration Rate 58 mL/min (>60); Est Glom Filt Rate - Afr Amer 70 mL/min (>60); Glucose 134 mg/dL (74-106); Potassium 4.1 mmol/L (3.5-5.1); Sodium Level 142 mmol/L (136-145)
[2023-10-04] MEDS: Acetaminophen 500 MG Tablet 1000 MG PO (20:33)
[2023-10-04 20:53] LABS: Hemoglobin 10.4 g/dL (12.0-15.0)
[2023-10-04] MEDS: Morphine 4 MG/ML Syringe IV (21:36)
[2023-10-04] MEDS: Ondansetron 4 MG/2 ML Vial IV (21:36)
[2023-10-05] VITALS: BP 112/58; PULSE 64; RESP 16; O2SAT 98
== END 2023-10-05 00:34 | disposition short-term general hospital (02) ==
PROVIDERS: Emergency Provider Emergency Medicine; Visit Provider Emergency Medicine
DX: S77.11XA Crushing injury of right thigh, initial encounter (principal); I48.0 Paroxysmal atrial fibrillation; R55 Syncope and collapse; V43.42XA Person boarding or alighting a car injured in collision with other type car, initial encounter; Y92.89 Other specified places as the place of occurrence of the external cause; I10 Essential (primary) hypertension; I25.10 Atherosclerotic heart disease of native coronary artery without angina pectoris; S70.311A Abrasion, right thigh, initial encounter; Z79.01 Long term (current) use of anticoagulants; Z79.02 Long term (current) use of antithrombotics/antiplatelets; Z79.899 Other long term (current) drug therapy
CPT/HCPCS: 73552; 73562; 80048; 85014; 85018; 85025; 85610; 85730; 93005; 96374; 96375; 99285; J7030; A4216; J2405

== ENCOUNTER 2023-10-09 10:21 | Inpatient (IN) | payer MEDICARE, OTHER, SELFPAY ==
[2023-10-09 10:22] VITALS: BP 112/60; PULSE 74; RESP 16; TEMP 37; O2SAT 98; BMI 26.3
--- NOTE | 2023-10-09 11:00 | CT_ITS ---
HISTORY: head injury. TECHNIQUE: Multiple axial images were obtained of the head without intravenous contrast. A radiation dose optimization technique was used for this scan. 231 images. COMPARISON: None. FINDINGS: BRAIN PARENCHYMA: Multiple foci and zones of low attenuation in the bilateral cerebral white matter compatible with chronic small vessel ischemic gliosis. No acute intra-axial hemorrhage identified. CSF SPACES: Generalized volume loss. No midline shift or other significant mass effect. No acute extra-axial hemorrhage seen. OTHER: Intact calvarium. No significant air fluid levels in the paranasal sinuses or mastoid air cells. Right frontal ethmoid osteoma. Unremarkable orbits. CT/Brain/Head without Contrast IMPRESSION: No acute intracranial process identified. Chronic involutional and white matter changes. Electronically Signed: Anamika Chavis MD at 11:37 EST ,
--- NOTE | 2023-10-09 11:01 | EKG12_ITS ---
Test Reason : Blood Pressure : / mmHG Vent. Rate : 087 BPM Atrial Rate : 087 BPM P-R Int : 146 ms QRS Dur : 104 ms QT Int : 402 ms P-R-T Axes : 078 -36 109 degrees QTc Int : 483 ms Normal sinus rhythm Left axis deviation ST & T wave abnormality, consider lateral ischemia Prolonged QT Abnormal ECG Confirmed by SHELDON MCNEIL, BARBARA ([id number]), writer editor CONCHA BRENNER ([id number]) on 10/10/2023 12:14:38 PM Referred By: Confirmed By:BARBARA CHUNG MD
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
[2023-10-09 11:36] LABS: Absolute Lymphocyte Count 0.67 X10^3/uL (0.83-4.51); Absolute Neutrophil Count 4.2 X10^3/uL (2.0-7.7); Basophil# 0.02 X10^3/uL; Basophil% 0.4 % (0-1); Eosinophil# 0.02 X10^3/uL; Eosinophils% 0.4 % (0-5); Hematocrit 24.1 % (37-47); Hemoglobin 7.5 g/dL (12.0-15.0); Lymphocyte # 0.67 X10^3/ul (0.83-4.51); Lymphocyte % 12.5 % (19-41); Mean Corp Hgb Conc 31.1 g/dL (32-36); Mean Corpuscular Hgb 30.5 pg (27.0-32.0); Monocyte# 0.44 X10^3/uL; Monocyte% 8.2 % (0-10); NRBC Flagged by Analyzer 0 % (0-5); Neutrophil # 4.17 X10^3/uL (2.7-7.7); Neutrophil % 77.9 % (47-70); Platelet Count 137 K/mm3 (150-450); RBC Distribution Width CV 14.1 % (11.6-14.6); Red Blood Count 2.46 M/mm3 (4.2-5.4); White Blood Count 5.4 K/mm3 (4.4-11.0)
[2023-10-09 11:39] LABS: Bacteria 0 SEEN /hpf (None Seen); Mucous, Urine 0 SEEN /hpf (<or=2+); Red Blood Cells-Urine 0 SEEN /hpf (0-5); Squamous Epithelial Cells - UA 0 SEEN /hpf (5-10); White Blood Cells 0 SEEN /hpf (0-5)
[2023-10-09 11:41] LABS: Color, Urine Yellow (Yellow); Glucose, Dipstick Normal (Normal); Ketone-Dipstick Negative (Negative); Leukocyte Esterase-Dipstick Negative /ul (Negative); Nitrite-Dipstick Negative (Negative); Occult Blood-Urine Negative /ul (Negative); Protein-Dipstick Negative (Negative); Urine Bilirubin Dipstick Negative (Negative); Urine Clarity Clear (Clear); Urine Urobilinogen Normal (Normal)
[2023-10-09 11:56] LABS: ALB/GLOB Ratio 1.1 RATIO (0.9-2.4); AST(SGOT) 17 U/L (15-37); Alanine Aminotransfer ALT/SGPT 19 U/L (13-56); Albumin, Serum 3.2 g/dL (3.2-5.0); Alkaline Phosphatase 66 U/L (45-117); Anion Gap 7 (5-15); BUN 17 mg/dL (7-18); BUN/Creat Ratio 17.5 RATIO (10-20); Calcium,Total 8.6 mg/dL (8.5-10.1); Chloride 109 mmol/L (98-107); Creatinine, Serum 0.97 mg/dL (0.55-1.02); EST Glomerular Filtration Rate 57 mL/min (>60); Est Glom Filt Rate - Afr Amer 69 mL/min (>60); Glucose 113 mg/dL (74-106); Potassium 3.8 mmol/L (3.5-5.1); Protein, Total 6.2 g/dL (6.4-8.2); Sodium Level 141 mmol/L (136-145); Troponin-I HS 13 pg/mL (3.0-54.0)
[2023-10-09 12:14] VITALS: BP 125/61; BP 132/57; BP 91/50; PULSE 160; PULSE 85; PULSE 95; RESP 16; O2SAT 95
--- NOTE | 2023-10-09 12:34 | CT_ITS ---
HISTORY: Remote trauma. TECHNIQUE: Helically acquired images were obtained of the right lower extremity after the intravenous menstruation of 100 cc Isovue-370. 2-D reformats were performed by the technologist. A radiation dose optimization technique was used for this scan. 718 images. COMPARISON: XR 10/04/2023. FINDINGS: BONES: No acute fracture identified. Mild generalized osteopenia. JOINT SPACES: No dislocation. Degenerative subchondral cysts and osteophytes of the right hip with severe joint space narrowing. SOFT TISSUES: Subcutaneous hematomas of the thigh measuring up to 1.8 x 9.3 cm medially. Additional small hematomas noted. No active contrast extravasation. No subcutaneous emphysema or air in the deep fascial soft tissues. Varices and mild peripheral vascular disease noted. No rim-enhancing abscess. CT/Extremity Lower WITH Contrast IMPRESSION: Subcutaneous hematomas and varices of the right thigh. No evidence for acute fracture or dislocation in the right femur. Severe hip osteoarthritis. Electronically Signed: Anamika Chavis MD at 14:28 EST ,
[2023-10-09] MEDS: 0.9% Normal Saline (1000mL) 1,000 ML 999 ML IV (12:38)
--- NOTE | 2023-10-09 12:39 | CT_ITS ---
HISTORY: Pain. TECHNIQUE: Helically acquired images were obtained of the thoracic spine without contrast. 2D reformats were reviewed. A radiation dose optimization technique was used for this scan. 376 images. COMPARISON: Chest radiograph 02/02/2023. FINDINGS: VERTEBRAE: Mild chronic anterior wedging of T1-T2, and T9. Minimal anterior wedging of the T12 vertebral body with a small linear lucency of the anterior superior endplate. No significant retropulsion into the spinal canal or extension into the posterior elements. Generalized osteopenia noted. ALIGNMENT: Mild anterolisthesis of C7-T1, T1-2 , and T2-3. INTERVERTEBRAL DISCS: Degenerative endplate changes with osteophytes at multiple levels. SOFT TISSUES: No paraspinal fluid collections. Mild pulmonary vascular congestion. CT/Spine Thoracic without Contras IMPRESSION: Very mild T12 compression fracture Electronically Signed: Anamika Chavis MD at 14:22 EST ,
--- NOTE | 2023-10-09 12:39 | CT_ITS ---
HISTORY: Pain. TECHNIQUE: Helically acquired images were obtained of the lumbar spine without contrast. 2D reformats were reviewed. A radiation dose optimization technique was used for this scan. 297 images. COMPARISON: None. FINDINGS: VERTEBRAE: No acute fracture identified. Generalized osteopenia present. ALIGNMENT: 2 mm retrolisthesis of L1-2. Mild levoscoliosis. INTERVERTEBRAL DISCS: Degenerative endplate changes with vacuum disc phenomenon and posterior disc bulge osteophyte complex of L1 that she resulting in mild right foraminal narrowing. Posterior disc bulge osteophyte complex and facet arthropathy of L2-3 resulting in mild right foraminal narrowing. Mild posterior disc bulge ossified complex with vacuum disc phenomenon and facet arthropathy at L3-4 resulting in mild central canal stenosis and bilateral foraminal narrowing. Mild posterior disc bulge osteophyte complex with facet arthropathy resulting in mild central canal stenosis and left foraminal narrowing. SOFT TISSUES: No paraspinal fluid collections. CT/Spine Lumbar without Contrast IMPRESSION: No evidence for acute fracture or dislocation in the lumbar spine. Multilevel degenerative disc disease. Mild retrolisthesis of L1-2. Mild scoliosis. Electronically Signed: Anamika Chavis MD at 14:16 EST ,
[2023-10-09 13:10] LABS: CPK Total, Creatine Kinase 64 U/L (26-192)
[2023-10-09] MEDS: fentaNYL 100 MCG/2 ML Ampul 50 MCG IV (14:38)
--- NOTE | 2023-10-09 15:10 | NURSING ---
MED SURG OBS [place] ANEMIA, ORTHOSTATIC HYPOTENSION, T12 COMPRESSION FX
[2023-10-09 15:23] VITALS: BP 132/61; PULSE 80; RESP 26; TEMP 37.2; O2SAT 91
[2023-10-09 16:02] VITALS: RESP 18; BMI 24.7
[2023-10-09 16:11] VITALS: BP 125/62; PULSE 81; RESP 18; TEMP 37.7; O2SAT 98
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
[2023-10-09] MEDS: Fluticasone 0.05% 1 SPRAY NASAL.SRY NASAL (17:47)
[2023-10-09] MEDS: Rosuvastatin Calcium 5 MG Tablet PO (19:59)
[2023-10-09] MEDS: Acetaminophen 500 MG Tablet 1000 MG PO (19:59)
[2023-10-09 20:09] VITALS: BP 119/53; PULSE 98; RESP 18; TEMP 37.6; O2SAT 95
[2023-10-09 20:26] LABS: Absolute Lymphocyte Count 0.76 X10^3/uL (0.83-4.51); Absolute Neutrophil Count 3.6 X10^3/uL (2.0-7.7); Basophil# 0.01 X10^3/uL; Basophil% 0.2 % (0-1); Eosinophil# 0.01 X10^3/uL; Eosinophils% 0.2 % (0-5); Hematocrit 21.1 % (37-47); Hemoglobin 6.6 g/dL (12.0-15.0); Lymphocyte # 0.76 X10^3/ul (0.83-4.51); Lymphocyte % 15.7 % (19-41); Mean Corp Hgb Conc 31.3 g/dL (32-36); Mean Corpuscular Volume 95.9 fL (81-99); Mean Platelet Vol. 10.8 fl (6.2-12.0); Monocyte# 0.41 X10^3/uL; Monocyte% 8.5 % (0-10); NRBC Flagged by Analyzer 0 % (0-5); Neutrophil # 3.64 X10^3/uL (2.7-7.7); Platelet Count 122 K/mm3 (150-450); RBC Distribution Width CV 14.4 % (11.6-14.6); RBC Distribution Width SD 49.2 fl (35.1-43.9); White Blood Count 4.9 K/mm3 (4.4-11.0)
[2023-10-10] VITALS (12 sets, daily range): BP systolic 122–155; BP diastolic 53–76; PULSE 76–89; RESP 16; TEMP 37.1–37.6; O2SAT 94–99
[2023-10-10] MEDS: Acetaminophen 500 MG Tablet 1000 MG PO ×3 (05:17→20:48)
[2023-10-10 06:14] LABS: Absolute Lymphocyte Count 0.76 X10^3/uL (0.83-4.51); Absolute Neutrophil Count 2.6 X10^3/uL (2.0-7.7); Basophil# 0.02 X10^3/uL; Basophil% 0.5 % (0-1); Eosinophil# 0.02 X10^3/uL; Eosinophils% 0.5 % (0-5); Hematocrit 22.6 % (37-47); Lymphocyte # 0.76 X10^3/ul (0.83-4.51); Lymphocyte % 19.5 % (19-41); Mean Corpuscular Hgb 29.7 pg (27.0-32.0); Mean Corpuscular Volume 95.8 fL (81-99); Mean Platelet Vol. 11.2 fl (6.2-12.0); Monocyte# 0.49 X10^3/uL; Monocyte% 12.6 % (0-10); NRBC Flagged by Analyzer 0 % (0-5); Neutrophil # 2.59 X10^3/uL (2.7-7.7); Neutrophil % 66.4 % (47-70); Platelet Count 131 K/mm3 (150-450); RBC Distribution Width CV 14.5 % (11.6-14.6); RBC Distribution Width SD 49.8 fl (35.1-43.9); Red Blood Count 2.36 M/mm3 (4.2-5.4); White Blood Count 3.9 K/mm3 (4.4-11.0)
[2023-10-10 06:29] LABS: International Normalized Ratio 1.2; Prothrombin Time (Protime)PT. 14.9 SECONDS (11.7-14.9)
[2023-10-10 06:43] LABS: ALB/GLOB Ratio 0.9 RATIO (0.9-2.4); AST(SGOT) 17 U/L (15-37); Alanine Aminotransfer ALT/SGPT 16 U/L (13-56); Albumin, Serum 2.8 g/dL (3.2-5.0); Alkaline Phosphatase 60 U/L (45-117); Anion Gap 5 (5-15); BUN 14 mg/dL (7-18); BUN/Creat Ratio 16.5 RATIO (10-20); Bilirubin, Direct 0.31 mg/dL (0.00-0.30); Calcium,Total 8.4 mg/dL (8.5-10.1); Chloride 108 mmol/L (98-107); Creatinine, Serum 0.85 mg/dL (0.55-1.02); EST Glomerular Filtration Rate 67 mL/min (>60); Est Glom Filt Rate - Afr Amer 81 mL/min (>60); Estimated Creatinine Clearance 32.86 ml/min; Glucose 104 mg/dL (74-106); Phosphorus 2.3 mg/dL (2.5-4.9); Potassium 3.4 mmol/L (3.5-5.1); Protein, Total 5.8 g/dL (6.4-8.2); Sodium Level 139 mmol/L (136-145)
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
[2023-10-10] MEDS: 0.9% Saline Lock 10 ML Syringe IV ×2 (10:29→14:14)
[2023-10-10] MEDS: Potassium Phosphate 21 MMOL in 0.9% Normal Saline (250mL Bag) 250 ML 84 MMOL IV (10:31)
[2023-10-10] MEDS: Metoprolol Tartrate 25 MG Tablet PO ×2 (10:32→20:48)
[2023-10-10] MEDS: Pantoprazole Sodium 20 MG Tablet PO (10:32)
[2023-10-10] MEDS: Cholecalciferol (VIT D3) 25 MCG TABLET (1,000 UNITS) PO (10:34)
[2023-10-10] MEDS: Amiodarone 200 MG Tablet 100 MG PO (10:34)
[2023-10-10] MEDS: Famotidine 20 MG Tablet 40 MG PO (10:35)
[2023-10-10] MEDS: Rosuvastatin Calcium 5 MG Tablet PO (20:48)
[2023-10-11] VITALS (8 sets, daily range): BP systolic 127–150; BP diastolic 55–73; PULSE 78–90; RESP 16–20; TEMP 36.8–37.6; O2SAT 92–95; BMI 24.9
[2023-10-11] MEDS: Acetaminophen 500 MG Tablet 1000 MG PO ×3 (05:14→21:14)
[2023-10-11 06:17] LABS: Absolute Lymphocyte Count 0.79 X10^3/uL (0.83-4.51); Absolute Neutrophil Count 4.7 X10^3/uL (2.0-7.7); Basophil# 0.02 X10^3/uL; Basophil% 0.3 % (0-1); Eosinophil# 0.01 X10^3/uL; Eosinophils% 0.2 % (0-5); Hematocrit 27.4 % (37-47); Hemoglobin 8.6 g/dL (12.0-15.0); Lymphocyte # 0.79 X10^3/ul (0.83-4.51); Lymphocyte % 13.3 % (19-41); Mean Corp Hgb Conc 31.4 g/dL (32-36); Mean Corpuscular Hgb 29.6 pg (27.0-32.0); Mean Corpuscular Volume 94.2 fL (81-99); Mean Platelet Vol. 10.3 fl (6.2-12.0); Monocyte# 0.41 X10^3/uL; Monocyte% 6.9 % (0-10); NRBC Flagged by Analyzer 0 % (0-5); Neutrophil # 4.68 X10^3/uL (2.7-7.7); Neutrophil % 78.5 % (47-70); Platelet Count 138 K/mm3 (150-450); RBC Distribution Width CV 15.8 % (11.6-14.6); Red Blood Count 2.91 M/mm3 (4.2-5.4)
[2023-10-11 06:50] LABS: Anion Gap 7 (5-15); BUN 15 mg/dL (7-18); BUN/Creat Ratio 17.7 RATIO (10-20); Calcium,Total 7.9 mg/dL (8.5-10.1); Chloride 107 mmol/L (98-107); Creatinine, Serum 0.85 mg/dL (0.55-1.02); EST Glomerular Filtration Rate 67 mL/min (>60); Est Glom Filt Rate - Afr Amer 81 mL/min (>60); Estimated Creatinine Clearance 32.86 ml/min; Glucose 113 mg/dL (74-106); Potassium 3.7 mmol/L (3.5-5.1); Sodium Level 137 mmol/L (136-145)
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
[2023-10-11] MEDS: Cholecalciferol (VIT D3) 25 MCG TABLET (1,000 UNITS) PO (08:47)
[2023-10-11] MEDS: Fluticasone 0.05% 1 SPRAY NASAL.SRY NASAL ×2 (08:47→21:15)
[2023-10-11] MEDS: Metoprolol Tartrate 25 MG Tablet PO ×2 (08:47→21:14)
[2023-10-11] MEDS: Amiodarone 200 MG Tablet 100 MG PO (08:48)
[2023-10-11] MEDS: Pantoprazole Sodium 20 MG Tablet PO (08:48)
[2023-10-11] MEDS: Famotidine 20 MG Tablet 40 MG PO (08:48)
--- NOTE | 2023-10-11 09:49 | CASEMGMT ---
Social Work Pt had indicated to therapy she may be agreeable to go to TCU. SW called TCU, there are no beds. SW met w/pt in regard to discharge plan. Pt would like TCU, SW explained there are no beds available. SW inquired where else she would like a referral sent. Pt states if she can't stay here she would prefer to go home with home health. Pt inquired what home health she would like(pt had lists of HHC and SNF from yesterday), pt would prefer [facility]. SW explained will let CM know and they will make referral. Plan: home w/hhc and family support. STEPHANE Martinez
[2023-10-11] MEDS: Iron Polysaccharide Complex 150 MG CAPSULE PO (10:49)
[2023-10-11] MEDS: 0.9% Saline Lock 10 ML Syringe IV (10:50)
[2023-10-11] MEDS: Sodium Ferric Gluconat 250 MG in 0.9% Normal Saline 250 ML 135 MG IV (10:50)
--- NOTE | 2023-10-11 10:58 | CASEMGMT ---
Addendum entered by Mavis Murillo 10/12/23 14:15: Updated Judith at [facility] that pt is dc'ing today via voicemail. Addendum entered by Mavis Murillo 10/11/23 14:08: TRINA MURILLO into pt room, pt and family are aware that [facility] will be out to see her on , confirmed correct phone number. Pt denies any further needs at this time. Addendum entered by Mavis Murillo 10/11/23 12:55: Received tc from Judith at [facility] that pt was referred from prior hospitalization and they could not reach pt. She is questioning if pt has another agency and still wants services. TRINA MURILLO into pt room, pt sitting in chair with visitor at bedside. They state they were told pt needed to be seen by PCP before [facility] could start, she is not set up with another agency and does want [facility]. TC to Judith to make aware, requested SN be added. Added at this time. Pt is accept with SOC planned for . Original Note: TRINA MURILLO made aware by SW that pt would like [facility] as first choice. TC to Judith at [facility], referral made, will await decision to accept.
--- NOTE | 2023-10-11 15:10 | RAD_ITS ---
STUDY: X-RAY CHEST REASON FOR EXAM: Female, 87 years old. Crackles. On room air. TECHNIQUE: Single frontal view of the chest. COMPARISON: February 02, 2023. FINDINGS: Stable cardiomegaly, aortic tortuosity, mild hyperinflation with diffuse interstitial pattern and no acute finding. Right calcific tendinosis. No abnormality of the visualized soft tissue structures of the upper abdomen. RAD/Chest 1 View (Portable) IMPRESSION: Stable chest with no acute or active cardiopulmonary disease. Electronically Signed: Alan Valderrama MD at 15:36 EST ,
--- NOTE | 2023-10-11 18:17 | CM.ED ---
Social Work - Discharge Planning This automotive service writer apprised by nursing that patient and family interested in patient going to TCU at discharge, and would like to speak with the social human services assistants. RN reports daughter who would be providing the care to patient at home is in the room, and concerns are present about patient going home with [facility]. Met with patient, introducing to self and social work role. Daughter Codi and grandmathew Gutierrez in room; later joined by daughter Crystal. Another visitor, Scarlet, came during latter part of conversation, but remained a quiet observer of conversation. Patient confirms would be willing to go to [facility] TCU, but has concerns about community based SNFs, based on things patient has heard as well as the idea of going to a NF, and not yet feeling ready to be in a NF. Much time taken in discussion with patient and family about patient's fears, quality of life, and family's concerns about patient going home right away. Patient reports to feel in my heart that will be okay to go home, however also acknowledges that going to a SNF LOC may be helpful. Reviewed list of SNF choices. Patient would like to go to TCU, so this automotive service writer agreed to have patient added to list for TCU, should an opening become available. Message left for Nani in admissions at [facility] of this request. Patient agreed to allow inquiries to [facility] and [facility], but not fully committing to placement. Patient reports to want to think and pray about this decision. Daughters plan to come in around 0900 in the morning, and would like to see patient work with therapy. Message left for therapy at [phone] of family's intention to be to hospital around 0900. Plan: Home with [facility] is arranged, but SNF level of care is being considered. GIRISH and/trauma doctor CM to follow up with patient/family on 10.12.23. -ANA ROSA Esquivel
[2023-10-11] MEDS: Rosuvastatin Calcium 5 MG Tablet PO (21:14)
[2023-10-12 02:30] VITALS: BP 144/66; PULSE 73; RESP 18; TEMP 37.2; O2SAT 95
[2023-10-12] MEDS: Acetaminophen 500 MG Tablet 1000 MG PO ×2 (02:30→06:45)
[2023-10-12 07:54] VITALS: BP 142/76; PULSE 70; RESP 16; TEMP 36.8; O2SAT 95
[2023-10-12 08:02] LABS: Absolute Lymphocyte Count 0.81 X10^3/uL (0.83-4.51); Absolute Neutrophil Count 2.5 X10^3/uL (2.0-7.7); Basophil# 0.02 X10^3/uL; Basophil% 0.5 % (0-1); Eosinophil# 0.05 X10^3/uL; Eosinophils% 1.3 % (0-5); Hematocrit 26.1 % (37-47); Hemoglobin 8.2 g/dL (12.0-15.0); Lymphocyte # 0.81 X10^3/ul (0.83-4.51); Lymphocyte % 21.6 % (19-41); Mean Corp Hgb Conc 31.4 g/dL (32-36); Mean Corpuscular Hgb 29.7 pg (27.0-32.0); Mean Corpuscular Volume 94.6 fL (81-99); Mean Platelet Vol. 10.8 fl (6.2-12.0); Monocyte# 0.34 X10^3/uL; Monocyte% 9.1 % (0-10); NRBC Flagged by Analyzer 0 % (0-5); Neutrophil # 2.51 X10^3/uL (2.7-7.7); Platelet Count 139 K/mm3 (150-450); RBC Distribution Width CV 15.6 % (11.6-14.6); RBC Distribution Width SD 53.1 fl (35.1-43.9); Red Blood Count 2.76 M/mm3 (4.2-5.4); White Blood Count 3.8 K/mm3 (4.4-11.0)
[2023-10-12] MEDS: Iron Polysaccharide Complex 150 MG CAPSULE PO (08:30)
[2023-10-12 09:51] LABS: Anion Gap 3 (5-15); BUN 12 mg/dL (7-18); BUN/Creat Ratio 13.5 RATIO (10-20); Calcium,Total 8.3 mg/dL (8.5-10.1); Chloride 109 mmol/L (98-107); Creatinine, Serum 0.89 mg/dL (0.55-1.02); EST Glomerular Filtration Rate 64 mL/min (>60); Est Glom Filt Rate - Afr Amer 77 mL/min (>60); Estimated Creatinine Clearance 31.38 ml/min; Glucose 102 mg/dL (74-106); Potassium 3.2 mmol/L (3.5-5.1); Sodium Level 138 mmol/L (136-145)
[2023-10-12] MEDS: Fluticasone 0.05% 1 SPRAY NASAL.SRY NASAL (10:16)
[2023-10-12] MEDS: Amiodarone 200 MG Tablet 100 MG PO (10:16)
[2023-10-12 10:17] VITALS: PULSE 70
[2023-10-12] MEDS: Famotidine 20 MG Tablet 40 MG PO (10:17)
[2023-10-12] MEDS: Metoprolol Tartrate 25 MG Tablet PO (10:17)
[2023-10-12] MEDS: Cholecalciferol (VIT D3) 25 MCG TABLET (1,000 UNITS) PO (10:18)
[2023-10-12] MEDS: Pantoprazole Sodium 20 MG Tablet PO (10:18)
[2023-10-12] MEDS: Potassium Chloride Oral Tablet 20 MEQ 40 MEQ PO (10:26)
[2023-10-12 10:46] VITALS: O2SAT 95
[2023-10-12 12:27] VITALS: BP 128/67; PULSE 70; RESP 16; TEMP 36.3; O2SAT 97
--- NOTE | 2023-10-12 13:11 | DCINST_ITS ---
Discharge Instructions Diet Discharge Diet: - (DASH diet) Activity Discharge Activity: - (Advance activity as tolerated) Follow Up Care Test Results: Test results from this visit will be discussed in further detail at your follow- up appointment, if applicable. Discharge Plan Admission Admit Date/Time: 10/09/23 15:23 Primary Reason for Your Visit: Syncope Attending Provider: Shauna Enamorado Primary Care Provider: Yogi Kapadia Consulting Providers: Alice Ball Instructions Patient Instructions: ED Fall Prevention Additional Instructions / Restrictions: DISCHARGE INSTRUCTIONS PLEASE READ *Please take this with you to your next doctors appointment* -Would recommend holding your Plavix and Eliquis at this time, would advise to have your hemoglobin checked through your primary care physician's office in 3 to 4 days and resume Plavix at that time if blood counts are stable. Resume Eliquis in 2 weeks unless otherwise specified by your outpatient physician -You will be discharged on iron supplementation to take daily, would recommend taking [id number] MiraLAX daily while on iron supplementation to prevent constipation -You may also benefit from vitamin D and calcium supplementation and can consider a DEXA scan to evaluate for osteoporosis given your compression fracture -Your losartan and hydrochlorothiazide combination pill has been held as your blood pressure dropped too low due to your blood counts dropping. You will likely need to resume this in the future as you improve but will defer to your outpatient care physician regarding optimal timing pending progress. You will continue your amlodipine and metoprolol -You can use Voltaren gel (diclofenac gel) [id number] on your knee as long as you have no open wounds and Tylenol as needed for pain -Please call your primary care provider's office upon discharge to schedule a hospital follow up within 1 week. -For any concerning signs or symptoms please call 911 or proceed to the nearest emergency department Discharge Orders/Prescriptions Prescriptions: New polysaccharide iron complex [Ferrex 150] 150 mg iron Capsule 150 mg PO DAILYCM Qty: 30 0RF calcium carbonate-vitamin D3 [Calcium 500 With D] 500 mg-10 mcg (400 unit) tablet 1 tab PO DAILY Qty: 30 0RF Continued acetaminophen 500 mg tablet 1,000 mg PO Q6H PRN (Reason: fever or pain) cholecalciferol (vitamin D3) 25 mcg (1,000 unit) tablet 1,000 unit PO DAILY Co [id number] E-Fish Oil 25-150-200 mg-mg-unit capsule 1 cap PO DAILY omeprazole 20 mg capsule,delayed release(DR/EC) 20 mg PO DAILY Patient Comments: TAKE 1 CAPSULE BY MOUTH DAILY [id number]-[id number]-lycopen-lutein 0.4 mg-300 mcg- 250 mcg tablet 1 tab PO DAILY famotidine 40 mg tablet 40 mg PO DAILY fluticasone propionate 50 mcg/actuation spray,suspension 1 spray INTRANASAL DAILY PRN PRN (Reason: allergic symptoms) Patient Comments: USE 2 SPRAYS IN EACH NOSTRIL EVERY MORNING amlodipine 2.5 mg tablet 2.5 mg PO DAILY Qty: 90 3RF rosuvastatin [Crestor] 5 mg tablet 5 mg PO DAILY Qty: 90 3RF metoprolol tartrate 25 mg tablet 25 mg PO BID Qty: 180 3RF amiodarone 200 mg tablet 100 mg PO DAILY Qty: 45 3RF Held apixaban 2.5 mg tablet 2.5 mg PO BID Qty: 180 4RF Hold Instructions: Resume on 10/26/23. clopidogrel 75 mg tablet 75 mg PO DAILY Qty: 90 3RF Hold Instructions: Resume on 10/16/23. Discontinued losartan-hydrochlorothiazide 100-12.5 mg tablet 1 tab PO DAILY Qty: 90 3RF Referrals / Follow Up: Yogi Kapadia DO [Primary Care Provider] - Within 1 Week Disposition Disposition (needs filled in before D/C Order can be placed): Home Health Service
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
--- NOTE | 2023-10-12 14:12 | CASEMGMT ---
RN CM into pt room, pt talking on the phone, pt family present. They states pt is not agreeable to any other facility other than [facility]. They are aware that there is not any bed availability as well as [facility] and [facility]. Discussed at length with family HHC and what services are able to be provided. Pt and family agreeable with dc plan.
--- NOTE | 2023-10-12 15:15 | CASEMGMT ---
TRINA MURILLO sent script for walker to [facility] via [employer].
--- NOTE | 2023-10-12 17:14 | PHA.DC_ITS ---
Pharmacy [facility] has performed discharge medication reconciliation and counseling for this patient. 1. calcium/vitamin D 1T PO daily 2. Ferrex 150mg PO dailycm The patient's discharge medication list was reviewed for discrepancies and discrepancies were resolved. The patient was counseled on the following discharge medications and changes in medications for homegoing were reviewed. The Reason for Use, instructions for use, and potential side effects were reviewed for all new medications. The patient's questions regarding all of their medications were answered. The patient was able to verbally demonstrate an understanding of their discharge medications. Patient counseled by pharmacy technician assistantKalyan. Medications at Discharge Home Medications acetaminophen 500 mg tablet 1,000 mg PO Q6H PRN fever or pain 11/28/20 ubidecarenone-omega 3-vit E 25 mg-150 (90-60) mg-200 unit capsule (Co Q-29-Orghmnj E-Fish Oil) 1 cap PO DAILY 08/16/22 apixaban 2.5 mg tablet 2.5 mg PO BID #180 tabs 10/01/22 amlodipine 2.5 mg tablet 2.5 mg PO DAILY #90 tabs 11/23/22 clopidogrel 75 mg tablet 75 mg PO DAILY #90 tabs 11/23/22 rosuvastatin 5 mg tablet (Crestor) 5 mg PO DAILY #90 tabs 11/23/22 metoprolol tartrate 25 mg tablet 25 mg PO BID #180 tabs 02/18/23 amiodarone 200 mg tablet 100 mg (1/2 x 200 mg) PO DAILY #45 tabs 02/22/23 cholecalciferol (vitamin D3) 25 mcg (1,000 unit) tablet 1,000 unit PO DAILY 06/09/23 famotidine 40 mg tablet 40 mg PO DAILY GERD 06/09/23 pnmbyjsq-fqj-xrcza acid 0.4 mg-lycopene 300 mcg-lutein 250 mcg tablet 1 tab PO DAILY supplement 06/09/23 omeprazole 20 mg capsule,delayed release 20 mg PO DAILY 06/09/23 fluticasone propionate 50 mcg/actuation nasal spray,suspension 1 spray intranasal DAILY PRN PRN allergic symptoms 10/09/23 calcium carbonate 500 mg-vitamin D3 10 mcg (400 unit) tablet (Calcium 500 With D) 1 tab PO DAILY #30 tabs 10/12/23 polysaccharide iron complex 150 mg iron capsule (Ferrex) 150 mg PO DAILYCM #30 caps 10/12/23
== END 2023-10-12 16:40 | disposition home health service (06) | DRG 812 ==
LOC: ED 15:13 → MS3 15:29
PROVIDERS: Admitting Provider Internal Medicine; Emergency Provider Emergency Medicine; Visit Provider Internal Medicine
DX: D62 Acute posthemorrhagic anemia (principal); S22.080A Wedge compression fracture of T11-T12 vertebra, initial encounter for closed fracture; I50.32 Chronic diastolic (congestive) heart failure; I11.0 Hypertensive heart disease with heart failure; I48.0 Paroxysmal atrial fibrillation; I95.1 Orthostatic hypotension; I25.10 Atherosclerotic heart disease of native coronary artery without angina pectoris; K21.9 Gastro-esophageal reflux disease without esophagitis; S70.11XD Contusion of right thigh, subsequent encounter; V43.4 Person boarding or alighting a car injured in collision with car, pick-up truck or van; R06.2 Wheezing; Z79.01 Long term (current) use of anticoagulants; Z79.02 Long term (current) use of antithrombotics/antiplatelets; Z79.899 Other long term (current) drug therapy; Z95.5 Presence of coronary angioplasty implant and graft; R26.89 Other abnormalities of gait and mobility
CPT/HCPCS: 36415; 70450; 71045; 72128; 72131; 73701; 80048; 80053; 81001; 82248; 82550; 83735; 84100; 84484; 85025; 85610; 86850; 86900; 86901; 86920; 86922; 93005; 94668; 97162; 97166; 97530; 97535; 99285; J7030; J7040; J7050; P9016; Q9967; A4216; J2916

== ENCOUNTER → 2024-01-18 | Outpatient (CLI) | payer MEDICARE, OTHER, SELFPAY ==
--- NOTE | 2024-01-18 12:55 | CDU_ITS ---
Reason For Study: Carotid stenosis Rt. Velocities/BP Lt. Velocities/BP Prox CCA 82.8/8 cm/sec. Prox CCA 63/6.9 cm/sec. Mid CCA 59.7/8 cm/sec. Mid CCA 59.7/8 cm/sec. Dist CCA 48.7/6.9 cm/sec. Dist CCA 54.2/6.9 cm/sec. Prox ICA 52.2/11.6 cm/sec. Prox ICA 47.6/10.2 cm/sec. Mid ICA 74/12.4 cm/sec. Mid ICA 74.6/14.8 cm/sec. Dist ICA 78.2/11.3 cm/sec. Dist ICA 77.3/12.4 cm/sec. Rt. ICA/CCA = 1.31. Lt. ICA/CCA = 1.29. Prox ECA 57.5/4.7 cm/sec. Prox ECA 63/4.7 cm/sec. Rt. Vert. 43.3/5.9 cm/sec. Lt. Vert. 66.3/11.3 cm/sec. Right Extracranial There is intimal thickening but no significant atherosclerotic plaque noted in the right common carotid artery. There is intimal thickening but no significant atherosclerotic plaque noted in the right internal carotid artery. There is intimal thickening but no significant atherosclerotic plaque noted in the right external carotid artery. Antegrade flow is noted in the right vertebral artery. Left Extracranial There is homogeneous, smooth atherosclerotic plaque noted in the left common carotid artery. There is heterogeneous, irregular atherosclerotic plaque noted in the left internal carotid artery. There is homogeneous, smooth atherosclerotic plaque noted in the left external carotid artery. Antegrade flow is noted in the left vertebral artery. Procedure Carotid Duplex [id number]. This is a Carotid Duplex examination using B-mode, color flow and specral Doppler. Exam performed in department. VL/Carotid Duplex Ultrasound Interpretation Summary Normal right extracranial internal carotid. Mild (<50%) stenosis left extracranial internal carotid. Patent and antegrade vertebrals bilaterally. Ordering Physician: Deidra Hunt Referring Physician: Yogi Kapadia Performed By: Cindy Alberto RVT
== END | disposition home or self-care (01) ==
LOC: PSN 12:54
PROVIDERS: Referring Provider Internal Medicine Cardiovascular Disease; Visit Provider Internal Medicine Cardiovascular Disease
DX: R55 Syncope and collapse (principal); I77.9 Disorder of arteries and arterioles, unspecified; I35.0 Nonrheumatic aortic (valve) stenosis; E78.5 Hyperlipidemia, unspecified; I25.10 Atherosclerotic heart disease of native coronary artery without angina pectoris
CPT/HCPCS: 93880; 94060; 94726; 94729

== ENCOUNTER → 2024-02-03 | Outpatient (CLI) | payer MEDICARE, OTHER, SELFPAY ==
--- NOTE | 2024-02-03 13:50 | ECHOD_ITS ---
Reason For Study: Syncope Procedure This was a 2D Doppler, Color Flow transthoracic echocardiogram. Exam performed in department. Left Ventricle Normal LV size. Mild concentric left ventricular hypertrophy. The estimated ejection fraction is 65 %. Stage 2 diastolic dysfunction. No regional wall motion abnormalities noted. Right Ventricle Normal RV size. Normal systolic function. Atria The left atrium is severely enlarged. Normal right atrium. Mitral Valve Moderate diffuse mitral valve thickening. Mild restriction of the mitral valve. Moderate mitral annular calcification. Mild-Moderate mitral valve stenosis. Mean transmitral valve gradient 8.7 mmHg. Moderate to severe posteriorly directed eccentric mitral valve regurgitation. Tricuspid Valve Normal tricuspid valve. Pulmonary artery systolic pressure is 48 mmHg. Moderate (2+) tricuspid valve insufficiency. Aortic Valve Trisinus/trileaflet aortic valve. Moderate diffuse aortic valve thickening. Mild focal aortic valve calcification. Peak aortic valve gradient 42 mmHg. Mean aortic valve gradient 29 mmHg. Mild to moderate aortic stenosis. Mild (1+) aortic valve insufficiency. Pulmonic Valve Mild (1+) pulmonic valve insufficiency. Great Vessels Normal aortic root. Pericardium/Pleural No pericardial effusion. MMode/2D Measurements & Calculations LVIDd: 4.1 cm IVSd: 1.2 cm LVOT diam: 1.9 cm LVIDs: 2.6 cm LVPWd: 1.1 cm LVOT area: 2.9 cm2 RVDd: 2.7 cm FS: 36.1 % Ao root diam: 2.8 cm LAV(MOD-bp): 61.9 ml LVAd ap4: 19.2 cm2 LAV(MOD-bp) Indexed: 40.8 ml/m2 LVLd ap4: 6.5 cm LAV(MOD-sp2): 53.6 ml EDV(MOD-sp4): 47.0 ml LAV(MOD-sp4): 71.2 ml EDV(sp4-el): 48.6 ml LVAs ap4: 9.0 cm2 LVLs ap4: 5.0 cm ESV(MOD-sp4): 14.3 ml ESV(sp4-el): 13.7 ml EF(MOD-sp4): 69.6 % EF(sp4-el): 71.7 % SV(MOD-sp4): 32.7 ml SV(sp4-el): 34.8 ml LA A4 area: 22.6 cm2 LA dimension(2D): 4.4 cm RA A4 area: 9.3 cm2 TAPSE: 2.1 cm Time Measurements MV dec time: 0.37 sec Doppler Measurements & Calculations MV E max rex: 193.1 cm/sec Lat Peak E' Rex: 5.9 cm/sec Med Peak E' Rex: 5.8 cm/sec MV A max rex: 167.7 cm/sec E/E' lat: 33.0 E/E' med: 33.4 MV E/A: 1.2 MV V2 max: 216.2 cm/sec Ao V2 max: 328.7 cm/sec MV max P.7 mmHg MV dec slope: 519.7 cm/sec2 Ao max P.4 mmHg MV V2 mean: 141.6 cm/sec Ao V2 mean: 250.1 cm/sec MV mean P.7 mmHg Ao mean P.7 mmHg MV V2 VTI: 66.0 cm Ao V2 VTI: 75.1 cm AV (velocity ratio): 0.49 MVA(VTI): 1.6 cm2 KUNAL(I,D): 1.4 cm2 KUNAL(V,D): 1.3 cm2 AI max rex: 392.9 cm/sec LV V1 max: 147.9 cm/sec SV(LVOT): 105.3 ml AI max P.8 mmHg LV V1 max P.8 mmHg LV V1 mean P.8 mmHg AI dec slope: 272.4 cm/sec2 LV V1 mean: 116.3 cm/sec AI P1/2t: 422.4 msec LV V1 VTI: 36.6 cm PA V2 max: 124.6 cm/sec PI end-d rex: 150.6 cm/sec TR max rex: 316.8 cm/sec TR max P.1 mmHg ECHO/Echo Complete Interpretation Summary The estimated ejection fraction is 65 %. Stage 2 diastolic dysfunction. Mild concentric left ventricular hypertrophy. The left atrium is severely enlarged. Moderate to severe mitral valve insufficiency. Mild-Moderate mitral valve steno sis. Moderate tricuspid valve insufficiency. Pulmonary artery systolic pressure is 4 8 mmHg. Mild (1+) aortic valve insufficiency. Mild to moderate aortic stenosis. Ordering Physician: Deidra Hunt Referring Physician: Yogi Kapadia Performed By: Blanquita Puente, JERILYN, RVT
== END | disposition home or self-care (01) ==
LOC: CVS 13:50
PROVIDERS: Referring Provider Internal Medicine Cardiovascular Disease; Visit Provider Internal Medicine Cardiovascular Disease
DX: I21.4 Non-ST elevation (NSTEMI) myocardial infarction (principal); I77.9 Disorder of arteries and arterioles, unspecified; I35.0 Nonrheumatic aortic (valve) stenosis; I25.10 Atherosclerotic heart disease of native coronary artery without angina pectoris; E78.5 Hyperlipidemia, unspecified; R55 Syncope and collapse
CPT/HCPCS: 93306

== ENCOUNTER → 2024-05-04 | Outpatient (CLI) | payer MEDICARE, OTHER, SELFPAY ==
--- NOTE | 2024-05-04 13:40 | RAD_ITS ---
INDICATION: Shortness of breath, orthopnea, on Amiodarone EXAMINATION/TECHNIQUE: X-RAY - XR Chest 2 Views COMPARISON: No relevant prior comparison study available FINDINGS: LINES/DEVICES: None. LUNGS: No consolidation, edema or effusion. No pneumothorax. MEDIASTINUM AND CARDIOVASCULAR STRUCTURES: Cardiac silhouette not enlarged. Central airways and mediastinal contour are unremarkable. BONES AND SOFT TISSUES: Mild degenerative changes of the thoracic spine. RAD/Chest PA and Lateral IMPRESSION: No radiographic evidence of acute cardiopulmonary disease. Electronically Signed: Venkat Dorantes MD at 14:20 EDT ,
[2024-05-04 14:09] LABS: Absolute Lymphocyte Count 1.67 X10^3/uL (0.83-4.51); Absolute Neutrophil Count 3.2 X10^3/uL (2.0-7.7); Basophil# 0.04 X10^3/uL; Basophil% 0.7 % (0-1); Eosinophil# 0.16 X10^3/uL; Eosinophils% 2.9 % (0-5); Hematocrit 28.1 % (37-47); Hemoglobin 7.9 g/dL (12.0-15.0); Lymphocyte # 1.67 X10^3/ul (0.83-4.51); Lymphocyte % 29.9 % (19-41); Mean Corp Hgb Conc 28.1 g/dL (32-36); Mean Corpuscular Volume 85.4 fL (81-99); Monocyte# 0.55 X10^3/uL; Monocyte% 9.8 % (0-10); NRBC Flagged by Analyzer 0 % (0-5); Neutrophil # 3.15 X10^3/uL (2.7-7.7); Neutrophil % 56.3 % (47-70); Platelet Count 216 K/mm3 (150-450); RBC Distribution Width CV 16.5 % (11.6-14.6); Red Blood Count 3.29 M/mm3 (4.2-5.4); White Blood Count 5.6 K/mm3 (4.4-11.0)
[2024-05-04 14:29] LABS: BNP,B-Type NATRIURETIC PEPTIDE 458.4 pg/mL (0-100)
[2024-05-04 14:38] LABS: ALB/GLOB Ratio 1.1 RATIO (0.9-2.4); AST(SGOT) 16 U/L (15-37); Alanine Aminotransfer ALT/SGPT 18 U/L (13-56); Albumin, Serum 3.7 g/dL (3.2-5.0); Alkaline Phosphatase 72 U/L (45-117); Anion Gap 6 (5-15); BUN 21 mg/dL (7-18); Calcium,Total 9.2 mg/dL (8.5-10.1); Chloride 108 mmol/L (98-107); EST Glomerular Filtration Rate 55 mL/min (>60); Est Glom Filt Rate - Afr Amer 67 mL/min (>60); Globulin 3.3 g/dL (2.2-4.2); Glucose 107 mg/dL (74-106); Potassium 4.1 mmol/L (3.5-5.1); Sodium Level 139 mmol/L (136-145); Thyroid Stim Hormone (TSH) 0.36 uIU/mL (0.358-3.74)
== END | disposition home or self-care (01) ==
LOC: RAD 13:25
PROVIDERS: Referring Provider Nurse Practitioner Gerontology; Visit Provider Nurse Practitioner Gerontology
DX: R06.09 Other forms of dyspnea (principal); I48.0 Paroxysmal atrial fibrillation; N18.30 Chronic kidney disease, stage 3 unspecified; R06.01 Orthopnea; I25.10 Atherosclerotic heart disease of native coronary artery without angina pectoris; Z79.899 Other long term (current) drug therapy; Z79.01 Long term (current) use of anticoagulants; Z86.2 Personal history of diseases of the blood and blood-forming organs and certain disorders involving the immune mechanism; I35.0 Nonrheumatic aortic (valve) stenosis
CPT/HCPCS: 36415; 71046; 80053; 83880; 84443; 85025

== ENCOUNTER 2024-05-08 10:23 | Inpatient (IN) | payer MEDICARE, OTHER, SELFPAY ==
[2024-05-08] VITALS (7 sets, daily range): BP systolic 132–149; BP diastolic 51–89; PULSE 61–69; RESP 14–18; TEMP 36.4–36.6; O2SAT 98–100; BMI 23.6; BMI 23.0
[2024-05-08 11:35] LABS: Hematocrit 32.6 % (37-47); Hemoglobin 9.5 g/dL (12.0-15.0); Mean Corp Hgb Conc 29.1 g/dL (32-36); Mean Corpuscular Hgb 24.5 pg (27.0-32.0); Mean Corpuscular Volume 84.2 fL (81-99); Mean Platelet Vol. 11.2 fl (6.2-12.0); Platelet Count 250 K/mm3 (150-450); RBC Distribution Width CV 17.2 % (11.6-14.6); RBC Distribution Width SD 52.7 fl (35.1-43.9); Red Blood Count 3.87 M/mm3 (4.2-5.4); White Blood Count 5.9 K/mm3 (4.4-11.0)
[2024-05-08 11:56] LABS: AST(SGOT) 18 U/L (15-37); Alanine Aminotransfer ALT/SGPT 19 U/L (13-56); Alkaline Phosphatase 88 U/L (45-117); Anion Gap 5 (5-15); BUN 30 mg/dL (7-18); BUN/Creat Ratio 22.4 RATIO (10-20); Calcium,Total 9.4 mg/dL (8.5-10.1); Chloride 105 mmol/L (98-107); Creatinine, Serum 1.34 mg/dL (0.55-1.02); EST Glomerular Filtration Rate 40 mL/min (>60); Est Glom Filt Rate - Afr Amer 48 mL/min (>60); Globulin 4.1 g/dL (2.2-4.2); Glucose 112 mg/dL (74-106); Potassium 3.9 mmol/L (3.5-5.1); Protein, Total 8.1 g/dL (6.4-8.2); Sodium Level 138 mmol/L (136-145)
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
[2024-05-08] MEDS: Bisacodyl 5 MG Tablet 20 MG PO (16:36)
[2024-05-08] MEDS: Polyethylene Glycol 3350 BOWEL PREP PO (17:42)
[2024-05-08] MEDS: Pantoprazole Sodium 40 MG Tablet PO (20:58)
[2024-05-08] MEDS: Metoprolol Tartrate 25 MG Tablet PO (20:58)
[2024-05-08 22:54] LABS: Hematocrit 28.2 % (37-47); Hemoglobin 8.1 g/dL (12.0-15.0)
[2024-05-09] VITALS (12 sets, daily range): BP systolic 109–127; BP diastolic 47–61; PULSE 54–70; RESP 16–18; TEMP 36.3–37.1; O2SAT 94–99; BMI 23.0
--- NOTE | 2024-05-09 06:00 | EKG12_ITS ---
Test Reason : AM EKG Blood Pressure : / mmHG Vent. Rate : 063 BPM Atrial Rate : 063 BPM P-R Int : 174 ms QRS Dur : 108 ms QT Int : 470 ms P-R-T Axes : 080 -42 084 degrees QTc Int : 480 ms Normal sinus rhythm Left axis deviation Incomplete left bundle branch block Minimal voltage criteria for LVH, may be normal variant ( Ruperto product ) Nonspecific ST abnormality Abnormal ECG When compared with ECG of 09-OCT-2023 11:04, T wave inversion less evident in Lateral leads Confirmed by Isrrael Guardado ([id number]), editor news CONCHA BRENNER ([id number]) on 05/10/2024 11:28:50 AM Referred By: MATTHEW Confirmed By:Isrrael Guardado
[2024-05-09 07:52] LABS: Absolute Lymphocyte Count 1.44 X10^3/uL (0.83-4.51); Absolute Neutrophil Count 2.2 X10^3/uL (2.0-7.7); Basophil# 0.04 X10^3/uL; Basophil% 0.9 % (0-1); Eosinophil# 0.16 X10^3/uL; Eosinophils% 3.8 % (0-5); Hematocrit 27.9 % (37-47); Hemoglobin 8.1 g/dL (12.0-15.0); Lymphocyte # 1.44 X10^3/ul (0.83-4.51); Mean Corpuscular Volume 82.5 fL (81-99); Mean Platelet Vol. 11.2 fl (6.2-12.0); Monocyte# 0.44 X10^3/uL; Monocyte% 10.4 % (0-10); NRBC Flagged by Analyzer 0 % (0-5); Neutrophil # 2.15 X10^3/uL (2.7-7.7); Neutrophil % 50.7 % (47-70); Platelet Count 222 K/mm3 (150-450); RBC Distribution Width CV 16.8 % (11.6-14.6); RBC Distribution Width SD 50.3 fl (35.1-43.9); Red Blood Count 3.38 M/mm3 (4.2-5.4); White Blood Count 4.2 K/mm3 (4.4-11.0)
[2024-05-09 07:55] LABS: International Normalized Ratio 1.1; Prothrombin Time (Protime)PT. 14.6 SECONDS (11.7-14.9)
[2024-05-09 08:11] LABS: Anion Gap 5 (5-15); BUN 19 mg/dL (7-18); Calcium,Total 9.2 mg/dL (8.5-10.1); Chloride 104 mmol/L (98-107); Creatinine, Serum 1.12 mg/dL (0.55-1.02); EST Glomerular Filtration Rate 49 mL/min (>60); Est Glom Filt Rate - Afr Amer 59 mL/min (>60); Estimated Creatinine Clearance 24.46 ml/min; Glucose 97 mg/dL (74-106); Potassium 3.6 mmol/L (3.5-5.1); Sodium Level 137 mmol/L (136-145)
[2024-05-09 09:05] LABS: Partial Thromboplast Time 25.6 Seconds (24.1-36.2)
[2024-05-09] MEDS: Metoprolol Tartrate 25 MG Tablet PO ×2 (09:25→21:41)
[2024-05-09] MEDS: Losartan Potassium 25 MG Tablet PO (09:25)
[2024-05-09] MEDS: amLODIPine 5 MG Tablet PO (09:25)
[2024-05-09] MEDS: Amiodarone 200 MG Tablet 100 MG PO (09:25)
[2024-05-09] MEDS: 0.9% Saline Lock 10 ML Syringe IV (09:25)
--- NOTE | 2024-05-09 14:25 | PCM.PN.HOSP ---
Reason for Visit Reason for Visit: Diagnoses Personal history of diseases of the blood and blood-forming organs and certain disorders involving the immune mechanism (05/08/24) Subjective Subjective Patient resting in bed, tired, awaiting her scope. Denies any blood in stool this time and no present abdominal pain Objective Data Objective Data Vital Signs: Vital Signs Temp Pulse Resp BP Pulse Ox O2 Del Method 98.3 F 60 16 118/57 L 99 Room Air 05/09/24 13:50 05/09/24 13:50 05/09/24 13:50 05/09/24 13:50 05/09/24 13:50 05/09/24 13:50 Oxygen Delivery Method Room Air Weight: 53.433 kg Body Mass Index (BMI) 23.0 Intake & Output: Intake and Output for Last 24 Hours 05/07/24 05/08/24 05/09/24 23:59 23:59 23:59 Intake Total 2500 / 2500 Balance 2500 / 2500 Lab / Micro Data 05/09/24 07:15 05/09/24 07:15 Labs: Laboratory Results - last 24 hr 05/08/24 22:35: Hgb 8.1 L, Hct 28.2 L 05/09/24 07:15: WBC 4.2 L, RBC 3.38 L, Hgb 8.1 L, Hct 27.9 L, MCV 82.5, MCH 24.0 L, MCHC 29.0 L, RDW Std Deviation 50.3 H, RDW Coeff of Grace 16.8 H, Plt Count 222, MPV 11.2, Immature Gran % (Auto) 0.200, Neut % (Auto) 50.7, Lymph % (Auto) 34.0, Casey % (Auto) 10.4 H, Eos % (Auto) 3.8, Baso % (Auto) 0.9, Absolute Neuts (auto) 2.2, Absolute Lymphs (auto) 1.44, Nucleated RBC % 0, PT 14.6, INR 1.1, APTT 25.6, Sodium 137, Potassium 3.6, Chloride 104, Carbon Dioxide 28.0, Anion Gap 5, BUN 19 H, Creatinine 1.12 H, Estim Creat Clear Calc 24.46, Est GFR (MDRD) Af Amer 59 L, Est GFR (MDRD) Non-Af 49 L, BUN/Creatinine Ratio 17.0, Glucose 97, Calcium 9.2 Physical Exam Narrative General: Alert, oriented, no apparent distress HEENT: Atraumatic, normocephalic Eyes: Anicteric, normal conjunctiva, extraocular movements grossly intact Neck: Supple Respiratory: normal respiratory effort Cardiovascular: Regular rate and rhythm, systolic ejection murmur noted GI: Soft, nontender, nondistended Extremities: No edema Musculoskeletal: Moving all extremities Neuro: No overt focal neurological deficits Skin: No rashes appreciated, scar noted on inner right thigh from previous procedure Psych: Cooperative Assessment & Plan Assessment/Plan (1) History of anemia: PLAN: Plan #Anemia with Hemoccult positive stool -etiology unclear, patient will be placed in observation status on MedSurg, I will repeat an H&H tonight and she will get a repeat CBC in the morning. Patient will remain off her Eliquis and aspirin, she will reprep for a colonoscopy and will have an EGD as well tomorrow by gastroenterology, she will be seen in consultation by gastroenterology. I have elected to place her on Protonix 40 mg twice daily p.o. -05/09: Awaiting EGD, hemoglobin 8.1 today and presently stable, continue PPI #chronic iron deficiency anemia patient's last iron level in our system was 50, I will not repeat iron studies at this time -05/09: Patient waiting endoscopy, continue her iron supplementation #paroxysmal atrial fibrillation patient appears normal sinus rhythm at the time my examination, again her Eliquis will be held, rate limiting medication will be administered -05/09: Patient doing well on amiodarone and metoprolol, Eliquis presently held #coronary artery disease I will hold the patient's aspirin for now, I have held her statin due to her observation status -05/09: Patient awaiting endoscopy, patient has allergy to atorvastatin and is on Crestor at home, Crestor is nonformulary. Patient will need prolonged hospital stay family will need to bring this in from home #elevated creatinine/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 per admitting provider: patient was recently placed on Lasix, feel the creatinine elevation is probably secondary to this, I contacted Veronica Adams a nurse practitioner in Dr. Hunt's office who is a nurse practitioner seeing the patient, she was [address] the patient on furosemide, she will reduce the dose going forward. She also made a follow-up appointment for the patient. -05/09: Improving today, continue to hold Lasix #mild to moderate mitral stenosis-complicates care, management, recovery, and prognosis #mild to moderate aortic stenosis-complicates care, management, recovery, and prognosis Total clinical time spent by myself addressing the patient's medical issues, reviewing all of her data, and collaborating with patient's care team: 37 minutes Charges/Coding Visit Charges Inpatient E&M: 01983 Subs Hosp L2
--- NOTE | 2024-05-09 14:30 | IMM_PTH ---
PATIENT: BRYANNA CARRILLO LOC: MS3 U#:[id number] AGE/SX: 88/F ROOM: [facility] [place] RE05/09/[address]: Dr. Shauna Enamorado MD : 1935 BED: 1 DIS: 05/11/2024 SPEC #: [id number] RECD: 05/10/24 09:16 STATUS: MURALI REQ #: [id number] YARELY: 05/09/24 14:[address]: Boo Gutierrez DEPT: IMMUNOHISTOCHEMISTRY RECD BY: Erik Tran ENTERED: 05/10/24 09:17 SP TYPE: IMMUNO OTHR DR: Dr. Gino Carter, DO MD Dr. Yogi Dumont, DO Dr. Romina Torres MD Tissues: A - Gastric mucous membrane Procedures: H Pylori (initial) Comments: @ Ordering doctor for H.PYLORI edited from to @ by ANNY at 05/10/24918 @ Submitting doctor edited from to @ by ANNY at 05/10/24918 PHYSICIAN & INSTITUTION [place] [address] SPECIMEN INFORMATION: Tissue Source: A- Gastric antrum, C- Ileocecal valve Clinical Info: History of anemia Specimen Number: [id number] Jennifer Monte CPT code: 25369z4,34690n4 METHODOLOGY: Deparaffinized sections of prefer/formalin-fixed tissue or PAP/DQ stained slides are incubated with monoclonal/polyclonal antibodies/oligonucleotide probes. Localization is made via biotin free immunoperoxidase method. Appropriate controls are performed and reacted as expected. Results on target cell population are indicated in the following table: RESULTS: ANTIBODY / CLONE RESULT Block A H Pylori (polyclonal) negative Block C Her-2neu (CB11) negative (0) MOC-31 (4561) positive MLH-1 (M1) negative MSH2 (25D12) positive MSH6 (44) positive PMS2 ([id number]) positive Ki-67 (30-9) positive, high P53 (DO-7) positive, focal (wild type pattern) INTERPRETATION: A. Gastric antrum, biopsy: Negative for Helicobacter pylori organisms. C. 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 ZEN/ 05/14/2024
--- NOTE | 2024-05-09 14:30 | EGD_PTH ---
PATIENT: BRYANNA CARRILLO LOC: MS3 U#:[id number] AGE/SX: 88/F ROOM: [facility] [place] RE05/09/[address]: Dr. Shauna Enamorado MD : 1935 BED: 1 DIS: 05/11/2024 SPEC #: [id number] RECD: 05/09/24 17:33 STATUS: MURALI WEST #: [id number] YARELY: 05/09/24 14:[address]: Boo Gutierrez DEPT: SURGICAL PATHOLOGY RECD BY: Savita Live ENTERED: 05/10/24 09:24 SP TYPE: EGD BIOPSY OTHR DR: Dr. Gino Carter, DO MD Dr. Yogi Dumont, DO Dr. Romina Torres MD Tissues: A - Gastric mucous membrane B - COLON BIOPSY C - Cecum, NOS D - Sigmoid colon biopsy Procedures: Surgery Specimen Level IV Comments: @ Ordering doctor for SUIV edited from to @ by ANNY at 05/10/24 1003 @ Submitting doctor edited from to @ by ANNY at 05/10/24 1003 HEADER OPERATION: Colonoscopy with biopsy, polypectomy, EGD PRE-OP DIAGNOSIS: History of anemia TISSUE SUBMITTED: A- Gastric antrum, B- Splenic flexure polyp, C- Ileocecal valve mass, D- Sigmoid colon polyp MICROSCOPIC DIAGNOSIS A. Gastric antrum, biopsy: Moderate gastritis. See comment. B. Splenic flexure polyp, polypectomy: Tubular adenoma. C. 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 See comment. D. Sigmoid colon polyp, polypectomy: Tubular adenoma. / 05/11/2024 COMMENT A. The results of immunohistochemistry for Helicobacter pylori will be reported separately ([id number]). C. Immunohistochemistry ([id number]) for microsatellite instability (mismatch repair of protein) will be performed and the results will be reported separately. MICROSCOPIC DESCRIPTION Slides are reviewed. GROSS DESCRIPTION A. Received in fixative is one container labeled with the patient's name and designated Gastric antrum. The specimen consists of two irregular fragments of light herman soft tissue that in aggregate measure 0.6 x 0.3 x 0.1 cm. The specimen is totally submitted in one cassette. B. Received in fixative is one container labeled with the patient's name and designated Splenic flexure polyp. The specimen consists of multiple irregular fragments of light herman soft tissue that measuring in aggregate 0.5 x 0.4 x 0.1 cm. The specimen is totally submitted in one cassette. C. Received in fixative is one container labeled with the patient's name and designated Ileocecal valve mass. The specimen consists of multiple irregular fragments of light herman soft tissue that in aggregate measure 2.0 x 0.5 x 0.1 cm. The specimen is totally submitted in one cassette. D. Received in fixative is one container labeled with the patient's name and designated Sigmoid polyp. The specimen consists of one irregular fragment of light herman soft tissue that measures 0.4 x 0.4 x 0.1 cm. The specimen is totally submitted in one cassette. ZEN/ 05/10/2024 TC:0 CPT:40136a9
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
--- NOTE | 2024-05-09 16:34 | PCM.POST.ANE ---
Anesthesia: Postop Eval I Current Vital Signs Temperature: 97.5 F Pulse Rate: 70 Blood Pressure: 111/54 Respiratory Rate: 18 Pulse Ox: 96 Oxygen Delivery Method: Room Air Assessment Airway patent: Yes Spontaneous unlabored respirations: Yes Mental status: Awake nausea: No Vomiting: No Anesthesia Complication: No Fluid Hydration Crystalloid volume administer (ml): 300 Total IV fluid infused: 300 Progress Note Anesthesia document: Postop Eval 1 completed: Yes
--- NOTE | 2024-05-09 16:46 | OP.EGD_ITS ---
Patient Name: Harini Roth Procedure Date: 05/09/2024 3:40 PM Date of : 1935 Age: 88 Procedure: Upper GI endoscopy Indications: Iron deficiency anemia Providers: Boo Gutierrez DO Medicines: Monitored Anesthesia Care Patient Profile: This is an 88 year old female. Refer to note in patient chart for documentation of history and physical. Patient has symptoms. Complications: No immediate complications. Procedure: Pre-Anesthesia Assessment: - Prior to the procedure, a History and Physical was performed, and patient medications and allergies were reviewed. The patient is competent. The risks and benefits of the procedure and the sedation options and risks were discussed with the patient. All questions were answered and informed consent was obtained. Patient identification and proposed procedure were verified by the physician in the pre-procedure area. Mental Status Examination: alert and oriented. Airway Examination: normal oropharyngeal airway and neck mobility. Prophylactic Antibiotics: The patient does not require prophylactic antibiotics. Prior Anticoagulants: The patient has taken no anticoagulant or antiplatelet agents. After reviewing the risks and benefits, the patient was deemed in satisfactory condition to undergo the procedure. The anesthesia plan was to use monitored anesthesia care (MAC). Immediately prior to administration of medications, the patient was re-assessed for adequacy to receive sedatives. The heart rate, respiratory rate, oxygen saturations, blood pressure, adequacy of pulmonary ventilation, and response to care were monitored throughout the procedure. The physical status of the patient was re-assessed after the procedure. After obtaining informed consent, the endoscope was passed under direct vision. Throughout the procedure, the patient's blood pressure, pulse, and oxygen saturations were monitored continuously. The colonoscope was introduced through the mouth, and advanced to the second part of duodenum. The upper GI endoscopy was accomplished without difficulty. The patient tolerated the procedure well. Scope In: 3:55:19 PM Scope Out: 4:00:06 PM Total Procedure Duration Time 0 hours 4 minutes 47 seconds Findings: The examined esophagus was normal. Patchy mildly erythematous mucosa without bleeding was found in the gastric body and in the gastric antrum. Biopsies were taken with a cold forceps for histology. Verification of patient identification for the specimen was done. Estimated blood loss was minimal. Biopsies were taken with a cold forceps for Helicobacter pylori testing. Verification of patient identification for the specimen was done. Estimated blood loss was minimal. No gross lesions were noted in the second portion of the duodenum. Impression: - Normal esophagus. - Erythematous mucosa in the gastric body and antrum. Biopsied. - No gross lesions in the second portion of the duodenum. Recommendation: - Return patient to [facility] for ongoing care. - Resume regular diet. - Continue present medications. - Await pathology results. Procedure Code(s): --- Professional --- 42847, Esophagogastroduodenoscopy, flexible, transoral; with biopsy, single or multiple CPT copyright 2021 [employer]. All rights reserved. The codes documented in this report are preliminary and upon data warehouse developer review may be revised to meet current compliance requirements. Boo Gutierrez DO 05/09/2024 4:46:38 PM This report has been signed electronically. Number of Addenda: 0 Note Initiated On: 05/09/2024 3:40 PM
--- NOTE | 2024-05-09 16:47 | OP.CCLET_ITS ---
05/09/2024 Yogi Kapadia Do Re : Upper GI endoscopy procedure for Harini Roth Dear Dr. Kapadia This procedure was performed on Thursday, May 09, 2024. My impressions and recommendations are as follows: Impressions : - Normal esophagus. - Erythematous mucosa in the gastric body and antrum. Biopsied. - No gross lesions in the second portion of the duodenum. Recommendations : - Return patient to [facility] for ongoing care. - Resume regular diet. - Continue present medications. - Await pathology results. My findings are described in the full procedure note, which is enclosed. If I can be of further assistance, please feel free to contact me at . Sincerely, Boo Gutierrez DO 05/09/2024 4:46:38 PM This report has been signed electronically.
--- NOTE | 2024-05-09 17:27 | OP.COLON_ITS ---
Patient Name: Harini Roth Procedure Date: 05/09/2024 4:00 PM Date of : 1935 Age: 88 Procedure: Colonoscopy Indications: Iron deficiency anemia Providers: Boo Gutierrez DO Medicines: Monitored Anesthesia Care Patient Profile: This is an 88 year old female. Refer to note in patient chart for documentation of history and physical. Patient has symptoms. Last Colonoscopy: date unknown. Unable to locate last colonoscopy report. Complications: No immediate complications. Procedure: Pre-Anesthesia Assessment: - Prior to the procedure, a History and Physical was performed, and patient medications and allergies were reviewed. The patient is competent. The risks and benefits of the procedure and the sedation options and risks were discussed with the patient. All questions were answered and informed consent was obtained. Patient identification and proposed procedure were verified by the physician in the pre-procedure area. Mental Status Examination: alert and oriented. Airway Examination: normal oropharyngeal airway and neck mobility. Prophylactic Antibiotics: The patient does not require prophylactic antibiotics. Prior Anticoagulants: The patient has taken no anticoagulant or antiplatelet agents. After reviewing the risks and benefits, the patient was deemed in satisfactory condition to undergo the procedure. The anesthesia plan was to use monitored anesthesia care (MAC). Immediately prior to administration of medications, the patient was re-assessed for adequacy to receive sedatives. The heart rate, respiratory rate, oxygen saturations, blood pressure, adequacy of pulmonary ventilation, and response to care were monitored throughout the procedure. The physical status of the patient was re-assessed after the procedure. After I obtained informed consent, the scope was passed under direct vision. Throughout the procedure, the patient's blood pressure, pulse, and oxygen saturations were monitored continuously. The colonoscope was introduced through the anus and advanced to the terminal ileum. The colonoscopy was performed without difficulty. The patient tolerated the procedure well. The quality of the bowel preparation was adequate. The terminal ileum, ileocecal valve, appendiceal orifice, and rectum were photographed. Scope In: 4:05:20 PM Scope Withdrawal Time 0 hours 12 minutes 43 seconds Scope Out: 4:22:57 PM Total Procedure Duration Time 0 hours 17 minutes 37 seconds Findings: The perianal and digital rectal examinations were normal. Multiple small and large-mouthed diverticula were found in the recto-sigmoid colon and sigmoid colon. Two sessile polyps were found in the sigmoid colon and splenic flexure. The polyps were 1 to 2 mm in size. These polyps were removed with a jumbo cold forceps. Resection and retrieval were complete. Verification of patient identification for the specimen was done. Estimated blood loss was minimal. A polypoid non-obstructing large mass was found at the ileocecal valve. The mass was non-circumferential. The mass measured three cm in length. In addition, its diameter measured fifteen mm. Oozing was present. This was biopsied with a cold forceps for histology. Verification of patient identification for the specimen was done. Estimated blood loss was minimal. Impression: - Diverticulosis in the recto-sigmoid colon and in the sigmoid colon. - Two 1 to 2 mm polyps in the sigmoid colon and at the splenic flexure, removed with a jumbo cold forceps. Resected and retrieved. 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 - Malignant-appearing tumor in the colon. Biopsied. Recommendation: - Return patient to [facility] for ongoing care. - Resume regular diet. - Continue present medications. - Await pathology results. - Repeat colonoscopy in 1 year for surveillance. - CT scan of the chest abdomen pelvis - [facility] Procedure Code(s): --- Professional --- 11487, Colonoscopy, flexible; with biopsy, single or multiple CPT copyright 2021 [employer]. All rights reserved. The codes documented in this report are preliminary and upon social scientist review may be revised to meet current compliance requirements. Boo Gutierrez DO 05/09/2024 5:26:50 PM This report has been signed electronically. Number of Addenda: 0 Note Initiated On: 05/09/2024 4:00 PM
--- NOTE | 2024-05-09 17:27 | OP.CCLET_ITS ---
05/09/2024 Yogi Kapadia Do Re : Colonoscopy procedure for Harini Roth Dear Dr. Kapadia This procedure was performed on Thursday, May 09, 2024. My impressions and recommendations are as follows: Impressions : - Diverticulosis in the recto-sigmoid colon and in the sigmoid colon. - Two 1 to 2 mm polyps in the sigmoid colon and at the splenic flexure, removed with a jumbo cold forceps. Resected and retrieved. 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 - Malignant-appearing tumor in the colon. Biopsied. Recommendations : - Return patient to [facility] for ongoing care. - Resume regular diet. - Continue present medications. - Await pathology results. - Repeat colonoscopy in 1 year for surveillance. - CT scan of the chest abdomen pelvis - [facility] My findings are described in the full procedure note, which is enclosed. If I can be of further assistance, please feel free to contact me at . Sincerely, Boo Gutierrez DO 05/09/2024 5:26:50 PM This report has been signed electronically.
--- NOTE | 2024-05-09 17:31 | POSTOPAN2_ITS ---
Anesthesia Postop Eval I Sum Postop Eval Completion status Anesthesia document: Postop Eval 1 completed: Yes Anesthesia Postop Eval I Summary Anesthesia Postop Eval I Summary: Anesthesia Postop Eval I: Assessment Summary Airway patent Yes 05/09/24 16:35 JEWELRY DEPARTMENT [email or web address] Spontaneous unlabored Yes 05/09/24 16:35 JEWELRY DEPARTMENT SUPERVISOR.[email or web address] respirations Mental status Awake 05/09/24 16:35 JEWELRY DEPARTMENT SUPERVISOR.CSIR nausea No 05/09/24 16:35 JEWELRY DEPARTMENT SUPERVISOR.CSIR Vomiting No 05/09/24 16:35 JEWELRY DEPARTMENT SUPERVISOR.CSIR Anesthesia Postop Eval I: Fluid Summary Crystalloid volume administer 300 05/09/24 16:35 JEWELRY DEPARTMENT SUPERVISOR.CSIR (ml) Colloids volume administered ( ml) Blood Product volume administered (ml) Total IV fluid infused 300 05/09/24 16:35 JEWELRY DEPARTMENT SUPERVISOR.CSIR Anesthesia Postop Eval I: Summary Notes Anesthesia Complication No 05/09/24 16:35 JEWELRY DEPARTMENT SUPERVISOR.CSIR Anesthesia Complication Comment: Post-operative progress note Anesthesia: Postop Eval II Evaluation Mental status: Awake and Calm Pain Level: 0 nausea: No Vomiting: No Complications Anesthesia Complication: No
--- NOTE | 2024-05-09 17:31 | PCM.POSTANE2 ---
Anesthesia Postop Eval I Sum Postop Eval Completion status Anesthesia document: Postop Eval 1 completed: Yes Anesthesia Postop Eval I Summary Anesthesia Postop Eval I Summary: Anesthesia Postop Eval I: Assessment Summary Airway patent Yes 05/09/24 16:35 ADVERTISING DISPLAY [email or web address].CSIR Spontaneous unlabored Yes 05/09/24 16:35 ADVERTISING DISPLAY ROTATOR.CSIR respirations Mental status Awake 05/09/24 16:35 ADVERTISING DISPLAY ROTATOR.CSIR nausea No 05/09/24 16:35 ADVERTISING DISPLAY ROTATOR.CSIR Vomiting No 05/09/24 16:35 ADVERTISING DISPLAY ROTATOR.CSIR Anesthesia Postop Eval I: Fluid Summary Crystalloid volume administer 300 05/09/24 16:35 ADVERTISING DISPLAY ROTATOR.CSIR (ml) Colloids volume administered ( ml) Blood Product volume administered (ml) Total IV fluid infused 300 05/09/24 16:35 ADVERTISING DISPLAY ROTATOR.CSIR Anesthesia Postop Eval I: Summary Notes Anesthesia Complication No 05/09/24 16:35 ADVERTISING DISPLAY ROTATOR.CSIR Anesthesia Complication Comment: Post-operative progress note Anesthesia: Postop Eval II Evaluation Mental status: Awake and Calm Pain Level: 0 nausea: No Vomiting: No Complications Anesthesia Complication: No
--- NOTE | 2024-05-09 18:55 | CT_ITS ---
INDICATION: colon cancer EXAMINATION: CT Chest Abdomen And Pelvis W/ Contrast Injection TECHNIQUE: Images were obtained of the chest, abdomen and pelvis following IV contrast. A radiation dose optimization technique was used for this scan. IV Contrast dosage and agent: Oral and amp;amp;amp; IV Gastrografin and amp;amp;amp; 75mL [id number] COMPARISON: None. FINDINGS: Lungs: Unremarkable Mediastinum: The heart is mildly enlarged. No mediastinal, hilar or axillary adenopathy. Mild aortic arch and coronary artery calcifications. No obvious filling defect seen within the visualized pulmonary arteries. Pleura: Unremarkable Liver: Unremarkable Gallbladder: Surgically absent. Spleen: Unremarkable Pancreas: Unremarkable Adrenal Glands: Unremarkable Kidneys: Unremarkable Vasculature: Moderate aortoiliac atherosclerotic disease. GI Tract: Focal masslike thickening of the haustra in the proximal transverse colon near the hepatic flexure measuring approximately 2.5 x 1.9 cm. Circumferential wall thickening of the distal sigmoid colon and proximal rectum. Lymphadenopathy: None Peritoneum: No ascites. Bladder: Unremarkable Reproductive organs: Status post hysterectomy. Bones/Soft tissues: There are diffuse degenerative changes of the spine. Age indeterminate mild compression deformity of T11. CT/CT Chest, Abd, Pel w/Contrast IMPRESSION: Focal 2.5 cm masslike thickening of the haustra in the proximal transverse colon near the hepatic flexure. Cannot rule out malignancy. Circumferential wall thickening of the distal sigmoid colon and proximal rectum. Cannot rule out malignancy. No evidence of metastatic disease in the chest, abdomen or pelvis. Age indeterminate mild compression deformity of T11. Electronically Signed: Gustavo Mills MD at 0:28 EDT ,
[2024-05-09] MEDS: Pantoprazole Sodium 40 MG Tablet PO (21:41)
[2024-05-10] VITALS (15 sets, daily range): BP systolic 96–129; BP diastolic 43–64; PULSE 61–69; RESP 16–18; TEMP 36.5–37.3; O2SAT 95–98
[2024-05-10 07:18] LABS: Absolute Lymphocyte Count 0.93 X10^3/uL (0.83-4.51); Absolute Neutrophil Count 4.2 X10^3/uL (2.0-7.7); Basophil# 0.03 X10^3/uL; Basophil% 0.5 % (0-1); Eosinophil# 0.11 X10^3/uL; Eosinophils% 1.9 % (0-5); Hematocrit 29.1 % (37-47); Hemoglobin 8.5 g/dL (12.0-15.0); Lymphocyte # 0.93 X10^3/ul (0.83-4.51); Lymphocyte % 15.7 % (19-41); Mean Corp Hgb Conc 29.2 g/dL (32-36); Mean Corpuscular Hgb 24.2 pg (27.0-32.0); Mean Corpuscular Volume 82.9 fL (81-99); Mean Platelet Vol. 10.7 fl (6.2-12.0); Monocyte# 0.65 X10^3/uL; NRBC Flagged by Analyzer 0 % (0-5); Neutrophil # 4.19 X10^3/uL (2.7-7.7); Neutrophil % 70.7 % (47-70); Platelet Count 216 K/mm3 (150-450); RBC Distribution Width CV 16.7 % (11.6-14.6); RBC Distribution Width SD 51.1 fl (35.1-43.9); Red Blood Count 3.51 M/mm3 (4.2-5.4); White Blood Count 5.9 K/mm3 (4.4-11.0)
[2024-05-10 07:48] LABS: Anion Gap 9 (5-15); BUN 14 mg/dL (7-18); BUN/Creat Ratio 12.7 RATIO (10-20); Calcium,Total 9.2 mg/dL (8.5-10.1); Chloride 104 mmol/L (98-107); EST Glomerular Filtration Rate 50 mL/min (>60); Est Glom Filt Rate - Afr Amer 60 mL/min (>60); Glucose 93 mg/dL (74-106); Potassium 3.6 mmol/L (3.5-5.1); Sodium Level 139 mmol/L (136-145)
[2024-05-10] MEDS: Iron Polysaccharide Complex 150 MG CAPSULE PO (09:16)
[2024-05-10] MEDS: amLODIPine 5 MG Tablet PO (09:16)
[2024-05-10] MEDS: Pantoprazole Sodium 40 MG Tablet PO ×2 (09:16→22:15)
[2024-05-10] MEDS: Metoprolol Tartrate 25 MG Tablet PO ×2 (09:16→22:15)
[2024-05-10] MEDS: Losartan Potassium 25 MG Tablet PO (09:16)
[2024-05-10] MEDS: Amiodarone 200 MG Tablet 100 MG PO (09:17)
[2024-05-10 09:23] LABS: Ferritin 20 ng/mL (8-252); Iron 20 ug/dL (50-170); Iron Binding Capacity,Total 410 ug/dL (250-450); PERCENT IRON SATURATION 4.9 % (15.0-55.0)
--- NOTE | 2024-05-10 11:06 | CASEMGMT ---
Addendum entered by Kenyetta Young 05/10/24 14:10: Pt agreeable to discussing DC planning with family in room. Pt states I with ADLs and IADLs. Original Note: TRINA MURILLO Assessment: Face to Face with pt for initial transition planning/care coordination assessment. TIRNA MURILLO introduced self and role at [facility], pt voices understanding and consents to assessment. Pt sitting up in bed in no distress with 2 daughters sitting at bedside. Pt is A&O x4 and answers all questions appropriately at this time. Care providers, pharmacy, and demographics verified/updated. Admitting Dx: Anemia PCP: [facility] Specialists: Gilbert - manager casino Preferred Pharmacy: [facility] Insurance: Medicare and [employer] Prescription Benefit: yes LNOK: Codi - daughter, Crystal - daughter Living Arrangements: Pt lives alone in a 1 story home with 3 steps and rails to enter. Transportation: Pt drives self and denies concerns with transportation. DME: Walker, cane, shower bench. HHC/SNF: Denies Hx of SNF, previously used [facility]. Pt states no concerns with going home at time of dc. Pt states no further concerns/needs. CM to follow. Advised pt to ask CM if any further question/concerns/needs arise, voices understanding. Pt Goal: Home Plan: Home, will follow plan of care. Alexandra MENA CM
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
--- NOTE | 2024-05-10 16:05 | PCM.PN.HOSP ---
Reason for Visit Reason for Visit: Diagnoses Personal history of diseases of the blood and blood-forming organs and certain disorders involving the immune mechanism (05/09/24) Subjective Subjective Patient has not noticed any overt bleeding at this time, no abdominal pain Objective Data Objective Data Vital Signs: Vital Signs Temp Pulse Resp BP Pulse Ox O2 Del Method 98.2 F 63 16 108/43 L 96 Room Air 05/10/24 15:45 05/10/24 15:45 05/10/24 15:45 05/10/24 15:45 05/10/24 15:45 05/10/24 15:45 Oxygen Delivery Method Room Air Weight: 53.433 kg Body Mass Index (BMI) 23.0 Intake & Output: Intake and Output for Last 24 Hours 05/08/24 05/09/24 05/10/24 23:59 23:59 23:59 Intake Total 2500 / 2850 950 / 950 Balance 2500 / 2850 950 / 950 Lab / Micro Data 05/10/24 06:09 05/10/24 06:09 Labs: Laboratory Results - last 24 hr 05/08/24 11:18: Crossmatch See Detail 05/10/24 06:01: Iron 20 L, TIBC 410, Iron Saturation 4.9 L, Ferritin 20 05/10/24 06:09: WBC 5.9, RBC 3.51 L, Hgb 8.5 L, Hct 29.1 L, MCV 82.9, MCH 24.2 L, MCHC 29.2 L, RDW Std Deviation 51.1 H, RDW Coeff of Grace 16.7 H, Plt Count 216, MPV 10.7, Immature Gran % (Auto) 0.200, Neut % (Auto) 70.7 H, Lymph % (Auto) 15.7 L, [place] % (Auto) 11.0 H, Eos % (Auto) 1.9, Baso % (Auto) 0.5, Absolute Neuts (auto) 4.2, Absolute Lymphs (auto) 0.93, Nucleated RBC % 0, Sodium 139, Potassium 3.6, Chloride 104, Carbon Dioxide 26.0, Anion Gap 9, BUN 14, Creatinine 1.10 H, Estim Creat Clear Calc 24.90, Est GFR (MDRD) Af Amer 60, Est GFR (MDRD) Non-Af 50 L, BUN/Creatinine Ratio 12.7, Glucose 93, Calcium 9.2 Radiography Diagnostic Testing: Radiology Impression Chest/Abdomen/Pelvis CT 05/09/24 18:55 IMPRESSION: Focal 2.5 cm masslike thickening of the haustra in the proximal transverse colon near the hepatic flexure. Cannot rule out malignancy. Circumferential wall thickening of the distal sigmoid colon and proximal rectum. Cannot rule out malignancy. No evidence of metastatic disease in the chest, abdomen or pelvis. Age indeterminate mild compression deformity of T11. Electronically Signed: Gustavo Mills MD at 0:28 EDT , Physical Exam Narrative General: Alert, oriented, no apparent distress HEENT: Atraumatic, normocephalic Eyes: Anicteric, normal conjunctiva, extraocular movements grossly intact Neck: Supple Respiratory: normal respiratory effort Cardiovascular: Regular rate and rhythm, systolic ejection murmur noted GI: Soft, nontender, nondistended Extremities: No edema Musculoskeletal: Moving all extremities Neuro: No overt focal neurological deficits Skin: No rashes appreciated Psych: Cooperative Assessment & Plan Assessment/Plan (1) History of anemia: PLAN: Plan #Anemia with Hemoccult positive stool-and have colon cancer -etiology unclear, patient will be placed in observation status on MedSurg, I will repeat an H&H tonight and she will get a repeat CBC in the morning. Patient will remain off her Eliquis and aspirin, she will reprep for a colonoscopy and will have an EGD as well tomorrow by gastroenterology, she will be seen in consultation by gastroenterology. I have elected to place her on Protonix 40 mg twice daily p.o. -05/09: Awaiting EGD, hemoglobin 8.1 today and presently stable, continue PPI -05/10: Colonoscopy with malignant tumor at ileocecal valve, CT chest abdomen and pelvis with no mets, discussed with oncology, GI, surgery. Is advised to give patient 2 units packed red blood cells to increase hemoglobin overall and then she will be discharged to follow-up outpatient for surgery. Given blood unable to be completed until nighttime patient will be monitored today and discharged in the morning if stable. Was told to continue to hold Eliquis however on discharge can continue aspirin #chronic iron deficiency anemia patient's last iron level in our system was 50, I will not repeat iron studies at this time -05/09: Patient waiting endoscopy, continue her iron supplementation -05/10: Found to colon cancer, continue iron supplementation, receiving 2 more units packed red blood cells, will need surgery for definitive management, continue to hold Eliquis #paroxysmal atrial fibrillation patient appears normal sinus rhythm at the time my examination, again her Eliquis will be held, rate limiting medication will be administered -05/09: Patient doing well on amiodarone and metoprolol, Eliquis presently held #coronary artery disease -hx 2 stents in 2020, follows w/ Dr. Hunt I will hold the patient's aspirin for now, I have held her statin due to her observation status -05/09: Patient awaiting endoscopy, patient has allergy to atorvastatin and is on Crestor at home, Crestor is nonformulary. 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 Hunt's office who is a nurse practitioner seeing the patient, she was [address] patient on furosemide, she will reduce the dose going forward. She also made a follow-up appointment for the patient. -05/09: Improving today, continue to hold Lasix -05/10: Given patient receiving 2 units packed red blood cell she will get a dose of IV Lasix #mild to moderate mitral stenosis-complicates care, management, recovery, and prognosis #mild to moderate aortic stenosis-complicates care, management, recovery, and prognosis Total clinical time spent by myself addressing the patient's medical issues, reviewing all of her data, and collaborating with patient's care team: 52 minutes Charges/Coding Visit Charges Inpatient E&M: [id number] [facility] [place] Hosp L3
[2024-05-10] MEDS: Furosemide 20 MG/2 ML VIAL IV (16:23)
[2024-05-10] MEDS: 0.9% Saline Lock 10 ML Syringe IV (16:25)
--- NOTE | 2024-05-10 18:03 | EX.PCM.PN.GI ---
Subjective Subjective Patient seems to be in good spirits. She denies any signs of lower GI bleeding. I had a long talk with her daughters and the patient at the bedside. She is being seen by surgery. Appreciate surgical consultation. Objective Data Objective Data Vital Signs: Vital Signs Temp Pulse Resp BP Pulse Ox O2 Del Method 98.5 F 66 16 116/52 L 96 Room Air 05/10/24 18:01 05/10/24 18:01 05/10/24 18:01 05/10/24 18:01 05/10/24 18:01 05/10/24 18:01 Oxygen Delivery Method Room Air Weight: 117 lb 12.8 oz Body Mass Index (BMI) 23.0 Intake & Output: Intake and Output for Last 24 Hours 05/08/24 05/09/24 05/10/24 23:59 23:59 23:59 Intake Total 2500 / 2850 951 / 951 Balance 2500 / 2850 951 / 951 Lab / Micro Data 05/10/24 06:09 05/10/24 06:09 Labs: Laboratory Results - last 24 hr 05/08/24 11:18: Crossmatch See Detail 05/10/24 06:01: Iron 20 L, TIBC 410, Iron Saturation 4.9 L, Ferritin 20 05/10/24 06:09: WBC 5.9, RBC 3.51 L, Hgb 8.5 L, Hct 29.1 L, MCV 82.9, MCH 24.2 L, MCHC 29.2 L, RDW Std Deviation 51.1 H, RDW Coeff of Grace 16.7 H, Plt Count 216, MPV 10.7, Immature Gran % (Auto) 0.200, Neut % (Auto) 70.7 H, Lymph % (Auto) 15.7 L, [place] % (Auto) 11.0 H, Eos % (Auto) 1.9, Baso % (Auto) 0.5, Absolute Neuts (auto) 4.2, Absolute Lymphs (auto) 0.93, Nucleated RBC % 0, Sodium 139, Potassium 3.6, Chloride 104, Carbon Dioxide 26.0, Anion Gap 9, BUN 14, Creatinine 1.10 H, Estim Creat Clear Calc 24.90, Est GFR (MDRD) Af Amer 60, Est GFR (MDRD) Non-Af 50 L, BUN/Creatinine Ratio 12.7, Glucose 93, Calcium 9.2 Radiography Diagnostic Testing: Radiology Impression Chest/Abdomen/Pelvis CT 05/09/24 18:55 IMPRESSION: Focal 2.5 cm masslike thickening of the haustra in the proximal transverse colon near the hepatic flexure. Cannot rule out malignancy. Circumferential wall thickening of the distal sigmoid colon and proximal rectum. Cannot rule out malignancy. No evidence of metastatic disease in the chest, abdomen or pelvis. Age indeterminate mild compression deformity of T11. Electronically Signed: Gustavo Mills MD at 0:28 EDT , Physical Exam Narrative General: Alert, oriented, no apparent distress HEENT: Atraumatic, normocephalic Eyes: Anicteric, normal conjunctiva, extraocular movements grossly intact Neck: Supple Respiratory: normal respiratory effort Cardiovascular: Regular rate and rhythm, systolic ejection murmur noted GI: Soft, nontender, nondistended Extremities: No edema Musculoskeletal: Moving all extremities Neuro: No overt focal neurological deficits Skin: No rashes appreciated Psych: Cooperative Assessment & Plan Assessment/Plan (1) Colonic mass: (2) History of anemia: PLAN: Plan Findings: The perianal and digital rectal examinations were normal. Multiple small and large-mouthed diverticula were found in the recto-sigmoid colon and sigmoid colon. Two sessile polyps were found in the sigmoid colon and splenic flexure. The polyps were 1 to 2 mm in size. These polyps were removed with a jumbo cold forceps. Resection and retrieval were complete. Verification of patient identification for the specimen was done. Estimated blood loss was minimal. A polypoid non-obstructing large mass was found at the ileocecal valve. The mass was non-circumferential. The mass measured three cm in length. In addition, its diameter measured fifteen mm. Oozing was present. This was biopsied with a cold forceps for histology. Verification of patient identification for the specimen was done. Estimated blood loss was minimal. Impression: - Diverticulosis in the recto-sigmoid colon and in the sigmoid colon. - Two 1 to 2 mm polyps in the sigmoid colon and at the splenic flexure, removed with a jumbo cold forceps. Resected and retrieved. 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 - Malignant-appearing tumor in the colon. Biopsied. Recommendation: - Return patient to hospital [facility] for ongoing care. - Resume regular diet. - Continue present medications. - Await pathology results. - Repeat colonoscopy in 1 year for surveillance. - CT scan of the chest abdomen pelvis - CEA Charges/Coding Visit Charges Inpatient E&M: [id number] [facility] Hosp L3
[2024-05-11 05:30] VITALS: BP 130/59; PULSE 58; RESP 16; TEMP 36.6; O2SAT 96
[2024-05-11 06:28] LABS: Absolute Lymphocyte Count 1.65 X10^3/uL (0.83-4.51); Absolute Neutrophil Count 3.3 X10^3/uL (2.0-7.7); Basophil# 0.04 X10^3/uL; Basophil% 0.7 % (0-1); Eosinophil# 0.16 X10^3/uL; Eosinophils% 2.8 % (0-5); Hematocrit 36.3 % (37-47); Lymphocyte # 1.65 X10^3/ul (0.83-4.51); Lymphocyte % 28.4 % (19-41); Mean Corp Hgb Conc 30.3 g/dL (32-36); Mean Corpuscular Hgb 25.5 pg (27.0-32.0); Mean Platelet Vol. 10.6 fl (6.2-12.0); Monocyte# 0.66 X10^3/uL; Monocyte% 11.4 % (0-10); NRBC Flagged by Analyzer 0 % (0-5); Neutrophil # 3.29 X10^3/uL (2.7-7.7); Neutrophil % 56.5 % (47-70); Platelet Count 195 K/mm3 (150-450); RBC Distribution Width CV 16.4 % (11.6-14.6); RBC Distribution Width SD 50.4 fl (35.1-43.9); Red Blood Count 4.32 M/mm3 (4.2-5.4); White Blood Count 5.8 K/mm3 (4.4-11.0)
[2024-05-11 07:07] LABS: Anion Gap 8 (5-15); BUN 26 mg/dL (7-18); BUN/Creat Ratio 20.2 RATIO (10-20); Calcium,Total 9.4 mg/dL (8.5-10.1); Chloride 105 mmol/L (98-107); Creatinine, Serum 1.29 mg/dL (0.55-1.02); EST Glomerular Filtration Rate 41 mL/min (>60); Est Glom Filt Rate - Afr Amer 50 mL/min (>60); Estimated Creatinine Clearance 21.24 ml/min; Glucose 110 mg/dL (74-106); Potassium 3.6 mmol/L (3.5-5.1); Sodium Level 138 mmol/L (136-145)
[2024-05-11 08:12] LABS: Carcinoembryonic Antigen 1.9 ng/mL (0.0-4.7)
[2024-05-11 09:00] VITALS: RESP 16
[2024-05-11] MEDS: 0.9% Normal Saline (1000mL) 1,000 ML 50 ML IV (09:53)
[2024-05-11 09:56] VITALS: PULSE 61
[2024-05-11] MEDS: Metoprolol Tartrate 25 MG Tablet 12.5 MG PO (09:56)
[2024-05-11] MEDS: Iron Polysaccharide Complex 150 MG CAPSULE PO (09:56)
[2024-05-11] MEDS: Pantoprazole Sodium 40 MG Tablet PO (09:57)
[2024-05-11] MEDS: Amiodarone 200 MG Tablet 100 MG PO (09:57)
[2024-05-11] MEDS: amLODIPine 2.5 MG Tablet PO (09:57)
[2024-05-11 10:00] VITALS: BP 124/48; PULSE 64; RESP 18; TEMP 37; O2SAT 98
--- NOTE | 2024-05-11 10:02 | PCM.DC ---
Discharge Instructions Diet Discharge Diet: No restrictions Activity Discharge Activity: - (Increase activity as tolerated) Follow Up Care Test Results: Test results from this visit will be discussed in further detail at your follow-up appointment, if applicable. Discharge Plan Admission Admit Date/Time: 05/09/24 14:37 Primary Reason for Your Visit: Low hemoglobin Attending Provider: Shauna Enamorado Primary Care Provider: Yogi Kapadia Consulting Providers: Gino Carter; Romina Torres Instructions Patient Instructions: ED Fall Prevention Additional Instructions / Restrictions: DISCHARGE INSTRUCTIONS PLEASE READ *Please take this with you to your next doctors appointment* -Please follow-up with Dr. Torres with surgery upon discharge. -Please follow-up with Dr. Cutler with oncology upon discharge to establish care -Is advised to hold your Eliquis at this time until told otherwise but you will continue your aspirin -Continue your iron supplementation -Due to low blood pressure your losartan was held and your amlodipine and metoprolol were decreased, please see medication list -Would recommend lab work (BMP) to check your kidney function in 2 to 3 days through your primary care physician's office. Please call their office upon discharge to obtain order for lab work. -Would recommend holding furosemide until blood work done to check kidney function -Weigh yourself every day. A sudden weight gain can mean you are retaining fluid. Weigh yourself at the same time of day and in the same kind of clothes. Ideally, weigh yourself first thing in the morning after you empty your bladder, but before you eat breakfast. -Please call your physician if your weight goes up by more than 2 pounds in 1 day or 5 pounds in 1 week. This can be a sign that you are retaining more fluid than you should be. Clues to weight gain include checking your ankles for swelling, or noticing you are short of breath when you lie down -Please call your primary care provider's office upon discharge to schedule a hospital follow up within 1 week. -For any concerning signs or symptoms please call 911 or proceed to the nearest emergency department Discharge Orders/Prescriptions Prescriptions: Continued acetaminophen 500 mg tablet 1,000 mg PO Q6H PRN (Reason: fever or pain) ascorbate calcium (vitamin C) 500 mg tablet 1 g PO DAILY aspirin [Adult Low Dose Aspirin] 81 mg tablet,delayed release (DR/EC) 81 mg PO DAILY omega-3 fatty acids 1,000 mg capsule 1,000 mg PO DAILY vitamin E (dl, acetate) 180 mg (400 unit) capsule 180 mg PO DAILY fluticasone propionate 50 mcg/actuation spray,suspension 1 spray INTRANASAL DAILY PRN PRN (Reason: allergic symptoms) Patient Comments: USE 2 SPRAYS IN EACH NOSTRIL EVERY MORNING polysaccharide iron complex [Ferrex 150] 150 mg iron Capsule 150 mg PO DAILYCM Qty: 30 0RF calcium carbonate-vitamin D3 [Calcium 500 With D] 500 mg-10 mcg (400 unit) tablet 1 tab PO DAILY Qty: 30 0RF amiodarone 200 mg tablet 100 mg PO DAILY Qty: 45 3RF rosuvastatin [Crestor] 5 mg tablet 5 mg PO DAILY Qty: 90 3RF omeprazole 20 mg capsule,delayed release(DR/EC) 20 mg PO DAILY Qty: 90 3RF Changed amlodipine 5 mg tablet 2.5 mg PO DAILY Qty: 90 3RF metoprolol tartrate 25 mg tablet 12.5 mg PO BID Qty: 180 3RF Held apixaban 2.5 mg tablet 2.5 mg PO BID Qty: 180 4RF Hold Instructions: Resume on 05/30/24. furosemide 20 mg tablet 20 mg PO DAILY Qty: 30 6RF Hold Instructions: Resume on 05/16/24. Patient Comments: had been on 40mg daily x5 days. 05/09 would be day 5 then to start 20mg daily Discontinued losartan 25 mg tablet 25 mg PO DAILY Qty: 90 3RF Referrals / Follow Up: Bigg Cutler DO [Med Staff - Active Staff] - Yogi Kapadia DO [Primary Care Provider] - Within 1 Week Romina Torres MD [Med Staff - Active Staff] - Disposition Disposition (needs filled in before D/C Order can be placed): Home, Self Care
--- NOTE | 2024-05-11 10:13 | PCM.DC.SUM ---
Providers Date of Admission: 05/09/24 Date of Discharge: 05/11/24 Primary Care Physician: Dr. Yogi Kapadia, Consultations 05/08/24 15:28 Consult: Gastroenterology Routine Consulting Provider: Derek [facility] Reason for Consult: Hemoccult positive stool, anemia EMERGENT Consult: No Notified: Yes Date Notified: 05/08/24 Time Notified: 15:09 Method of Notification: Verbal 05/10/24 08:58 Consult: General Surgery Routine Consulting Provider: Romina Torres Reason for Consult: colon cancer EMERGENT Consult: No Notified: Yes Date Notified: 05/10/24 Time Notified: 08:59 Method of Notification: Verbal Reason For Visit: ANEMIA Diagnosis Discharge Diagnosis (1) Colonic mass: Status: Acute Code(s): K63.89 - Other specified diseases of intestine (2) History of anemia: Status: Acute Code(s): Z86.2 - Personal history of diseases of the blood and blood-forming organs and certain disorders involving the immune mechanism Plan #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 #chronic iron deficiency anemia #paroxysmal atrial fibrillation #coronary artery disease #elevated creatinine/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 #mild to moderate mitral stenosis #mild to moderate aortic stenosis Medications at Discharge Home Medications acetaminophen 500 mg tablet 1,000 mg PO Q6H PRN fever or pain 11/28/20 amiodarone 200 mg tablet 100 mg (1/2 x 200 mg) PO DAILY #45 tabs 02/22/23 fluticasone propionate 50 mcg/actuation nasal spray,suspension 1 spray intranasal DAILY PRN PRN allergic symptoms 10/09/23 calcium carbonate 500 mg-vitamin D3 10 mcg (400 unit) tablet (Calcium 500 With D) 1 tab PO DAILY #30 tabs 10/12/23 polysaccharide iron complex 150 mg iron capsule (Ferrex) 150 mg PO DAILYCM #30 caps 10/12/23 apixaban 2.5 mg tablet 2.5 mg PO BID #180 tabs 10/27/23 rosuvastatin 5 mg tablet (Crestor) 5 mg PO DAILY #90 tabs 11/21/23 ascorbate calcium (vitamin C) 500 mg tablet 1 g PO DAILY 12/29/23 aspirin 81 mg tablet,delayed release (Adult Low Dose Aspirin) 81 mg PO DAILY 12/29/23 omega-3 fatty acids 1,000 mg capsule 1,000 mg PO DAILY 12/29/23 vitamin E (dl, acetate) 180 mg (400 unit) capsule 180 mg PO DAILY 12/29/23 omeprazole 20 mg capsule,delayed release 20 mg PO DAILY #90 caps 05/04/24 furosemide 20 mg tablet 20 mg PO DAILY #30 tabs 05/08/24 amlodipine 5 mg tablet 2.5 mg (1/2 x 5 mg) PO DAILY #90 tabs 05/11/24 metoprolol tartrate 25 mg tablet 12.5 mg (1/2 x 25 mg) PO BID #180 tabs 05/11/24 Hospital Course Procedures - (Colonoscopy) Summary of Care Provided Minutes Spent on Discharge: 33 Hospital Course: 88-year-old female history of chronic iron deficiency anemia, paroxysmal atrial fibrillation, coronary artery disease, moderate mitral and aortic stenosis who presented to [facility] ED 05/08/2024 at the urging of her primary care physician due to worsening anemia. She was admitted and colonoscopy performed which demonstrated colonic mass consistent with malignancy. CT chest/abdomen/pelvis did not demonstrate any areas concerning for metastasis of surgery contacted. It was advised to give patient 2 units packed red blood cells to increase blood counts overall prior to surgery and given her stability it was recommended she follow-up outpatient with tentative surgery on May 24. Discussed with patient that she can follow with Dr. Cutler with oncology after her surgery or she will follow-up with alternative provider if she prefers. On day of discharge patient feeling fair overall with no acute or new complaints. Patient overall did well, given she was recently started on Lasix she had been given IV Lasix with the blood, had a slight bump in creatinine but no overt BLAYNE and it was advised that patient increase her oral intake and have BMP rechecked through primary care physician's office also to hold her Lasix pending that blood work. Discussed discharge instructions with patient family member at bedside and discharge instructions as followed: -Please follow-up with Dr. Torres with surgery upon discharge. -Please follow-up with Dr. Cutler with oncology upon discharge to establish care -Is advised to hold your Eliquis at this time until told otherwise but you will continue your aspirin -Continue your iron supplementation -Due to low blood pressure your losartan was held and your amlodipine and metoprolol were decreased, please see medication list -Would recommend lab work (BMP) to check your kidney function in 2 to 3 days through your primary care physician's office. Please call their office upon discharge to obtain order for lab work. -Would recommend holding furosemide until blood work done to check kidney function -Weigh yourself every day. A sudden weight gain can mean you are retaining fluid. Weigh yourself at the same time of day and in the same kind of clothes. Ideally, weigh yourself first thing in the morning after you empty your bladder, but before you eat breakfast. -Please call your physician if your weight goes up by more than 2 pounds in 1 day or 5 pounds in 1 week. This can be a sign that you are retaining more fluid than you should be. Clues to weight gain include checking your ankles for swelling, or noticing you are short of breath when you lie down -Please call your primary care provider's office upon discharge to schedule a hospital follow up within 1 week. -For any concerning signs or symptoms please call 911 or proceed to the nearest emergency department Physical Exam Narrative General: Alert, oriented, no apparent distress HEENT: Atraumatic, normocephalic Eyes: Anicteric, normal conjunctiva, extraocular movements grossly intact Neck: Supple Respiratory: normal respiratory effort Cardiovascular: Regular rate and rhythm, systolic ejection murmur noted GI: Soft, nontender, nondistended Extremities: No edema Musculoskeletal: Moving all extremities Neuro: No overt focal neurological deficits Skin: No rashes appreciated Psych: Cooperative Weight / BMI Weight Weight: 53.433 kg Body Mass Index (BMI) 23.0 ABG / Lab / Microbiology Data 05/11/24 05:10 05/11/24 05:10 Laboratory: Laboratory Results - last 24 hr 05/08/24 11:18: Crossmatch See Detail 05/10/24 06:09: Carcinoembryonic Ag 1.9 05/11/24 05:10: WBC 5.8, RBC 4.32, Hgb 11.0 L, Hct 36.3 L, MCV 84.0, MCH 25.5 L, MCHC 30.3 L, RDW Std Deviation 50.4 H, RDW Coeff of Grace 16.4 H, Plt Count 195, MPV 10.6, Immature Gran % (Auto) 0.200, Neut % (Auto) 56.5, Lymph % (Auto) 28.4, [place] % (Auto) 11.4 H, Eos % (Auto) 2.8, Baso % (Auto) 0.7, Absolute Neuts (auto) 3.3, Absolute Lymphs (auto) 1.65, Nucleated RBC % 0, Sodium 138, Potassium 3.6, Chloride 105, Carbon Dioxide 25.0, Anion Gap 8, BUN 26 H, Creatinine 1.29 H, Estim Creat Clear Calc 21.24, Est GFR (MDRD) Af Amer 50 L, Est GFR (MDRD) Non-Af 41 L, BUN/Creatinine Ratio 20.2 H, Glucose 110 H, Calcium 9.4 D/C Instructions Discharge Diet: No restrictions Meaningful Use Info Meaningful Use Meaningful Use Diagnoses (Choose all that apply): None applicable Ischemic Stroke Statin Dosing Therapy Reference: STATIN DOSE THERAPY REFERENCE: * Patients > 75 years receive moderate or high dose statin therapy. * Patients 75 years or YOUNGER should receive HIGH intensity statin dose unless contraindicated. You will be required to document reason for non-treatment if statin daily dose does not meet guidelines. HIGH DOSE STATIN THERAPY DAILY Atorvastatin > than or = to 40 mg Rosuvastatin > than or = to 20 mg Amlodipine + Atorvastatin > than or = to 2.5/40 mg Ezetimibe + Simvastatin 10/80 mg Simvastatin 80mg Discharge Plan Admission Admit Date/Time: 05/09/24 14:37 Primary Reason for Your Visit: Low hemoglobin Attending Provider: Shauna Enamorado Primary Care Provider: Yogi Kapadia Consulting Providers: Gino Carter; Romina Torres Instructions Patient Instructions: ED Fall Prevention Additional Instructions / Restrictions: DISCHARGE INSTRUCTIONS PLEASE READ *Please take this with you to your next doctors appointment* -Please follow-up with Dr. Torres with surgery upon discharge. -Please follow-up with Dr. Cutler with oncology upon discharge to establish care -Is advised to hold your Eliquis at this time until told otherwise but you will continue your aspirin -Continue your iron supplementation -Due to low blood pressure your losartan was held and your amlodipine and metoprolol were decreased, please see medication list -Would recommend lab work (BMP) to check your kidney function in 2 to 3 days through your primary care physician's office. Please call their office upon discharge to obtain order for lab work. -Would recommend holding furosemide until blood work done to check kidney function -Weigh yourself every day. A sudden weight gain can mean you are retaining fluid. Weigh yourself at the same time of day and in the same kind of clothes. Ideally, weigh yourself first thing in the morning after you empty your bladder, but before you eat breakfast. -Please call your physician if your weight goes up by more than 2 pounds in 1 day or 5 pounds in 1 week. This can be a sign that you are retaining more fluid than you should be. Clues to weight gain include checking your ankles for swelling, or noticing you are short of breath when you lie down -Please call your primary care provider's office upon discharge to schedule a hospital follow up within 1 week. -For any concerning signs or symptoms please call 911 or proceed to the nearest emergency department Discharge Orders/Prescriptions Prescriptions: Continued acetaminophen 500 mg tablet 1,000 mg PO Q6H PRN (Reason: fever or pain) ascorbate calcium (vitamin C) 500 mg tablet 1 g PO DAILY aspirin [Adult Low Dose Aspirin] 81 mg tablet,delayed release (DR/EC) 81 mg PO DAILY omega-3 fatty acids 1,000 mg capsule 1,000 mg PO DAILY vitamin E (dl, acetate) 180 mg (400 unit) capsule 180 mg PO DAILY fluticasone propionate 50 mcg/actuation spray,suspension 1 spray INTRANASAL DAILY PRN PRN (Reason: allergic symptoms) Patient Comments: USE 2 SPRAYS IN EACH NOSTRIL EVERY MORNING polysaccharide iron complex [Ferrex 150] 150 mg iron Capsule 150 mg PO DAILYCM Qty: 30 0RF calcium carbonate-vitamin D3 [Calcium 500 With D] 500 mg-10 mcg (400 unit) tablet 1 tab PO DAILY Qty: 30 0RF amiodarone 200 mg tablet 100 mg PO DAILY Qty: 45 3RF rosuvastatin [Crestor] 5 mg tablet 5 mg PO DAILY Qty: 90 3RF omeprazole 20 mg capsule,delayed release(DR/EC) 20 mg PO DAILY Qty: 90 3RF Changed amlodipine 5 mg tablet 2.5 mg PO DAILY Qty: 90 3RF metoprolol tartrate 25 mg tablet 12.5 mg PO BID Qty: 180 3RF Held apixaban 2.5 mg tablet 2.5 mg PO BID Qty: 180 4RF Hold Instructions: Resume on 05/30/24. furosemide 20 mg tablet 20 mg PO DAILY Qty: 30 6RF Hold Instructions: Resume on 05/16/24. Patient Comments: had been on 40mg daily x5 days. 05/09 would be day 5 then to start 20mg daily Discontinued losartan 25 mg tablet 25 mg PO DAILY Qty: 90 3RF Referrals / Follow Up: Bigg Cutler DO [Med Staff - Active Staff] - Yogi Kapadia DO [Primary Care Provider] - Within 1 Week Romina Torres MD [Med Staff - Active Staff] - Disposition Disposition (needs filled in before D/C Order can be placed): Home, Self Care Charges/Coding Visit Charges Inpatient E&M: 56588 Disch Hosp >30min
--- NOTE | 2024-05-11 11:31 | PHA.DC.MR.R ---
Pharmacy [facility] Med Reconciliation Pharmacy Service has performed discharge medication reconciliation for this patient. No new medications at time of medication review. Meds reviewed are from previously reported home medications. The patient's discharge medication list was reviewed for discrepancies and discrepancies were resolved. Medications at Discharge Home Medications acetaminophen 500 mg tablet 1,000 mg PO Q6H PRN fever or pain 11/28/20 amiodarone 200 mg tablet 100 mg (1/2 x 200 mg) PO DAILY #45 tabs 02/22/23 fluticasone propionate 50 mcg/actuation nasal spray,suspension 1 spray intranasal DAILY PRN PRN allergic symptoms 10/09/23 calcium carbonate 500 mg-vitamin D3 10 mcg (400 unit) tablet (Calcium 500 With D) 1 tab PO DAILY #30 tabs 10/12/23 polysaccharide iron complex 150 mg iron capsule (Ferrex) 150 mg PO DAILYCM #30 caps 10/12/23 apixaban 2.5 mg tablet 2.5 mg PO BID #180 tabs 10/27/23 rosuvastatin 5 mg tablet (Crestor) 5 mg PO DAILY #90 tabs 11/21/23 ascorbate calcium (vitamin C) 500 mg tablet 1 g PO DAILY 12/29/23 aspirin 81 mg tablet,delayed release (Adult Low Dose Aspirin) 81 mg PO DAILY 12/29/23 omega-3 fatty acids 1,000 mg capsule 1,000 mg PO DAILY 12/29/23 vitamin E (dl, acetate) 180 mg (400 unit) capsule 180 mg PO DAILY 12/29/23 omeprazole 20 mg capsule,delayed release 20 mg PO DAILY #90 caps 05/04/24 furosemide 20 mg tablet 20 mg PO DAILY #30 tabs 05/08/24 amlodipine 5 mg tablet 2.5 mg (1/2 x 5 mg) PO DAILY #90 tabs 05/11/24 metoprolol tartrate 25 mg tablet 12.5 mg (1/2 x 25 mg) PO BID #180 tabs 05/11/24
[2024-05-11 12:53] VITALS: BP 121/59; PULSE 59; RESP 18; TEMP 36.8; O2SAT 96
== END 2024-05-11 13:23 | disposition home or self-care (01) | DRG 349 ==
LOC: ED 14:04 → MS3 14:23
PROVIDERS: Anesthesiology; Internal Medicine Gastroenterology; Admitting Provider Internal Medicine; Emergency Provider Student in an Organized Health Care Education/Training Program; Visit Provider Internal Medicine
PROC: 0DJD8ZZ Inspection of Lower Intestinal Tract, Via Natural or Artificial Opening Endoscopic (ICD-10-PCS; CPT 45378; principal; 2024-05-09 14:25)
DX: C18.0 Malignant neoplasm of cecum (principal); D50.9 Iron deficiency anemia, unspecified; N18.31 Chronic kidney disease, stage 3a; I48.0 Paroxysmal atrial fibrillation; I08.0 Rheumatic disorders of both mitral and aortic valves; I12.9 Hypertensive chronic kidney disease with stage 1 through stage 4 chronic kidney disease, or unspecified chronic kidney disease; E78.2 Mixed hyperlipidemia; K57.30 Diverticulosis of large intestine without perforation or abscess without bleeding; K63.5 Polyp of colon; I25.10 Atherosclerotic heart disease of native coronary artery without angina pectoris; Z82.3 Family history of stroke; Z80.1 Family history of malignant neoplasm of trachea, bronchus and lung; Z95.5 Presence of coronary angioplasty implant and graft; Z79.01 Long term (current) use of anticoagulants; Z79.82 Long term (current) use of aspirin; Z80.0 Family history of malignant neoplasm of digestive organs; Z86.2 Personal history of diseases of the blood and blood-forming organs and certain disorders involving the immune mechanism
CPT/HCPCS: 36415; 71260; 74177; 80048; 80053; 82378; 82728; 83540; 83550; 85014; 85018; 85025; 85027; 85610; 85730; 86850; 86900; 86901; 86920; 88305; 88342; 93005; 99284; J7030; J7040; J7120; P9016; Q9967; A4216; J1940; J2405

== ENCOUNTER 2024-05-24 09:56 | Inpatient (IN) | payer MEDICARE, OTHER, SELFPAY ==
[2024-05-24] VITALS (21 sets, daily range): BP systolic 96–151; BP diastolic 44–78; PULSE 52–72; RESP 12–16; TEMP 36.3–37.4; O2SAT 94–100; BMI 16.9
[2024-05-24] MEDS: Acetaminophen 500 MG Tablet 1000 MG PO ×3 (06:17→17:14)
[2024-05-24] MEDS: Gabapentin 600 MG Tablet PO (06:17)
[2024-05-24] MEDS: Ciprofloxacin 400 MG/200 ML BAG 200 MG IV (06:17)
[2024-05-24] MEDS: Lactated Ringers 1,000 ML 40 ML IV ×2 (06:17→21:17)
[2024-05-24] MEDS: Insulin Lispro 100 UNIT/ML INSULN.PEN SC (06:22)
[2024-05-24 06:35] LABS: Bedside Glucose 224 mg/dL (74-106)
[2024-05-24] MEDS: Magnesium 1 GM over 15 mins IV (06:47)
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
--- NOTE | 2024-05-24 07:30 | COL._PTH ---
PATIENT: BRYANNA CARRILLO LOC: MS3 U#:[id number] AGE/SX: 88/F [place] [facility] RE05/24/[address]: Dr. Romina Torres MD : [id number] BED: 1 DIS: 05/26/2024 SPEC #: [id number] RECD: 05/24/24 10:23 STATUS: MURALI AMBRIZOdalys #: [id number] YARELY: 05/24/24 07:[address]: Romina Torres DEPT: SURGICAL PATHOLOGY RECD BY: Davi Corey ENTERED: 05/24/24 12:15 SP TYPE: COLON OTHR DR: Dr. 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 Small intestinal and colonic donut - no pathologic diagnosis. See cancer summary in the comment section. ZEN/ 05/28/2024 COMMENT COLON CANCER SUMMARY Procedure: Right hemicolectomy Tumor site: Ileocecal valve Tumor size: 2.5 x 2.0 x 1.0cm Macroscopic tumor perforation: Not identified Histologic type: Adenocarcinoma with focal mucinous differentiation Histologic grade: Grade 1-2 (well to moderately differentiated) Tumor extension: Tumor invades submucosa. Margins: All margins are uninvolved by invasive carcinoma, high grade dysplasia, intramucosal adenocarcinoma and adenoma. The tumor is 5.5cm away from the closest proximal axial margin. Treatment effect: No known presurgical therapy Lymphvascular invasion: Not identified Perineural invasion: Not identified Type of polyp in which invasive carcinoma arose: Tubular adenoma Tumor deposits: Not identified Regional lymph nodes: Number of lymph nodes examined: 28 Number of lymph nodes involved: 0 Ancillary studies: Previously performed [id number] and [id number] is positive (loss of mismatched protein, microsatellite instability detected), complete loss of MLH1. Additional pathologic findings: Tubular adenoma, ascending colon Appendix- no pathologic diagnosis. Omentum- no pathologic diagnosis. Small intestinal and colonic donut - no pathologic diagnosis. PATHOLOGIC STAGE: pT1 pN0 pMx The above summary is in compliance with [employer] (CAP) Cancer Protocols Checklist and [place] [employer] Committee on Cancer (AJCC), Staging Manual, 8th Ed. The complete report is viewable in the patient's EMR. Clinical summary- please make reference to previous specimen [id number] splenic flexure polyp, polypectomy with diagnosis of tubular adenoma and ileocecal valve, biopsy diagnosis of invasive well to moderate well differentiated adenocarcinoma with focal mucinous differentiation and sigmoid colon polyp, polypectomy with diagnosis of tubular adenoma. MICROSCOPIC DESCRIPTION Slides are reviewed. GROSS DESCRIPTION Received in fixative is one container labeled with the patient's name and designated Right colon and appendix. The specimen consists of a right hemicolectomy specimen consisting of cecum with ascending colon and attached pericolonic adipose tissue measuring 16.0cm in length and small intestine with attached mesenteric tissue measuring 5.5cm in length and appendix 4.5cm in length and 0.5cm in diameter. Lumen contains a small amount of fecal material. A herman indurated mass is noted at the ileocecal valve measuring 2.5 x 2.0 x 1.0cm. Serosa overlying the mass is inked black. Section of the mass do not reveal invasion through the sersosal surface. Two polyps are noted measuring 0.2 and 0.3cm in greatest dimension. Also present in the container is a donut shaped piece of bowel tissue measuring 4.0 x 2.5 x 1.0cm. Section of appendix reveal unremarkable cut surfaces. Lumen is filled with fecal material. The sections of pericolonic adipose tissue reveal multiple lymph node. Largest lymph node measures 1.0cm in greatest dimension. Also present in the container is a portion of omentum which measures 14.0 x 14.0 x 1.0cm. Section of omentum do not reveal any obvious mass lesions. Concrete Floor Installer sections are submitted in 22 cassettes as follows: 1- donut shaped piece of tissue, 2- proximal and distal resection margins, 3- appendix, 4- two polyps 5- consumer sales representative sections of uninvolved small and large bowel, 6-10- mass ileocecal valve (entirely submitted), 11- uninvolved portion of ileocecal valve, 12- one bisected lymph node and omentum, 13- one bisected lymph node, 14- one serially sectioned lymph node, 15-19- each cassette containing one bisected lymph node, 20-22- each cassette containing multiple lymph nodes. SJ/mr 05/25/2024 TC:0 CPT:[id number] ADDENDUM ADDENDUM ADDENDUM ADDENDUM ADDENDUM ADDENDUM ADDENDUM ADDENDUM ADDENDUM ADDENDUM ADDENDUM ADDENDUM ADDENDUM ADDENDUM ADDENDUM 06/19/2024 08:35 ADDENDUM 06/19/2024 08:35 ADDENDUM 06/19/2024 08:35 ADDENDUM 06/19/2024 08:35 ADDENDUM 06/19/2024 08:35 ONKOSIT NGS BRAF SEQUENCEING REPORT FROM [employer] RESULT SUMMARY: Normal TUMOR TYPE: Adenocarcinoma CLINICAL INFORMATION: Right colon and appendix hemicolectomy showed invasive, well to moderately differentiated adenocarcinoma with focal mucinous differentiation. ( Testing performed on #[id number]). HISTOPATHOLOGIC REVIEW: Tumor is present and is estimated to comprise 20-50% of nuclei in the sample. Please see complete report in e-chart or EMR
[2024-05-24] MEDS: metroNIDAZOLE 500 MG/100 ML BAG 100 MG IV (07:45)
[2024-05-24] MEDS: BUPIVACAINE LIPOSOME/PF 20 ML VIAL OPERA.SITE (08:05)
[2024-05-24] MEDS: Bupivacaine 0.25% 30 ML Vial ×2 (08:05)
--- NOTE | 2024-05-24 09:46 | PCM.OPRPT ---
Report of Operation Date of Procedure: 05/24/24 Pre-Operative Diagnosis: Adenocarcinoma of ileocecal valve Post-Operative Diagnosis: Same Surgery/Procedure Performed:: Laparoscopic right hemicolectomy Surgeon: Romina Torres Anesthesiologist: Manpreet Mora Special Medications: Cipro 400 mg IV x 1, Flagyl 500 mg IV x 1 Specimen's removed: Right hemicolectomy Drains: Simons 100 cc Estimated Blood Loss (mL): 10 cc Fluids Replaced: 1300 cc Description of Procedure: Synoptic Portion: Element Response Options Operation performed with curative intent. Yes Tumor location ileocecal valve/cecum Extent of colon and vascular resection Right hemicolectomy ? ileocolic, right branch of the middle colic. Indications this is a 88-year-old female who presented with anemia was found on colonoscopy to have a adenocarcinoma of the ileocecal valve. Patient's CT chest/abdomen/pelvis was negative for metastatic disease pointing questionable was at the hepatic flexure which was negative per colonoscopy. Patient did get 1 unit of packed red blood cells for hemoglobin of 8.5 went up to 11 most recent was 11.6 and patient had been holding her Eliquis but continue aspirin. Description procedure: The patient was placed on operating table in supine position. General Anesthesia was induced. Simons catheter was placed. A timeout was completed verifying correct patient, procedure, site, position, social, and special equipment prior to beginning procedure. An orogastric tube was placed. The abdomen was prepped and draped in usual sterile fashion. An incision was made in the natural skin line below the umbilicus. The fascia was elevated and incised. The peritoneum was elevated and incised. Entry into the peritoneum was confirmed visually and no bowel was noted in the vicinity of the incision. Cabrales trocar was placed. Tap block was completed using mixture of Exparel?20 cc and 0.25% Marcaine?60 cc and saline?20 cc for a total of 100 cc throughout the case. The abdomen was insufflated with carbon dioxide to a pressure of 12-15 mmHg. Patient tolerated insufflation well. The laparoscope was then inserted and abdomen inspected. No injuries from initial trocar placement were noted. Additional trochars were then inserted in the following locations 5 mm trocar in the left lower quadrant, and inferior midline. The abdomen was inspected there is no obvious metastatic disease seen. The table is placed in Trendelenburg position with the right side up. The cecum was grasped to tent the ileocolic artery. The dissection was then started at the base of the ileocolic artery were joined the superior mesenteric artery. The peritoneum overlying the takeoff of the ileal colic artery was opened using electrocautery. Next dissection was carried along the plane of the white line of T[place]t to the duodenum. The duodenum and its attachments were swept downward. This dissection continued in an avascular plane to the liver was encountered. Enseal also used to mobilize the proximal transverse colon at the hepatic flexure. The omentum attached to resect a portion of the colon was divided and resected with the specimen. The supraumbilical incision was enlarged about 6 cm in length. A wound protector was then placed into the peritoneal cavity to prevent port site implantation as well as minimize risk of wound infection. They ascending and transverse colon were then delivered and extracted. The small bowel and colon was then divided extracorporeally with the PREMA 75 after the right branch of the middle colic was also divided with the Enseal. Ileocolic vessel was identified and two 5 mm Hem-o-ashley clips were placed on the artery and the pain. Enseal was used to divide the vessels. The mesenteric dissection was completed as needed on the small bowel and colonic sides and the specimen resection was thus completed. The specimen was removed. The 2 ends of the ileum and transverse colon were then aligned, ensuring that the mesentery was not twisted, and the staple [id number] anastomosis using the PREMA 75 and TL 60. The peritoneum was again insufflated and the anastomosis, alignment of the bowel, hemostasis were checked. The trochars removed under direct visualization. Once the wound protector was removed, gowns and gloves were changed. The umbilical incision was closed with 1-0 PDS suture at the fascia and then the skin was closed with 4-0 Monocryl interrupted sutures. Dry sterile dressings were applied. The sponge and instrument count were correct. The patient was extubated. The patient tolerated procedure well and was taken to the postanesthesia care unit in stable condition. Complications none
[2024-05-24 10:13] LABS: Bedside Glucose 87 mg/dL (74-106)
--- NOTE | 2024-05-24 10:23 | PCM.POST.ANE ---
Anesthesia: Postop Eval I Current Vital Signs Temperature: 97.4 F Pulse Rate: 55 Blood Pressure: 101/44 Respiratory Rate: 16 Pulse Ox: 94 Oxygen Delivery Method: Nasal Cannula Oxygen Flow Rate (L/min): 4 Assessment Airway patent: Yes Spontaneous unlabored respirations: Yes Mental status: Awake and Calm nausea: No Vomiting: No Anesthesia Complication: No Fluid Hydration Crystalloid volume administer (ml): 1,300 Total IV fluid infused: 1,300 Progress Note Anesthesia document: Postop Eval 1 completed: Yes
[2024-05-24 10:44] LABS: Bedside Glucose 108 mg/dL (74-106)
--- NOTE | 2024-05-24 10:59 | POSTOPAN2_ITS ---
Anesthesia Postop Eval I Sum Postop Eval Completion status Anesthesia document: Postop Eval 1 completed: Yes Anesthesia Postop Eval I Summary Anesthesia Postop Eval I Summary: Anesthesia Postop Eval I: Assessment Summary Airway patent Yes 05/24/24 10:29 DEVELOPMENT COORDINATOR.[email or web address] Spontaneous unlabored Yes 05/24/24 10:29 DEVELOPMENT COORDINATOR.GDOTT respirations Mental status Awake,Calm 05/24/24 10:29 DEVELOPMENT COORDINATOR.GDOTT nausea No 05/24/24 10:29 DEVELOPMENT COORDINATOR.GDOTT Vomiting No 05/24/24 10:29 DEVELOPMENT COORDINATOR.GDOTT Anesthesia Postop Eval I: Fluid Summary Crystalloid volume administer 1,300 05/24/24 10:29 DEVELOPMENT COORDINATOR.GDOTT (ml) Colloids volume administered ( ml) Blood Product volume administered (ml) Total IV fluid infused 1,300 05/24/24 10:29 DEVELOPMENT COORDINATOR.GDOTT Anesthesia Postop Eval I: Summary Notes Anesthesia Complication No 05/24/24 10:29 DEVELOPMENT COORDINATOR.GDOTT Anesthesia Complication Comment: Post-operative progress note Anesthesia: Postop Eval II Evaluation Mental status: Awake Pain Level: 0 nausea: No Vomiting: No
--- NOTE | 2024-05-24 10:59 | PCM.POSTANE2 ---
Anesthesia Postop Eval I Sum Postop Eval Completion status Anesthesia document: Postop Eval 1 completed: Yes Anesthesia Postop Eval I Summary Anesthesia Postop Eval I Summary: Anesthesia Postop Eval I: Assessment Summary Airway patent Yes 05/24/24 10:29 COMMERCIAL PILOT.GDOTT Spontaneous unlabored Yes 05/24/24 10:29 COMMERCIAL PILOT.GDOTT respirations Mental status Awake,Calm 05/24/24 10:29 COMMERCIAL PILOT.GDOTT nausea No 05/24/24 10:29 COMMERCIAL PILOT.GDOTT Vomiting No 05/24/24 10:29 COMMERCIAL PILOT.GDOTT Anesthesia Postop Eval I: Fluid Summary Crystalloid volume administer 1,300 05/24/24 10:29 COMMERCIAL PILOT.GDOTT (ml) Colloids volume administered ( ml) Blood Product volume administered (ml) Total IV fluid infused 1,300 05/24/24 10:29 COMMERCIAL PILOT.GDOTT Anesthesia Postop Eval I: Summary Notes Anesthesia Complication No 05/24/24 10:29 COMMERCIAL PILOT.GDOTT Anesthesia Complication Comment: Post-operative progress note Anesthesia: Postop Eval II Evaluation Mental status: Awake Pain Level: 0 nausea: No Vomiting: No
[2024-05-24] MEDS: 0.9% Normal Saline (250mL Bag) 250 ML 999 ML IV (17:10)
[2024-05-24] MEDS: Rosuvastatin Calcium 5 MG Tablet PO (21:19)
[2024-05-24] MEDS: Docusate Sodium 100 MG Capsule PO (21:19)
[2024-05-24] MEDS: Metoprolol Tartrate 25 MG Tablet 12.5 MG PO (21:20)
[2024-05-24] MEDS: Ensure Clear 120 ML Liquid PO (21:21)
[2024-05-25] VITALS (8 sets, daily range): BP systolic 127–156; BP diastolic 56–70; PULSE 60–78; RESP 16–18; TEMP 36.6–37.1; O2SAT 95–98
[2024-05-25] MEDS: Acetaminophen 500 MG Tablet 1000 MG PO ×4 (00:34→18:41)
[2024-05-25 06:07] LABS: Hematocrit 32.6 % (37-47); Mean Corp Hgb Conc 30.7 g/dL (32-36); Mean Corpuscular Hgb 26.1 pg (27.0-32.0); Mean Corpuscular Volume 85.1 fL (81-99); Mean Platelet Vol. 10.7 fl (6.2-12.0); Platelet Count 171 K/mm3 (150-450); RBC Distribution Width CV 18.6 % (11.6-14.6); RBC Distribution Width SD 56.5 fl (35.1-43.9); Red Blood Count 3.83 M/mm3 (4.2-5.4); White Blood Count 8.2 K/mm3 (4.4-11.0)
[2024-05-25 06:56] LABS: Anion Gap 5 (5-15); BUN 11 mg/dL (7-18); BUN/Creat Ratio 11.7 RATIO (10-20); Calcium,Total 8.9 mg/dL (8.5-10.1); Chloride 105 mmol/L (98-107); Creatinine, Serum 0.94 mg/dL (0.55-1.02); EST Glomerular Filtration Rate 60 mL/min (>60); Est Glom Filt Rate - Afr Amer 72 mL/min (>60); Estimated Creatinine Clearance 35.23 ml/min; Glucose 111 mg/dL (74-106); Potassium 4.4 mmol/L (3.5-5.1); Sodium Level 134 mmol/L (136-145)
--- NOTE | 2024-05-25 07:52 | PCM.PN.SRG ---
Subjective Subjective Patient tolerating clears denies any flatus Objective Data Objective Data Vital Signs: Vital Signs Temp Pulse Resp BP Pulse Ox O2 Del Method O2 Flow Rate 98.7 F 68 16 142/62 H 97 Room Air 2 05/25/24 05:24 05/25/24 05:24 05/25/24 05:24 05/25/24 05:24 05/25/24 05:24 05/25/24 05:24 05/24/24 12:15 Oxygen Flow Rate (L/min) 2 Oxygen Delivery Method Room Air Weight: 121 lb 4.068 oz Body Mass Index (BMI) 16.9 Intake & Output: Intake and Output for Last 24 Hours 05/23/24 05/24/24 05/25/24 23:59 23:59 23:59 Intake Total 3132 / 3132 1300 / 1300 Output Total 530 / 530 2900 / 2900 Balance 2602 / 2602 -1600 / -1600 Lab / Micro Data 05/25/24 05:40 05/25/24 05:40 Labs: Laboratory Results - last 24 hr 05/24/24 09:06: POC Glucose 87 05/24/24 10:25: POC Glucose 108 H 05/25/24 05:40: WBC 8.2, RBC 3.83 L, Hgb 10.0 L, Hct 32.6 L, MCV 85.1, MCH 26.1 L, MCHC 30.7 L, RDW Std Deviation 56.5 H, RDW Coeff of Grace 18.6 H, Plt Count 171, MPV 10.7, Sodium 134 L, Potassium 4.4, Chloride 105, Carbon Dioxide 24.0, Anion Gap 5, BUN 11, Creatinine 0.94, Estim Creat Clear Calc 35.23, Est GFR (MDRD) Af Amer 72, Est GFR (MDRD) Non-Af 60, BUN/Creatinine Ratio 11.7, Glucose 111 H, Calcium 8.9 Physical Exam Const oriented x3 and no apparent distress Resp normal respiratory effort Cardio regular rate GI soft to palpation GI Narrative: tender near incisions clean dry and intact, mild distention, no peritoneal signs Assessment & Plan Assessment/Plan (1) S/P right hemicolectomy: (2) Malignant neoplasm of right colon: PLAN: Plan will continue clears await bowel function. Hemoglobin 10 likely the previous 11 was falsely elevated we will start Lovenox and continue her aspirin. Patient has been holding her home Eliquis since before the colonoscopy. encourage ambulation/out of bed to the chair Romina Torres M.D. Pager: [phone] [facility] [address] [place] [address], [address] [place] [address] Office: [phone]
[2024-05-25] MEDS: Docusate Sodium 100 MG Capsule PO (09:04)
[2024-05-25] MEDS: Aspirin E.C. 81 MG Tablet PO (09:04)
[2024-05-25] MEDS: Amiodarone 200 MG Tablet 100 MG PO (09:04)
[2024-05-25] MEDS: Metoprolol Tartrate 25 MG Tablet 12.5 MG PO ×2 (09:05→22:47)
[2024-05-25] MEDS: Enoxaparin 40 MG/0.4 ML Syringe SC (09:06)
[2024-05-25] MEDS: amLODIPine 2.5 MG Tablet PO (09:07)
[2024-05-25] MEDS: Pantoprazole Sodium 40 MG Tablet PO (09:07)
[2024-05-25 12:27] LABS: Bedside Glucose 104 mg/dL (74-106)
--- NOTE | 2024-05-25 14:34 | EX.PCM.DISCH ---
Discharge Instructions Diet Discharge Diet: - (transitional/ low fiber) Activity Discharge Activity: May Not Drive (while taking narcotic pain medications.) May shower in (days): 1 Lifting Restrictions: no lifting >20 lbs x 2 wks, no strenuous exercise for 4 wks Dressing / Incision Call your doctor if your incision/area has: Continuous Slow Oozing, Sudden Increased Bleeding, Increased Pain/ Swelling, Increased Redness, Foul Smelling Discharge and Swelling at the incision site Call your doctor if you observe: Fever of 101 or Higher Remove Dressing in: 1 day Cleanse incision/area with: Soap & Water Additional Dressing/Incision Instructions:: Steri-Strips will fall off in 7 to 10 days, if they do not fall off okay to remove after 10 days. Follow Up Care Please Follow Up With: Romina Torres MD When: Call the office for a follow-up appointment 1-2 weeks; after 5 PM and on the weekends call [phone] with any concerns. Test Results: Test results from this visit will be discussed in further detail at your follow-up appointment, if applicable. Discharge Plan Admission Admit Date/Time: 05/24/24 09:56 Attending Provider: Romina Torres Primary Care Provider: Yogi Kapadia Discharge Orders/Prescriptions Prescriptions: New aspirin 81 mg Tablet,Delayed Release (Dr/Ec) 81 mg PO DAILYCM Qty: 0 0RF Continued acetaminophen 500 mg tablet 1,000 mg PO Q6H PRN (Reason: fever or pain) ascorbate calcium (vitamin C) 500 mg tablet 1 g PO DAILY aspirin [Adult Low Dose Aspirin] 81 mg tablet,delayed release (DR/EC) 81 mg PO DAILY Patient Comments: STOPPING FOR SURGERY omega-3 fatty acids 1,000 mg capsule 1,000 mg PO DAILY vitamin E (dl, acetate) 180 mg (400 unit) capsule 180 mg PO DAILY fluticasone propionate 50 mcg/actuation spray,suspension 1 spray INTRANASAL DAILY PRN PRN (Reason: allergic symptoms) Patient Comments: USE 2 SPRAYS IN EACH NOSTRIL EVERY MORNING cholecalciferol (vitamin D3) [Vitamin D3] 25 mcg (1,000 unit) capsule 25 mcg PO DAILY calcium carbonate-vitamin D3 600 mg-5 mcg (200 unit) tablet 1 tab PO DAILY polysaccharide iron complex [Ferrex 150] 150 mg iron Capsule 150 mg PO BID rosuvastatin 5 mg tablet 5 mg PO DAILY amlodipine 5 mg tablet 2.5 mg PO DAILY Qty: 90 3RF metoprolol tartrate 25 mg tablet 12.5 mg PO BID Qty: 180 3RF amiodarone 200 mg tablet 100 mg PO DAILY Qty: 45 3RF omeprazole 20 mg capsule,delayed release(DR/EC) 20 mg PO DAILY Qty: 90 3RF furosemide 20 mg tablet 20 mg PO DAILY Qty: 30 6RF Patient Comments: had been on 40mg daily x5 days. 05/09 would be day 5 then to start 20mg daily Discontinued metronidazole 500 mg tablet 500 mg PO .COMPLEX Qty: 6 0RF Rx Instructions: 500 mg PO Take 2 (two) tablets at 1300, 1500, 2300 neomycin 500 mg tablet 500 mg PO .COMPLEX Qty: 6 0RF Rx Instructions: Take two (2) 500 mg tablets PO at 1300, 1500, 2300 No Action apixaban 2.5 mg tablet 2.5 mg PO BID Qty: 180 4RF Referrals / Follow Up: Yogi Kapadia DO [Primary Care Provider] -
--- NOTE | 2024-05-25 15:14 | CASEMGMT ---
Readmission Note: Index: 05/09-05/11/24. Dx: Anemia Readmission: 05/24/24. Dx: Laparoscopic right Hemicolectomy On index admission, the pt was discharged home in stable condition with a stable hemoglobin and was scheduled to revisit [facility] for surgery on 05/24/24. TRINA CM to pt room at this time. Pt states that she lives alone and that she is independent. Pt 2 daughters are at the bedside and state that they plan to take turns staying with the pt at home after DC. Pt states DC is planned for either 05/26 or 05/27. At this time, the pt states that she does not believe that she will need HHC or OP Therapy. Pt has had [facility]HC in the past and is aware of what this entails. Pt states that she feels safe enough to DC home with the help of her daughters. Pt states that if she changes her mind about this she will f/u with her PCP to get this set up. Pt denies any further questions or concerns at this time.
[2024-05-25] MEDS: Ensure Clear 120 ML Liquid PO (18:45)
[2024-05-25] MEDS: Rosuvastatin Calcium 5 MG Tablet PO (22:47)
[2024-05-25 23:08] LABS: Bedside Glucose 105 mg/dL (74-106)
[2024-05-26] MEDS: Acetaminophen 500 MG Tablet 1000 MG PO ×3 (01:12→12:24)
[2024-05-26 02:45] VITALS: BP 122/78; PULSE 70; RESP 12; TEMP 36.6; O2SAT 86
[2024-05-26 02:46] VITALS: TEMP 36.8; O2SAT 97
[2024-05-26 06:23] VITALS: BP 118/78; PULSE 72; RESP 14; TEMP 36.9; O2SAT 96
[2024-05-26 07:08] LABS: Bedside Glucose 96 mg/dL (74-106)
[2024-05-26 08:06] LABS: Absolute Lymphocyte Count 1.39 X10^3/uL (0.83-4.51); Absolute Neutrophil Count 3.6 X10^3/uL (2.0-7.7); Basophil# 0.04 X10^3/uL; Basophil% 0.7 % (0-1); Eosinophil# 0.19 X10^3/uL; Eosinophils% 3.4 % (0-5); Hematocrit 33.5 % (37-47); Hemoglobin 9.9 g/dL (12.0-15.0); Lymphocyte # 1.39 X10^3/ul (0.83-4.51); Lymphocyte % 24.6 % (19-41); Mean Corp Hgb Conc 29.6 g/dL (32-36); Mean Corpuscular Hgb 25.8 pg (27.0-32.0); Mean Corpuscular Volume 87.2 fL (81-99); Mean Platelet Vol. 11.3 fl (6.2-12.0); Monocyte# 0.45 X10^3/uL; NRBC Flagged by Analyzer 0 % (0-5); Neutrophil # 3.57 X10^3/uL (2.7-7.7); Neutrophil % 63.1 % (47-70); Platelet Count 158 K/mm3 (150-450); RBC Distribution Width CV 18.8 % (11.6-14.6); RBC Distribution Width SD 59.1 fl (35.1-43.9); Red Blood Count 3.84 M/mm3 (4.2-5.4); White Blood Count 5.7 K/mm3 (4.4-11.0)
--- NOTE | 2024-05-26 08:54 | PCM.PN.SRG ---
Subjective Subjective Patient notes she is having a little bit more incisional pain today. Objective Data Objective Data Vital Signs: Vital Signs Temp Pulse Resp BP Pulse Ox O2 Del Method O2 Flow Rate 98.4 F 72 14 118/78 96 Room Air 2 05/26/24 06:23 05/26/24 06:23 05/26/24 06:23 05/26/24 06:23 05/26/24 06:23 05/26/24 08:21 05/26/24 06:23 Oxygen Flow Rate (L/min) 2 Oxygen Delivery Method Room Air Weight: 121 lb 4.068 oz Body Mass Index (BMI) 16.9 Intake & Output: Intake and Output for Last 24 Hours 05/24/24 05/25/24 05/26/24 23:59 23:59 23:59 Intake Total 3132 / 3132 7300.67 / 7300.67 1800 / 1800 Output Total 530 / 530 2900 / 2900 Balance 2602 / 2602 4400.67 / 4400.67 1800 / 1800 Lab / Micro Data 05/26/24 07:16 05/25/24 05:40 Labs: Laboratory Results - last 24 hr 05/25/24 12:05: POC Glucose 104 05/25/24 22:45: POC Glucose 105 05/26/24 06:42: POC Glucose 96 05/26/24 07:16: WBC 5.7, RBC 3.84 L, Hgb 9.9 L, Hct 33.5 L, MCV 87.2, MCH 25.8 L, MCHC 29.6 L, RDW Std Deviation 59.1 H, RDW Coeff of Grace 18.8 H, Plt Count 158, MPV 11.3, Immature Gran % (Auto) 0.200, Neut % (Auto) 63.1, Lymph % (Auto) 24.6, [place] % (Auto) 8.0, Eos % (Auto) 3.4, Baso % (Auto) 0.7, Absolute Neuts (auto) 3.6, Absolute Lymphs (auto) 1.39, Nucleated RBC % 0 Physical Exam Const oriented x3 and no apparent distress Resp normal respiratory effort Cardio regular rate and regular rhythm GI soft to palpation Palpation: tender Extremity normal to inspection Assessment & Plan Assessment/Plan (1) S/P right hemicolectomy: PLAN: The patient reports that she had some increased pain this morning at her incision site. She is also complaining of pain in both lower quadrants of her abdomen. Her white count is normal today and her hemoglobin is stable. I am resuming her home medications. I am adding ibuprofen to try to control the pain. She says she is tolerating a diet. If she is doing well this afternoon I may still discharge her home this afternoon versus keeping her again overnight. Mikhail Quintero MD Pager: [facility] [address] [place] [address], [address] [place] [address] Office:
[2024-05-26 09:17] VITALS: BP 148/110; PULSE 62; RESP 16; TEMP 36.6; O2SAT 97
[2024-05-26 09:20] VITALS: BP 148/110; PULSE 62
[2024-05-26] MEDS: Metoprolol Tartrate 25 MG Tablet 12.5 MG PO (09:20)
[2024-05-26] MEDS: Furosemide 20 MG Tablet PO (09:21)
[2024-05-26] MEDS: Aspirin E.C. 81 MG Tablet PO (09:21)
[2024-05-26] MEDS: Pantoprazole Sodium 40 MG Tablet PO (09:21)
[2024-05-26] MEDS: Docusate Sodium 100 MG Capsule PO (09:21)
[2024-05-26] MEDS: amLODIPine 2.5 MG Tablet PO (09:22)
[2024-05-26] MEDS: Amiodarone 200 MG Tablet 100 MG PO (09:22)
[2024-05-26] MEDS: APIXABAN 2.5 MG TABLET (WCH) PO (09:25)
[2024-05-26] MEDS: Ensure Clear 120 ML Liquid PO (09:25)
[2024-05-26] MEDS: Ibuprofen 600 MG Tablet PO ×2 (09:59→15:47)
[2024-05-26 15:52] VITALS: BP 138/70; PULSE 57; RESP 18; TEMP 36.8; O2SAT 99
== END 2024-05-26 16:15 | disposition home or self-care (01) | DRG 331 ==
LOC: MS3 15:43
PROVIDERS: Anesthesiology; Admitting Provider Surgery; Referring Provider Surgery; Visit Provider Surgery
PROC: 0DTF4ZZ Resection of Right Large Intestine, Percutaneous Endoscopic Approach (ICD-10-PCS; CPT 44205; principal; 2024-05-24 07:10)
DX: C18.0 Malignant neoplasm of cecum (principal); E78.2 Mixed hyperlipidemia; N18.30 Chronic kidney disease, stage 3 unspecified; I48.0 Paroxysmal atrial fibrillation; I12.9 Hypertensive chronic kidney disease with stage 1 through stage 4 chronic kidney disease, or unspecified chronic kidney disease; I25.10 Atherosclerotic heart disease of native coronary artery without angina pectoris; Z79.01 Long term (current) use of anticoagulants; Z95.5 Presence of coronary angioplasty implant and graft; Z80.0 Family history of malignant neoplasm of digestive organs
CPT/HCPCS: 36415; 80048; 82962; 83735; 85025; 85027; 88309; 94668; 94762; J7050; J7120; A4216; C1760; J0744; J2405; J3475

== ENCOUNTER → 2024-06-06 | Outpatient (CLI) | payer MEDICARE, OTHER, SELFPAY ==
[2024-06-06 10:46] VITALS: BMI 24.7
== END | disposition home or self-care (01) ==
LOC: LABSPEC 12:28
PROVIDERS: Referring Provider Surgery; Visit Provider Surgery
DX: Z90.49 Acquired absence of other specified parts of digestive tract (principal)
CPT/HCPCS: 87070; 87075; 87077; 87186; 87205

== ENCOUNTER 2024-06-10 12:18 | Inpatient (IN) | payer MEDICARE, OTHER, SELFPAY ==
[2024-06-06 10:46] VITALS: BMI 24.7
[2024-06-10] VITALS (8 sets, daily range): BP systolic 109–140; BP diastolic 53–62; PULSE 67–78; RESP 16–20; TEMP 36.1–36.3; O2SAT 96–100; BMI 24.1; BMI 23.5
--- NOTE | 2024-06-10 12:26 | CT_ITS ---
STUDY: CT ABDOMEN AND PELVIS WITH CONTRAST REASON FOR EXAM: Female, 88 years old. Abdominal pain. RADIATION DOSAGE (If Supplied By Facility): CTDIvol = ( 12.53 ) mGy, DLP = ( 383.88 ) mGycm TECHNIQUE: Transaxial images were obtained through the abdomen and pelvis without oral contrast. 100 ml of Isovue-370 contrast was administered. Sagittal and coronal images were reconstructed. Individualized dose optimization techniques were used for this CT. COMPARISON: Prior study dated: 05/09/2024 FINDINGS: LOWER THORAX: The visualized lung bases are clear. The visualized portions of the heart and pericardium are within normal limits. GALLBLADDER / BILE DUCTS: The patient is status post cholecystectomy. There is no intrahepatic biliary duct dilatation. The common bile duct is normal in caliber. There are no calcified ductal stones. LIVER: The liver is within normal limits. There are no suspicious hepatic lesions. SPLEEN: The spleen is normal in size. PANCREAS: The pancreas is within normal limits. ADRENAL GLANDS: The adrenal glands are within normal limits. KIDNEYS / BLADDER: There are no renal or ureteral stones. There is no hydronephrosis. There are no focal renal lesions. The urinary bladder is partially distended and appears grossly unremarkable. STOMACH / BOWEL: Normal visualized stomach. There is no bowel obstruction or inflammation. There are postsurgical changes from a recent right hemicolectomy. PERITONEUM/RETROPERITONEUM: There is no abdominal or pelvic free air, free fluid or fluid collection. There is no abnormal soft tissue mass identified. There is no abdominal or pelvic lymphadenopathy. VESSELS: There are atherosclerotic calcifications noted in the aorta and its branches. The aorta is normal in caliber. The IVC is unremarkable. BONES: There are degenerative changes noted in the spine. There are no destructive osseous lesions. SOFT TISSUES: The visualized soft tissues are within normal limits. CT/Abdomen/Pelvis W IV Cont ONLY IMPRESSION: Postsurgical changes from a recent right hemicolectomy. No bowel obstruction or inflammation. Normal kidneys. No hydronephrosis. No free air, free fluid or fluid collection. Electronically Signed: Tyrel Harris MD at 14:02 EDT ,
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
[2024-06-10] MEDS: 0.9% Normal Saline (1000mL) 1,000 ML 999 ML IV (12:59)
[2024-06-10] MEDS: Ondansetron 4 MG/2 ML Vial IV (13:05)
[2024-06-10 13:12] LABS: Absolute Lymphocyte Count 0.94 X10^3/uL (0.83-4.51); Absolute Neutrophil Count 4.9 X10^3/uL (2.0-7.7); Basophil# 0.03 X10^3/uL; Basophil% 0.4 % (0-1); Eosinophil# 0.39 X10^3/uL; Eosinophils% 5.7 % (0-5); Hematocrit 27.6 % (37-47); Hemoglobin 8.3 g/dL (12.0-15.0); Lymphocyte # 0.94 X10^3/ul (0.83-4.51); Lymphocyte % 13.7 % (19-41); Mean Corp Hgb Conc 30.1 g/dL (32-36); Mean Corpuscular Hgb 25.3 pg (27.0-32.0); Mean Corpuscular Volume 84.1 fL (81-99); Mean Platelet Vol. 9.9 fl (6.2-12.0); Monocyte# 0.49 X10^3/uL; Monocyte% 7.2 % (0-10); NRBC Flagged by Analyzer 0 % (0-5); Neutrophil # 4.92 X10^3/uL (2.7-7.7); Platelet Count 299 K/mm3 (150-450); RBC Distribution Width CV 18.8 % (11.6-14.6); RBC Distribution Width SD 57.5 fl (35.1-43.9); Red Blood Count 3.28 M/mm3 (4.2-5.4); White Blood Count 6.8 K/mm3 (4.4-11.0)
[2024-06-10 13:23] LABS: ALB/GLOB Ratio 0.9 RATIO (0.9-2.4); AST(SGOT) 30 U/L (15-37); Alanine Aminotransfer ALT/SGPT 34 U/L (13-56); Albumin, Serum 3.2 g/dL (3.2-5.0); Alkaline Phosphatase 71 U/L (45-117); Anion Gap 6 (5-15); BUN 25 mg/dL (7-18); Calcium,Total 9.3 mg/dL (8.5-10.1); Chloride 103 mmol/L (98-107); Creatinine, Serum 1.04 mg/dL (0.55-1.02); EST Glomerular Filtration Rate 53 mL/min (>60); Est Glom Filt Rate - Afr Amer 64 mL/min (>60); Estimated Creatinine Clearance 28.73 ml/min; Globulin 3.5 g/dL (2.2-4.2); Glucose 136 mg/dL (74-106); Lipase 22 U/L (13-75); Potassium 4.3 mmol/L (3.5-5.1); Protein, Total 6.7 g/dL (6.4-8.2); Sodium Level 133 mmol/L (136-145)
--- NOTE | 2024-06-10 13:54 | RAD_ITS ---
STUDY: XR Chest 1 View 06/10/2024 1:44 PM REASON FOR EXAM: Female, 88 years old. chest pain COMPARISON: 05/04/2024 TECHNIQUE: XR Chest 1 View FINDINGS: There is no demonstrated pleural abnormality. Enlarged heart size. Normal mediastinum. Normal saleem. Prominent appearing increased interstitial lung markings. This is concerning for pneumonia. Normal visualized pulmonary arteries. There is atherosclerotic calcification of the aortic arch with tortuosity. There are diffuse degenerative changes of the visualized thoracic spine. There is degenerative osteoarthritis of the bilateral shoulders. There are no acute findings of the upper abdomen. RAD/Chest 1 View (Portable) IMPRESSION: Bilateral pneumonia. Electronically Signed: Joseph Baltazar MD at 14:13 EDT ,
[2024-06-10 14:02] LABS: Troponin-I HS 4 pg/mL (3.0-54.0)
[2024-06-10 14:06] LABS: Bacteria 0 SEEN /hpf (None Seen); Color, Urine Yellow (Yellow); Glucose, Dipstick Normal (Normal); Ketone-Dipstick Negative (Negative); Leukocyte Esterase-Dipstick 25 /ul (Negative); Mucous, Urine 0 SEEN /hpf (<or=2+); Nitrite-Dipstick Negative (Negative); Occult Blood-Urine Negative /ul (Negative); Protein-Dipstick Negative (Negative); Red Blood Cells-Urine 0 SEEN /hpf (0-5); Squamous Epithelial Cells - UA 0 SEEN /hpf (5-10); Urine Bilirubin Dipstick Negative (Negative); Urine Clarity Clear (Clear); Urine Urobilinogen Normal (Normal); Urine pH 6.5 (5.0 - 8.0); White Blood Cells 0 SEEN /hpf (0-5)
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
[2024-06-10] MEDS: levoFLOXacin IV 500 MG/100 ML BAG 100 MG IV (15:10)
[2024-06-10 15:36] LABS: Magnesium 2.3 mg/dL (1.6-2.6)
[2024-06-10 16:24] LABS: Procalcitonin 0.04 ng/mL (0.00-0.09)
--- NOTE | 2024-06-10 16:29 | ECHOD_ITS ---
Reason For Study: CAD Procedure This was a 2D Doppler, Color Flow transthoracic echocardiogram. Exam performed portable in patient room. Left Ventricle Normal LV size. The estimated ejection fraction is 65 %. Unable to assess diastolic dysfunction. No regional wall motion abnormalities noted. Right Ventricle Normal RV size. Normal systolic function. Atria The left atrium is severely enlarged. Normal right atrium. No doppler evidence for ASD. Mitral Valve There is no mitral valve stenosis. Trivial mitral valve insufficiency. Tricuspid Valve There is no tricuspid stenosis. Trivial tricuspid valve insufficiency. Pulmonary artery systolic pressure is 35 mmHg. Aortic Valve Moderate diffuse aortic valve thickening. Moderate aortic stenosis. Trivial aortic valve insufficiency. Pulmonic Valve There is no pulmonic valvular stenosis. No pulmonic valve insufficiency. Great Vessels Normal aortic root. Pericardium/Pleural Trivial pericardial effusion. MMode/2D Measurements & Calculations LVIDd: 3.0 cm IVSd: 1.3 cm LVOT diam: 1.9 cm LVIDs: 2.1 cm LVPWd: 1.3 cm LVOT area: 2.7 cm2 RVDd: 2.8 cm FS: 29.6 % Ao root diam: 3.0 cm LAV(MOD-bp): 52.0 ml LVAd ap4: 20.6 cm2 LAV(MOD-bp) Indexed: 34.2 ml/m2 LVLd ap4: 6.8 cm LAV(MOD-sp2): 42.2 ml EDV(MOD-sp4): 52.7 ml LAV(MOD-sp4): 60.9 ml EDV(sp4-el): 52.7 ml LVAs ap4: 9.5 cm2 LVLs ap4: 5.8 cm ESV(MOD-sp4): 13.6 ml ESV(sp4-el): 13.3 ml EF(MOD-sp4): 74.2 % EF(sp4-el): 74.8 % LVAd ap2: 18.2 cm2 SV(MOD-sp4): 39.1 ml SV(MOD-sp2): 25.6 ml LVLd ap2: 7.0 cm EDV(MOD-sp2): 39.8 ml EDV(sp2-el): 40.1 ml LVAs ap2: 10.1 cm2 LVLs ap2: 6.4 cm ESV(MOD-sp2): 14.2 ml ESV(sp2-el): 13.5 ml EF(MOD-sp2): 64.3 % SV(sp4-el): 39.4 ml LA dimension(2D): 4.0 cm LA A4 area: 20.8 cm2 RA A4 area: 10.2 cm2 TAPSE: 2.1 cm Time Measurements MV dec time: 0.55 sec Doppler Measurements & Calculations MV E max rex: 150.2 cm/sec Lat Peak E' Rex: 3.7 cm/sec Med Peak E' Rex: 5.1 cm/sec MV A max rex: 178.6 cm/sec E/E' lat: 40.2 E/E' med: 29.4 MV E/A: 0.84 MV V2 max: 190.4 cm/sec MV P1/2t max rex: 163.3 cm/sec Ao V2 max: 338.6 cm/sec MV max P.5 mmHg MV P1/2t: 135.3 msec Ao max P.9 mmHg MV V2 mean: 127.5 cm/sec Ao V2 mean: 242.0 cm/sec MV mean P.9 mmHg MV dec slope: 353.6 cm/sec2 Ao mean P.1 mmHg MV V2 VTI: 58.7 cm MVA(P1/2t): 1.6 cm2 Ao V2 VTI: 65.1 cm AV (velocity ratio): 0.42 MVA(VTI): 1.3 cm2 KUNAL(I,D): 1.1 cm2 KUNAL(V,D): 1.1 cm2 AI max rex: 389.1 cm/sec LV V1 max: 135.5 cm/sec SV(LVOT): 73.5 ml AI max P.5 mmHg LV V1 max P.3 mmHg AI dec slope: 336.3 cm/sec2 LV V1 mean P.2 mmHg AI P1/2t: 338.8 msec LV V1 mean: 97.7 cm/sec LV V1 VTI: 27.1 cm PA V2 max: 124.8 cm/sec TR max rex: 285.6 cm/sec TR max P.6 mmHg ECHO/Echo Complete Interpretation Summary The estimated ejection fraction is 65 %. Unable to assess diastolic dysfunction. The left atrium is severely enlarged. Trivial mitral valve insufficiency. Moderate aortic stenosis. Trivial aortic valve insufficiency. Trivial pericardial effusion. Ordering Physician: Katrin Nguyen Referring Physician: Yogi Kapadia Performed By: Nubia Mims RDCS
[2024-06-10] MEDS: 0.9% Normal Saline (1000mL) 1,000 ML 100 ML IV (17:09)
[2024-06-10] MEDS: Vancomycin HCl 1,500 MG in 0.9% Normal Saline (500mL Bag) 500 ML 250 MG IV (17:10)
[2024-06-10 17:18] LABS: Troponin-I HS 12 pg/mL (3.0-54.0)
--- NOTE | 2024-06-10 17:24 | PCM.RX.CS ---
Consult Antibiotic Management Pharmacy has been consulted to manage selected antibiotic: Vancomycin Type of Intervention Type of Consult: New start Suspected Infection Suspected Infection: Pneumonia Prior Doses of Antibiotics Prior Doses of Antibiotics Received/Current Regimen: received vanc 1500mg IV x1 in E.R. starting at 17:10 Labs Labs: Sodium 133 mmol/L (136-145) L 06/10/24 13:00 Potassium 4.3 mmol/L (3.5-5.1) 06/10/24 13:00 Chloride 103 mmol/L (98-107) 06/10/24 13:00 Carbon Dioxide 24.0 mmol/L (21.0-32.0) 06/10/24 13:00 Anion Gap 6 (5-15) 06/10/24 13:00 BUN 25 mg/dL (7-18) H 06/10/24 13:00 Creatinine 1.04 mg/dL (0.55-1.02) H 06/10/24 13:00 Est GFR (MDRD) Af Amer 64 mL/min (>60) 06/10/24 13:00 Est GFR (MDRD) Non-Af 53 mL/min (>60) L 06/10/24 13:00 BUN/Creatinine Ratio 24.0 RATIO (10-20) H 06/10/24 13:00 Glucose 136 mg/dL (74-106) H 06/10/24 13:00 Microbiology Microbiology: Microbiology 06/10/24 13:56 Urine Catheter - Catheter Legionella Antigen - Final 06/10/24 13:56 Urine Catheter - Catheter Streptococcus pneumoniae Antigen (M - Final Dosing Weight Weight used for dosin.7 kg Estimated Creatinine Clearance Estimated Creatinine Clearance: 28.7ml/min Goal Trough Goal Trough: 15-20 mcg/mL Pharmacy Plan for Drug Dosing Pharmacy Plan for Drug Dosing: Starting 24 hours after the 1500mg dose noted above, will continue with vanc 500mg IV q24h per [facility] dosing protocol. Will check a trough before the 3rd total dose. Pharmacy Service will continue to monitor and adjust dosing as required. Follow-Up Labs Follow-Up Labs: Trough: Vancomycin Date/Time Labs Ordered Labs to be done on [date and time ordered]: 06/12/24 16:30
[2024-06-10] MEDS: Budesonide Respules 0.5 MG/2 ML AMPUL.NEB. INHALATION (17:31)
[2024-06-10 19:05] LABS: Troponin-I HS 13 pg/mL (3.0-54.0)
[2024-06-10] MEDS: Metoprolol Tartrate 25 MG Tablet 12.5 MG PO (20:46)
[2024-06-10] MEDS: Iron Polysaccharide Complex 150 MG CAPSULE PO (20:46)
[2024-06-10] MEDS: APIXABAN 2.5 MG TABLET (WCH) PO (20:47)
[2024-06-10] MEDS: 0.9% Saline Lock 10 ML Syringe IV (20:47)
[2024-06-10] MEDS: DiphenhydrAMINE 50 MG/ML Syringe 12.5 MG IV (20:49)
[2024-06-10] MEDS: MELATONIN 3 MG TABLET PO (22:37)
[2024-06-11] VITALS (8 sets, daily range): BP systolic 109–124; BP diastolic 56–60; PULSE 62–89; RESP 16–18; TEMP 36.1–36.9; O2SAT 95–99; BMI 23.5
[2024-06-11 06:11] LABS: Absolute Lymphocyte Count 1.08 X10^3/uL (0.83-4.51); Absolute Neutrophil Count 3.4 X10^3/uL (2.0-7.7); Basophil# 0.04 X10^3/uL; Basophil% 0.7 % (0-1); Eosinophil# 0.43 X10^3/uL; Eosinophils% 7.6 % (0-5); Hematocrit 25.6 % (37-47); Hemoglobin 7.8 g/dL (12.0-15.0); Lymphocyte # 1.08 X10^3/ul (0.83-4.51); Lymphocyte % 19.1 % (19-41); Mean Corp Hgb Conc 30.5 g/dL (32-36); Mean Corpuscular Hgb 25.9 pg (27.0-32.0); Mean Platelet Vol. 9.9 fl (6.2-12.0); Monocyte# 0.64 X10^3/uL; Monocyte% 11.3 % (0-10); NRBC Flagged by Analyzer 0 % (0-5); Neutrophil # 3.43 X10^3/uL (2.7-7.7); Neutrophil % 60.6 % (47-70); Platelet Count 269 K/mm3 (150-450); RBC Distribution Width CV 18.9 % (11.6-14.6); RBC Distribution Width SD 59.3 fl (35.1-43.9); Red Blood Count 3.01 M/mm3 (4.2-5.4); White Blood Count 5.7 K/mm3 (4.4-11.0)
[2024-06-11 06:36] LABS: ALB/GLOB Ratio 0.9 RATIO (0.9-2.4); AST(SGOT) 23 U/L (15-37); Alanine Aminotransfer ALT/SGPT 30 U/L (13-56); Albumin, Serum 2.7 g/dL (3.2-5.0); Alkaline Phosphatase 62 U/L (45-117); Anion Gap 6 (5-15); BUN 18 mg/dL (7-18); BUN/Creat Ratio 19.6 RATIO (10-20); Calcium,Total 8.7 mg/dL (8.5-10.1); Chloride 108 mmol/L (98-107); Cholesterol 98 mg/dL (200); Creatinine, Serum 0.92 mg/dL (0.55-1.02); EST Glomerular Filtration Rate 61 mL/min (>60); Est Glom Filt Rate - Afr Amer 74 mL/min (>60); Estimated Creatinine Clearance 29.78 ml/min; Globulin 3.1 g/dL (2.2-4.2); Glucose 96 mg/dL (74-106); High Density Lipoprotein 45 mg/dL; Protein, Total 5.8 g/dL (6.4-8.2); Sodium Level 137 mmol/L (136-145); Triglycerides 121 mg/dL; Very Low Density Lipoprotein 24 mg/dL (5-40)
--- NOTE | 2024-06-11 07:16 | PCM.PN.SRG ---
Subjective Subjective Patient is well-known to me. Patient's abdominal incision healing well no obvious erythema and less tender. Patient admitted for pneumonia. Patient CT abdomen pelvis showed postoperative changes with some constipation the rectum patient did not have any bowel movements with the suppository. Objective Data Objective Data Vital Signs: Vital Signs Temp Pulse Resp BP Pulse Ox O2 Del Method O2 Flow Rate 98.1 F 62 18 109/60 95 Room Air 2 06/11/24 04:20 06/11/24 04:20 06/11/24 04:20 06/11/24 04:20 06/11/24 04:20 06/11/24 04:20 06/10/24 16:56 Oxygen Flow Rate (L/min) 2 Oxygen Delivery Method Room Air Weight: 120 lb 5.958 oz Body Mass Index (BMI) 23.5 Intake & Output: Intake and Output for Last 24 Hours 06/09/24 06/10/24 06/11/24 23:59 23:59 23:59 Intake Total 1631.67 / 1881.67 1120 / 1120 Output Total 100 / 800 700 / 700 Balance 1531.67 / 1081.67 420 / 420 Lab / Micro Data 06/11/24 05:47 06/11/24 05:47 Labs: Laboratory Results - last 24 hr 06/10/24 13:00: WBC 6.8, RBC 3.28 L, Hgb 8.3 L, Hct 27.6 L, MCV 84.1, MCH 25.3 L, MCHC 30.1 L, RDW Std Deviation 57.5 H, RDW Coeff of Grace 18.8 H, Plt Count 299, MPV 9.9, Immature Gran % (Auto) 1.000 H, Neut % (Auto) 72.0 H, Lymph % (Auto) 13.7 L, [place] % (Auto) 7.2, Eos % (Auto) 5.7 H, Baso % (Auto) 0.4, Absolute Neuts (auto) 4.9, Absolute Lymphs (auto) 0.94, Nucleated RBC % 0, Sodium 133 L, Potassium 4.3, Chloride 103, Carbon Dioxide 24.0, Anion Gap 6, BUN 25 H, Creatinine 1.04 H, Estim Creat Clear Calc 28.73, Est GFR (MDRD) Af Amer 64, Est GFR (MDRD) Non-Af 53 L, BUN/Creatinine Ratio 24.0 H, Glucose 136 H, Calcium 9.3, Magnesium 2.3, Total Bilirubin 0.30, AST 30, ALT 34, Alkaline Phosphatase 71, Troponin I High Sens 4, Total Protein 6.7, Albumin 3.2, Globulin 3.5, Albumin/Globulin Ratio 0.9, Lipase 22 06/10/24 13:56: Urine Color Yellow, Urine Clarity Clear, Urine pH 6.5, Ur Specific [place] 1.010, Urine Protein Negative, Urine Glucose (UA) Normal, Urine Ketones Negative, Urine Occult Blood Negative, Urine Nitrite Negative, Urine Bilirubin Negative, Urine Urobilinogen Normal, Ur Leukocyte Esterase 25 H, Urine RBC 0 SEEN, Urine WBC 0 SEEN, Ur Squamous Epith Cells 0 SEEN, Urine Bacteria 0 SEEN, Urine Mucus 0 SEEN 06/10/24 15:30: Procalcitonin 0.04 06/10/24 16:50: Troponin I High Sens 12 06/10/24 18:37: Troponin I High Sens 13 06/11/24 05:47: WBC 5.7, RBC 3.01 L, Hgb 7.8 L, Hct 25.6 L, MCV 85.0, MCH 25.9 L, MCHC 30.5 L, RDW Std Deviation 59.3 H, RDW Coeff of Grace 18.9 H, Plt Count 269, MPV 9.9, Immature Gran % (Auto) 0.700, Neut % (Auto) 60.6, Lymph % (Auto) 19.1, [place] % (Auto) 11.3 H, Eos % (Auto) 7.6 H, Baso % (Auto) 0.7, Absolute Neuts (auto) 3.4, Absolute Lymphs (auto) 1.08, Nucleated RBC % 0, Sodium 137, Potassium 4.0, Chloride 108 H, Carbon Dioxide 23.0, Anion Gap 6, BUN 18, Creatinine 0.92, Estim Creat Clear Calc 29.78, Est GFR (MDRD) Af Amer 74, Est GFR (MDRD) Non-Af 61, BUN/Creatinine Ratio 19.6, Glucose 96, Calcium 8.7, Total Bilirubin 0.30, AST 23, ALT 30, Alkaline Phosphatase 62, Total Protein 5.8 L, Albumin 2.7 L, Globulin 3.1, Albumin/Globulin Ratio 0.9, Triglycerides 121, Cholesterol 98, LDL Cholesterol 29, VLDL Cholesterol 24, HDL Cholesterol 45 Micro: Microbiology 06/10/24 17:15 Mucosa - Nasopharyngeal Respiratory Panel (PCR) - Final 06/10/24 13:56 Urine Catheter - Catheter Legionella Antigen - Final 06/10/24 13:56 Urine Catheter - Catheter Streptococcus pneumoniae Antigen (M - Final Radiography Diagnostic Testing: Radiology Impression Abdomen/Pelvis CT 06/10/24 12:26 IMPRESSION: Postsurgical changes from a recent right hemicolectomy. No bowel obstruction or inflammation. Normal kidneys. No hydronephrosis. No free air, free fluid or fluid collection. Electronically Signed: Tyrel Harris MD at 14:02 EDT , Chest X-Ray 06/10/24 13:54 IMPRESSION: Bilateral pneumonia. Electronically Signed: Joseph Baltazar MD at 14:13 EDT , Physical Exam Const oriented x3 and no apparent distress GI GI Narrative: Soft, nondistended, minimal tenderness by incision, no erythema incisions healing well. Assessment & Plan Assessment/Plan (1) S/P right hemicolectomy: (2) Superficial postoperative wound infection: PLAN: Resolving (3) Pneumonia: PLAN: Plan Patient's incision healing well. Will give patient a tapwater enema as she did not have any results with Dulcolax suppository as it does appear to have some hard stool in the rectum on CT. Romina Torres M.D. Pager: [phone] [facility] [address] [place] [address], [facility], [address] [place] [id number] Office: [phone]
[2024-06-11] MEDS: Budesonide Respules 0.5 MG/2 ML AMPUL.NEB. INHALATION ×2 (07:21→19:46)
[2024-06-11] MEDS: Metoprolol Tartrate 25 MG Tablet 12.5 MG PO ×2 (10:13→22:43)
[2024-06-11] MEDS: Ascorbic Acid 500 MG Tablet 1000 MG PO (10:13)
[2024-06-11] MEDS: Pantoprazole Sodium 20 MG Tablet PO (10:13)
[2024-06-11] MEDS: amLODIPine 2.5 MG Tablet PO (10:13)
[2024-06-11] MEDS: Amiodarone 200 MG Tablet 100 MG PO (10:13)
[2024-06-11] MEDS: Iron Polysaccharide Complex 150 MG CAPSULE PO ×2 (10:14→22:44)
[2024-06-11] MEDS: Furosemide 20 MG Tablet PO (10:14)
[2024-06-11] MEDS: APIXABAN 2.5 MG TABLET (WCH) PO ×2 (10:14→22:42)
[2024-06-11] MEDS: Aspirin E.C. 81 MG Tablet PO (10:14)
--- NOTE | 2024-06-11 11:40 | CASEMGMT ---
Addendum entered by Cindy Mora 06/11/24 15:22: TRINA MURILLO updated by therapy that patient did well and could go home with HHC. TRINA MURILLO in to discuss HHC with patient and daughter. A list of HHC providers including quality and resource use data and consistent with the patient?s preferred geographical region, medical needs, and insurance network were provided via the [employer] Guide Link. Patient and daughter prefer [facility] and would like referral made. Daughter inquired about Private Duty Aides, list provided to daughter. Patient and daughter deny further questions or concners. TRINA MURILLO made referral to [facility], awaiting response. Original Note: TRINA MURILLO chart review: Patient was admitted 05/09/-05/11/24 for anemia and 05/24-05/26/24 for hemicolectomy. See CM assessment from 05/07/24. Patient was discharged to home with support from daughters. Patient returned to [facility] ED on 06/10/24 for increase fatigue, weaknees, and malaise and was admitted for hypoxia and bilateral pneumonia. TRINA MURILLO in to discuss readmission and discharge planning, daughter at bedside. Patient states she was taking her medications as prescribed. Patient had follow-up appts with Dr. Torres and He. TRINA CM discussed working with therapy and possible need for HHC vs SNF pending progress with therapy. Patient and daughter voiced understanding. Patient and daughter had no further questions or concerns. CM will continue to follow this patient and plan for a safe discharge.
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
--- NOTE | 2024-06-11 13:18 | PN_ITS ---
Subjective Subjective Patient seen and examined. She says she felt much better today. She had just seen breakfast. She says she was brought in because her daughters were worried that she was quite weak. She was feels very weak reflux improved. She denies any cough, chest pain, palpitations, dizziness, nausea or vomiting. She did not have any chest pain overnight. She has remained hemodynamically stable. Objective Data Objective Data Vital Signs: Vital Signs Temp Pulse Resp BP Pulse Ox O2 Del Method O2 Flow Rate 98.4 F 72 18 124/58 H 95 Room Air 2 06/11/24 10:09 06/11/24 10:13 06/11/24 10:09 06/11/24 10:09 06/11/24 10:09 06/11/24 10:09 06/10/24 16:56 Oxygen Flow Rate (L/min) 2 Oxygen Delivery Method Room Air Weight: 120 lb 5.958 oz Body Mass Index (BMI) 23.5 Intake & Output: Intake and Output for Last 24 Hours 06/09/24 06/10/24 06/11/24 23:59 23:59 23:59 Intake Total 1631.67 / 1881.67 1120 / 1120 Output Total 100 / 800 700 / 700 Balance 1531.67 / 1081.67 420 / 420 Lab / Micro Data 06/11/24 05:47 06/11/24 05:47 Labs: Laboratory Results - last 24 hr 06/10/24 13:00: Sodium 133 L, Potassium 4.3, Chloride 103, Carbon Dioxide 24.0, Anion Gap 6, BUN 25 H, Creatinine 1.04 H, Estim Creat Clear Calc 28.73, Est GFR (MDRD) Af Amer 64, Est GFR (MDRD) Non-Af 53 L, BUN/Creatinine Ratio 24.0 H, G lucose 136 H, Calcium 9.3, Magnesium 2.3, Total Bilirubin 0.30, AST 30, ALT 34, Alkaline Phosphatase 71, Troponin I High Sens 4, Total Protein 6.7, Albumin 3.2, Globulin 3.5, Albumin/Globulin Ratio 0.9, Lipase 22 06/10/24 13:56: Urine Color Yellow, Urine Clarity Clear, Urine pH 6.5, Ur Specific [place] 1.010, Urine Protein Negative, Urine Glucose (UA) Normal, Urine Ketones Negative, Urine Occult Blood Negative, Urine Nitrite Negative, Urine Bilirubin Negative, Urine Urobilinogen Normal, Ur Leukocyte Esterase 25 H, Urine RBC 0 SEEN, Urine WBC 0 SEEN, Ur Squamous Epith Cells 0 SEEN, Urine Bacteria 0 SEEN, Urine Mucus 0 SEEN 06/10/24 15:30: Procalcitonin 0.04 06/10/24 16:50: Troponin I High Sens 12 06/10/24 18:37: Troponin I High Sens 13 06/11/24 05:47: WBC 5.7, RBC 3.01 L, Hgb 7.8 L, Hct 25.6 L, MCV 85.0, MCH 25.9 L , MCHC 30.5 L, RDW Std Deviation 59.3 H, RDW Coeff of Grace 18.9 H, Plt Count 269, MPV 9.9, Immature Gran % (Auto) 0.700, Neut % (Auto) 60.6, Lymph % (Auto) 19.1, [place] % (Auto) 11.3 H, Eos % (Auto) 7.6 H, Baso % (Auto) 0.7, Absolute Neuts (auto) 3.4, Absolute Lymphs (auto) 1.08, Nucleated RBC % 0, Sodium 137, Potassium 4.0, Chloride 108 H, Carbon Dioxide 23.0, Anion Gap 6, BUN 18, Creatinine 0.92, Estim Creat Clear Calc 29.78, Est GFR (MDRD) Af Amer 74, Est GFR (MDRD) Non-Af 61, BUN/Creatinine Ratio 19.6, Glucose 96, Calcium 8.7, Total Bilirubin 0.30, AST 23, ALT 30, Alkaline Phosphatase 62, Total Protein 5.8 L, A lbumin 2.7 L, Globulin 3.1, Albumin/Globulin Ratio 0.9, Triglycerides 121, Cholesterol 98, LDL Cholesterol 29, VLDL Cholesterol 24, HDL Cholesterol 45 Micro: Microbiology 06/10/24 17:15 Mucosa - Nasopharyngeal Respiratory Panel (PCR) - Final 06/10/24 13:56 Urine Catheter - Catheter Legionella Antigen - Final 06/10/24 13:56 Urine Catheter - Catheter Streptococcus pneumoniae Antigen (M - Final Radiography Diagnostic Testing: Radiology Impression Abdomen/Pelvis CT 06/10/24 12:26 IMPRESSION: Postsurgical changes from a recent right hemicolectomy. No bowel obstruction or inflammation. Normal kidneys. No hydronephrosis. No free air, free fluid or fluid collection. Electronically Signed: Tyrel Harris MD at 14:02 EDT , Chest X-Ray 06/10/24 13:54 IMPRESSION: Bilateral pneumonia. Electronically Signed: Joseph Baltazar MD at 14:13 EDT , Physical Exam Const alert, oriented x3 and no apparent distress General Appearance: cooperative and well developed HEENT normocephalic, moist oral mucous membranes and oropharynx normal Neck supple and no JVD Lymph Lymphatic: no lymphadenopathy noted and no lymphedema noted Resp Resp Narrative: mildly diminished breath sounds bibasally, no wheezes or crackles. On room air. Cardio regular rate, regular rhythm, S1 normal heart sound, S2 normal heart sound and no murmurs GI normal to inspection, nondistended, normoactive bowel sounds, soft to palpation, non-tender and non-distended Extremity General Extremity: no tenderness to palpation of joints or extremities Skin General Skin Exam: no breakdown Neuro CN's II-XII intact bilaterally, no focal motor deficits, no sensory deficits noted and deep tendon reflexes 2+ bilaterally Motor Exam: strength 5/5 throughout and general weakness Psych thought process normal, cooperative and affect normal Appearance: appropriate Assessment & Plan Assessment/Plan (1) Chest pain: QUALIFIERS: Chest pain type: unspecified Qualified Code(s): R07.9 - Chest pain, unspecified (2) Pneumonia: PLAN: Plan #Hypoxia due to community acquired pneumonia * Patient feels much better and is on room air. Chest x-ray showed bilateral infiltrates. * Currently on IV vancomycin and Levaquin. Respiratory panel negative. Sputum cultures pending. Urine for strep and Legionella negative. * Breathing treatments bronchodilators. Titrate oxygen as needed to maintain saturation above 90%. * #Chest pain * Did admit to some chest pain on admission which is now resolved. EKG showed ST depressions in lead V3 through V6. * Cardiology on board. 2D echo ordered. Troponin did not trend upwards. * per cardiology, no invasive workup needed. 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 S/p surgery. * Hospital course was complicated by postop MRSA incisional infection which has now resolved. Completed a dose of Bactrim. * #Anemia * Hemoglobin is 7.8. Baseline hemoglobin seems to be between 8-10. May be due to history of cancer also. * Will monitor and transfuse if hemoglobin is less than 7. * #Failure to thrive: Likely due to cancer and debility. PT OT on board. Nutrition on board. #CAD: S/p PCI: On aspirin. Will follow as started #Paroxysmal A-fib: On metoprolol and amiodarone. On Eliquis. # Hypertension: On metoprolol and amlodipine. 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
--- NOTE | 2024-06-11 15:36 | CHAPLAIN ---
Type of Pastoral Visit _x__ Initial Visit ___ Follow-up Visit ___ On-call Visit ___ General Patient Visit ___ Spiritual Assessment ___ Family Conference ___ Bereavement ___ Rapid Response ___ Code Blue ___ Other (describe below) Pastoral Care Referral From _x__ Patient ___ Family ___ Nurse ___ Physician ___ Testboard Operator ___ Meat Counter Clerk ___ Other (describe below) Sacrament/Intervention _x__ Active listening ___ Anointing ___ Pentecostalism ___ Bereavement ___ Communion ___ Erendira exploration ___ ___ Life review _x__ Prayer ___ Reconciliation ___ Sacrament of Sick _x__ Supportive presence ___ Wedding ___ Other (describe below) Pastoral Comments patient is welcoming but states that it sure is hard to get rest in the hospital with so many people coming in and out; pt however states clearly that everyone is so kind here; pt acknowledges that this is her third recent trip to the hospital and that she is frustrated by it and I just want to be home again like before; pt admits to some anxiety about not being able to return to her home; pt is member of a local [employer] and has her three children close by to her for support; pt welcolmes a prayer and time to talk about her concerns
[2024-06-11] MEDS: Vancomycin IV 500 MG/100 ML BAG 100 MG IV (17:08)
[2024-06-11] MEDS: Rosuvastatin Calcium 5 MG Tablet PO (22:43)
[2024-06-11] MEDS: DiphenhydrAMINE 50 MG/ML Syringe 12.5 MG IV (22:44)
[2024-06-12 03:20] VITALS: BP 130/58; PULSE 62; RESP 16; TEMP 36.2; O2SAT 98
[2024-06-12 03:47] VITALS: BMI 23.6
[2024-06-12 05:51] LABS: Absolute Neutrophil Count 2.5 X10^3/uL (2.0-7.7); Basophil# 0.04 X10^3/uL; Basophil% 0.8 % (0-1); Eosinophil# 0.52 X10^3/uL; Eosinophils% 10.1 % (0-5); Hematocrit 25.7 % (37-47); Hemoglobin 7.7 g/dL (12.0-15.0); Lymphocyte % 27.3 % (19-41); Mean Corpuscular Hgb 25.6 pg (27.0-32.0); Mean Corpuscular Volume 85.4 fL (81-99); Mean Platelet Vol. 9.6 fl (6.2-12.0); Monocyte% 11.7 % (0-10); NRBC Flagged by Analyzer 0 % (0-5); Neutrophil # 2.51 X10^3/uL (2.7-7.7); Neutrophil % 48.9 % (47-70); Platelet Count 267 K/mm3 (150-450); RBC Distribution Width CV 19.3 % (11.6-14.6); RBC Distribution Width SD 60.6 fl (35.1-43.9); Red Blood Count 3.01 M/mm3 (4.2-5.4); White Blood Count 5.1 K/mm3 (4.4-11.0)
[2024-06-12 06:38] LABS: Anion Gap 9 (5-15); BUN 20 mg/dL (7-18); BUN/Creat Ratio 19.8 RATIO (10-20); Chloride 106 mmol/L (98-107); Creatinine, Serum 1.01 mg/dL (0.55-1.02); EST Glomerular Filtration Rate 55 mL/min (>60); Est Glom Filt Rate - Afr Amer 66 mL/min (>60); Estimated Creatinine Clearance 29.34 ml/min; Glucose 104 mg/dL (74-106); Potassium 4.2 mmol/L (3.5-5.1); Sodium Level 139 mmol/L (136-145)
[2024-06-12 07:23] VITALS: PULSE 72; RESP 16
[2024-06-12] MEDS: Budesonide Respules 0.5 MG/2 ML AMPUL.NEB. INHALATION (07:23)
[2024-06-12 09:50] VITALS: BP 114/62; PULSE 79; RESP 16; TEMP 36.6; O2SAT 97
[2024-06-12 09:51] VITALS: PULSE 79
[2024-06-12] MEDS: Amiodarone 200 MG Tablet 100 MG PO (09:51)
[2024-06-12] MEDS: amLODIPine 2.5 MG Tablet PO (09:51)
[2024-06-12] MEDS: Iron Polysaccharide Complex 150 MG CAPSULE PO (09:51)
[2024-06-12] MEDS: Pantoprazole Sodium 20 MG Tablet PO (09:51)
[2024-06-12] MEDS: Furosemide 20 MG Tablet PO (09:51)
[2024-06-12] MEDS: Metoprolol Tartrate 25 MG Tablet 12.5 MG PO (09:51)
[2024-06-12] MEDS: Ascorbic Acid 500 MG Tablet 1000 MG PO (09:51)
[2024-06-12] MEDS: APIXABAN 2.5 MG TABLET (WCH) PO (09:52)
[2024-06-12] MEDS: Aspirin E.C. 81 MG Tablet PO (09:52)
[2024-06-12] MEDS: levoFLOXacin IV 750 MG in Empty Viaflex Q48 100 MG IV (09:58)
--- NOTE | 2024-06-12 12:53 | DS.PCM_ITS ---
Providers Date of Admission: 06/10/24 Date of Discharge: 06/12/24 Primary Care Physician: Dr. Yogi Kapadia, DO Consultations 06/10/24 16:29 Consult: Cardiology Routine Consulting Provider: Evelina Garcia Reason for Consult: Chest pain, EKG changes EMERGENT Consult: No MD Notified: Yes Date Notified: 06/10/24 Time Notified: 14:50 Method of Notification: ED Physician Initiated Consult: General Surgery Routine Consulting Provider: Romina Torres Reason for Consult: Recent post-op hemicolectomy EMERGENT Consult: No MD Notified: Yes Date Notified: 06/10/24 Time Notified: 14:49 Method of Notification: ED Physician Initiated Reason For Visit: HYPOXIA, BL PNA, CPW/EKG CHANGES Diagnosis Discharge Diagnosis (1) Chest pain: Status: Acute Code(s): R07.9 - Chest pain, unspecified Qualifiers: Chest pain type: unspecified Qualified Code(s): R07.9 - Chest pain, unspecified (2) Pneumonia: Status: Acute Code(s): J18.9 - Pneumonia, unspecified organism Plan #Hypoxia due to community acquired pneumonia * Patient feels much better and is on room air. Chest x-ray showed bilateral infiltrates. * Currently on IV vancomycin and Levaquin. Respiratory panel negative. Sputum cultures pending. Urine for strep and Legionella negative. * Breathing treatments bronchodilators. Titrate oxygen as needed to maintain saturation above 90%. * #Chest pain * Did admit to some chest pain on admission which is now resolved. EKG showed ST depressions in lead V3 through V6. * Cardiology on board. 2D echo ordered. Troponin did not trend upwards. * per cardiology, no invasive workup needed. 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 S/p surgery. * Hospital course was complicated by postop MRSA incisional infection which has now resolved. Completed a dose of Bactrim. * #Anemia * Hemoglobin is 7.8. Baseline hemoglobin seems to be between 8-10. May be due to history of cancer also. * Will monitor and transfuse if hemoglobin is less than 7. * #Failure to thrive: Likely due to cancer and debility. PT OT on board. Nutrition on board. #CAD: S/p PCI: On aspirin. Will follow as started #Paroxysmal A-fib: On metoprolol and amiodarone. On Eliquis. # Hypertension: On metoprolol and amlodipine. 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 #GERD: On PPI #DVT prophylaxis: On Eliquis Medications at Discharge Home Medications acetaminophen 500 mg tablet 1,000 mg PO Q6H PRN fever or pain 11/28/20 amiodarone 200 mg tablet 100 mg (1/2 x 200 mg) PO DAILY HEART #45 tabs 02/22/23 fluticasone propionate 50 mcg/actuation nasal spray,suspension 1 spray intranasal DAILY PRN PRN allergic symptoms 10/09/23 apixaban 2.5 mg tablet 2.5 mg PO BID BLOOD THINNER #180 tabs 10/27/23 ascorbate calcium (vitamin C) 500 mg tablet 1 g PO DAILY SUPPLEMENT 12/29/23 aspirin 81 mg tablet,delayed release (Adult Low Dose Aspirin) 81 mg PO DAILY BLOOD THINNER 12/29/23 omega-3 fatty acids 1,000 mg capsule 1,000 mg PO DAILY SUPPLEMENT 12/29/23 vitamin E (dl, acetate) 180 mg (400 unit) capsule 180 mg PO DAILY SUPPLEMENT 12/29/23 omeprazole 20 mg capsule,delayed release 20 mg PO DAILY GERD #90 caps 05/04/24 furosemide 20 mg tablet 20 mg PO DAILY WATER PILL #30 tabs 05/08/24 amlodipine 5 mg tablet 2.5 mg (1/2 x 5 mg) PO DAILY HEART #90 tabs 05/11/24 metoprolol tartrate 25 mg tablet 12.5 mg (1/2 x 25 mg) PO BID BP #180 tabs 05/11/24 calcium carbonate 600 mg-vitamin D3 5 mcg (200 unit) tablet 1 tab PO DAILY SUPPLEMENT 05/16/24 cholecalciferol (vitamin D3) 25 mcg (1,000 unit) capsule (Vitamin D3) 25 mcg PO DAILY SUPPLEMENT 05/16/24 polysaccharide iron complex 150 mg iron capsule (Ferrex) 150 mg PO BID SUPPLEMENT 05/16/24 rosuvastatin 5 mg tablet 5 mg PO DAILY CHOLESTEROL 05/16/24 aspirin 81 mg tablet,delayed release 81 mg PO DAILYCM #0 tabs 05/25/24 cefdinir 300 mg capsule 300 mg PO BID #10 caps 06/06/24 levofloxacin 500 mg tablet 500 mg PO .q48 #4 tabs 06/12/24 Hospital Course Operations None Procedures None Summary of Care Provided Minutes Spent on Discharge: 55 Hospital Course: Patient is an 88-year-old female with a past medical history as outlined which includes chronic iron deficiency anemia and recent history of adenocarcinoma of the ileocecal valve and s/p laparoscopic right hemicolectomy which was complicated by a postop wound infection for which patient had completed a course of oral antibiotics. She was admitted through the ED on 06/10/2024 with a complaint of fatigue and weakness as well as dizziness and nausea. She denied any vomiting. She also had some chest discomfort in the ED and said it was pressure-like. Labs were largely unremarkable initial troponin was negative. Urinalysis showed no evidence of UTI. Chest x-ray showed increased interstitial lung markings concerning for pneumonia CT of the abdomen and pelvis with contrast showed visualized lung bases were clear and show postsurgical changes from right recent hemicolectomy with no obstruction or inflammation and no acute intra-abdominal findings. She did have some chest pain in the ED and EKG showed ST depressions in leads V3 through V6. Troponins were however negative. She also had hypoxia with a saturation going down to the mid 80s and requiring oxygen. She was therefore admitted and managed for hypoxia likely due to community-acquired pneumonia and chest pain to rule out ACS. She was started on IV vancomycin and ceftriaxone. She had 2D echo which showed EF of 65% and no regional wall motion abnormalities and also showed moderate aortic stenosis. Urine for strep and Legionella were negative and respiratory panel was also negative. Patient's shortness of breath improved and she was weaned off of oxygen to room air.Cardiology was consulted recommended that her management been medical with no need for invasive workup. She remained stable and was discharged on 06/12/2024. She was discharged on p.o. levofloxacin 500 mg every 48 hours for total of 4 tablets. She is follow-up with her primary care doctor within 1 to 2 weeks. Patient seen and examined prior to discharge. She had no active complaints and had an uneventful night. Review of systems otherwise negative. Labs and vitals reviewed. Home medication reviewed and reconciled. Physical Exam Const alert, oriented x3 and no apparent distress General Appearance: cooperative, comfortable, well kempt and well developed HEENT normocephalic, head/scalp atraumatic, hearing grossly normal bilaterally, moist oral mucous membranes and oropharynx normal Mouth: oral and palatal mucosa normal Eyes PERRL, EOMs intact bilaterally and conjunctivae normal Neck supple and no JVD Lymph Lymphatic: no lymphadenopathy noted and no lymphedema noted Resp Resp Narrative: mildly diminished breath sounds bibasally, no wheezes or crackles. On room air. Cardio regular rate, regular rhythm, S1 normal heart sound, S2 normal heart sound and no murmurs GI normal to inspection, nondistended, normoactive bowel sounds, soft to palpation, non-tender and non-distended Extremity normal to inspection, full ROM and no clubbing, cyanosis or edema General Extremity: no tenderness to palpation of joints or extremities Skin no rashes or lesions noted General Skin Exam: no breakdown Neuro oriented x3, CN's II-XII intact bilaterally, moves all extremities, no focal motor deficits, no sensory deficits noted and deep tendon reflexes 2+ bilaterally Sensorium / Orientation: awake and alert Motor Exam: strength 5/5 throughout and general weakness Psych thought process normal, cooperative and affect normal Appearance: appropriate Weight / BMI Weight Weight: 120 lb 13.013 oz Body Mass Index (BMI) 23.6 ABG / Lab / Microbiology Data 06/12/24 05:43 06/12/24 05:43 Laboratory: Laboratory Results - last 24 hr 06/12/24 05:43: WBC 5.1, RBC 3.01 L, Hgb 7.7 L, Hct 25.7 L, MCV 85.4, MCH 25.6 L , MCHC 30.0 L, RDW Std Deviation 60.6 H, RDW Coeff of Grace 19.3 H, Plt Count 267, MPV 9.6, Immature Gran % (Auto) 1.200 H, Neut % (Auto) 48.9, Lymph % (Auto) 27.3, Evans % (Auto) 11.7 H, Eos % (Auto) 10.1 H, Baso % (Auto) 0.8, Absolute Neuts (auto) 2.5, Absolute Lymphs (auto) 1.40, Nucleated RBC % 0, Sodium 139, Potassium 4.2, Chloride 106, Carbon Dioxide 24.0, Anion Gap 9, BUN 20 H, Creatinine 1.01, Estim Creat Clear Calc 29.34, Est GFR (MDRD) Af Amer 66, Est GFR (MDRD) Non-Af 55 L, BUN/Creatinine Ratio 19.8, Glucose 104, Calcium 9.0 Microbiology: Microbiology 06/10/24 17:15 Mucosa - Nasopharyngeal Respiratory Panel (PCR) - Final 06/10/24 13:56 Urine Catheter - Catheter Legionella Antigen - Final 06/10/24 13:56 Urine Catheter - Catheter Streptococcus pneumoniae Antigen (M - Final Radiography Diagnostic Testing: Radiology Impression Echocardiogram 06/10/24 16:29 Interpretation Summary The estimated ejection fraction is 65 %. Unable to assess diastolic dysfunction. The left atrium is severely enlarged. Trivial mitral valve insufficiency. Moderate aortic stenosis. Trivial aortic valve insufficiency. Trivial pericardial effusion. Ordering Physician: Katrin Nguyen Referring Physician: Yogi Kapadia Performed By: Nubia Mims RDCS D/C Instructions Discharge Diet: Low fat / Low cholesterol Discharge Activity: Return to Normal Activity Weight Bearing Status: Full weight bearing Call your doctor if you observe: Fever of 101 or Higher, Shortness of breath, Dizziness and Chest pain Meaningful Use Info Meaningful Use Meaningful Use Diagnoses (Choose all that apply): None applicable Ischemic Stroke Statin Dosing Therapy Reference: STATIN DOSE THERAPY REFERENCE: * Patients > 75 years receive moderate or high dose statin therapy. * Patients 75 years or YOUNGER should receive HIGH intensity statin dose unless contraindicated. You will be required to document reason for non-treatment if statin daily dose does not meet guidelines. HIGH DOSE STATIN THERAPY DAILY Atorvastatin > than or = to 40 mg Rosuvastatin > than or = to 20 mg Amlodipine + Atorvastatin > than or = to 2.5/40 mg Ezetimibe + Simvastatin 10/80 mg Simvastatin 80mg Discharge Plan Admission Admit Date/Time: 06/10/24 14:44 Primary Reason for Your Visit: pneumonia Attending Provider: Elaine Srinivasan Primary Care Provider: Yogi Kapadia Consulting Providers: Evelina Garcia; Romina Torres; Katrin Nguyen Instructions Patient Instructions: ED Pneumonia (Adult) Discharge Orders/Prescriptions Prescriptions: New levofloxacin 500 mg tablet 500 mg PO .q48 Qty: 4 0RF Continued acetaminophen 500 mg tablet 1,000 mg PO Q6H PRN (Reason: fever or pain) ascorbate calcium (vitamin C) 500 mg tablet 1 g PO DAILY aspirin [Adult Low Dose Aspirin] 81 mg tablet,delayed release (DR/EC) 81 mg PO DAILY Patient Comments: STOPPING FOR SURGERY omega-3 fatty acids 1,000 mg capsule 1,000 mg PO DAILY vitamin E (dl, acetate) 180 mg (400 unit) capsule 180 mg PO DAILY cefdinir 300 mg capsule 300 mg PO BID Qty: 10 0RF fluticasone propionate 50 mcg/actuation spray,suspension 1 spray INTRANASAL DAILY PRN PRN (Reason: allergic symptoms) Patient Comments: USE 2 SPRAYS IN EACH NOSTRIL EVERY MORNING cholecalciferol (vitamin D3) [Vitamin D3] 25 mcg (1,000 unit) capsule 25 mcg PO DAILY calcium carbonate-vitamin D3 600 mg-5 mcg (200 unit) tablet 1 tab PO DAILY polysaccharide iron complex [Ferrex 150] 150 mg iron Capsule 150 mg PO BID rosuvastatin 5 mg tablet 5 mg PO DAILY aspirin 81 mg Tablet,Delayed Release (Dr/Ec) 81 mg PO DAILYCM Qty: 0 0RF amlodipine 5 mg tablet 2.5 mg PO DAILY Qty: 90 3RF metoprolol tartrate 25 mg tablet 12.5 mg PO BID Qty: 180 3RF amiodarone 200 mg tablet 100 mg PO DAILY Qty: 45 3RF apixaban 2.5 mg tablet 2.5 mg PO BID Qty: 180 4RF omeprazole 20 mg capsule,delayed release(DR/EC) 20 mg PO DAILY Qty: 90 3RF furosemide 20 mg tablet 20 mg PO DAILY Qty: 30 6RF Patient Comments: had been on 40mg daily x5 days. 05/09 would be day 5 then to start 20mg daily Discontinued sulfamethoxazole-trimethoprim [Bactrim DS] 800-160 mg tablet 1 tab PO BID Qty: 6 0RF Referrals / Follow Up: Yogi Kapadia DO [Primary Care Provider] - Within 1 Week Disposition Disposition (needs filled in before D/C Order can be placed): Home Health Service Charges/Coding Visit Charges Inpatient E&M: 11255 Disch Hosp >30min
--- NOTE | 2024-06-12 14:25 | CASEMGMT ---
Patient has order for discharge. RN LIDIA updated [facility] and plan is for start of care , discharge plan updated. RN CM in to discuss discharge with patient, daughter at bedside. RN CM updated patient that C will be out to see patient. Patient states she has to attend . RN CM update [facility] and plan of care changed to Tuesday, discharge plan updated. RN LIDIA updated patient. Patient and daughter voiced appreciation and had no further questions or concerns.
[2024-06-12 14:50] VITALS: BP 116/55; PULSE 76; RESP 18; TEMP 36.8; O2SAT 95
== END 2024-06-12 15:06 | disposition home health service (06) | DRG 194 ==
LOC: ED 14:57 → PCU 15:28
PROVIDERS: Admitting Provider Family Medicine; Emergency Provider Student in an Organized Health Care Education/Training Program; Visit Provider Student in an Organized Health Care Education/Training Program
DX: J18.9 Pneumonia, unspecified organism (principal); C18.0 Malignant neoplasm of cecum; D68.69 Other thrombophilia; R62.7 Adult failure to thrive; D63.0 Anemia in neoplastic disease; D50.9 Iron deficiency anemia, unspecified; N18.30 Chronic kidney disease, stage 3 unspecified; I12.9 Hypertensive chronic kidney disease with stage 1 through stage 4 chronic kidney disease, or unspecified chronic kidney disease; I48.0 Paroxysmal atrial fibrillation; E78.2 Mixed hyperlipidemia; K21.9 Gastro-esophageal reflux disease without esophagitis; I25.10 Atherosclerotic heart disease of native coronary artery without angina pectoris; I25.2 Old myocardial infarction; K59.09 Other constipation; R09.02 Hypoxemia; R07.89 Other chest pain; Z66 Do not resuscitate; Z95.5 Presence of coronary angioplasty implant and graft; Z90.49 Acquired absence of other specified parts of digestive tract; Z68.23 Body mass index [BMI] 23.0-23.9, adult; Z79.01 Long term (current) use of anticoagulants; Z79.82 Long term (current) use of aspirin; Z79.899 Other long term (current) drug therapy; Z86.718 Personal history of other venous thrombosis and embolism
CPT/HCPCS: 36415; 71045; 74177; 80048; 80053; 80061; 81001; 83690; 83735; 84145; 84484; 85025; 87449; 87633; 93005; 93306; 94640; 94668; 97162; 97166; 99285; J7030; J7040; P9612; Q9967; A4216; J2405

== ENCOUNTER 2024-07-20 12:16 | Inpatient (IN) | payer MEDICARE, OTHER, SELFPAY ==
[2024-06-06 10:46] VITALS: BMI 24.7
[2024-07-20] VITALS (12 sets, daily range): BP systolic 119–153; BP diastolic 53–98; PULSE 63–73; RESP 13–18; TEMP 35.9–36.7; O2SAT 96–100; BMI 23.4
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
[2024-07-20 13:12] LABS: Absolute Lymphocyte Count 1.11 X10^3/uL (0.83-4.51); Absolute Neutrophil Count 2.7 X10^3/uL (2.0-7.7); Basophil# 0.03 X10^3/uL; Basophil% 0.7 % (0-1); Eosinophils% 2.3 % (0-5); Hematocrit 24.3 % (37-47); Hemoglobin 6.9 g/dL (12.0-15.0); Lymphocyte # 1.11 X10^3/ul (0.83-4.51); Lymphocyte % 25.5 % (19-41); Mean Corp Hgb Conc 28.4 g/dL (32-36); Mean Corpuscular Volume 98.8 fL (81-99); Mean Platelet Vol. 10.3 fl (6.2-12.0); Monocyte# 0.38 X10^3/uL; Monocyte% 8.7 % (0-10); NRBC Flagged by Analyzer 0 % (0-5); Neutrophil # 2.72 X10^3/uL (2.7-7.7); Neutrophil % 62.3 % (47-70); Platelet Count 198 K/mm3 (150-450); RBC Distribution Width SD 64.2 fl (35.1-43.9); Red Blood Count 2.46 M/mm3 (4.2-5.4); White Blood Count 4.4 K/mm3 (4.4-11.0)
--- NOTE | 2024-07-20 13:15 | RAD_ITS ---
STUDY: X-RAY - PELVIS AND RIGHT HIP REASON FOR EXAM: Female, 88 years old. Right hip pain. TECHNIQUE: 3 views of the pelvis and hip. COMPARISON: None. FINDINGS: There is a non-specific bowel gas pattern. Normal visualized soft tissue structures. There is narrowing with cortical sclerosis and osteophyte formation of the sacroiliac joint consistent with degenerative osteoarthritic changes. Normal bilateral superior and inferior pubic rami. There is narrowing with sclerosis of the pubic symphysis. Normal bilateral ischial tuberosities. Marked degree of joint space narrowing of the right hip joint with subchondral cysts. Moderate degree of left joint space narrowing. RAD/HIP, UNI W/ Pelvis 2-3 Views IMPRESSION: Marked degree of joint space narrowing with subchondral cysts of the right hip joint. Electronically Signed: Fletcher Thompson MD at 13:41 EDT ,
[2024-07-20 13:27] LABS: ALB/GLOB Ratio 1.1 RATIO (0.9-2.4); AST(SGOT) 10 U/L (15-37); Alanine Aminotransfer ALT/SGPT 16 U/L (13-56); Albumin, Serum 3.3 g/dL (3.2-5.0); Alkaline Phosphatase 66 U/L (45-117); Anion Gap 4 (5-15); BUN 21 mg/dL (7-18); BUN/Creat Ratio 17.1 RATIO (10-20); Calcium,Total 9.5 mg/dL (8.5-10.1); Chloride 111 mmol/L (98-107); Creatinine, Serum 1.23 mg/dL (0.55-1.02); EST Glomerular Filtration Rate 44 mL/min (>60); Est Glom Filt Rate - Afr Amer 53 mL/min (>60); Estimated Creatinine Clearance 22.27 ml/min; Globulin 3.1 g/dL (2.2-4.2); Glucose 119 mg/dL (74-106); Potassium 4.2 mmol/L (3.5-5.1); Protein, Total 6.4 g/dL (6.4-8.2); Sodium Level 140 mmol/L (136-145)
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
--- NOTE | 2024-07-20 14:16 | NURSING ---
MED SURG GI BLEED, ANEMIA LINK
--- NOTE | 2024-07-20 14:55 | CASEMGMT ---
RN?CM?CARDIOPULMONARY TECHNICIAN AND EEG TECH?CM?to room to meet with patient for initial transition planning/care coordination?assessment.?RN?CM?introduced self and role at [facility].? Pt voices understanding and consents to?assessment?at this time.? Pt resting in bed in no distress at this time.? Dtr's, Codi and Crystal, @ bedside. Pt is A/O at this time and answers all questions appropriately.?? Care providers, pharmacy, and demographics verified/updated at this time. PCP: Dr Kapadia Specialists: Dr Cutler-oncology, Dr Torres-surgeon, Dr Gutierrez-GI, Dr Hunt-cardiology Preferred Pharmacy:[facility] Insurance: [employer], [employer] Prescription Benefit:?yes LNOK: 2 daughters, Codi and Crystal. Son. Living Arrangements: Lives alone in one-story home w/3 steps to enter. Indep w/ADL's. Dtr, Codi, assists w/setting up weekly med containers. Dtr's get groceries and family also donates food. Transportation:?Pt states drives short distances. Family assists if needed. DME: ?States has the following DME:? [facility], shower bench HHC/SNF: No hx of SNF. Has had [facility]HC in the past--they just d/c'd her about 1 1/2 wks ago. Pt wishes to discharge home, states does not feel like she will need HHC @ nd. Made aware to ask for CM if she changes her mind by the time she discharges, or if she d/c's home and changes her mind to discuss w/her PCP. She and dtr's voice understanding. Pt wishes to return home and states has no concerns with going home at time of discharge.? ?CM?to follow for any further discharge planning/needs.? Pt and daughters voice no further concerns/needs at this time.? Advised them to ask for?CM?if any further questions/concerns/needs arise.? They voice understanding. PLAN:??Home w/family support and discharge plans in place. PT/OT evals pending. CM to follow. Wallace MACEN?RN?CM
[2024-07-20] MEDS: 0.9% Normal Saline (1000mL) 1,000 ML 75 ML IV (17:34)
[2024-07-20] MEDS: Pantoprazole Sodium 40 MG in 0.9% Normal Saline (100mL MB+) 100 ML 330 MG IV (21:39)
[2024-07-21 00:54] VITALS: BP 126/58; PULSE 63; RESP 16; TEMP 36.6; O2SAT 98
[2024-07-21 01:54] VITALS: BP 142/66; PULSE 65; RESP 16; TEMP 36.5; O2SAT 98
[2024-07-21 05:11] VITALS: BP 150/66; PULSE 71; RESP 16; TEMP 36.7; O2SAT 96
--- NOTE | 2024-07-21 06:35 | EKG12_ITS ---
Test Reason : PREOP Blood Pressure : / mmHG Vent. Rate : 069 BPM Atrial Rate : 069 BPM P-R Int : 164 ms QRS Dur : 100 ms QT Int : 430 ms P-R-T Axes : 072 -39 075 degrees QTc Int : 460 ms Normal sinus rhythm Left axis deviation Abnormal ECG When compared with ECG of 10-JUN-2024 13:33, ST no longer depressed in Anterolateral leads T wave inversion no longer evident in Anterolateral leads Confirmed by SHELDON MCNEIL, BARBARA ([id number]), newspaper photo editor CONCHA BRENNER ([id number]) on 07/23/2024 2:53:31 PM Referred By: LINK Confirmed By:BARBARA CHUNG MD
[2024-07-21 06:56] LABS: Absolute Lymphocyte Count 1.14 X10^3/uL (0.83-4.51); Absolute Neutrophil Count 1.9 X10^3/uL (2.0-7.7); Basophil# 0.03 X10^3/uL; Basophil% 0.8 % (0-1); Eosinophil# 0.16 X10^3/uL; Eosinophils% 4.4 % (0-5); Hemoglobin 8.9 g/dL (12.0-15.0); Lymphocyte # 1.14 X10^3/ul (0.83-4.51); Lymphocyte % 31.4 % (19-41); Mean Corp Hgb Conc 29.7 g/dL (32-36); Mean Corpuscular Volume 90.9 fL (81-99); Mean Platelet Vol. 10.6 fl (6.2-12.0); Monocyte# 0.35 X10^3/uL; Monocyte% 9.6 % (0-10); NRBC Flagged by Analyzer 0 % (0-5); Neutrophil # 1.94 X10^3/uL (2.7-7.7); Neutrophil % 53.5 % (47-70); POSITIVE MORPHOLOGY YES; Platelet Count 158 K/mm3 (150-450); RBC Distribution Width CV 20.2 % (11.6-14.6); RBC Distribution Width SD 66.7 fl (35.1-43.9); White Blood Count 3.6 K/mm3 (4.4-11.0)
[2024-07-21 07:03] LABS: Differential Indicated SCAN CRITERIA MET
[2024-07-21 07:11] LABS: Anion Gap 5 (5-15); BUN 16 mg/dL (7-18); BUN/Creat Ratio 16.4 RATIO (10-20); Calcium,Total 8.8 mg/dL (8.5-10.1); Chloride 113 mmol/L (98-107); Creatinine, Serum 0.98 mg/dL (0.55-1.02); EST Glomerular Filtration Rate 57 mL/min (>60); Est Glom Filt Rate - Afr Amer 69 mL/min (>60); Estimated Creatinine Clearance 27.95 ml/min; Glucose 89 mg/dL (74-106); Sodium Level 143 mmol/L (136-145)
--- NOTE | 2024-07-21 07:16 | PCM.PN.HOSP ---
Reason for Visit Reason for Visit: Abnormal outpatient hemoglobin Subjective Subjective Patient is an 88-year-old white female who presented to the emergency department at [facility] on 07/20/2020 for due to abnormal labs as an outpatient. She has a history of colon carcinoma and was following up with her oncologist at which time she was found to be anemic with a hemoglobin of 6.9. She is status post hemicolectomy in 05/2024. On presentation she complained of generalized weakness, fatigue but denied any nausea, vomiting, fever, chills, chest pain or any bowel symptoms. Vital signs on presentation showed temperature of 96.7, heart rate 73, respiratory rate 16, blood pressure is 136/64 and oxygen saturation 100% room air. She is on apixaban 2.5 at baseline for history of atrial fibrillation. As noted above, hemoglobin on presentation was 6.9. Anemia was normocytic and her CBC was otherwise fairly unremarkable. Chemistry panel showed mildly elevated serum creatinine baseline at 1.23 with a baseline of one 1.1 but was otherwise unremarkable. Liver functions were unremarkable. She has known chronic anemia and follows with Dr. Cutler for oncology. Patient was given 2 unit of packed red blood cells. After 2 units packed red blood cells, her hemoglobin is up from 6.9-8.9 with appropriate correction. She was admitted to the medical floor as she was hemodynamically stable and GI was consulted for evaluation. Patient states she feels a little bit better since she has had blood. Anxious to get scope so she can find out what is going on and be able to go home. She also would like to eat as she states she has not had anything to eat or drink since yesterday morning. I discussed with her that I am hoping to get to the scopes today however I could not guarantee it we will have to see what the anesthesia schedule looks like. Objective Data Objective Data Vital Signs: Vital Signs Temp Pulse Resp BP Pulse Ox O2 Del Method 98.0 F 71 16 150/66 H 96 Room Air 07/21/24 05:11 07/21/24 05:11 07/21/24 05:11 07/21/24 05:11 07/21/24 05:11 07/21/24 05:11 Oxygen Delivery Method Room Air Weight: 54.516 kg Body Mass Index (BMI) 23.4 Intake & Output: Intake and Output for Last 24 Hours 07/19/24 07/20/24 07/21/24 23:59 23:59 23:59 Intake Total 111 / 111 Output Total 300 / 300 Balance -299 / -299 Lab / Micro Data 07/21/24 05:45 07/21/24 05:45 Labs: Laboratory Results - last 24 hr 07/20/24 13:05: WBC 4.4, RBC 2.46 L, Hgb 6.9 L, Hct 24.3 L, MCV 98.8, MCH 28.0, MCHC 28.4 L, RDW Std Deviation 64.2 H, RDW Coeff of Grace 18.0 H, Plt Count 198, MPV 10.3, Immature Gran % (Auto) 0.500, Neut % (Auto) 62.3, Lymph % (Auto) 25.5, [place] % (Auto) 8.7, Eos % (Auto) 2.3, Baso % (Auto) 0.7, Absolute Neuts (auto) 2.7, Absolute Lymphs (auto) 1.11, Nucleated RBC % 0, Sodium 140, Potassium 4.2, Chloride 111 H, Carbon Dioxide 25.0, Anion Gap 4 L, BUN 21 H, Creatinine 1.23 H, Estim Creat Clear Calc 22.27, Est GFR (MDRD) Af Amer 53 L, Est GFR (MDRD) Non-Af 44 L, BUN/Creatinine Ratio 17.1, Glucose 119 H, Calcium 9.5, Total Bilirubin 0.30, AST 10 L, ALT 16, Alkaline Phosphatase 66, Total Protein 6.4, Albumin 3.3, Globulin 3.1, Albumin/Globulin Ratio 1.1, Blood Type A POSITIVE, Antibody Screen NEGATIVE, Crossmatch See Detail 07/21/24 05:45: WBC 3.6 L, RBC 3.30 L, Hgb 8.9 L, Hct 30.0 L, MCV 90.9 D, MCH 27.0, MCHC 29.7 L, RDW Std Deviation 66.7 H, RDW Coeff of Grace 20.2 H, Plt Count 158, MPV 10.6, Immature Gran % (Auto) 0.300, Neut % (Auto) 53.5, Lymph % (Auto) 31.4, [place] % (Auto) 9.6, Eos % (Auto) 4.4, Baso % (Auto) 0.8, Absolute Neuts (auto) 1.9 L, Absolute Lymphs (auto) 1.14, Nucleated RBC % 0, Sodium 143, Potassium 4.0, Chloride 113 H, Carbon Dioxide 25.0, Anion Gap 5, BUN 16, Creatinine 0.98, Estim Creat Clear Calc 27.95, Est GFR (MDRD) Af Amer 69, Est GFR (MDRD) Non-Af 57 L, BUN/Creatinine Ratio 16.4, Glucose 89, Calcium 8.8 Micro: Microbiology 07/20/24 13:35 Stool Stool Occult Blood (DINORAH) - Final Occult Blood Positive Radiography Diagnostic Testing: Radiology Impression Hip/Pelvis X-Ray 07/20/24 13:15 IMPRESSION: Marked degree of joint space narrowing with subchondral cysts of the right hip joint. Electronically Signed: Fletcher Thompson MD at 13:41 EDT Reading Location ID and State: [facility] / [place] , Service support , Physical Exam Const alert, oriented x3, no apparent distress, average body habitus and well nourished Constitutional Narrative: Elderly, white female, lying in bed, appears younger than stated age, family at bedside, appears comfortable, nontoxic HEENT head/scalp atraumatic and moist oral mucous membranes HEENT Narrative: Mallampati 2, no thrush Head and Scalp: normocephalic Eyes PERRL and EOMs intact bilaterally; Negative for conjunctivae normal Eyes Narrative: Pale conjunctiva bilaterally, no scleral icterus Neck no lymphadenopathy and supple Neck Narrative: Trachea midline Resp normal respiratory effort, no retractions and no use of accessory muscles Auscultation: Negative for rales, rhonchi or wheezes Cardio regular rate, regular rhythm, S1 normal heart sound, S2 normal heart sound, no rub, no gallops and no clicks Cardio Narrative: 3 out of 6 systolic murmur loudest at right upper sternal border GI normal to inspection, nondistended, normoactive bowel sounds, soft to palpation and non-tender Extremity no clubbing, cyanosis or edema Extremity Narrative: Radial and pedal pulses are 2+ Neuro moves all extremities and no focal motor deficits Speech: speech normal Psych affect normal Psych Narrative: Frustrated because she cannot eat but interacts appropriately, good eye contact Assessment & Plan Assessment/Plan (1) Acute on chronic anemia: (2) Malignant neoplasm of right colon: PLAN: Plan Acute on chronic anemia -Status post 2 units packed red blood cells -Hemoglobin on presentation 6.9-->8.9 today -Hold home apixaban -Hold home aspirin -Gentle hydration to continue until we can ascertain GIs plans -Continue IV PPI twice daily -N.p.o. for now except for p.o. meds -Continue home iron supplementation -GI consultation was notified via text on admission -Hold for EGD today and possible will need colonoscopy in the future -If these are both done and unremarkable will need small bowel capsule endoscopy History of colon cancer -Diagnosed in 04/2024 and status post hemicolectomy 05/2024 -Diagnosis was adenocarcinoma of the ileocecal valve -Follows with Dr. Culter -No evidence of metastatic disease and thought to be a surgical cure -Has not been on any chemotherapy PAF -In sinus on presentation -Continue home metoprolol -continue home amiodarone -Restart home apixaban 2.5 mg once okay with GI CAD/HPL/essential HTN -PTCA/FEDERICO to mid LAD, PTCA/FEDERICO to distal RCA and PTCA to Diagonal branch @ [facility] 01/09/21 -Echocardiogram 06/12/2024 shows an EF of 65%, severely enlarged left atrium, moderate aortic valve stenosis -Home aspirin on hold -Continue home amlodipine 2.5 mg daily -Continue home losartan 25 mg daily -Continue metoprolol 12.5 mg p.o. twice daily -Continue home rosuvastatin 5 mg daily Aortic valve stenosis -Continue outpatient follow-up -Avoid marked afterload reduction History of GERD -Hold home famotidine -IV PPI as above Insomnia -Continue home trazodone DVT prophylaxis -SCDs -Chemoprophylaxis contraindicated due to marked anemia on presentation and concern for GI bleeding CODE STATUS -DNR CCA with no intubation as assessed on admission Charges/Coding Visit Charges Inpatient E&M: 59349 Subs Hosp L2
[2024-07-21 07:41] LABS: International Normalized Ratio 1.2; Prothrombin Time (Protime)PT. 15.2 SECONDS (11.7-14.9)
[2024-07-21 08:35] LABS: Anisocytosis 3+; Differential Comment SCANNED; Platelet Estimate ADEQUATE (ADEQ); Platelet Morphology LARGE; Polychromasia 1+
[2024-07-21 08:36] LABS: Hypochromasia 1+; Macrocytosis 1+; Microcytosis 2+; Ovalocyte 2+; Schistocytes RARE; Target Cells RARE; Tear Drop Cell 1+
[2024-07-21 10:08] VITALS: BP 139/63; PULSE 66; RESP 16; TEMP 36.5; O2SAT 98
[2024-07-21] MEDS: Pantoprazole Sodium 40 MG in 0.9% Normal Saline (100mL MB+) 100 ML 330 MG IV ×2 (10:37→21:49)
--- NOTE | 2024-07-21 12:33 | NURSING ---
Dr. Gutierrez and Dr. Zhang are on the floor talking about pt and Dr. Gutierrez told this RN that he is not doing any procedures today on the patient and will need to prep her. Dr. Zhang is aware and will feed her.
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
--- NOTE | 2024-07-21 15:48 | CASEMGMT ---
TRINA MURILLO NOTE: Therapy has worked w/pt, additional therapy recommended. RNCM to room. Pt sitting up in chair in room, talking w/visitors. Pt states she still does not feel she will want/need HHC or therapy @ discharge. Aware to f/u with PCP if she changes her mind once returning home. Wallace BSN TRINA CM
[2024-07-21 16:00] VITALS: BP 126/60; PULSE 74; RESP 18; TEMP 36.8; O2SAT 99
[2024-07-21] MEDS: 0.9% Saline Lock 10 ML Syringe IV (21:49)
[2024-07-21 21:55] VITALS: BP 151/67; PULSE 72; RESP 18; TEMP 36.6; O2SAT 97
--- NOTE | 2024-07-22 03:38 | NURSING ---
Reviewed [employer] charting.
[2024-07-22 04:01] VITALS: BP 156/74; PULSE 80; RESP 16; TEMP 36.9; O2SAT 95
[2024-07-22 06:59] LABS: Hematocrit 32.3 % (37-47); Hemoglobin 9.8 g/dL (12.0-15.0); Mean Corp Hgb Conc 30.3 g/dL (32-36); Mean Corpuscular Hgb 27.8 pg (27.0-32.0); Mean Corpuscular Volume 91.8 fL (81-99); Mean Platelet Vol. 10.3 fl (6.2-12.0); POSITIVE MORPHOLOGY YES; Platelet Count 175 K/mm3 (150-450); RBC Distribution Width CV 20.2 % (11.6-14.6); RBC Distribution Width SD 67.7 fl (35.1-43.9); Red Blood Count 3.52 M/mm3 (4.2-5.4); White Blood Count 6.1 K/mm3 (4.4-11.0)
[2024-07-22 07:14] LABS: Anion Gap 4 (5-15); BUN 12 mg/dL (7-18); BUN/Creat Ratio 13.8 RATIO (10-20); Calcium,Total 8.8 mg/dL (8.5-10.1); Chloride 112 mmol/L (98-107); Creatinine, Serum 0.87 mg/dL (0.55-1.02); EST Glomerular Filtration Rate 65 mL/min (>60); Est Glom Filt Rate - Afr Amer 79 mL/min (>60); Estimated Creatinine Clearance 31.49 ml/min; Glucose 104 mg/dL (74-106); Potassium 4.2 mmol/L (3.5-5.1); Sodium Level 140 mmol/L (136-145)
[2024-07-22] MEDS: Pantoprazole Sodium 40 MG in 0.9% Normal Saline (100mL MB+) 100 ML 330 MG IV ×2 (08:19→22:23)
[2024-07-22 09:33] VITALS: BP 113/66; PULSE 73; RESP 16; TEMP 36.7; O2SAT 95
--- NOTE | 2024-07-22 13:03 | PCM.PN.HOSP ---
Reason for Visit Reason for Visit: Abnormal lab Subjective Subjective Patient denies any current issues. Frustrated she wanted to be able to go home today however scope is planned for tomorrow as she has to do colon prep tonight. Hemoglobin has got corrected and she does feel better with improved blood counts. We did discuss that we highly suspect the area of her bleeding is high probability at the anastomosis from her previous surgery. Objective Data Objective Data Vital Signs: Vital Signs Temp Pulse Resp BP Pulse Ox O2 Del Method 98.1 F 73 16 113/66 95 Room Air 07/22/24 09:33 07/22/24 09:33 07/22/24 09:33 07/22/24 09:33 07/22/24 09:33 07/22/24 09:33 Oxygen Delivery Method Room Air Weight: 54.516 kg Body Mass Index (BMI) 23.4 Intake & Output: Intake and Output for Last 24 Hours 07/20/24 07/21/24 07/22/24 23:59 23:59 23:59 Intake Total 111 / 111 1821 / 1821 210 / 210 Output Total 900 / 900 Balance 111 / 111 921 / 921 210 / 210 Lab / Micro Data 07/22/24 05:45 07/22/24 05:45 Labs: Laboratory Results - last 24 hr 07/22/24 05:45: WBC 6.1, RBC 3.52 L, Hgb 9.8 L, Hct 32.3 L, MCV 91.8, MCH 27.8, MCHC 30.3 L, RDW Std Deviation 67.7 H, RDW Coeff of Grace 20.2 H, Plt Count 175, MPV 10.3, Sodium 140, Potassium 4.2, Chloride 112 H, Carbon Dioxide 24.0, Anion Gap 4 L, BUN 12, Creatinine 0.87, Estim Creat Clear Calc 31.49, Est GFR (MDRD) Af Amer 79, Est GFR (MDRD) Non-Af 65, BUN/Creatinine Ratio 13.8, Glucose 104, Calcium 8.8 Micro: Microbiology 07/20/24 13:35 Stool Stool Occult Blood (DINORAH) - Final Occult Blood Positive Physical Exam Const alert, oriented x3, no apparent distress, average body habitus and well nourished Constitutional Narrative: Elderly, white female, lying in bed, appears younger than stated age, appears comfortable, nontoxic General Appearance: cooperative HEENT normocephalic, head/scalp atraumatic, hearing grossly normal bilaterally and moist oral mucous membranes HEENT Narrative: Mallampati 2, no thrush Eyes Negative for conjunctivae normal Resp normal respiratory effort, no retractions, no use of accessory muscles and clear to auscultation bilaterally Auscultation: Negative for rales, rhonchi or wheezes Cardio regular rate, regular rhythm, S1 normal heart sound, S2 normal heart sound, no murmurs, no rub, no gallops and no clicks Cardio Narrative: 3 out of 6 systolic murmur loudest at right upper sternal border GI normal to inspection, nondistended, normoactive bowel sounds, soft to palpation and non-tender Extremity no clubbing, cyanosis or edema Extremity Narrative: Radial and pedal pulses are 2+ Neuro oriented x3, moves all extremities and no focal motor deficits Speech: speech normal Psych affect normal Psych Narrative: Eye contact is good, patient very pleasant, interacts appropriately Assessment & Plan Assessment/Plan (1) Acute on chronic anemia: (2) Malignant neoplasm of right colon: PLAN: Plan Acute on chronic anemia -Status post 2 units packed red blood cells -Hemoglobin on presentation 6.9--> 8.9 on 07/21/2024??> 9.8 today -Hold home apixaban -Hold home aspirin -Continue IV PPI twice daily -Start bowel prep -Continue home iron supplementation -GI following and plans are for scopes tomorrow -Highly suspect etiology is going to be at the anastomosis of previous surgery -If these are both done and unremarkable will need small bowel capsule endoscopy History of colon cancer -Diagnosed in 04/2024 and status post hemicolectomy 05/2024 -Diagnosis was adenocarcinoma of the ileocecal valve -Follows with Dr. Cutler -No evidence of metastatic disease and thought to be a surgical cure -Has not been on any chemotherapy PAF -In sinus on presentation -Continue home metoprolol -continue home amiodarone -Restart home apixaban 2.5 mg once okay with GI CAD/HPL/essential HTN -PTCA/FEDERICO to mid LAD, PTCA/FEDERICO to distal RCA and PTCA to Diagonal branch @ [facility] 01/09/21 -Echocardiogram 06/12/2024 shows an EF of 65%, severely enlarged left atrium, moderate aortic valve stenosis -Home aspirin on hold -Continue home amlodipine 2.5 mg daily -Continue home losartan 25 mg daily -Continue metoprolol 12.5 mg p.o. twice daily -Continue home rosuvastatin 5 mg daily Aortic valve stenosis -Continue outpatient follow-up -Avoid marked afterload reduction History of GERD -Hold home famotidine -IV PPI as above Insomnia -Continue home trazodone DVT prophylaxis -SCDs -Chemoprophylaxis contraindicated due to marked anemia on presentation and concern for GI bleeding CODE STATUS -DNR CCA with no intubation as assessed on admission Charges/Coding Visit Charges Inpatient E&M: 43591 Subs Hosp L2
[2024-07-22] MEDS: Bisacodyl 5 MG Tablet 20 MG PO (14:22)
[2024-07-22 15:13] VITALS: BP 116/73; PULSE 81; RESP 16; TEMP 36.8; O2SAT 98
[2024-07-22] MEDS: Polyethylene Glycol 3350 BOWEL PREP PO (17:02)
[2024-07-22 22:15] VITALS: BP 145/70; PULSE 65; RESP 16; TEMP 36.6; O2SAT 93
[2024-07-23] VITALS (11 sets, daily range): BP systolic 108–160; BP diastolic 52–74; PULSE 62–78; RESP 16–18; TEMP 36.5–37.1; O2SAT 92–99
[2024-07-23 06:18] LABS: Hematocrit 30.9 % (37-47); Hemoglobin 9.5 g/dL (12.0-15.0); Mean Corp Hgb Conc 30.7 g/dL (32-36); Mean Corpuscular Hgb 28.1 pg (27.0-32.0); Mean Corpuscular Volume 91.4 fL (81-99); Mean Platelet Vol. 9.8 fl (6.2-12.0); Platelet Count 171 K/mm3 (150-450); RBC Distribution Width CV 19.4 % (11.6-14.6); RBC Distribution Width SD 64.2 fl (35.1-43.9); Red Blood Count 3.38 M/mm3 (4.2-5.4); White Blood Count 4.2 K/mm3 (4.4-11.0)
[2024-07-23 07:02] LABS: Anion Gap 8 (5-15); BUN 6 mg/dL (7-18); BUN/Creat Ratio 7.6 RATIO (10-20); Calcium,Total 8.7 mg/dL (8.5-10.1); Chloride 111 mmol/L (98-107); Creatinine, Serum 0.79 mg/dL (0.55-1.02); EST Glomerular Filtration Rate 73 mL/min (>60); Est Glom Filt Rate - Afr Amer 88 mL/min (>60); Estimated Creatinine Clearance 34.24 ml/min; Glucose 102 mg/dL (74-106); Phosphorus 2.8 mg/dL (2.5-4.9); Potassium 3.7 mmol/L (3.5-5.1); Sodium Level 142 mmol/L (136-145)
--- NOTE | 2024-07-23 07:43 | NURSING ---
family asked to see me. stated she was to be taken to or this am and done by 8am. family and patient educated on surgery scheduling. advised that we will informa them of her surgery time once we are aware.
[2024-07-23] MEDS: Pantoprazole Sodium 40 MG in 0.9% Normal Saline (100mL MB+) 100 ML 330 MG IV (10:39)
[2024-07-23] MEDS: Lactated Ringers 1,000 ML 15 ML IV (12:51)
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
--- NOTE | 2024-07-23 13:38 | OP.EGD_ITS ---
Patient Name: Harini Roth Procedure Date: 07/23/2024 12:56 PM Date of : 1935 Age: 88 Procedure: Upper GI endoscopy Indications: Iron deficiency anemia Providers: Boo Gutierrez DO Medicines: Monitored Anesthesia Care Patient Profile: This is an 88 year old female. Refer to note in patient chart for documentation of history and physical. Patient has symptoms. Complications: No immediate complications. Procedure: Pre-Anesthesia Assessment: - Prior to the procedure, a History and Physical was performed, and patient medications and allergies were reviewed. The patient is competent. The risks and benefits of the procedure and the sedation options and risks were discussed with the patient. All questions were answered and informed consent was obtained. Patient identification and proposed procedure were verified by the physician in the pre-procedure area. Mental Status Examination: alert and oriented. Airway Examination: normal oropharyngeal airway and neck mobility. Respiratory Examination: clear to auscultation. CV Examination: normal. Prophylactic Antibiotics: The patient does not require prophylactic antibiotics. Prior Anticoagulants: The patient has taken Xarelto (rivaroxaban), last dose was 3 days prior to procedure. ASA Grade Assessment: III - A patient with severe systemic disease. After reviewing the risks and benefits, the patient was deemed in satisfactory condition to undergo the procedure. The anesthesia plan was to use monitored anesthesia care (MAC). Immediately prior to administration of medications, the patient was re-assessed for adequacy to receive sedatives. The heart rate, respiratory rate, oxygen saturations, blood pressure, adequacy of pulmonary ventilation, and response to care were monitored throughout the procedure. The physical status of the patient was re-assessed after the procedure. After obtaining informed consent, the endoscope was passed under direct vision. Throughout the procedure, the patient's blood pressure, pulse, and oxygen saturations were monitored continuously. The Colonoscope was introduced through the mouth, and advanced to the second part of duodenum. The upper GI endoscopy was accomplished without difficulty. The patient tolerated the procedure well. Scope In: 1:16:45 PM Scope Out: 1:19:41 PM Total Procedure Duration Time 0 hours 2 minutes 56 seconds Findings: The examined esophagus was normal. A moderate Schatzki ring was found at the gastroesophageal junction. A small hiatal hernia was present. No gross lesions were noted in the stomach. No gross lesions were noted in the first portion of the duodenum. Impression: - Normal esophagus. - Moderate Schatzki ring. - Small hiatal hernia. - No gross lesions in the stomach. - No gross lesions in the first portion of the duodenum. - No specimens collected. Recommendation: - Discharge patient to home. - Resume previous diet. - Continue present medications. Procedure Code(s): --- Professional --- 01864, Esophagogastroduodenoscopy, flexible, transoral; diagnostic, including collection of specimen(s) by brushing or washing, when performed (separate procedure) CPT copyright 2021 [employer]. All rights reserved. The codes documented in this report are preliminary and upon label coder review may be revised to meet current compliance requirements. Boo Gutierrez DO 07/23/2024 1:37:35 PM This report has been signed electronically. Number of Addenda: 0 Note Initiated On: 07/23/2024 12:56 PM
--- NOTE | 2024-07-23 13:38 | OP.CCLET_ITS ---
07/23/2024 Yogi Kapadia Do Re : Upper GI endoscopy procedure for Harini Roth Dear Dr. Kapadia This procedure was performed on Tuesday, July 23, 2024. My impressions and recommendations are as follows: Impressions : - Normal esophagus. - Moderate Schatzki ring. - Small hiatal hernia. - No gross lesions in the stomach. - No gross lesions in the first portion of the duodenum. - No specimens collected. Recommendations : - Discharge patient to home. - Resume previous diet. - Continue present medications. My findings are described in the full procedure note, which is enclosed. If I can be of further assistance, please feel free to contact me at . Sincerely, Boo Gutierrez, 07/23/2024 1:37:35 PM This report has been signed electronically.
--- NOTE | 2024-07-23 13:43 | OP.COLON_ITS ---
Patient Name: Harini Roth Procedure Date: 07/23/2024 1:19 PM Date of : 1935 Age: 88 Procedure: Colonoscopy Indications: Hematochezia, Iron deficiency anemia Providers: Boo Gutierrez DO Medicines: Monitored Anesthesia Care Patient Profile: This is an 88 year old female. Refer to note in patient chart for documentation of history and physical. Patient has symptoms. Last Colonoscopy: 6 months ago. Complications: No immediate complications. Procedure: Pre-Anesthesia Assessment: - Prior to the procedure, a History and Physical was performed, and patient medications and allergies were reviewed. The patient is competent. The risks and benefits of the procedure and the sedation options and risks were discussed with the patient. All questions were answered and informed consent was obtained. Patient identification and proposed procedure were verified by the physician in the pre-procedure area. Mental Status Examination: alert and oriented. Airway Examination: normal oropharyngeal airway and neck mobility. Respiratory Examination: clear to auscultation. CV Examination: normal. Prophylactic Antibiotics: The patient does not require prophylactic antibiotics. Prior Anticoagulants: The patient has taken Xarelto (rivaroxaban), last dose was 3 days prior to procedure. ASA Grade Assessment: III - A patient with severe systemic disease. After reviewing the risks and benefits, the patient was deemed in satisfactory condition to undergo the procedure. The anesthesia plan was to use monitored anesthesia care (MAC). Immediately prior to administration of medications, the patient was re-assessed for adequacy to receive sedatives. The heart rate, respiratory rate, oxygen saturations, blood pressure, adequacy of pulmonary ventilation, and response to care were monitored throughout the procedure. The physical status of the patient was re-assessed after the procedure. After I obtained informed consent, the scope was passed under direct vision. Throughout the procedure, the patient's blood pressure, pulse, and oxygen saturations were monitored continuously. The Colonoscope was introduced through the anus and advanced to the ileocolonic anastomosis. The colonoscopy was performed without difficulty. The patient tolerated the procedure well. The quality of the bowel preparation was adequate. Scope In: 1:23:05 PM Scope Out: 1:34:04 PM Total Procedure Duration Time 0 hours 10 minutes 59 seconds Findings: The perianal and digital rectal examinations were normal. There was evidence of a prior [id number] ileo-colonic anastomosis at the hepatic flexure. This was patent and was characterized by a hemorrhagic appearance. The anastomosis was traversed. Coagulation for hemostasis using heater probe was successful. For hemostasis, two hemostatic clips were successfully placed. Clip tie cutter: [employer]. There was no bleeding at the end of the procedure. Impression: - Patent [id number] ileo-colonic anastomosis, characterized by a hemorrhagic appearance. Treated with a heater probe. Clips were placed. Clip tie cutter: [employer]. - No specimens collected. Recommendation: - Discharge patient to home. - Resume previous diet today. - Continue present medications. - Repeat colonoscopy in 6 months for surveillance. Procedure Code(s): --- Professional --- 43203, Colonoscopy, flexible; with control of bleeding, any method CPT copyright 2021 [employer]. All rights reserved. The codes documented in this report are preliminary and upon cap machine operator review may be revised to meet current compliance requirements. Boo Gutierrez DO 07/23/2024 1:42:26 PM This report has been signed electronically. Number of Addenda: 0 Note Initiated On: 07/23/2024 1:19 PM
--- NOTE | 2024-07-23 13:43 | OP.CCLET_ITS ---
07/23/2024 Yogi Kapadia Do Re : Colonoscopy procedure for Harini Roth Dear Dr. Kapadia This procedure was performed on Tuesday, July 23, 2024. My impressions and recommendations are as follows: Impressions : - Patent [id number] ileo-colonic anastomosis, characterized by a hemorrhagic appearance. Treated with a heater probe. Clips were placed. Clip box printer: [employer]. - No specimens collected. Recommendations : - Discharge patient to home. - Resume previous diet today. - Continue present medications. - Repeat colonoscopy in 6 months for surveillance. My findings are described in the full procedure note, which is enclosed. If I can be of further assistance, please feel free to contact me at . Sincerely, Boo Gutierrez, 07/23/2024 1:42:26 PM This report has been signed electronically.
--- NOTE | 2024-07-23 13:43 | PCM.POST.ANE ---
Anesthesia: Postop Eval I Current Vital Signs Temperature: 97.7 F Pulse Rate: 74 Blood Pressure: 108/53 Respiratory Rate: 16 Pulse Ox: 93 Oxygen Delivery Method: Room Air Assessment Airway patent: Yes Spontaneous unlabored respirations: Yes Mental status: Asleep nausea: No Vomiting: No Anesthesia Complication: No Fluid Hydration Crystalloid volume administer (ml): 800 Total IV fluid infused: 800 Progress Note Anesthesia document: Postop Eval 1 completed: Yes
--- NOTE | 2024-07-23 14:14 | PCM.POSTANE2 ---
Anesthesia Postop Eval I Sum Postop Eval Completion status Anesthesia document: Postop Eval 1 completed: Yes Anesthesia Postop Eval I Summary Anesthesia Postop Eval I Summary: Anesthesia Postop Eval I: Assessment Summary Airway patent Yes 07/23/24 13:44 [email or web address] Spontaneous unlabored Yes 07/23/24 13:44 [email or web address] respirations Mental status Asleep 07/23/24 13:44 [email or web address] nausea No 07/23/24 13:44 [email or web address] Vomiting No 07/23/24 13:44 [email or web address] Anesthesia Postop Eval I: Fluid Summary Crystalloid volume administer 800 07/23/24 13:44 [email or web address] (ml) Colloids volume administered ( ml) Blood Product volume administered (ml) Total IV fluid infused 800 07/23/24 13:44 [email or web address] Anesthesia Postop Eval I: Summary Notes Anesthesia Complication No 07/23/24 13:44 [email or web address] Anesthesia Complication Comment: Post-operative progress note Anesthesia: Postop Eval II Evaluation Mental status: Awake Pain Level: 0 nausea: No Vomiting: No
--- NOTE | 2024-07-23 14:36 | DCINST_ITS ---
Discharge Instructions Diet Discharge Diet: No restrictions Activity Discharge Activity: Return to Normal Activity Weight Bearing Status: Full weight bearing Follow Up Care Test Results: Test results from this visit will be discussed in further detail at your follow- up appointment, if applicable. Discharge Plan Admission Admit Date/Time: 07/20/24 14:41 Primary Reason for Your Visit: Acute on chronic anemia secondary to bleeding at the ileocolonic anastomosi Attending Provider: Gino Carter Primary Care Provider: Yogi Kapadia Consulting Providers: Elaine Srinivasan; Maryellen Zhang Discharge Orders/Prescriptions Prescriptions: New omeprazole 40 mg capsule,delayed release(DR/EC) 40 mg PO DAILY Qty: 30 0RF Continued acetaminophen 500 mg tablet 1,000 mg PO Q6H PRN (Reason: fever or pain) ascorbate calcium (vitamin C) 500 mg tablet 1 g PO DAILY vitamin E (dl, acetate) 180 mg (400 unit) capsule 180 mg PO DAILY fluticasone propionate 50 mcg/actuation spray,suspension 1 spray INTRANASAL DAILY PRN PRN (Reason: allergic symptoms) Patient Comments: USE 2 SPRAYS IN EACH NOSTRIL EVERY MORNING calcium carbonate-vitamin D3 600 mg-5 mcg (200 unit) tablet 1 tab PO DAILY polysaccharide iron complex [Ferrex 150] 150 mg iron Capsule 150 mg PO BID rosuvastatin 5 mg tablet 5 mg PO DAILY trazodone 50 mg tablet 50 mg PO QHS PRN amlodipine 2.5 mg tablet 2.5 mg PO DAILY losartan 25 mg tablet 25 mg PO DAILY metoprolol tartrate 25 mg tablet 12.5 mg PO BID Qty: 180 3RF amiodarone 200 mg tablet 100 mg PO DAILY Qty: 45 3RF Held aspirin [Adult Low Dose Aspirin] 81 mg tablet,delayed release (DR/EC) 81 mg PO DAILY Hold Instructions: Hold aspirin for 2 more days then restart at previous dosage Patient Comments: STOPPING FOR SURGERY apixaban 2.5 mg tablet 2.5 mg PO BID Hold Instructions: Hold Eliquis for 2 more days then restart at previous dosage Discontinued famotidine 20 mg tablet 20 mg PO BID PRN Referrals / Follow Up: Yogi Kapadia DO [Primary Care Provider] - In 1 Week (Get a repeat CBC ordered) Disposition Disposition (needs filled in before D/C Order can be placed): Home, Self Care
--- NOTE | 2024-07-23 14:43 | PCM.DC.SUM ---
Providers Date of Admission: 07/20/24 Date of Discharge: 07/23/24 Primary Care Physician: Dr. Yogi Kapadia, Consultations 07/20/24 15:44 Consult: Gastroenterology Routine Consulting Provider: Derek G[facility] Reason for Consult: acute on chronic anemia EMERGENT Consult: No MD Notified: Yes Date Notified: 07/20/24 Time Notified: 14:44 Method of Notification: Text Reason For Visit: GI BLEED Diagnosis Discharge Diagnosis (1) Acute on chronic anemia: Status: Chronic Code(s): D64.9 - Anemia, unspecified (2) Malignant neoplasm of right colon: Status: Acute Code(s): C18.2 - Malignant neoplasm of ascending colon Plan 1. Acute on chronic anemia secondary to acute gastrointestinal bleed at the ileocolonic anastomosis requiring transfusion. #2 paroxysmal atrial fibrillation #3 essential hypertension #4 coronary artery disease #5 recent colon cancer-status post hemicolectomy May 2024 #6 aortic stenosis Medications at Discharge Home Medications acetaminophen 500 mg tablet 1,000 mg PO Q6H PRN fever or pain 11/28/20 fluticasone propionate 50 mcg/actuation nasal spray,suspension 1 spray intranasal DAILY PRN PRN allergic symptoms 10/09/23 ascorbate calcium (vitamin C) 500 mg tablet 1 g PO DAILY SUPPLEMENT 12/29/23 aspirin 81 mg tablet,delayed release (Adult Low Dose Aspirin) 81 mg PO DAILY BLOOD THINNER 12/29/23 vitamin E (dl, acetate) 180 mg (400 unit) capsule 180 mg PO DAILY SUPPLEMENT 12/29/23 metoprolol tartrate 25 mg tablet 12.5 mg (1/2 x 25 mg) PO BID BP #180 tabs 05/11/24 calcium carbonate 600 mg-vitamin D3 5 mcg (200 unit) tablet 1 tab PO DAILY SUPPLEMENT 05/16/24 polysaccharide iron complex 150 mg iron capsule (Ferrex) 150 mg PO BID SUPPLEMENT 05/16/24 rosuvastatin 5 mg tablet 5 mg PO DAILY CHOLESTEROL 05/16/24 amiodarone 200 mg tablet 100 mg (1/2 x 200 mg) PO DAILY HEART #45 tabs 06/20/24 apixaban 2.5 mg tablet 2.5 mg PO BID 06/20/24 amlodipine 2.5 mg tablet 2.5 mg PO DAILY 07/20/24 losartan 25 mg tablet 25 mg PO DAILY 07/20/24 trazodone 50 mg tablet 50 mg PO QHS PRN 07/20/24 omeprazole 40 mg capsule,delayed release 40 mg PO DAILY #30 caps 07/23/24 Hospital Course Operations None Procedures Blood transfusion and Colonoscopy Summary of Care Provided Minutes Spent on Discharge: 31 Hospital Course: This 88-year-old white female was seen in the emergency room at [facility] with complaints of generalized weakness and fatigue. She had recent labs drawn and her hemoglobin was low at 6.8. She was instructed to go to the ER for evaluation. Labs obtained in the emergency room revealed her hemoglobin to be 6.9, creatinine was elevated at 1.23 and BUN was 21. Patient was admitted to [place] [address] for acute on chronic anemia, she was transfused packed red blood cells and seen in consultation by gastroenterology. Patient underwent an EGD which showed no evidence of upper GI bleeding or significant abnormality. Patient underwent a colonoscopy the same day which showed a hemorrhagic appearance in the ileocolonic anastomosis area. This was treated with a heater probe. Clips were also placed. On 07/23/2024, patient was seen and examined: On examination she appeared in good health and spirits, she does not appear to be in any distress. Vital signs as documented. Skin warm and dry and without overt rashes. Neck without JVD, thyroid appears normal, trachea is midline, neck is supple. Lungs clear, normal air movement was noted. Heart exam notable for regular rhythm, normal sounds, there is noted to be a 2/6 systolic murmur at the left sternal border and apex, there were no rubs or gallops. Abdomen unremarkable and without evidence of organomegaly, masses, or abdominal aortic enlargement, bowel sounds are present in all 4 quadrants, no abdominal tenderness was noted. Extremities nonedematous, no cyanosis was noted, no clubbing was noted. Neuro: Cranial nerves II through XII are grossly intact, no focal motor deficits were noted, sensation to light touch and pinprick is intact, motor exam 5/5 throughout. Psych: Patient is alert and oriented x3, she does not appear anxious or depressed, she does not appear agitated. Patient was felt to be stable for discharge home on 07/23/2024 Weight / BMI Weight Weight: 54.5 kg Body Mass Index (BMI) 23.4 ABG / Lab / Microbiology Data 07/23/24 06:07/23/24 06:06 Laboratory: Laboratory Results - last 24 hr 07/23/24 06:06: WBC 4.2 L, RBC 3.38 L, Hgb 9.5 L, Hct 30.9 L, MCV 91.4, MCH 28.1, MCHC 30.7 L, RDW Std Deviation 64.2 H, RDW Coeff of Grace 19.4 H, Plt Count 171, MPV 9.8, Sodium 142, Potassium 3.7, Chloride 111 H, Carbon Dioxide 23.0, Anion Gap 8, BUN 6 L, Creatinine 0.79, Estim Creat Clear Calc 34.24, Est GFR (MDRD) Af Amer 88, Est GFR (MDRD) Non-Af 73, BUN/Creatinine Ratio 7.6 L, Glucose 102, Calcium 8.7, Phosphorus 2.8, Magnesium 2.0 Microbiology: Microbiology 07/20/24 13:35 Stool Stool Occult Blood (DINORAH) - Final Occult Blood Positive D/C Instructions Discharge Diet: No restrictions Weight Bearing Status: Full weight bearing Meaningful Use Info Meaningful Use Meaningful Use Diagnoses (Choose all that apply): None applicable Ischemic Stroke Statin Dosing Therapy Reference: STATIN DOSE THERAPY REFERENCE: * Patients > 75 years receive moderate or high dose statin therapy. * Patients 75 years or YOUNGER should receive HIGH intensity statin dose unless contraindicated. You will be required to document reason for non-treatment if statin daily dose does not meet guidelines. HIGH DOSE STATIN THERAPY DAILY Atorvastatin > than or = to 40 mg Rosuvastatin > than or = to 20 mg Amlodipine + Atorvastatin > than or = to 2.5/40 mg Ezetimibe + Simvastatin 10/80 mg Simvastatin 80mg Discharge Plan Admission Admit Date/Time: 07/20/24 14:41 Primary Reason for Your Visit: Acute on chronic anemia secondary to bleeding at the ileocolonic anastomosi Attending Provider: Gino Carter Primary Care Provider: Yogi Kapadia Consulting Providers: Elaine Srinivasan; Maryellen Zhang Discharge Orders/Prescriptions Prescriptions: New omeprazole 40 mg capsule,delayed release(DR/EC) 40 mg PO DAILY Qty: 30 0RF Continued acetaminophen 500 mg tablet 1,000 mg PO Q6H PRN (Reason: fever or pain) ascorbate calcium (vitamin C) 500 mg tablet 1 g PO DAILY vitamin E (dl, acetate) 180 mg (400 unit) capsule 180 mg PO DAILY fluticasone propionate 50 mcg/actuation spray,suspension 1 spray INTRANASAL DAILY PRN PRN (Reason: allergic symptoms) Patient Comments: USE 2 SPRAYS IN EACH NOSTRIL EVERY MORNING calcium carbonate-vitamin D3 600 mg-5 mcg (200 unit) tablet 1 tab PO DAILY polysaccharide iron complex [Ferrex 150] 150 mg iron Capsule 150 mg PO BID rosuvastatin 5 mg tablet 5 mg PO DAILY trazodone 50 mg tablet 50 mg PO QHS PRN amlodipine 2.5 mg tablet 2.5 mg PO DAILY losartan 25 mg tablet 25 mg PO DAILY metoprolol tartrate 25 mg tablet 12.5 mg PO BID Qty: 180 3RF amiodarone 200 mg tablet 100 mg PO DAILY Qty: 45 3RF Held aspirin [Adult Low Dose Aspirin] 81 mg tablet,delayed release (DR/EC) 81 mg PO DAILY Hold Instructions: Hold aspirin for 2 more days then restart at previous dosage Patient Comments: STOPPING FOR SURGERY apixaban 2.5 mg tablet 2.5 mg PO BID Hold Instructions: Hold Eliquis for 2 more days then restart at previous dosage Discontinued famotidine 20 mg tablet 20 mg PO BID PRN Referrals / Follow Up: Yogi Kapadia DO [Primary Care Provider] - In 1 Week (Get a repeat CBC ordered) Disposition Disposition (needs filled in before D/C Order can be placed): Home, Self Care Charges/Coding Visit Charges Inpatient E&M: 43783 Disch Hosp >30min
--- NOTE | 2024-07-23 15:13 | PHA.DC.MC.R ---
Pharmacy [facility] has performed discharge medication reconciliation and counseling for this patient. The patient's discharge medication list was reviewed for discrepancies and discrepancies were resolved. The patient was counseled on the following discharge medications and changes in medications for homegoing were reviewed. The Reason for Use, instructions for use, and potential side effects were reviewed for all new medications. The patient's questions regarding all of their medications were answered. 1. Omeprazole 40 mg PO daily The patient was able to verbally demonstrate an understanding of their discharge medications. Medications at Discharge Home Medications acetaminophen 500 mg tablet 1,000 mg PO Q6H PRN fever or pain 11/28/20 fluticasone propionate 50 mcg/actuation nasal spray,suspension 1 spray intranasal DAILY PRN PRN allergic symptoms 10/09/23 ascorbate calcium (vitamin C) 500 mg tablet 1 g PO DAILY SUPPLEMENT 12/29/23 aspirin 81 mg tablet,delayed release (Adult Low Dose Aspirin) 81 mg PO DAILY BLOOD THINNER 12/29/23 vitamin E (dl, acetate) 180 mg (400 unit) capsule 180 mg PO DAILY SUPPLEMENT 12/29/23 metoprolol tartrate 25 mg tablet 12.5 mg (1/2 x 25 mg) PO BID BP #180 tabs 05/11/24 calcium carbonate 600 mg-vitamin D3 5 mcg (200 unit) tablet 1 tab PO DAILY SUPPLEMENT 05/16/24 polysaccharide iron complex 150 mg iron capsule (Ferrex) 150 mg PO BID SUPPLEMENT 05/16/24 rosuvastatin 5 mg tablet 5 mg PO DAILY CHOLESTEROL 05/16/24 amiodarone 200 mg tablet 100 mg (1/2 x 200 mg) PO DAILY HEART #45 tabs 06/20/24 apixaban 2.5 mg tablet 2.5 mg PO BID 06/20/24 amlodipine 2.5 mg tablet 2.5 mg PO DAILY 07/20/24 losartan 25 mg tablet 25 mg PO DAILY 07/20/24 trazodone 50 mg tablet 50 mg PO QHS PRN 07/20/24 omeprazole 40 mg capsule,delayed release 40 mg PO DAILY #30 caps 07/23/24
== END 2024-07-23 16:42 | disposition home or self-care (01) | DRG 394 ==
LOC: ED 13:15 → MS3 07-21 06:51
PROVIDERS: Anesthesiology; Internal Medicine; Internal Medicine Gastroenterology; Admitting Provider Student in an Organized Health Care Education/Training Program; Emergency Provider Emergency Medicine; Visit Provider Internal Medicine
PROC: 0DJD8ZZ Inspection of Lower Intestinal Tract, Via Natural or Artificial Opening Endoscopic (ICD-10-PCS; CPT 45378; principal; 2024-07-23 16:00)
DX: K91.89 Other postprocedural complications and disorders of digestive system (principal); K92.2 Gastrointestinal hemorrhage, unspecified; D62 Acute posthemorrhagic anemia; N18.30 Chronic kidney disease, stage 3 unspecified; I12.9 Hypertensive chronic kidney disease with stage 1 through stage 4 chronic kidney disease, or unspecified chronic kidney disease; I35.0 Nonrheumatic aortic (valve) stenosis; I48.0 Paroxysmal atrial fibrillation; E78.2 Mixed hyperlipidemia; I25.10 Atherosclerotic heart disease of native coronary artery without angina pectoris; K21.9 Gastro-esophageal reflux disease without esophagitis; K44.9 Diaphragmatic hernia without obstruction or gangrene; K22.2 Esophageal obstruction; R73.9 Hyperglycemia, unspecified; G47.00 Insomnia, unspecified; Z66 Do not resuscitate; Z79.82 Long term (current) use of aspirin; Z79.01 Long term (current) use of anticoagulants; Z79.899 Other long term (current) drug therapy; Z90.49 Acquired absence of other specified parts of digestive tract; Z95.5 Presence of coronary angioplasty implant and graft; Z85.038 Personal history of other malignant neoplasm of large intestine; Z80.0 Family history of malignant neoplasm of digestive organs
CPT/HCPCS: 36415; 73502; 80048; 80053; 82274; 83735; 84100; 85025; 85027; 85610; 86850; 86900; 86901; 86920; 86922; 93005; 97116; 97162; 97166; 97530; 99285; J7030; J7040; J7120; P9016; A4216; J2405

== ENCOUNTER → 2024-09-19 | Outpatient (CLI) | payer MEDICARE, OTHER, SELFPAY ==
[2024-06-06 10:46] VITALS: BMI 24.7
[2024-09-19 12:36] LABS: Absolute Lymphocyte Count 1.21 X10^3/uL (0.83-4.51); Absolute Neutrophil Count 2.8 X10^3/uL (2.0-7.7); Basophil# 0.04 X10^3/uL; Basophil% 0.9 % (0-1); Eosinophil# 0.13 X10^3/uL; Eosinophils% 2.8 % (0-5); Hematocrit 33.3 % (37-47); Hemoglobin 10.1 g/dL (12.0-15.0); Lymphocyte # 1.21 X10^3/ul (0.83-4.51); Lymphocyte % 26.4 % (19-41); Mean Corp Hgb Conc 30.3 g/dL (32-36); Mean Corpuscular Hgb 29.7 pg (27.0-32.0); Mean Corpuscular Volume 97.9 fL (81-99); Monocyte% 8.7 % (0-10); NRBC Flagged by Analyzer 0 % (0-5); Neutrophil # 2.79 X10^3/uL (2.7-7.7); Neutrophil % 60.8 % (47-70); POSITIVE MORPHOLOGY YES; Platelet Count 184 K/mm3 (150-450); RBC Distribution Width CV 16.9 % (11.6-14.6); RBC Distribution Width SD 60.3 fl (35.1-43.9); White Blood Count 4.6 K/mm3 (4.4-11.0)
[2024-09-19 12:44] LABS: Differential Indicated SCAN CRITERIA MET
[2024-09-19 13:06] LABS: Anion Gap 4 (5-15); BUN 14 mg/dL (7-18); BUN/Creat Ratio 14.1 RATIO (10-20); Calcium,Total 9.4 mg/dL (8.5-10.1); Chloride 111 mmol/L (98-107); Creatinine, Serum 0.99 mg/dL (0.55-1.02); EST Glomerular Filtration Rate 56 mL/min (>60); Est Glom Filt Rate - Afr Amer 68 mL/min (>60); Glucose 112 mg/dL (74-106); Potassium 4.4 mmol/L (3.5-5.1); Sodium Level 140 mmol/L (136-145)
[2024-09-19 13:08] LABS: Differential Comment SCANNED; Platelet Estimate ADEQUATE (ADEQ); Red Cell Morphology NORM C+C NORMAL (NORM C&C)
== END | disposition home or self-care (01) ==
LOC: LAB 11:35
DX: D64.9 Anemia, unspecified (principal)
CPT/HCPCS: 36415; 80048; 82274; 85025